=== PATIENT | female | born 1945 | race Caucasian/White ===

== ENCOUNTER → 2016-07-29 | Outpatient (CLI) | payer MEDICARE ==
[2016-07-29 12:29] LABS: Anion Gap 13 mmol/L; Blood Urea Nitrogen 16 mg/dL (7-17); Carbon Dioxide 16 mmol/L (22-30); Chloride 113 mmol/L (98-107); Non-African American GFR(MDRD) 52 (>60 ml/min/1.73 sqM); Potassium 3.8 mmol/L (3.5-5.1); Sodium 142 mmol/L (137-145)
--- NOTE | 2016-07-29 13:35 | CT ---
EXAMINATION TYPE: CT angio chest DATE OF EXAM: 07/29/2016 1:19 PM COMPARISON: NONE HISTORY: 71-year-old female SOB, pain TECHNIQUE: Contiguous axial scanning of the chest performed with IV Contrast, patient injected with 8 0 ml mL of Visipaque 320. Coronal/sagittal MIP reconstructions performed. CT DLP: 478.1 mGycm Automated exposure control for dose reduction was used. FINDINGS: Heart is normal size without pericardial effusion. Ascending aorta is mildly aneurysmal at 4.0 cm. There is conventional arch vessel branching anatomy w ith mild atherosclerotic arch calcifications. Satisfactory opacification of the pulmonary arterial system with slight respiratory motion. No eviden ce for pulmonary embolus. No thoracic lymphadenopathy seen. Evaluation of the lungs shows mild mid and lower lung bronchiectasis and some interstitial fibrosis i n the anterior left subpleural region. Surgical clips are noted at the left axilla as well. No consol idation or pleural effusion seen. There is a small hiatal hernia. Hypodense lesion left hepatic lobe measures 1.4 cm, too small for acc urate CT characterization, probable cyst. Moderate stool burden. Bones: Moderate degenerative disc disease and endplate spondylosis mid to lower thoracic spine. Degen erative changes at the right shoulder. No osseous destructive process. IMPRESSION: 1. NO EVIDENCE FOR PULMONARY EMBOLUS. 2. MILD ANEURYSM ASCENDING AORTA AT 4.0 CM. 3. MILD MID AND LOWER LUNG BRONCHIECTASIS WITHOUT ACUTE PULMONARY PROCESS. THERE APPEARS TO BE SOME S UBPLEURAL FIBROSIS ANTERIOR LEFT LUNG POSSIBLY DUE TO PREVIOUS RADIATION THERAPY. CLINICALLY CORRELAT E.
== END ==
LOC: RADCTMAIN 11:46
PROVIDERS: ATTEND Internal Medicine Cardiovascular Disease
DX: J47.9 Bronchiectasis, uncomplicated (principal); I71.2 Thoracic aortic aneurysm, without rupture
CPT/HCPCS: 80051; 82565; 84520; 71275; 36415; Q9967

== ENCOUNTER 2017-07-16 20:15 | Inpatient (IN) | payer MEDICARE ==
--- NOTE | 2017-07-16 20:50 | ED ---
General Adult HPI - General Chief complaint: Recheck/Abnormal Lab/Rx Stated complaint: foot infection Time Seen by Provider: 07/16/17 20:19 Source: patient, EMS, RN notes reviewed Mode of arrival: EMS Limitations: no limitations - History of Present Illness Initial comments: Shayla Mazariegos is a 72-year-old female with past medical history listed below who presents to the emergency department today from an outside hospital for admission for infection of her left second toe,bilateral lower extremity cellulitis and edema. patient presented to the outside hospital for evaluation of the edema of her bilateral lower extremities and ill appearance. Patient lives at home alone, she was one and half years ago after her suicide. she follows with the nurse practitioner at her primary care office, she states that she's been treated for her lower extremity edema with Lasix intermittently however the edema continues to recur. Patient is noted to recently swelling in her lower surety's is gotten worse and begin to limit her ability to walk. In addition she has noticed that she has a significant ulcer on the second toe of her left foot, this is been evaluated by wound care intermittently. Patient's neighbor reports that she was worried that the patient was getting sick and motivated her to come to the emergency department for evaluation. Outside hospital evaluation was concerning for sepsis secondary to infection and left lower extremity. Patient was given 40mg IV Lasix for her edema and Vancomycin for infection. - Related Data Home Medications Medication Instructions Recorded Confirmed Amitriptyline HCl [Elavil] 50 mg PO HS 07/16/17 07/16/17 Aspirin EC [Ecotrin] 325 mg PO DAILY 07/16/17 07/16/17 DULoxetine HCL [Cymbalta] 60 mg PO BID 07/16/17 07/16/17 Furosemide [Lasix] 40 mg PO DAILY 07/16/17 07/16/17 Gabapentin 800 mg PO QID 07/16/17 07/16/17 Levothyroxine Sodium [Synthroid] 200 mcg PO DAILY 07/16/17 07/16/17 Potassium Chloride [Klor-Con 20] 20 meq PO DAILY 07/16/17 07/16/17 Spironolactone [Aldactone] 50 mg PO BID 07/16/17 07/16/17 rOPINIRole HCL [Requip] 6 mg PO TID 07/16/17 07/16/17 Allergies Allergy/AdvReac Type Severity Reaction Status Date / Time Sulfa (Sulfonamide Allergy Unknown Verified 07/16/17 20:50 Antibiotics) Review of Systems ROS Statement: Those systems with pertinent positive or pertinent negative responses have been documented in the HPI. ROS Other: All systems not noted in ROS Statement are negative. Constitutional: Denies: fever, chills Eyes: Denies: vision change Respiratory: Reports: dyspnea. Denies: cough Cardiovascular: Reports: dyspnea on exertion, edema Endocrine: Reports: fatigue Gastrointestinal: Denies: abdominal pain, nausea, vomiting Genitourinary: Denies: urgency, dysuria Musculoskeletal: Denies: back pain Skin: Reports: lesions Neurological: Reports: weakness (generalized) Hematological/Lymphatic: Denies: easy bleeding, easy bruising Past Medical History Past Medical History: Heart Failure, Renal Disease, Thyroid Disorder Additional Past Medical History / Comment(s): chronic edema, chronic metabolic acidosis, neuropathy, insomnia, breast cancer History of Any Multi-Drug Resistant Organisms: None Reported Past Surgical History: Bariatric Surgery, Section, Cholecystectomy, Tonsillectomy Past Psychological History: Depression Smoking Status: Former smoker Past Alcohol Use History: None Reported Past Drug Use History: None Reported General Exam Limitations: no limitations General appearance: alert, in no apparent distress Head exam: Present: atraumatic, normocephalic Eye exam: Present: normal appearance, PERRL ENT exam: Present: other (mucous membranes are dry, there is an ulcer on the tip of the patient's tongue) Neck exam: Absent: lymphadenopathy Respiratory exam: Absent: respiratory distress Cardiovascular Exam: Present: regular rate, normal rhythm GI/Abdominal exam: Present: soft, other (obese). Absent: distended Rectal exam: Present: deferred Extremities exam: Present: pedal edema, other (skin changes on the bilateral lower extremities consistent with chronic venous stasis, erythema worse in the left concern for cellulitis) Left Foot/Toe exam: Present: swelling (edema foot and toes, erythematous cellulitic appearance. Second toe has a nonhealing ulcer that appears necrotic with surrounding skin breakdown and malodorous discharge.) Back exam: Present: normal inspection Neurological exam: Present: alert, oriented X3 Psychiatric exam: Present: depressed Skin exam: Present: other Course Vital Signs 07/16/17 07/16/17 07/16/17 20:18 21:21 21:29 Temperature 96.9 F L Pulse Rate 73 71 75 Pulse Rate [ [employer] ] Respiratory 16 18 20 Rate Blood Pressure 103/62 105/55 105/55 O2 Sat by Pulse 98 99 97 Oximetry 07/16/17 07/16/17 07/16/17 22:00 22:12 22:30 Temperature Pulse Rate 68 Pulse Rate [ 74 [employer] ] Respiratory 18 Rate Blood Pressure 96/57 102/59 O2 Sat by Pulse 98 Oximetry 07/16/17 23:16 Temperature 97.2 F L Pulse Rate 71 Pulse Rate [ [employer] ] Respiratory 22 Rate Blood Pressure 109/56 O2 Sat by Pulse 97 Oximetry Medical Decision Making - Medical Decision Making patient was seen and evaluated, history was obtained from the patient, her friend at bedside and review of medical record History, physical exam and workup an outside hospital are suggestive of cellulitis of the left lower extremity with a chronic wound, chronic edema, venous insufficiency, morbid obesity Patient is arty received IV vancomycin at outside facility as well as Lasix There are no venous Dopplers performed at outside facility, patient is not anticoagulated and does have bilateral lower extremity edema. I will order venous Dopplers to evaluate for DVT In addition the patient is complaining of leg spasms for which she takes Requip , Requip was ordered. Patient complaining that her back is sore from lying in the [facility], patient's blood pressure is somewhat low so IV fentanyl was ordered rather than morphine patient care was discussed with Dr. Perdomo who accepts the admission with a consult to Dr. Cox for wound management Admission orders placed Disposition Clinical Impression: Encounter for wound re-check, Venous stasis, Lower extremity edema, Ulcer of toe of left foot, Leukocytosis Disposition: ADMITTED IP TO THIS HOSP Condition: Good Referrals: Shira Tucker MD [Primary Care Provider] - 1-2 days Time of Disposition: 23:06
[2017-07-16] MEDS ORDERED: MORPHINE SULFATE 4 MG/ML SYRINGE IVP STA (21:19)
[2017-07-16] MEDS ORDERED: fentaNYL (PF) 50 MCG/ML 2 ML AMP IV STA (22:01)
[2017-07-16] MEDS ORDERED: MORPHINE SULFATE 4 MG/ML SYRINGE IV PRN (23:06)
[2017-07-16] MEDS ORDERED: NALOXONE 0.4 MG/ML 1 ML VIAL IV PRN (23:06)
--- NOTE | 2017-07-17 07:03 | US ---
EXAMINATION TYPE: US venous doppler duplex LE BI DATE OF EXAM: 07/16/2017 10:14 PM COMPARISON: NONE CLINICAL HISTORY: Pain. Edema SIDE PERFORMED: Bilateral TECHNIQUE: The lower extremity deep venous system is examined utilizing real time linear array sonog ashley with graded compression, doppler sonography and color-flow sonography. VESSELS IMAGED: External Iliac Vein (EIV) Common Femoral Vein Deep Femoral Vein Greater Saphenous Vein * Femoral Vein Popliteal Vein Small Saphenous Vein * Proximal Calf Veins (* superficial vessels) Right Leg: Negative for DVT Left Leg: Negative for DVT Grayscale, color doppler, spectral doppler imaging performed of the deep veins of the bilateral lower extremities. There is normal flow, compressibility, vascular waveforms. IMPRESSION: No ultrasound evidence for acute DVT in either lower extremity.
[2017-07-17 08:36] LABS: Basophils % (A) 0 %; Eosinophils # (A) 0.4 k/uL (0-0.7); Eosinophils % (A) 5 %; HCT 34.8 % (34.0-46.0); HGB 10.5 gm/dL (11.4-16.0); Hypochromasia Marked; Lymphocytes # (A) 1.2 k/uL (1.0-4.8); Lymphocytes % (A) 16 %; MCH 25.4 pg (25.0-35.0); MCHC 30.2 g/dL (31.0-37.0); Mean Platelet Volume 7.1; Monocytes # (A) 0.4 k/uL (0-1.0); Monocytes % (A) 5 %; Neutrophils # (A) 5.3 k/uL (1.3-7.7); Neutrophils % (A) 72 %; Platelet Count 422 k/uL (150-450); RBC 4.14 m/uL (3.80-5.40); RDW 15.8 % (11.5-15.5); WBC 7.4 k/uL (3.8-10.6)
[2017-07-17 08:57] LABS: Calcium 9.4 mg/dL (8.4-10.2)
[2017-07-17] MEDS: GABAPENTIN 400 MG CAP PO SCH ×4 (09:32→21:16)
[2017-07-17] MEDS: ASPIRIN 325 MG TAB PO SCH (09:32)
[2017-07-17] MEDS: POTASSIUM CHLORIDE ER 20 MEQ TAB.ER PO SCH (09:32)
[2017-07-17] MEDS: FUROSEMIDE 40 MG TAB PO SCH (09:32)
[2017-07-17] MEDS: LEVOTHYROXINE 100 MCG TAB PO SCH (09:32)
[2017-07-17] MEDS: SPIRONOLACTONE 25 MG TAB PO SCH ×2 (09:32→21:17)
[2017-07-17] MEDS: DULoxetine HCL 60 MG CAPSULE.DR PO SCH ×2 (09:33→21:16)
[2017-07-17] MEDS: rOPINIRole HCL 4 MG TABLET PO SCH ×3 (09:33→21:17)
--- NOTE | 2017-07-17 09:50 | P.CONS ---
History of Present Illness - Reason for Consult Consult date: 07/17/17 Foot wound infection - History of Present Illness This is a 72-year-old female that gives history that she follows with Eliecer Gomez NP, and has been treated for lower extremity edema for a long period of time. Her Lasix and Aldactone were increased to double and for about 1-2 weeks she did have some improvement but she couldn't stay on the higher dose for long and her edema returned. She also has a wound to the left second toe that has been there for greater than 1 year. She does not recall any injury or how it started. She does have significant neuropathy to the lower extremities of unknown etiology. She denies being on any recent antibiotics. Patient states she has been using Epson salt soaks and she was supposed to wrap her legs but it's been too hard. She states she cannot even apply socks. She has been encouraged to go to the hospital for the past 6-8 weeks the patient has been reluctant and finally went to [facility] yesterday. Her white count was 11.3, hemoglobin 9.7, platelet count 447. Sodium 135, potassium 4.2, chloride 107, CO2 14, BUN 39 and creatinine 1.7. Alkaline phosphatase 117. Chest x-ray was negative. X-ray of the left foot showed degenerative joint disease with skin lesion on the second toe. Patient was given ceftriaxone, vancomycin and morphine and then transferred to [facility] emergency center where she underwent an ultrasound duplex of the lower extremity is which was negative for DVT. Patient was then admitted to the [facility] floor. Patient does give history that in the 1970s after her gastric bypass she did have a problem with kidney failure but since that time has not had trouble with her kidneys. Patient also discussed that her 1-1/ 2 years ago and she has been very depressed. She has been on Cymbalta for many years was treated in the remote past by Dr. Raymundo. She is currently living alone and states that she sits for long periods of time without having any motivation to do anything. She does relate increased depression and is open to seeing a psychiatrist and possible follow-up in the outpatient setting. Patient has significant weakness and inability to move in bed as well as ambulate which she states is much worse over the past 3 days. Patient denies having any fever or chills. She denies any change in her appetite. She does complain of some shortness of breath and cough butsputum production. Patient is noted to be hoarse and she states this started since treated for lower extremity edema. Patient does not have family support but does have one good friend that has been good support for her. Review of Systems All systems: negative Constitutional: Reports fatigue, Reports weakness, Denies chills, Denies fever Eyes: denies blurred vision, denies pain Ears, nose, mouth and throat: Reports mouth pain, Denies dental pain, Denies headache, Denies sore throat, Denies vertigo Cardiovascular: Reports leg edema, Reports shortness of breath, Denies chest pain, Denies lightheadedness, Denies syncope Respiratory: Reports cough, Reports dyspnea, Reports wheezing, Denies cough with sputum, Denies excessive sputum, Denies hemoptysis, Denies home oxygen Gastrointestinal: Denies abdominal pain, Denies diarrhea, Denies nausea, Denies vomiting Genitourinary: Denies dysuria, Denies hematuria Musculoskeletal: Denies myalgias Integumentary: Reports wounds, Denies pruritus, Denies rash Neurological: Denies numbness, Denies weakness Psychiatric: Reports depression, Denies anxiety Endocrine: Denies fatigue, Denies weight change Past Medical History Past Medical History: Heart Failure, Renal Disease, Thyroid Disorder Additional Past Medical History / Comment(s): chronic edema, chronic metabolic acidosis, neuropathy, insomnia, breast cancer status post lumpectomy, chemo and radiation treatment in 2002, both of acute kidney failure in the 1970s after gastric bypass History of Any Multi-Drug Resistant Organisms: None Reported Past Surgical History: Bariatric Surgery, Section, Cholecystectomy, Tonsillectomy Additional Past Surgical History / Comment(s): Gastric bypass, left breast lumpectomy, breast biopsy Past Anesthesia/Blood Transfusion Reactions: No Reported Reaction Past Psychological History: Depression Smoking Status: Never smoker Past Alcohol Use History: None Reported Additional Past Alcohol Use History / Comment(s): Patient is a lifelong nonsmoker. She denies any medical marijuana, marijuana, street drug or alcohol use. 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 She currently lives at home and has 2 dogs in the house and one outdoor cat. She recently had to give away 30 L jaycee because she could not take care of them any longer. Her committed suicide 1-1/2 years ago. She does not have family support system. She does have one good friend that helps her. Past Drug Use History: None Reported - Past Family History Father History Unknown: Yes Family Medical History: Diabetes Mellitus Additional Family Medical History / Comment(s): unaware of entire history. Mother History Unknown: Yes Family Medical History: Chest Pain / Angina, Coronary Artery Disease (CAD), Diabetes Mellitus Medications and Allergies Home Medications Medication Instructions Recorded Confirmed Type Aspirin EC [Ecotrin] 325 mg PO DAILY 07/16/17 07/16/17 History DULoxetine HCL [Cymbalta] 60 mg PO BID 07/16/17 07/16/17 History Furosemide [Lasix] 40 mg PO DAILY 07/16/17 07/16/17 History Gabapentin 800 mg PO QID 07/16/17 07/16/17 History Levothyroxine Sodium [Synthroid] 200 mcg PO DAILY 07/16/17 07/16/17 History Potassium Chloride [Klor-Con 20] 20 meq PO DAILY 07/16/17 07/16/17 History rOPINIRole HCL [Requip] 6 mg PO TID 07/16/17 07/16/17 History cefTRIAXone [Rocephin] 2,000 mg IVPB Q24HR #42 vial 07/20/17 Rx ARIPiprazole [Abilify] 2 mg PO DAILY #30 tab 07/21/17 Rx Imipramine [Tofranil] 25 mg PO HS #30 tab 07/21/17 Rx Midodrine [ProAmatine] 5 mg PO AC-TID #90 tab 07/21/17 Rx Allergies Allergy/AdvReac Type Severity Reaction Status Date / Time Sulfa (Sulfonamide Allergy Unknown Verified 07/16/17 20:50 Antibiotics) Physical Exam Vitals: Vital Signs Temp Pulse Pulse Pulse Resp BP BP 07/17/17 08:50 103/64 07/17/17 07:00 96.7 F L 68 20 07/17/17 00:00 97.0 F L 68 16 111/82 07/16/17 23:16 97.2 F L 71 22 109/56 07/16/17 22:30 102/59 07/16/17 22:12 68 18 96/57 07/16/17 22:00 74 07/16/17 21:29 75 20 105/55 07/16/17 21:21 71 18 105/55 07/16/17 20:18 96.9 F L 73 16 103/62 Pulse Ox 07/17/17 08:50 07/17/17 07:00 96 07/17/17 00:00 98 07/16/17 23:16 97 07/16/17 22:30 07/16/17 22:12 98 07/16/17 22:00 07/16/17 21:29 97 07/16/17 21:21 99 07/16/17 20:18 98 Intake and Output 07/16/17 07/17/17 07/17/17 22:59 06:59 14:59 Other: Voiding Method Bedside Commode # Voids 1 Weight 117.48 kg 117 kg Gen: This is a morbidly obese 72-year-old female. She appears to be no acute respiratory distress at rest. HEENT: Head is atraumatic, normocephalic. Pupils equal, round. Sclerae is anicteric. Conjunctiva pink. Mucous members of the mouth are moist. Weight coating on part of her tongue noted. Dentition in poor order. NECK: Supple. No JVD. No lymphadenopathy. No thyromegaly. LUNGS: Clear to auscultation. No wheezes or rhonchi. No intercostal retractions. HEART: Regular rate and rhythm. Distant heart sounds. No murmur. ABDOMEN: Morbidly obese. Soft. Bowel sounds are present. No masses. No tenderness. EXTREMITIES: Firm edema to the lower extremities. Dorsalis pedis +1 bilaterally. Onychomycosis bilaterally. Patient has a small lesion to the distal second toe with no drainage. Toe is tender to touch. NEUROLOGICAL: Patient is awake, alert and oriented x3. Cranial nerves 2 through 12 are grossly intact. Results Results: Laboratory Results WBC 7.4 k/uL (3.8-10.6) 07/17/17 08:09 RBC 4.14 m/uL (3.80-5.40) 07/17/17 08:09 Hgb 10.5 gm/dL (11.4-16.0) L 07/17/17 08:09 Hct 34.8 % (34.0-46.0) 07/17/17 08:09 MCV 84.0 fL (80.0-100.0) 07/17/17 08:09 MCH 25.4 pg (25.0-35.0) 07/17/17 08:09 MCHC 30.2 g/dL (31.0-37.0) L 07/17/17 08:09 RDW 15.8 % (11.5-15.5) H 07/17/17 08:09 Plt Count 422 k/uL (150-450) 07/17/17 08:09 Neutrophils % 72 % 07/17/17 08:09 Lymphocytes % 16 % 07/17/17 08:09 Monocytes % 5 % 07/17/17 08:09 Eosinophils % 5 % 07/17/17 08:09 Basophils % 0 % 07/17/17 08:09 Neutrophils # 5.3 k/uL (1.3-7.7) 07/17/17 08:09 Lymphocytes # 1.2 k/uL (1.0-4.8) 07/17/17 08:09 Monocytes # 0.4 k/uL (0-1.0) 07/17/17 08:09 Eosinophils # 0.4 k/uL (0-0.7) 07/17/17 08:09 Basophils # 0.0 k/uL (0-0.2) 07/17/17 08:09 Hypochromasia Marked 07/17/17 08:09 Sodium 140 mmol/L (137-145) 07/17/17 08:09 Potassium 4.0 mmol/L (3.5-5.1) 07/17/17 08:09 Chloride 110 mmol/L (98-107) H 07/17/17 08:09 Carbon Dioxide 17 mmol/L (22-30) L 07/17/17 08:09 Anion Gap 13 mmol/L 07/17/17 08:09 BUN 37 mg/dL (7-17) H 07/17/17 08:09 Creatinine 1.77 mg/dL (0.52-1.04) H 07/17/17 08:09 Est GFR (MDRD) Af Amer 34 (>60 ml/min/1.73 sqM) 07/17/17 08:09 Est GFR (MDRD) Non-Af 28 (>60 ml/min/1.73 sqM) 07/17/17 08:09 Glucose 89 mg/dL (74-99) 07/17/17 08:09 Calcium 9.4 mg/dL (8.4-10.2) 07/17/17 08:09 CBC & Chem 7: 07/21/17 09:11 07/21/17 09:11 Labs: Abnormal Lab Results - Last 24 Hours (Table) 07/17/17 Range/Units 08:09 Hgb 10.5 L (11.4-16.0) gm/dL MCHC 30.2 L (31.0-37.0) g/dL RDW 15.8 H (11.5-15.5) % Assessment and Plan Plan: This is a 72-year-old female patient who presented to the hospital with lower extremity edema and wound to the left second toe failed outpatient treatment. Patient will be started on ceftriaxone and bone scan will be ordered. Nystatin added for thrush. Consult with Dr. Nur for acute kidney injury. Also added and consult with psychiatry for depression with an social work to provide counselors in her area as well as patient may require rehab. PT and OT have been ordered. Wound culture ordered. Wound care will be addressed. Continue supportive care. Further recommendations as patient presses. The above dictated assessment and findings were discussed with Dr. Cox. The impression and plan of care have been directed as dictated. Samanta Lin nurse practitioner acting as scribe for Dr. Cox.
[2017-07-17] MEDS: cefTRIAXone IN SWFI 2,000 MG/20 ML SYRINGE IVP SCH (10:54)
[2017-07-17] MEDS: NYSTATIN 100,000 UNIT/ML SUSP 500,000 UNIT/5 ML CUP PO SCH ×4 (10:54→21:16)
--- NOTE | 2017-07-17 12:49 | CONS ---
CONSULTATION DATE OF CONSULTATION: 07/17/2017 PURPOSE FOR CONSULTATION: Evaluate for depression. HISTORY OF PRESENTING ILLNESS: The patient is a 72-year-old female. The patient was admitted for chronic wound issues, exacerbation of chronic edema and venous insufficiency. From a psychiatric standpoint, the patient reports that she has had long-term problems with depression. She is on Cymbalta 60 mg twice a day. She says that she has been on Cymbalta for a considerable period time. She believes that Cymbalta had been helpful in the past for depression, though more recently she has had more problems with depression. She could not really provide the details regarding that. When we talked about alternative options for treatment, she did say that she thinks Cymbalta may help her with her peripheral neuropathy. She says that she had been started on Elavil. She currently is on 50 mg a day. Her understanding was that Elavil was started to help augment her antidepressant. She said she had contact with a psychiatrist who informed her that Elavil would not provide any benefits for her psychiatric issues. She notes that she has had sleep problems. She thought Elavil used to help her with sleep although does not seem to be helping now. She lost her , which significantly exacerbated depression. She says that overall she has had depression most all of her life. She tolerates her psychotropic medications well. She is on Synthroid for hypothyroidism. There are not recent thyroid studies in the record. Patient reports that since she has been in the hospital, she has not been sleeping too well. She continues with a moderate amount of anxiety and depression. MENTAL STATUS: Patient gave good eye contact. She spoke with a hoarse voice. She answered questions directly. Her thoughts were clear. She did not say a lot, though the information she provided was accurate and appropriate. Her affect was blunted. Her mood reserved. It was difficult to say how distressed she might be relating to her mood issues. ASSESSMENT: This 72-year-old female is diagnosed with major depression. She is on a maximum dose of Cymbalta. She says that Cymbalta had been helping, though seems to have lost benefits. Stress related to grief from the of her may be a significant factor. At this point, I will start the patient on Abilify 2 mg a day. The indication for Abilify is to augment her antidepressant. I would give her just 1 to 2 weeks on Abilify. If she does not show a good response to Abilify augmentation, I would look to switch to an alternative antidepressant. It would be reasonable to look at starting medicine such as Prozac, which she has not been on before; along with that a slow taper of Cymbalta. I discussed with the patient that any antidepressants may be beneficial in regards to her peripheral neuropathy, though also Cymbalta may help her peripheral neuropathy even at a lower doses than the current dose. I will check thyroid levels. If her TSH is elevated, there would be consideration for bumping up her replacement hormone, which also can augment her antidepressant. I will discontinue Elavil and start the patient on Tofranil 25 mg at bedtime. Tofranil may help with sleep. Elavil does have risk of a greater amount of anticholinergic effects compared to Tofranil which could complicate her treatment in other ways. MMODL / IJN: [id number] /
--- NOTE | 2017-07-17 12:58 | P.HPIM ---
History of Present Illness H&P Date: 07/17/17 Chief Complaint: Bilateral lower extremity edema and cellulitis This is a 72-year-old female, patient of Dr. Tucker. She has a known past medical history of chronic kidney disease, hypothyroidism, breast cancer status post chemo and radiation treatment, depression, lower extremity neuropathy possibly related to a B12 deficiency. Patient also has a history of gastric bypass surgery in 2002. Possible congestive heart failure history. Patient reports that over the last few months she has had increased swelling in her lower extremities. Her family doctor had double up on the patient's Lasix. Patient is not sure exactly what what the dose was. She also would had been taking Aldactone. She does admit to having some shortness of breath with activity. Patient does report about a 19 pound weight gain. She is developed redness in the tibia area on both legs. She has a also her on the left second toe. She's been admitted to the hospital for her left foot wound and lower extremity edema with cellulitis. Dopplers were negative for DVT. Infectious disease was consulted and they have added IV Rocephin. Case was discussed with ID nurse practitioner and appreciate her input. Nephrology has been consulted as well as psychiatry. Patient's over a year ago after committing suicide. Patient reports that she has been on her antidepressants for several years with no change. She does show signs of depression. With lack of motivation to take care of herself. However, she denies any suicidal or homicidal ideation. Patient denies any chest pain denies any fever or chills or sweats. Denies any bowel movement changes or urinary symptoms. Review of Systems Please refer to HPI otherwise unremarkable Past Medical History Past Medical History: Heart Failure, Renal Disease, Thyroid Disorder Additional Past Medical History / Comment(s): chronic edema, chronic metabolic acidosis, neuropathy, insomnia, breast cancer status post lumpectomy, chemo and radiation treatment in 2002, both of acute kidney failure in the 1970s after gastric bypass History of Any Multi-Drug Resistant Organisms: None Reported Past Surgical History: Bariatric Surgery, Section, Cholecystectomy, Tonsillectomy Additional Past Surgical History / Comment(s): Gastric bypass, left breast lumpectomy, breast biopsy Past Anesthesia/Blood Transfusion Reactions: No Reported Reaction Past Psychological History: Depression Smoking Status: Never smoker Past Alcohol Use History: None Reported Additional Past Alcohol Use History / Comment(s): Patient is a lifelong nonsmoker. She denies any medical marijuana, marijuana, street drug or alcohol use. 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 She currently lives at home and has 2 dogs in the house and one outdoor cat. She recently had to give away 30 L jaycee because she could not take care of them any longer. Her committed suicide 1-1/2 years ago. She does not have family support system. She does have one good friend that helps her. Past Drug Use History: None Reported - Past Family History Father History Unknown: Yes Family Medical History: Diabetes Mellitus Additional Family Medical History / Comment(s): unaware of entire history. Mother History Unknown: Yes Family Medical History: Chest Pain / Angina, Coronary Artery Disease (CAD), Diabetes Mellitus Medications and Allergies Home Medications Medication Instructions Recorded Confirmed Type Amitriptyline HCl [Elavil] 50 mg PO HS 07/16/17 07/16/17 History Aspirin EC [Ecotrin] 325 mg PO DAILY 07/16/17 07/16/17 History DULoxetine HCL [Cymbalta] 60 mg PO BID 07/16/17 07/16/17 History Furosemide [Lasix] 40 mg PO DAILY 07/16/17 07/16/17 History Gabapentin 800 mg PO QID 07/16/17 07/16/17 History Levothyroxine Sodium [Synthroid] 200 mcg PO DAILY 07/16/17 07/16/17 History Potassium Chloride [Klor-Con 20] 20 meq PO DAILY 07/16/17 07/16/17 History Spironolactone [Aldactone] 50 mg PO BID 07/16/17 07/16/17 History rOPINIRole HCL [Requip] 6 mg PO TID 07/16/17 07/16/17 History Allergies Allergy/AdvReac Type Severity Reaction Status Date / Time Sulfa (Sulfonamide Allergy Unknown Verified 07/16/17 20:50 Antibiotics) Physical Exam Vitals: Vital Signs Temp Pulse Pulse Pulse Resp BP BP 07/17/17 08:50 103/64 07/17/17 07:00 96.7 F L 68 20 07/17/17 00:00 97.0 F L 68 16 111/82 07/16/17 23:16 97.2 F L 71 22 109/56 07/16/17 22:30 102/59 07/16/17 22:12 68 18 96/57 07/16/17 22:00 74 07/16/17 21:29 75 20 105/55 07/16/17 21:21 71 18 105/55 07/16/17 20:18 96.9 F L 73 16 103/62 Pulse Ox 07/17/17 08:50 07/17/17 07:00 96 07/17/17 00:00 98 07/16/17 23:16 97 07/16/17 22:30 07/16/17 22:12 98 07/16/17 22:00 07/16/17 21:29 97 07/16/17 21:21 99 07/16/17 20:18 98 Intake and Output 07/16/17 07/17/17 07/17/17 22:59 06:59 14:59 Other: Voiding Method Bedside Commode # Voids 1 Weight 117.48 kg 117 kg Head normocephalic Neck supple Lungs clear to auscultation bilaterally no wheezing or crackles Heart regular rate and rhythm S1-S2, no rub or gallop Abdomen is soft nontender nondistended positive bowel sounds no hepatosplenomegaly Extremities edema bilateral lower extremities. Erythema noted in the tibias. Second toe of the left foot distal aspect with ulcer is about 5 mm in size. No drainage. Toe is tender with palpation. Neuro alert and orientated to 3 Results CBC & Chem 7: 07/17/17 08:09 07/17/17 08:09 Labs: Abnormal Lab Results - Last 24 Hours (Table) 07/17/17 07/17/17 Range/Units 08:09 08:09 Hgb 10.5 L (11.4-16.0) gm/dL MCHC 30.2 L (31.0-37.0) g/dL RDW 15.8 H (11.5-15.5) % Chloride 110 H (98-107) mmol/L Carbon Dioxide 17 L (22-30) mmol/L BUN 37 H (7-17) mg/dL Creatinine 1.77 H (0.52-1.04) mg/dL Thrombosis Risk Factor Assmnt - Choose All That Apply Any of the Below Risk Factors Present?: Yes Each Factor Represents 1 point: Heart failure (<1month), Obesity (BMI >25), Swollen legs (current), Varicose veins Each Risk Factor Represents 2 Points: Age 61-74 years Thrombosis Risk Factor Assessment Total Risk Factor Score: 6 Thrombosis Risk Factor Assessment Level: High Risk Assessment and Plan Assessment: 1. Bilateral lower extremity edema with cellulitis: Doppler was negative for DVT. Continue IV Rocephin. Continue Lasix and Aldactone 2. Shortness of breath with activity: Check chest x-ray and BNP 3. Acute on chronic kidney disease stage III: Nephrology has been consulted. Patient is on diuretics that had been increase in the outpatient setting. 4. Left second toe ulcer stage II or 3: Continue antibiotics. Infectious disease consulted they've ordered a bone scan 5. Depression: Psychiatry consulted. They've ordered thyroid studies. 6. History of breast cancer status post chemoradiation treatment 7. History of neuropathy from a possible B12 deficiency 8. Chronic metabolic acidosis: Patient will be evaluated by nephrology 9. Oral thrush and mouth ulcers. Nystatin swish and swallow ordered by ID 10. Hypothyroidism continue Synthroid GI prophylaxis Protonix and DVT prophylaxis heparin Time with Patient: Greater than 30 (Greater than 50% of the total time spent in counseling and coordination of care.I performed an examination of the patient and discussed their management with the physician Oyster Harvester. I have reviewed the Physician Oyster Harvester's notes and agree with the documented findings and plan of care)
--- NOTE | 2017-07-17 13:36 | XR ---
EXAMINATION TYPE: XR chest 2V DATE OF EXAM: 07/17/2017 COMPARISON: NONE INDICATION: Shortness of breath TECHNIQUE: Frontal and lateral views of the chest are obtained. FINDINGS: The heart size is normal. The pulmonary vasculature is normal. The lungs are clear. Surgical clips in left axillary region. IMPRESSION: 1. No acute pulmonary process.
[2017-07-17] MEDS: ARIPiprazole 2 MG TAB PO SCH (13:48)
[2017-07-17 13:52] LABS: T4, Free (Free Thyroxine) 1.08 ng/dL (0.78-2.19)
[2017-07-17] MEDS ORDERED: FUROSEMIDE 10 MG/ML 4 ML VIAL IV STA (14:10)
--- NOTE | 2017-07-17 15:13 | CONS ---
CONSULTATION DATE OF CONSULTATION: 07/17/2017. REASON FOR CONSULT: Renal failure. HISTORY OF PRESENT ILLNESS: Patient is a 72-year-old female who was admitted to the hospital with complaints of pain and swelling in her left 2nd toe. The patient also states she has an increased lower extremity edema. She denies any significant chest pains or shortness of breath. The patient did state that she has had weak kidney function on and off, but has not seen a elementary librarian previously. Serum creatinine was 1.7 mg/dL on admission today. Repeat of previous labs shows a serum creatinine of 1.2 and 1.1 mg/dL as of 07/02/2017 and 08/27/2016, respectively. The patient denies use of any nonsteroidal anti- inflammatory agents recently. Her blood pressure has been slightly on the lower side with systolic around 103 mmHg. The patient has not received any IV contrast. She is maintained on oral Lasix 40 mg p.o. PAST MEDICAL HISTORY: Hypertension, hypothyroidism, chronic lower extremity edema. History of breast cancer status post lumpectomy and chemo therapy and radiation therapy in 2002. Previous history of acute kidney injury. Obesity, status post gastric bypass. PAST SURGICAL HISTORY: Bariatric surgery, , cholecystectomy, tonsillectomy, left breast lumpectomy. SOCIAL HISTORY: Negative for smoking, drug abuse, or alcohol abuse. Patient does have a history of depression. MEDICATIONS: Medications at home prior to admission included Elavil, Ecotrin, Cymbalta, Lasix, gabapentin, Synthroid, potassium, Aldactone, Requip. ALLERGIES: Include SULFA. EXAMINATION: Patient is comfortable. She is not in any acute distress. However, she is uncomfortable with the edema. Blood pressure is 103/64, heart rate 68 per minute. She is afebrile. Examination of the heart: S1, S2. Examination lungs: Bilateral breath sounds are heard. Occasional wheezing is heard. Abdomen is soft morbidly obese. Examination of lower extremity shows chronic skin changes, edema 3+ bilaterally mainly chronic. Left foot is wrapped. 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 LABS SHOW: Sodium 140, potassium 4.0, chloride 110, CO2 of 17, serum creatinine 1.7, BUN 37, hemoglobin 10.5 g/dL. ASSESSMENT: 1. Acute kidney injury, possibly related to hypoperfusion. Blood pressure has been on the lower side. The patient is not on BRUNILDA inhibitors or NSAIDs at home. Her chest x-ray does not show any significant pulmonary vascular congestion. I will give her 1 dose of IV push Lasix and continue to maintain her on the oral Lasix for now. Her urinalysis will be ordered. The patient should also have an ultrasound of the kidneys. However, I am not sure about the quality of the study given her weight. 2. Metabolic acidosis, non gap secondary to renal failure. 3. Anemia, rule out iron deficiency. 4. Chronic lower extremity edema. I should check an echocardiogram for right-sided heart pressures. 5. Chronic kidney disease with previous creatinine about 1.2 mg/dL on 07/02/2017, most likely secondary to nephrosclerosis. Check urinalysis. NKF stage III. 6. Hypothyroidism, maintained on supplementation. PLAN: IV Lasix x1. Continue the oral dose of diuretics for now. Repeat labs in a.m. Check urinalysis and will continue to follow the patient with you during her hospitalization. Thank you for the consultation. MMODL / IJN: [id number] /
[2017-07-17 15:21] VITALS: BMI 41.6
[2017-07-17 16:40] LABS: Appearance,Urine Clear (Clear); Bilirubin,Urine Negative (Negative); Blood,Urine Negative (Negative); Color,Urine Light Yellow; Glucose,Urine (UA) Negative (Negative); Ketones,Urine Negative (Negative); Leukocyte Esterase,Urine Negative (Negative); Nitrite,Urine Negative (Negative); Protein,Urine Negative (Negative); Specific Gravity,Urine 1.006 (1.001-1.035); Urobilinogen,Urine <2.0 mg/dL (<2.0)
--- NOTE | 2017-07-17 17:36 | NM ---
EXAMINATION TYPE: NM bone 3 phase DATE OF EXAM: 07/17/2017 COMPARISON: NONE HISTORY: Triple phase bone scintigraphy was performed following the injection of23.8 mCi Tc 99m MDP. Immediat e images and 3 hours post injection images acquired. FINDINGS: Blood flow: There is increased radiotracer accumulation to the distal left foot compared to the right . Blood pool: There is increased radiotracer accumulation in the region of the second digit on the left foot and blood pool. Static images: There is a photopenic defect in the region of the second left digit. Increased radiotr acer accumulation is in the first metatarsophalangeal joint space of the bilateral feet left more so than right. Increased radiotracer is in the region of the proximal feet most likely degenerative in n ature. Typically acute osteomyelitis is hot on all 3 phases of bone scan. A very aggressive osteomyelitis po tentially could have a photopenic defect. Consider correlation with left foot x-ray. IMPRESSION: Radiotracer accumulation within the distal left foot second digit on blood flow and blood pool images with a photopenic defect in this region on static images. An aggressive osteomyelitis should be cons idered. Correlation with plain films recommended.
[2017-07-17] MEDS ORDERED: MORPHINE ORAL SOLN 10 MG/5 ML CUP PO PRN (19:15)
[2017-07-17 19:56] LABS: Iron Saturation 7.28 (12.00-45.00)
[2017-07-17] MEDS ORDERED: AMITRIPTYLINE HCL 50 MG TAB PO SCH (21:00)
[2017-07-17] MEDS: IMIPRAMINE 25 MG TAB PO SCH (21:16)
[2017-07-17] MEDS: HEPARIN SODIUM,PORCINE 5,000 UNIT/ML 1 ML VIAL SQ SCH (21:17)
--- NOTE | 2017-07-17 23:12 | P.CON ---
Consult Note - . Consult date: 07/17/17 Assessment/Plan:: This is a 72-year-old female that gives history that she follows with Eliecer Gomez NP, and has been treated for lower extremity edema for a long period of time. Her Lasix and Aldactone were increased to double and for about 1-2 weeks she did have some improvement but she couldn't stay on the higher dose for long and her edema returned. She also has a wound to the left second toe that has been there for greater than 1 year. She does not recall any injury or how it started. She does have significant neuropathy to the lower extremities of unknown etiology. She denies being on any recent antibiotics. Patient states she has been using Epson salt soaks and she was supposed to wrap her legs but it's been too hard. She states she cannot even apply socks. She has been encouraged to go to the hospital for the past 6-8 weeks the patient has been reluctant and finally went to [facility] yesterday. Her white count was 11.3, hemoglobin 9.7, platelet count 447. Sodium 135, potassium 4.2, chloride 107, CO2 14, BUN 39 and creatinine 1.7. Alkaline phosphatase 117. Chest x-ray was negative. X-ray of the left foot showed degenerative joint disease with skin lesion on the second toe. Patient was given ceftriaxone, vancomycin and morphine and then transferred to [facility] emergency center where she underwent an ultrasound duplex of the lower extremity is which was negative for DVT. Patient was then admitted to the [facility] floor. Patient does give history that in the 1970s after her gastric bypass she did have a problem with kidney failure but since that time has not had trouble with her kidneys. Patient also discussed that her 1-1/ 2 years ago and she has been very depressed. She has been on Cymbalta for many years was treated in the remote past by Dr. Raymundo. She is currently living alone and states that she sits for long periods of time without having any motivation to do anything. She does relate increased depression and is open to seeing a psychiatrist and possible follow-up in the outpatient setting. Patient has significant weakness and inability to move in bed as well as ambulate which she states is much worse over the past 3 days. Patient denies having any fever or chills. She denies any change in her appetite. She does complain of some shortness of breath and cough but no sputum production. Patient is noted to be hoarse and she states this started since treated for lower extremity edema. Patient does not have family support but does have one good friend that has been good support for her. Please see the consult note is dictated by nurse practitioner Mrs. Samanta Lni. The patient has been seen by psychiatry and is feeling considerably better since that evaluation. She has evidence of the significant ulceration to the left foot second toe that she has not had extensive amount of medical care for. Antibiotic therapy currently is with Rocephin which will be continued until there is further culture data. Bone scan is requested to evaluate for underlying osteomyelitis Local wound care will be with medical honey and a wrap to keep it in place. Baseline laboratories will be requested. Multivitamin with zinc is requested and her tetanus vaccine status is being evaluated. I agree with evaluation, assessment and plan is dictated by nurse practitioner Mrs. Samanta Lin.
[2017-07-18] MEDS: LEVOTHYROXINE 100 MCG TAB PO SCH (06:33)
[2017-07-18] MEDS: rOPINIRole HCL 4 MG TABLET PO SCH ×3 (08:17→20:53)
[2017-07-18] MEDS: GABAPENTIN 400 MG CAP PO SCH ×4 (08:18→20:53)
[2017-07-18] MEDS: HEPARIN SODIUM,PORCINE 5,000 UNIT/ML 1 ML VIAL SQ SCH ×2 (08:18→20:54)
[2017-07-18] MEDS: ASPIRIN 325 MG TAB PO SCH (08:18)
[2017-07-18] MEDS: DULoxetine HCL 60 MG CAPSULE.DR PO SCH ×2 (08:18→20:53)
[2017-07-18] MEDS: PANTOPRAZOLE 40 MG TABLET PO SCH (08:19)
[2017-07-18] MEDS: ARIPiprazole 2 MG TAB PO SCH (08:19)
[2017-07-18] MEDS: FUROSEMIDE 40 MG TAB PO SCH (08:19)
[2017-07-18] MEDS: NYSTATIN 100,000 UNIT/ML SUSP 500,000 UNIT/5 ML CUP PO SCH ×4 (08:20→20:54)
[2017-07-18] MEDS: POTASSIUM CHLORIDE ER 20 MEQ TAB.ER PO SCH (08:20)
[2017-07-18] MEDS: SPIRONOLACTONE 25 MG TAB PO SCH (08:21)
[2017-07-18] MEDS: cefTRIAXone IN SWFI 2,000 MG/20 ML SYRINGE IVP SCH (08:27)
--- NOTE | 2017-07-18 08:44 | ECHOF ---
Referral Reason:check EF MEASUREMENTS -------- HEIGHT: 167.6 cm WEIGHT: 116.6 kg BP: 103/64 RVIDd: 3.4 cm (< 3.3) IVSd: 1.1 cm (0.6 - 1.1) LVIDd: 5.0 cm (3.9 - 5.3) LVPWd: 1.2 cm (0.6 - 1.1) IVSs: 1.2 cm LVIDs: 3.4 cm LVPWs: 1.2 cm LAESV Index (A-L): 24.35 ml/m Ao Diam: 3.2 cm (2.0 - 3.7) AV Cusp: 1.9 cm (1.5 - 2.6) LA Diam: 3.5 cm (2.7 - 3.8) MV E Mino: 1.20 m/s MV DecT: 344 ms MV A Mino: 1.27 m/s MV E/A Ratio: 0.94 AR PHT: 436 ms RAP: 15.00 mmHg RVSP: 40.25 mmHg FINDINGS -------- Sinus rhythm. This was a technically adequate study. The left ventricular size is normal. There is mild concentric left ventricular hypertrophy. Overa ll left ventricular systolic function is normal with, an EF between 55 - 60 %. The right ventricle is mildly enlarged. Normal LA size by volume 22+/-6 ml/m2. The right atrium is normal in size. Aortic valve is trileaflet and is mildly thickened. There is mild aortic regurgitation. There is no evidence of aortic stenosis. The mitral valve leaflets are mildly thickened. There is trace to mild mitral regurgitation. Mild tricuspid regurgitation present. There is mild pulmonary hypertension. The right ventricular systolic pressure, as measured by Doppler, is 40.25mmHg. The pulmonic valve was not well visualized. The aortic root size is normal. The inferior vena cava is dilated with no significant inspiratory collapse which is consistent estima papi right atrial pressure of >20 mmHg. The pericardium is normal. There is no pericardial effusion. CONCLUSIONS -------- 1. Sinus rhythm. 2. This was a technically adequate study. 3. The left ventricular size is normal. 4. There is mild concentric left ventricular hypertrophy. 5. Overall left ventricular systolic function is normal with, an EF between 55 - 60 %. 6. The right ventricle is mildly enlarged. 7. Normal LA size by volume 22+/-6 ml/m2. 8. Aortic valve is trileaflet and is mildly thickened. 9. There is mild aortic regurgitation. 10. The mitral valve leaflets are mildly thickened. 11. There is trace to mild mitral regurgitation. 12. Mild tricuspid regurgitation present. 13. There is mild pulmonary hypertension. 14. The right ventricular systolic pressure, as measured by Doppler, is 40.25mmHg. 15. The pulmonic valve was not well visualized. 16. The aortic root size is normal. 17. The inferior vena cava is dilated with no significant inspiratory collapse which is consistent es timated right atrial pressure of >20 mmHg. 18. There is no pericardial effusion. LICENSED DIRECT ENTRY MIDWIFE: Robson Guardado RDCS
[2017-07-18 09:14] LABS: Albumin 3.2 g/dL (3.5-5.0); C Reactive Protein 22.5 mg/L (<10.0); Potassium 3.8 mmol/L (3.5-5.1); Total Bilirubin 0.1 mg/dL (0.2-1.3); Total Protein 6.7 g/dL (6.3-8.2)
[2017-07-18 09:25] LABS: Basophils # (A) 0.1 k/uL (0-0.2); Basophils % (A) 1 %; Eosinophils # (A) 0.2 k/uL (0-0.7); Eosinophils % (A) 4 %; HCT 35.2 % (34.0-46.0); HGB 11.2 gm/dL (11.4-16.0); Hypochromasia Slight; Lymphocytes # (A) 2.3 k/uL (1.0-4.8); Lymphocytes % (A) 33 %; MCH 27.4 pg (25.0-35.0); MCHC 31.9 g/dL (31.0-37.0); Mean Platelet Volume 6.8; Monocytes # (A) 0.4 k/uL (0-1.0); Monocytes % (A) 6 %; Neutrophils # (A) 3.7 k/uL (1.3-7.7); Neutrophils % (A) 54 %; Platelet Count 340 k/uL (150-450); RBC 4.09 m/uL (3.80-5.40); RDW 14.2 % (11.5-15.5); WBC 6.8 k/uL (3.8-10.6)
[2017-07-18 11:35] LABS: Erythrocyte Sedimentation Rate 104 mm/hr (0-20)
--- NOTE | 2017-07-18 11:51 | P.PN ---
Subjective Progress Note Date: 07/18/17 This is a 72-year-old female, patient of Dr. Tucker. She has a known past medical history of chronic kidney disease, hypothyroidism, breast cancer status post chemo and radiation treatment, depression, lower extremity neuropathy possibly related to a B12 deficiency. Patient also has a history of gastric bypass surgery in 2002. Possible congestive heart failure history. Patient reports that over the last few months she has had increased swelling in her lower extremities. Her family doctor had double up on the patient's Lasix. Patient is not sure exactly what what the dose was. She also would had been taking Aldactone. She does admit to having some shortness of breath with activity. Patient does report about a 19 pound weight gain. She is developed redness in the tibia area on both legs. She has a also her on the left second toe. She's been admitted to the hospital for her left foot wound and lower extremity edema with cellulitis. Dopplers were negative for DVT. Infectious disease was consulted and they have added IV Rocephin. Case was discussed with ID nurse practitioner and appreciate her input. Nephrology has been consulted as well as psychiatry. Patient's over a year ago after committing suicide. Patient reports that she has been on her antidepressants for several years with no change. She does show signs of depression. With lack of motivation to take care of herself. However, she denies any suicidal or homicidal ideation. Patient denies any chest pain denies any fever or chills or sweats. Denies any bowel movement changes or urinary symptoms. Objective - Vital Signs Vital signs: Vital Signs Temp 97.1 F L 07/18/17 07:00 Pulse 69 07/18/17 08:00 Resp 18 07/18/17 08:00 BP 91/40 07/18/17 07:00 Pulse Ox 100 07/18/17 07:00 Intake & Output 07/17/17 07/18/17 07/18/17 18:59 06:59 18:59 Intake Total 500 Output Total 700 Balance -700 500 Weight 117 kg 118.5 kg Intake: Oral 500 Output: Urine 700 Other: Voiding Method Bedside Commode Bedside Commode # Voids 1 1 - Exam Head normocephalic and atraumatic Neck supple, no JVD no goiter no adenopathy Lungs clear to auscultation bilaterally no wheezing or crackles Heart regular rate and rhythm S1-S2, no rub or gallop Abdomen is soft nontender nondistended positive bowel sounds no hepatosplenomegaly Extremities edema bilateral lower extremities. Erythema noted in the tibias. Second toe of the left foot distal aspect with ulcer is about 5 mm in size. No drainage. Toe is tender with palpation. Neuro alert and orientated to 3, no gross focal deficit - Labs CBC & Chem 7: 07/18/17 08:31 02 08:31 Labs: Abnormal Lab Results - Last 24 Hours (Table) 07/18/17 07/18/17 Range/Units 08:31 08:31 Hgb 11.2 L (11.4-16.0) gm/dL ESR 104 H (0-20) mm/hr Chloride 109 H (98-107) mmol/L Carbon Dioxide 19 L (22-30) mmol/L BUN 37 H (7-17) mg/dL Creatinine 1.90 H (0.52-1.04) mg/dL Glucose 135 H (74-99) mg/dL Total Bilirubin 0.1 L (0.2-1.3) mg/dL C-Reactive Protein 22.5 H (<10.0) mg/L Albumin 3.2 L (3.5-5.0) g/dL Microbiology - Last 24 Hours (Table) 07/17/17 16:30 Urine Culture - Preliminary Urine,Voided Assessment and Plan Plan: 1. Bilateral lower extremity edema with cellulitis: Doppler was negative for DVT. Continue IV Rocephin. Continue Lasix and Aldactone 2. Shortness of breath with activity: Check chest x-ray and BNP 3. Acute on chronic kidney disease stage III: Nephrology has been consulted. Patient is on diuretics that had been increase in the outpatient setting. 4. Left second toe ulcer stage II or 3: Continue antibiotics. Infectious disease consulted they've ordered a bone scan 5. Depression: Psychiatry consulted. They've ordered thyroid studies. 6. History of breast cancer status post chemoradiation treatment 7. History of neuropathy from a possible B12 deficiency 8. Chronic metabolic acidosis: Patient will be evaluated by nephrology 9. Oral thrush and mouth ulcers. Nystatin swish and swallow ordered by ID 10. Hypothyroidism continue Synthroid GI prophylaxis Protonix and DVT prophylaxis heparin
--- NOTE | 2017-07-18 14:56 | P.PN ---
Subjective Progress Note Date: 07/18/17 Principal diagnosis: This is a 72-year-old female seen in consultation because of worsening edema in both legs as well as an ulcer with possible osteomyelitis on the second toe of her left foot.. She was given Lasix. She is also on Aldactone. The cause of the edema is not clear DVT has been ruled out. Echocardiogram does not show any significant pulmonary hypertension. Urinalysis is negative for any proteinuria although a urine protein to creatinine ratio is not available yet. Her creatinine went up with diuretics and her pressure is somewhat low. 24- hour output has been 700 mL intake is 500 mL. Patient denies any dizziness. Her edema is better she says. No chest pain and shortness of breath nausea vomiting diarrhea abdominal pain no fever chills. Objective - Vital Signs Vital signs: Vital Signs Temp 97.1 F L 07/18/17 07:00 Pulse 69 07/18/17 08:00 Resp 18 07/18/17 08:00 BP 91/40 07/18/17 07:00 Pulse Ox 100 07/18/17 07:00 Intake & Output 07/17/17 07/18/17 07/18/17 18:59 06:59 18:59 Intake Total 500 Output Total 700 Balance -700 500 Weight 117 kg 118.5 kg Intake: Oral 500 Output: Urine 700 Other: Voiding Method Bedside Commode Bedside Commode # Voids 1 1 Examination she is awake alert oriented comfortable HEENT exam no JVP neck is supple no facial asymmetry Lungs are clear to auscultation with occasional end expiratory wheezing. No crackles were heard. No dullness to percussion. Heart sounds are unremarkable no murmur rub gallop Abdomen is soft nontender mildly protuberant Extremity exam was minimal to mild edema Neurologically awake alert oriented. - Labs CBC & Chem 7: 07/18/17 08:31 07/18/17 08:31 Labs: Abnormal Lab Results - Last 24 Hours (Table) 07/18/17 07/18/17 Range/Units 08:31 08:31 Hgb 11.2 L (11.4-16.0) gm/dL ESR 104 H (0-20) mm/hr Chloride 109 H (98-107) mmol/L Carbon Dioxide 19 L (22-30) mmol/L BUN 37 H (7-17) mg/dL Creatinine 1.90 H (0.52-1.04) mg/dL Glucose 135 H (74-99) mg/dL Total Bilirubin 0.1 L (0.2-1.3) mg/dL C-Reactive Protein 22.5 H (<10.0) mg/L Albumin 3.2 L (3.5-5.0) g/dL Microbiology - Last 24 Hours (Table) 07/17/17 16:30 Urine Culture - Preliminary Urine,Voided Assessment and Plan Assessment: Impression 1. Acute kidney injury secondary to likely intravascular volume depletion with diuretics. Creatinine went up from 1.2 on 07/02/2017 to 1.7 on admission yesterday and to 1.9 this morning. Albumin is slightly low at 3.2 2. Edema for 2 weeks cause not very clear Doppler of leg and her negative there is no suggestion of pulmonary hypertension on echocardiogram. TSH is normal at 4.45 3. Hypotension currently on medications including Lasix and Aldactone. 4. Mild degree of anabolic acidosis with bicarb 19 and anion and gap of 14. Acute kidney injury. Osteomyelitis by bone scan Recommendation. 1. Hold diuretics. Both Lasix and Aldactone. 2. Check urine protein to creatinine ratio to ensure there is no known albumin proteinuria. 3. Start sodium bicarb 650 twice a day 4. Start Midrin 5 mg 3 times a day. 5. monitor labs 6. Check bladder scan
--- NOTE | 2017-07-18 15:44 | P.CRDCN ---
History of Present Illness Consult date: 07/18/17 History of present illness: This is a 72-year-old female with history of chronic kidney disease, hypothyroidism and the breast CA, status post chemo and radiation treatment and also were explained the neuropathy. Apparently she also has a gastric bypass surgery in the past. There is history of previous congestive heart failure. She is admitted with the complaints of increasing swelling of both lower extremities. She also has and also on one of the legs for which she is being treated. The ulcer seemed to be on the left second toe. She is being treated with antibiotics. We're asked to see the patient for evaluation for possible CHF, because of leg edema. She doesn't seem to be having any symptoms of orthopnea or paroxysmal nocturnal dyspnea. Her chest x-ray did not reveal any findings of CHF. Her cardiac echo showed normal LV function. Her proBNP is within normal limits. Based on those findings, I don't think patient has any evidence of CHF. However, the etiology of her leg edema is not clear. It could be secondary to venous insufficiency and also, mild hypoalbuminemia. Patient has received some IV diuretics including Lasix and Aldactone. Her swelling has come down but her creatinine has gone up. She also became hypotensive. Knee-high stockings and leg elevation may help resolve some of the edema. Thank you again for letting us participate in the care of this patient Past Medical History Past Medical History: Heart Failure, Renal Disease, Thyroid Disorder Additional Past Medical History / Comment(s): chronic edema, chronic metabolic acidosis, neuropathy, insomnia, breast cancer status post lumpectomy, chemo and radiation treatment in 2002, both of acute kidney failure in the 1970s after gastric bypass History of Any Multi-Drug Resistant Organisms: None Reported Past Surgical History: Bariatric Surgery, Section, Cholecystectomy, Tonsillectomy Additional Past Surgical History / Comment(s): Gastric bypass, left breast lumpectomy, breast biopsy Past Anesthesia/Blood Transfusion Reactions: No Reported Reaction Past Psychological History: Depression Smoking Status: Never smoker Past Alcohol Use History: None Reported Additional Past Alcohol Use History / Comment(s): Patient is a lifelong nonsmoker. She denies any medical marijuana, marijuana, street drug or alcohol use. 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 She currently lives at home and has 2 dogs in the house and one outdoor cat. She recently had to give away 30 L jaycee because she could not take care of them any longer. Her committed suicide 1-1/2 years ago. She does not have family support system. She does have one good friend that helps her. Past Drug Use History: None Reported - Past Family History Father History Unknown: Yes Family Medical History: Diabetes Mellitus Additional Family Medical History / Comment(s): unaware of entire history. Mother History Unknown: Yes Family Medical History: Chest Pain / Angina, Coronary Artery Disease (CAD), Diabetes Mellitus Medications and Allergies Home Medications Medication Instructions Recorded Confirmed Type Amitriptyline HCl [Elavil] 50 mg PO HS 07/16/17 07/16/17 History Aspirin EC [Ecotrin] 325 mg PO DAILY 07/16/17 07/16/17 History DULoxetine HCL [Cymbalta] 60 mg PO BID 07/16/17 07/16/17 History Furosemide [Lasix] 40 mg PO DAILY 07/16/17 07/16/17 History Gabapentin 800 mg PO QID 07/16/17 07/16/17 History Levothyroxine Sodium [Synthroid] 200 mcg PO DAILY 07/16/17 07/16/17 History Potassium Chloride [Klor-Con 20] 20 meq PO DAILY 07/16/17 07/16/17 History Spironolactone [Aldactone] 50 mg PO BID 07/16/17 07/16/17 History rOPINIRole HCL [Requip] 6 mg PO TID 07/16/17 07/16/17 History Allergies Allergy/AdvReac Type Severity Reaction Status Date / Time Sulfa (Sulfonamide Allergy Unknown Verified 07/16/17 20:50 Antibiotics) Physical Exam Vitals: Vital Signs Temp Pulse Resp BP Pulse Ox 07/18/17 08:00 69 18 07/18/17 07:00 97.1 F L 69 18 91/40 100 07/17/17 23:00 97.2 F L 68 18 105/66 97 Intake and Output 07/18/17 07/18/17 07/18/17 06:59 14:59 22:59 Intake Total 200 Balance 200 Intake: Oral 200 Other: Voiding Method Bedside Commode # Voids 1 Weight 118.5 kg GENERAL EXAM: Patient is alert and oriented and doesn't appear to be in any acute distress HEENT: Normocephalic. Normal reaction of pupils, equal size, normal range of extraocular motion. No erythema or exudates in the throat. NECK: No masses, no nuchal rigidity. CHEST: No chest wall deformity. LUNGS: Equal air entry with no crackles or wheeze. HEART: S1 and S2 normal with no audible mumurs or gallops. Regular rhythm, femorals equal on both sides.. ABDOMEN: No hepatosplenomegaly, normal bowel sounds, no guarding or rigidity. SKIN: No rashes CENTRAL NERVOUS SYSTEM: No focal deficits. EXTREMITIES: 2+ edema Results 07/18/17 08:31 07/18/17 08:31 Cardiac Enzymes 07/18/17 Range/Units 08:31 AST 34 (14-36) U/L CBC 07/18/17 Range/Units 08:31 WBC 6.8 (3.8-10.6) k/uL RBC 4.09 (3.80-5.40) m/uL Hgb 11.2 L (11.4-16.0) gm/dL Hct 35.2 (34.0-46.0) % Plt Count 340 (150-450) k/uL Comprehensive Metabolic Panel 07/18/17 Range/Units 08:31 Sodium 142 (137-145) mmol/L Potassium 3.8 (3.5-5.1) mmol/L Chloride 109 H (98-107) mmol/L Carbon Dioxide 19 L (22-30) mmol/L BUN 37 H (7-17) mg/dL Creatinine 1.90 H (0.52-1.04) mg/dL Glucose 135 H (74-99) mg/dL Calcium 9.0 (8.4-10.2) mg/dL AST 34 (14-36) U/L ALT 41 (9-52) U/L Alkaline Phosphatase 123 (38-126) U/L Total Protein 6.7 (6.3-8.2) g/dL Albumin 3.2 L (3.5-5.0) g/dL Current Medications Generic Name Dose Route Start Last Admin Trade Name Freq PRN Reason Stop Dose Admin Aripiprazole 2 mg 07/17/17 12:15 07/18/17 08:19 Abilify PO 2 mg DAILY REILLY Administration Aspirin 325 mg 07/17/17 09:00 07/18/17 08:18 Aspirin PO 325 mg DAILY REILLY Administration Ceftriaxone Sodium 2,000 mg 07/17/17 10:00 07/18/17 08:27 Rocephin IVP 2,000 mg Q24HR REILLY Administration Duloxetine HCl 60 mg 07/17/17 09:00 07/18/17 08:18 Cymbalta PO 60 mg BID REILLY Administration Gabapentin 800 mg 07/17/17 09:00 07/18/17 14:22 Neurontin PO 800 mg QID REILLY Administration Heparin Sodium (Porcine) 5,000 unit 07/17/17 21:00 07/18/17 08:18 Heparin SQ 5,000 unit Q12HR REILLY Administration Imipramine HCl 25 mg 07/17/17 21:00 07/17/17 21:16 Tofranil PO 25 mg HS REILLY Administration Levothyroxine Sodium 200 mcg 07/17/17 09:00 07/18/17 06:33 Synthroid PO 200 mcg 0630 REILLY Administration Midodrine 5 mg 07/18/17 17:30 Proamatine PO AC-TID REILLY Morphine Sulfate 12 mg 07/17/17 19:15 Morphine Oral Stephanie 2mg/Ml PO Q4HR PRN Severe Pain Naloxone HCl 0.2 mg 07/16/17 23:06 Narcan IV Q2M PRN Opioid Reversal Nystatin 500,000 unit 07/17/17 09:45 07/18/17 14:22 Mycostatin Oral Susp PO 500,000 unit QID REILLY Administration Pantoprazole Sodium 40 mg 07/18/17 07:30 07/18/17 08:19 Protonix PO 40 mg AC-BRKFST REILLY Administration Potassium Chloride 20 meq 07/17/17 09:00 07/18/17 08:20 K-Dur 20 PO 20 meq DAILY REILLY Administration Ropinirole HCl 6 mg 07/17/17 09:00 07/18/17 08:17 Requip PO 6 mg TID [facility] Administration Sodium Bicarbonate 650 mg 07/18/17 18:00 Sodium Bicarbonate Tab PO QID REILLY Intake and Output 07/18/17 07/18/17 07/18/17 06:59 14:59 22:59 Intake Total 200 Balance 200 Intake: Oral 200 Other: Voiding Method Bedside Commode # Voids 1 Weight 118.5 kg 07/18/17 08:31 07/18/17 08:31 Assessment and Plan (1) Lower extremity edema Current Visit: Yes Status: Acute Code(s): R60.0 - LOCALIZED EDEMA SNOMED Code(s): 262595879 (2) Ulcer of toe of left foot Current Visit: Yes Status: Acute Code(s): L97.529 - NON-PRESSURE CHRONIC ULCER OTH PRT LEFT FOOT W UNSP SEVERITY SNOMED Code(s): 936547143 (3) Venous stasis Current Visit: Yes Status: Acute Code(s): I87.8 - OTHER SPECIFIED DISORDERS OF VEINS SNOMED Code(s): 60095565 Plan: Clinically patient doesn't have any evidence of CHF. Echo Cardigan showed normal LV function. ProBNP is normal. Most probably her edema is secondary to venous insufficiency. Leg elevation and he has stockings are recommended. Thank you
[2017-07-18] MEDS: MIDODRINE 5 MG TAB PO SCH (18:17)
[2017-07-18] MEDS: SODIUM BICARBONATE TAB 650 MG TAB PO SCH ×2 (18:17→20:53)
[2017-07-18] MEDS: IMIPRAMINE 25 MG TAB PO SCH (20:53)
--- NOTE | 2017-07-19 00:17 | P.PN ---
Subjective Progress Note Date: 07/18/17 Principal diagnosis: This is a 72-year-old female that gives history that she follows with Eliecer Gomez NP, and has been treated for lower extremity edema for a long period of time. Her Lasix and Aldactone were increased to double and for about 1-2 weeks she did have some improvement but she couldn't stay on the higher dose for long and her edema returned. She also has a wound to the left second toe that has been there for greater than 1 year. She does not recall any injury or how it started. She does have significant neuropathy to the lower extremities of unknown etiology. She denies being on any recent antibiotics. Patient states she has been using Epson salt soaks and she was supposed to wrap her legs but it's been too hard. She states she cannot even apply socks. She has been encouraged to go to the hospital for the past 6-8 weeks the patient has been reluctant and [facility]. Her white count was 11.3, hemoglobin 9.7, platelet count 447. Sodium 135, potassium 4.2, chloride 107, CO2 14, BUN 39 and creatinine 1.7. Alkaline phosphatase 117. Chest x-ray was negative. X-ray of the left foot showed degenerative joint disease with skin lesion on the second toe. Patient was given ceftriaxone, vancomycin and morphine and then transferred to [facility] emergency center where she underwent an ultrasound duplex of the lower extremity is which was negative for DVT. Patient was then admitted to the [facility] floor. Patient does give history that in the 1970s after her gastric bypass she did have a problem with kidney failure but since that time has not had trouble with her kidneys. Patient also discussed that her 1-1/ 2 years ago and she has been very depressed. She has been on Cymbalta for many years was treated in the remote past by Dr. Raymundo. She is currently living alone and states that she sits for long periods of time without having any motivation to do anything. She does relate increased depression and is open to seeing a psychiatrist and possible follow-up in the outpatient setting. Patient has significant weakness and inability to move in bed as well as ambulate which she states is much worse over the past 3 days. Patient denies having any fever or chills. She denies any change in her appetite. She does complain of some shortness of breath and cough but sputum production. Patient is noted to be hoarse and she states this started since treated for lower extremity edema. Patient does not have family support but does have one good friend that has been good support for her. 07/18/2017 the patient has had some minimal improvement. Pain and tenderness improved. Still has some lower extremity edema. Is being followed by nephrology. Objective - Vital Signs Vital signs: Vital Signs Temp 97.0 F L 07/18/17 23:00 Pulse 63 07/18/17 23:00 Resp 16 07/18/17 23:00 BP 101/64 07/18/17 23:00 Pulse Ox 99 07/18/17 23:00 Intake & Output 07/18/17 07/18/17 07/19/17 06:59 18:59 06:59 Intake Total 500 Output Total 1400 Balance 500 -1400 Weight 118.5 kg 118.5 kg Intake: Oral 500 Output: Urine 700 Post Void Residual 700 Other: Voiding Method Bedside Commode Bedside Commode Bedside Commode # Voids 1 2 - Exam Gen: This is a morbidly obese 72-year-old female. She appears to be no acute respiratory distress at rest. HEENT: Head is atraumatic, normocephalic. Pupils equal, round. Sclerae is anicteric. Conjunctiva pink. Mucous members of the mouth are moist. Weight coating on part of her tongue noted. Dentition in poor order. NECK: Supple. No JVD. No lymphadenopathy. No thyromegaly. LUNGS: Clear to auscultation. No wheezes or rhonchi. No intercostal retractions. HEART: Regular rate and rhythm. Distant heart sounds. No murmur. ABDOMEN: Morbidly obese. Soft. Bowel sounds are present. No masses. No tenderness. EXTREMITIES: Firm edema to the lower extremities. Dorsalis pedis +1 bilaterally. Onychomycosis bilaterally. Patient has a small lesion to the distal second toe with no drainage. Toe is tender to touch. In the marked edema is showing some slight improvement today and fortunately is less tender NEUROLOGICAL: Patient is awake, alert and oriented x3 - Labs CBC & Chem 7: 07/18/17 08:31 07/18/17 08:31 Labs: Abnormal Lab Results - Last 24 Hours (Table) 07/18/17 07/18/1707/18/18 Range/Units 08:31 08:31 15:20 Hgb 11.2 L (11.4-16.0) gm/dL ESR 104 H (0-20) mm/hr Chloride 109 H (98-107) mmol/L Carbon Dioxide 19 L (22-30) mmol/L BUN 37 H (7-17) mg/dL Creatinine 1.90 H (0.52-1.04) mg/dL Glucose 135 H (74-99) mg/dL Total Bilirubin 0.1 L (0.2-1.3) mg/dL C-Reactive Protein 22.5 H (<10.0) mg/L Albumin 3.2 L (3.5-5.0) g/dL U Random Total Protein 15 H (<12) mg/dL Microbiology - Last 24 Hours (Table) 07/17/17 16:30 Urine Culture - Preliminary Urine,Voided Laboratory Results WBC 6.8 k/uL (3.8-10.6) 07/18/17 08:31 RBC 4.09 m/uL (3.80-5.40) 07/18/17 08:31 Hgb 11.2 gm/dL (11.4-16.0) L 07/18/17 08:31 Hct 35.2 % (34.0-46.0) 07/18/17 08:31 MCV 86.0 fL (80.0-100.0) 07/18/17 08:31 MCH 27.4 pg (25.0-35.0) 07/18/17 08:31 MCHC 31.9 g/dL (31.0-37.0) 07/18/17 08:31 RDW 14.2 % (11.5-15.5) 07/18/17 08:31 Plt Count 340 k/uL (150-450) 07/18/17 08:31 Neutrophils % 54 % 07/18/17 08:31 Lymphocytes % 33 % 07/18/17 08:31 Monocytes % 6 % 07/18/17 08:31 Eosinophils % 4 % 07/18/17 08:31 Basophils % 1 % 07/18/17 08:31 Neutrophils # 3.7 k/uL (1.3-7.7) 07/18/17 08:31 Lymphocytes # 2.3 k/uL (1.0-4.8) 07/18/17 08:31 Monocytes # 0.4 k/uL (0-1.0) 07/18/17 08:31 Eosinophils # 0.2 k/uL (0-0.7) 07/18/17 08:31 Basophils # 0.1 k/uL (0-0.2) 07/18/17 08:31 Hypochromasia Slight 07/18/17 08:31 ESR 104 mm/hr (0-20) H 07/18/17 08:31 Sodium 142 mmol/L (137-145) 07/18/17 08:31 Potassium 3.8 mmol/L (3.5-5.1) 07/18/17 08:31 Chloride 109 mmol/L (98-107) H 07/18/17 08:31 Carbon Dioxide 19 mmol/L (22-30) L 07/18/17 08:31 Anion Gap 14 mmol/L 07/18/17 08:31 BUN 37 mg/dL (7-17) H 07/18/17 08:31 Creatinine 1.90 mg/dL (0.52-1.04) H 07/18/17 08:31 Est GFR (MDRD) Af Amer 32 (>60 ml/min/1.73 sqM) 07/18/17 08:31 Est GFR (MDRD) Non-Af 26 (>60 ml/min/1.73 sqM) 07/18/17 08:31 Glucose 135 mg/dL (74-99) H 07/18/17 08:31 Calcium 9.0 mg/dL (8.4-10.2) 07/18/17 08:31 Total Bilirubin 0.1 mg/dL (0.2-1.3) L 07/18/17 08:31 AST 34 U/L (14-36) 07/18/17 08:31 ALT 41 U/L (9-52) 07/18/17 08:31 Alkaline Phosphatase 123 U/L (38-126) 07/18/17 08:31 C-Reactive Protein 22.5 mg/L (<10.0) H 07/18/17 08:31 NT-Pro-B Natriuret Pep 406 pg/mL 07/17/17 08:09 Total Protein 6.7 g/dL (6.3-8.2) 07/18/17 08:31 Albumin 3.2 g/dL (3.5-5.0) L 07/18/17 08:31 TSH 4.450 mIU/L (0.465-4.680) 07/17/17 08:09 Free T4 1.08 ng/dL (0.78-2.19) 07/17/17 08:09 Free T3 pg/mL 2.9 pg/ml (2.8-5.3) 07/17/17 08:09 Urine Color Light Yellow 07/17/17 16:30 Urine Appearance Clear (Clear) 07/17/17 16:30 Urine pH 5.0 (5.0-8.0) 07/17/17 16:30 Ur Specific [place] 1.006 (1.001-1.035) 07/17/17 16:30 Urine Protein Negative (Negative) 07/17/17 16:30 Urine Glucose (UA) Negative (Negative) 07/17/17 16:30 Urine Ketones Negative (Negative) 07/17/17 16:30 Urine Blood Negative (Negative) 07/17/17 16:30 Urine Nitrite Negative (Negative) 07/17/17 16:30 Urine Bilirubin Negative (Negative) 07/17/17 16:30 Urine Urobilinogen <2.0 mg/dL (<2.0) 07/17/17 16:30 Ur Leukocyte Esterase Negative (Negative) 07/17/17 16:30 Ur Random Creatinine 38.4 mg/dL 07/18/17 15:20 U Random Total Protein 15 mg/dL (<12) H 07/18/17 15:20 Microbiology 07/17/17 16:30 Urine,Voided Urine Culture - Preliminary Assessment and Plan (1) Leukocytosis Current Visit: Yes Status: Acute Code(s): D72.829 - ELEVATED WHITE BLOOD CELL COUNT, UNSPECIFIED SNOMED Code(s): 455534782 (2) Ulcer of toe of left foot Current Visit: Yes Status: Acute Code(s): L97.529 - NON-PRESSURE CHRONIC ULCER OTH PRT LEFT FOOT W UNSP SEVERITY SNOMED Code(s): 221956294 (3) Acute osteomyelitis of toe of right foot Narrative/Plan: The patient has been seen by psychiatry and is feeling considerably better since that evaluation. She has evidence of the significant ulceration to the left foot second toe that she has not had extensive amount of medical care for. Antibiotic therapy currently is with Rocephin which will be continued until there is further culture data. Bone scan did reveal evidence of osteomyelitis. This is discussed with the patient. We'll need to work with discharge planners as far as the possibility of outpatient intravenous antibiotic therapy. She lives in [place] and will not be able to come to our community on a daily basis for infusion at the local [facility]. Wound culture pending to potentially further help direct the course of therapy. However she's having marked improvement at this time. Continue local wound care with the medical honey and elevation. She somewhat anxious to discharged home to care of her 2 dogs that she misses quite a bit. Continue with her multivitamin. Current Visit: Yes Status: Acute Code(s): M86.171 - OTHER ACUTE OSTEOMYELITIS, RIGHT ANKLE AND FOOT SNOMED Code(s): 415101020
[2017-07-19] MEDS: LEVOTHYROXINE 100 MCG TAB PO SCH (06:11)
[2017-07-19] MEDS: GABAPENTIN 400 MG CAP PO SCH ×4 (08:22→20:37)
[2017-07-19] MEDS: POTASSIUM CHLORIDE ER 20 MEQ TAB.ER PO SCH (08:22)
[2017-07-19] MEDS: NYSTATIN 100,000 UNIT/ML SUSP 500,000 UNIT/5 ML CUP PO SCH ×4 (08:22→20:37)
[2017-07-19] MEDS: rOPINIRole HCL 4 MG TABLET PO SCH ×3 (08:22→20:36)
[2017-07-19] MEDS: SODIUM BICARBONATE TAB 650 MG TAB PO SCH ×4 (08:22→20:37)
[2017-07-19] MEDS: HEPARIN SODIUM,PORCINE 5,000 UNIT/ML 1 ML VIAL SQ SCH ×2 (08:23→20:36)
[2017-07-19] MEDS: cefTRIAXone IN SWFI 2,000 MG/20 ML SYRINGE IVP SCH (08:23)
[2017-07-19] MEDS: PANTOPRAZOLE 40 MG TABLET PO SCH (08:23)
[2017-07-19] MEDS: MIDODRINE 5 MG TAB PO SCH ×3 (08:23→17:24)
[2017-07-19] MEDS: ARIPiprazole 2 MG TAB PO SCH (08:23)
[2017-07-19] MEDS: ASPIRIN 325 MG TAB PO SCH (08:23)
[2017-07-19] MEDS: DULoxetine HCL 60 MG CAPSULE.DR PO SCH ×2 (08:23→20:37)
[2017-07-19 09:59] LABS: Basophils % (A) 0 %; Eosinophils # (A) 0.4 k/uL (0-0.7); Eosinophils % (A) 5 %; HCT 30.4 % (34.0-46.0); Hypochromasia Moderate; Lymphocytes # (A) 1.4 k/uL (1.0-4.8); Lymphocytes % (A) 19 %; MCH 25.3 pg (25.0-35.0); MCHC 30.5 g/dL (31.0-37.0); MCV 82.9 fL (80.0-100.0); Mean Platelet Volume 7.1; Monocytes # (A) 0.3 k/uL (0-1.0); Monocytes % (A) 5 %; Neutrophils % (A) 70 %; Platelet Count 342 k/uL (150-450); RBC 3.66 m/uL (3.80-5.40); RDW 15.6 % (11.5-15.5); WBC 7.2 k/uL (3.8-10.6)
[2017-07-19 10:08] LABS: HGB 9.3 gm/dL (11.4-16.0)
[2017-07-19 10:12] LABS: Calcium 8.9 mg/dL (8.4-10.2); Total Bilirubin 0.1 mg/dL (0.2-1.3); Total Protein 6.6 g/dL (6.3-8.2)
--- NOTE | 2017-07-19 10:47 | P.PN ---
Subjective Progress Note Date: 07/19/17 This is a 72-year-old female, patient of Dr. Tucker. She has a known past medical history of chronic kidney disease, hypothyroidism, breast cancer status post chemo and radiation treatment, depression, lower extremity neuropathy possibly related to a B12 deficiency. Patient also has a history of gastric bypass surgery in 2002. Possible congestive heart failure history. Patient reports that over the last few months she has had increased swelling in her lower extremities. Her family doctor had double up on the patient's Lasix. Patient is not sure exactly what what the dose was. She also would had been taking Aldactone. She does admit to having some shortness of breath with activity. Patient does report about a 19 pound weight gain. She is developed redness in the tibia area on both legs. She has a also her on the left second toe. She's been admitted to the hospital for her left foot wound and lower extremity edema with cellulitis. Dopplers were negative for DVT. Infectious disease was consulted and they have added IV Rocephin. Case was discussed with ID nurse practitioner and appreciate her input. Nephrology has been consulted as well as psychiatry. Patient's over a year ago after committing suicide. Patient reports that she has been on her antidepressants for several years with no change. She does show signs of depression. With lack of motivation to take care of herself. However, she denies any suicidal or homicidal ideation. Patient denies any chest pain denies any fever or chills or sweats. Denies any bowel movement changes or urinary symptoms. Objective - Vital Signs Vital signs: Vital Signs Temp 97.0 F L 07/19/17 07:00 Pulse 61 07/19/17 08:00 Resp 18 07/19/17 08:00 BP 100/59 07/19/17 07:00 Pulse Ox 100 07/19/17 07:00 Intake & Output 07/18/17 07/19/17 07/19/17 18:59 06:59 18:59 Intake Total 240 Output Total 1400 Balance -1400 240 Weight 118.5 kg Intake: Oral 240 Output: Urine 700 Post Void Residual 700 Other: Voiding Method Bedside Commode Bedside Commode Toilet # Voids 2 - Exam Head normocephalic and atraumatic Neck supple, no JVD no goiter no adenopathy Lungs clear to auscultation bilaterally no wheezing or crackles Heart regular rate and rhythm S1-S2, no rub or gallop Abdomen is soft nontender nondistended positive bowel sounds no hepatosplenomegaly Extremities edema bilateral lower extremities. Erythema noted in the tibias. Second toe of the left foot distal aspect with ulcer is about 5 mm in size. No drainage. Toe is tender with palpation. Neuro alert and orientated to 3, no gross focal deficit - Labs CBC & Chem 7: 07/19/17 09:35 07/19/17 09:35 Labs: Abnormal Lab Results - Last 24 Hours (Table) 07/18/17 07/18/17 07/19/17 Range/Units 08:31 15:20 09:35 RBC 3.66 L (3.80-5.40) m/uL Hgb 9.3 L D (11.4-16.0) gm/dL Hct 30.4 L (34.0-46.0) % MCHC 30.5 L (31.0-37.0) g/dL RDW 15.6 H (11.5-15.5) % ESR 104 H (0-20) mm/hr Chloride (98-107) mmol/L Carbon Dioxide (22-30) mmol/L BUN (7-17) mg/dL Creatinine (0.52-1.04) mg/dL Glucose (74-99) mg/dL Total Bilirubin (0.2-1.3) mg/dL Albumin (3.5-5.0) g/dL U Random Total Protein 15 H (<12) mg/dL 07/19/17 Range/Units 09:35 RBC (3.80-5.40) m/uL Hgb (11.4-16.0) gm/dL Hct (34.0-46.0) % MCHC (31.0-37.0) g/dL RDW (11.5-15.5) % ESR (0-20) mm/hr Chloride 108 H (98-107) mmol/L Carbon Dioxide 20 L (22-30) mmol/L BUN 32 H (7-17) mg/dL Creatinine 1.78 H (0.52-1.04) mg/dL Glucose 106 H (74-99) mg/dL Total Bilirubin 0.1 L (0.2-1.3) mg/dL Albumin 3.0 L (3.5-5.0) g/dL U Random Total Protein (<12) mg/dL Microbiology - Last 24 Hours (Table) 07/17/17 16:30 Urine Culture - Final Urine,Voided Assessment and Plan Plan: 1. Bilateral lower extremity edema with cellulitis: Doppler was negative for DVT. Continue IV Rocephin. Continue Lasix and Aldactone. Bone scan did reveal evidence of osteomyelitis. 2. Shortness of breath with activity: Check chest x-ray and BNP 3. Acute on chronic kidney disease stage III: Nephrology has been consulted. Patient is on diuretics that had been increase in the outpatient setting. 4. Left second toe ulcer stage II or 3: Continue antibiotics. Infectious disease consulted they've ordered a bone scan 5. Depression: Psychiatry consulted. They've ordered thyroid studies. 6. History of breast cancer status post chemoradiation treatment 7. History of neuropathy from a possible B12 deficiency 8. Chronic metabolic acidosis: Patient will be evaluated by nephrology 9. Oral thrush and mouth ulcers. Nystatin swish and swallow ordered by ID 10. Hypothyroidism continue Synthroid GI prophylaxis Protonix and DVT prophylaxis heparin
--- NOTE | 2017-07-19 11:30 | P.PN ---
Subjective Principal diagnosis: This is a 72-year-old female seen in consultation because of worsening edema in both legs as well as an ulcer with possible osteomyelitis on the second toe of her left foot.. She was given Lasix. She is also on Aldactone. The cause of the edema is not clear DVT has been ruled out. Echocardiogram does not show any significant pulmonary hypertension. Urinalysis is negative for any proteinuria znd a urine protein to creatinine ratio is approximately 0.3 g/ Gram of creatinine . Her creatinine went up with diuretics and her pressure is somewhat low. Diuretics were discontinued yesterday to 2017. Creatinine improved today. Review of systems otherwise unremarkable this morning. Edema is mild Patient denies any dizziness. Her edema is better she says. No chest pain and shortness of breath nausea vomiting diarrhea abdominal pain no fever chills. Objective - Vital Signs Vital signs: Vital Signs Temp 97.0 F L 07/19/17 07:00 Pulse 61 07/19/17 08:00 Resp 18 07/19/17 08:00 BP 100/59 07/19/17 07:00 Pulse Ox 100 07/19/17 07:00 Intake & Output 07/18/17 07/19/17 07/19/17 18:59 06:59 18:59 Intake Total 240 Output Total 1400 Balance -1400 240 Weight 118.5 kg Intake: Oral 240 Output: Urine 700 Post Void Residual 700 Other: Voiding Method Bedside Commode Bedside Commode Toilet # Voids 2 On examination she is awake alert oriented comfortable HEENT exam no JVP neck is supple no facial asymmetry Lungs clear to auscultation percussion good air entry bilaterally Heart sounds are unremarkable for any murmur rub gallop Abdomen soft nontender obese protuberant Extremity exam was minimal edema Left toes are dressed up she has possible osteomyelitis. Neurologically awake alert oriented generalized 24-hour output was documented at 1400 mL this morning - Labs CBC & Chem 7: 07/19/17 09:35 07/19/17 09:35 Labs: Abnormal Lab Results - Last 24 Hours (Table) 07/18/17 07/18/17 07/19/17 Range/Units 08:31 15:20 09:35 RBC 3.66 L (3.80-5.40) m/uL Hgb 9.3 L D (11.4-16.0) gm/dL Hct 30.4 L (34.0-46.0) % MCHC 30.5 L (31.0-37.0) g/dL RDW 15.6 H (11.5-15.5) % ESR 104 H (0-20) mm/hr Chloride (98-107) mmol/L Carbon Dioxide (22-30) mmol/L BUN (7-17) mg/dL Creatinine (0.52-1.04) mg/dL Glucose (74-99) mg/dL Total Bilirubin (0.2-1.3) mg/dL Albumin (3.5-5.0) g/dL U Random Total Protein 15 H (<12) mg/dL 07/19/17 Range/Units 09:35 RBC (3.80-5.40) m/uL Hgb (11.4-16.0) gm/dL Hct (34.0-46.0) % MCHC (31.0-37.0) g/dL RDW (11.5-15.5) % ESR (0-20) mm/hr Chloride 108 H (98-107) mmol/L Carbon Dioxide 20 L (22-30) mmol/L BUN 32 H (7-17) mg/dL Creatinine 1.78 H (0.52-1.04) mg/dL Glucose 106 H (74-99) mg/dL Total Bilirubin 0.1 L (0.2-1.3) mg/dL Albumin 3.0 L (3.5-5.0) g/dL U Random Total Protein (<12) mg/dL Microbiology - Last 24 Hours (Table) 07/17/17 16:30 Urine Culture - Final Urine,Voided Assessment and Plan Assessment: Impression 1. Acute kidney injury secondary to likely intravascular volume depletion with diuretics. Creatinine went up from 1.2 on 07/02/2017 to 1.7 on admission yesterday and to 1.9. Her diuretics were discontinued on 07/18/2017 and creatinine improved to 1.78 this morning. Albumin is slightly low at 3.0 2. Edema likely secondary to combination of low blood pressure and acute kidney injury which is resolving. Workup has been negative for any obvious cause. This includes Doppler of leg and her negative there is no suggestion of pulmonary hypertension on echocardiogram. TSH is normal at 4.45 3. Hypotension currently off medications including Lasix and Aldactone, since 07/18/2017 4. Mild degree of metabolic acidosis with bicarb 20 with a gap of 13 secondary to Acute kidney injury. 5.Osteomyelitis by bone scan Recommendation. 1. Hold diuretics. Both Lasix and Aldactone. 2. continue sodium bicarb 650 twice a day 3. Continue idrin 5 mg 3 times a day. 4. monitor labs
[2017-07-19] MEDS: IMIPRAMINE 25 MG TAB PO SCH (20:36)
[2017-07-20] MEDS: LEVOTHYROXINE 100 MCG TAB PO SCH (06:24)
[2017-07-20] MEDS: GABAPENTIN 400 MG CAP PO SCH ×4 (08:21→20:31)
[2017-07-20] MEDS: PANTOPRAZOLE 40 MG TABLET PO SCH (08:21)
[2017-07-20] MEDS: DULoxetine HCL 60 MG CAPSULE.DR PO SCH ×2 (08:21→20:30)
[2017-07-20] MEDS: HEPARIN SODIUM,PORCINE 5,000 UNIT/ML 1 ML VIAL SQ SCH ×2 (08:21→20:31)
[2017-07-20] MEDS: SODIUM BICARBONATE TAB 650 MG TAB PO SCH ×4 (08:21→20:31)
[2017-07-20] MEDS: POTASSIUM CHLORIDE ER 20 MEQ TAB.ER PO SCH (08:21)
[2017-07-20] MEDS: ASPIRIN 325 MG TAB PO SCH (08:21)
[2017-07-20] MEDS: ARIPiprazole 2 MG TAB PO SCH (08:22)
[2017-07-20] MEDS: MIDODRINE 5 MG TAB PO SCH ×3 (08:22→17:19)
[2017-07-20] MEDS: cefTRIAXone IN SWFI 2,000 MG/20 ML SYRINGE IVP SCH (08:22)
[2017-07-20] MEDS: NYSTATIN 100,000 UNIT/ML SUSP 500,000 UNIT/5 ML CUP PO SCH ×4 (08:22→20:30)
[2017-07-20 08:24] LABS: Basophils % (A) 0 %; Eosinophils # (A) 0.5 k/uL (0-0.7); Eosinophils % (A) 7 %; HCT 34.4 % (34.0-46.0); HGB 10.3 gm/dL (11.4-16.0); Hypochromasia Marked; Lymphocytes # (A) 1.5 k/uL (1.0-4.8); Lymphocytes % (A) 22 %; MCH 25.1 pg (25.0-35.0); MCV 83.9 fL (80.0-100.0); Mean Platelet Volume 6.8; Monocytes # (A) 0.3 k/uL (0-1.0); Monocytes % (A) 5 %; Neutrophils # (A) 4.3 k/uL (1.3-7.7); Neutrophils % (A) 64 %; Platelet Count 415 k/uL (150-450); RDW 15.8 % (11.5-15.5); WBC 6.8 k/uL (3.8-10.6)
[2017-07-20 08:29] LABS: Albumin 3.4 g/dL (3.5-5.0); Calcium 9.3 mg/dL (8.4-10.2); Total Bilirubin 0.4 mg/dL (0.2-1.3); Total Protein 7.3 g/dL (6.3-8.2)
[2017-07-20 08:30] LABS: Potassium 4.7 mmol/L (3.5-5.1)
[2017-07-20] MEDS: rOPINIRole HCL 4 MG TABLET PO SCH ×3 (08:32→20:30)
--- NOTE | 2017-07-20 11:17 | P.PN ---
Subjective No events overnight Objective - Vital Signs Vital signs: Vital Signs Temp 97.5 F L 07/20/17 06:50 Pulse 68 07/20/17 08:00 Resp 18 07/20/17 11:01 BP 101/62 07/20/17 06:50 Pulse Ox 96 07/20/17 06:50 Intake & Output 07/19/17 07/20/17 07/20/17 18:59 06:59 18:59 Intake Total 480 Balance 480 Weight 118 kg Intake: Oral 480 Other: Voiding Method Toilet Toilet Toilet # Voids 2 1 # Bowel Movements 1 1 - Exam General: The patient is awake and alert, in no distress Eye: there is normal conjunctiva bilaterally. Neck: The neck is supple, there is no JVD. Cardiovascular: Normal S1-S2, no S3-S4, no murmurs. Respiratory: Lungs clear to auscultation bilaterally Gastrointestinal: Abdomen is soft, nontender Musculoskeletal: There is no pedal edema. Neurological:. Speech is normal. Skin: Skin is warm and dry - Labs CBC & Chem 7: 07/20/17 07:50 07/20/17 07:50 Labs: Abnormal Lab Results - Last 24 Hours (Table) 07/17/17 07/20/17 07/20/17 Range/Units 08:09 07:50 07:50 Hgb 10.3 L (11.4-16.0) gm/dL MCHC 30.0 L (31.0-37.0) g/dL RDW 15.8 H (11.5-15.5) % Chloride 108 H (98-107) mmol/L Carbon Dioxide 21 L (22-30) mmol/L BUN 28 H (7-17) mg/dL Creatinine 1.49 H (0.52-1.04) mg/dL Iron 27 L (50-170) ug/dL Iron Saturation 7.28 L (12.00-45.00) Albumin 3.4 L (3.5-5.0) g/dL Assessment and Plan Assessment: 1. Left foot second toe ulceration with cellulitis and underlying acute osteomyelitis 2. Osteomyelitis of the distal foot second digit 3. Acute on chronic kidney disease stage III: Nephrology has been consulted. 4. Hypothyroidism continue Synthroid 5. Depression: Psychiatry consulted. They've ordered thyroid studies. 6. History of breast cancer status post chemoradiation treatment 7. History of neuropathy from a possible B12 deficiency 8. Chronic metabolic acidosis: Patient will be evaluated by nephrology Awaiting insurance approval for home infusion before placing a PICC line Patient is refusing to go to a facility for IV antibiotic Awaiting recommendations from infectious disease
--- NOTE | 2017-07-20 12:31 | PN ---
PROGRESS NOTE Mrs. Mazariegos is a 72-year-old female who presented with progressive edema as well as a evidence of renal function abnormalities and ulceration on the second toe. She is feeling better today. Her peripheral edema is better. She denies any symptoms of chest pain. She denies any dizziness or palpitation. She has underwent a transthoracic echocardiogram revealed preserved left ventricular size and systolic function with mild dilatation of the inferior vena cava and mild pulmonary hypertension. Her NT proBNP on admission was normal. She continues to be at this time on aspirin, ceftriaxone, heparin, midodrine, Protonix, ropinirole, and sodium bicarb. PHYSICAL EXAMINATION: This is a 72-year-old female, alert, oriented, in no apparent distress. Blood pressure 101/60 with the heart rate in the 60s. LUNGS: Clear. HEART: Regular rate and rhythm. S1, S2. No S3. No rub. ABDOMEN: Soft, nontender. EXTREMITIES: With chronic stasis with 1+ edema. LAB DATA: Lab data revealed a BUN and creatinine 28 and 1.49, improved compared with yesterday. Her potassium 4.7. Hemoglobin 10.3. IMPRESSION: 1. Peripheral edema, improved with no evidence to suggest congestive heart failure. 2. Ulceration of the second toe. 3. Renal failure, improving. 4. History of depression. 5. History of breast cancer. RECOMMENDATION: From the cardiac standpoint, she is stable. I see no evidence of congestive heart failure at this time. We will continue present therapy. We will see on as needed basis. Please feel free to call us for any question. MMODL / IJN: [id number] /
[2017-07-20] MEDS: IMIPRAMINE 25 MG TAB PO SCH (20:31)
--- NOTE | 2017-07-20 22:33 | PN ---
PROGRESS NOTE Patient is seen for followup for acute kidney injury. The renal function is currently improving off of diuretics. Serum creatinine is down to 1.49, it had peaked at 1.9 mg/dL. EXAMINATION: Blood pressure is 113/70, heart rate 71 per minute. She is afebrile. Examination of the heart S1, S2. Examination lungs bilateral breath sounds are heard. Decreased breath sounds at bases. ABDOMEN: Soft morbidly obese. Examination of lower extremity shows edema 1+ bilaterally with chronic skin changes. LAB: Show sodium 141, potassium 4.7, chloride 108, BUN 28, serum creatinine 1.49, hemoglobin 10.3 g/dL. ASSESSMENT: 1. Acute kidney injury, appears to be prerenal associated with hypovolemia, currently improving. The patient is off of Lasix. She is not maintained on any IV fluids. 2. Metabolic acidosis, currently improved, maintained on oral sodium bicarb. 3. Lower extremity edema, possibly related to the acute kidney injury, currently no plans On diuresis. The patient is advised to watch her salt, monitor, avoid high salt diet as outpatient. 4. Osteomyelitis, of the left 2nd toe. Maintained on antibiotics. The patient is on Rocephin. 5. Hypotension, currently on midodrine. PLAN: 1. Continue off of diuretics. 2. Avoid hypotension. 3. Monitor labs as outpatient. 4. I will discontinue the potassium as her potassium is up to 4.7. MMODL / IJN: [id number] /
[2017-07-20 23:12] VITALS: RESP 18
--- NOTE | 2017-07-20 23:18 | P.PN ---
Subjective Progress Note Date: 07/20/17 Principal diagnosis: This is a 72-year-old female that gives history that she follows with Eliecer Gomez NP, and has been treated for lower extremity edema for a long period of time. Her Lasix and Aldactone were increased to double and for about 1-2 weeks she did have some improvement but she couldn't stay on the higher dose for long and her edema returned. She also has a wound to the left second toe that has been there for greater than 1 year. She does not recall any injury or how it started. She does have significant neuropathy to the lower extremities of unknown etiology. She denies being on any recent antibiotics. Patient states she has been using Epson salt soaks and she was supposed to wrap her legs but it's been too hard. She states she cannot even apply socks. She has been encouraged to go to the hospital for the past 6-8 weeks the patient has been reluctant and finally went to [facility] yesterday. Her white count was 11.3, hemoglobin 9.7, platelet count 447. Sodium 135, potassium 4.2, chloride 107, CO2 14, BUN 39 and creatinine 1.7. Alkaline phosphatase 117. Chest x-ray was negative. X-ray of the left foot showed degenerative joint disease with skin lesion on the second toe. Patient was given ceftriaxone, vancomycin and morphine and then transferred to [facility] emergency center where she underwent an ultrasound duplex of the lower extremity is which was negative for DVT. Patient was then admitted to the [facility] floor. Patient does give history that in the 1970s after her gastric bypass she did have a problem with kidney failure but since that time has not had trouble with her kidneys. Patient also discussed that her 1-1/ 2 years ago and she has been very depressed. She has been on Cymbalta for many years was treated in the remote past by Dr. Raymundo. She is currently living alone and states that she sits for long periods of time without having any motivation to do anything. She does relate increased depression and is open to seeing a psychiatrist and possible follow-up in the outpatient setting. Patient has significant weakness and inability to move in bed as well as ambulate which she states is much worse over the past 3 days. Patient denies having any fever or chills. She denies any change in her appetite. She does complain of some shortness of breath and cough but sputum production. Patient is noted to be hoarse and she states this started since treated for lower extremity edema. Patient does not have family support but does have one good friend that has been good support for her. 07/18/2017 the patient has had some minimal improvement. Pain and tenderness improved. Still has some lower extremity edema. Is being followed by nephrology. 07/20/2017 the patient has had some further improvement. Swelling and pain to the foot is improved as she is responding to antibiotic therapy. Objective - Vital Signs Vital signs: Vital Signs Temp 97.7 F 07/20/17 23:00 Pulse 68 07/20/17 23:00 Resp 18 07/20/17 23:00 BP 124/73 07/20/17 23:00 Pulse Ox 99 07/20/17 23:00 Intake & Output 07/20/17 07/20/17 07/21/17 06:59 18:59 06:59 Intake Total 340 Balance 340 Weight 118 kg Intake: Oral 340 Other: Voiding Method Toilet Toilet # Voids 1 3 # Bowel Movements 1 - Exam Gen: This is a morbidly obese 72-year-old female. She appears to be no acute respiratory distress at rest. HEENT: Head is atraumatic, normocephalic. Pupils equal, round. Sclerae is anicteric. Conjunctiva pink. Mucous members of the mouth are moist. Weight coating on part of her tongue noted. Dentition in poor order. NECK: Supple. No JVD. No lymphadenopathy. No thyromegaly. LUNGS: Clear to auscultation. No wheezes or rhonchi. No intercostal retractions. HEART: Regular rate and rhythm. Distant heart sounds. No murmur. ABDOMEN: Morbidly obese. Soft. Bowel sounds are present. No masses. No tenderness. EXTREMITIES: Firm edema to the lower extremities. Dorsalis pedis +1 bilaterally. Onychomycosis bilaterally. Patient has a small lesion to the distal second toe with no drainage. Toe is much less tender to touch. In the marked edema is showing some slight improvement today NEUROLOGICAL: Patient is awake, alert and oriented x3 - Labs CBC & Chem 7: 07/20/17 07:50 07/20/17 07:50 Labs: Abnormal Lab Results - Last 24 Hours (Table) 07/20/17 07/20/17 Range/Units 07:50 07:50 Hgb 10.3 L (11.4-16.0) gm/dL MCHC 30.0 L (31.0-37.0) g/dL RDW 15.8 H (11.5-15.5) % Chloride 108 H (98-107) mmol/L Carbon Dioxide 21 L (22-30) mmol/L BUN 28 H (7-17) mg/dL Creatinine 1.49 H (0.52-1.04) mg/dL Albumin 3.4 L (3.5-5.0) g/dL Laboratory Results WBC 6.8 k/uL (3.8-10.6) 07/20/17 07:50 RBC 4.10 m/uL (3.80-5.40) 07/20/17 07:50 Hgb 10.3 gm/dL (11.4-16.0) L 07/20/17 07:50 Hct 34.4 % (34.0-46.0) 07/20/17 07:50 MCV 83.9 fL (80.0-100.0) 07/20/17 07:50 MCH 25.1 pg (25.0-35.0) 07/20/17 07:50 MCHC 30.0 g/dL (31.0-37.0) L 07/20/17 07:50 RDW 15.8 % (11.5-15.5) H 07/20/17 07:50 Plt Count 415 k/uL (150-450) 07/20/17 07:50 Neutrophils % 64 % 07/20/17 07:50 Lymphocytes % 22 % 07/20/17 07:50 Monocytes % 5 % 07/20/17 07:50 Eosinophils % 7 % 07/20/17 07:50 Basophils % 0 % 07/20/17 07:50 Neutrophils # 4.3 k/uL (1.3-7.7) 07/20/17 07:50 Lymphocytes # 1.5 k/uL (1.0-4.8) 07/20/17 07:50 Monocytes # 0.3 k/uL (0-1.0) 07/20/17 07:50 Eosinophils # 0.5 k/uL (0-0.7) 07/20/17 07:50 Basophils # 0.0 k/uL (0-0.2) 07/20/17 07:50 Hypochromasia Marked 07/20/17 07:50 ESR 104 mm/hr (0-20) H 07/18/17 08:31 Sodium 141 mmol/L (137-145) 07/20/17 07:50 Potassium 4.7 mmol/L (3.5-5.1) 07/20/17 07:50 Chloride 108 mmol/L (98-107) H 07/20/17 07:50 Carbon Dioxide 21 mmol/L (22-30) L 07/20/17 07:50 Anion Gap 12 mmol/L 07/20/17 07:50 BUN 28 mg/dL (7-17) H 07/20/17 07:50 Creatinine 1.49 mg/dL (0.52-1.04) H 07/20/17 07:50 Est GFR (MDRD) Af Amer 42 (>60 ml/min/1.73 sqM) 07/20/17 07:50 Est GFR (MDRD) Non-Af 34 (>60 ml/min/1.73 sqM) 07/20/17 07:50 Glucose 86 mg/dL (74-99) 07/20/17 07:50 Calcium 9.3 mg/dL (8.4-10.2) 07/20/17 07:50 Iron 27 ug/dL (50-170) L 07/17/17 08:09 TIBC 371 ug/dL (228-460) 07/17/17 08:09 Iron Saturation 7.28 (12.00-45.00) L 07/17/17 08:09 Total Bilirubin 0.4 mg/dL (0.2-1.3) 07/20/17 07:50 AST 36 U/L (14-36) 07/20/17 07:50 ALT 37 U/L (9-52) 07/20/17 07:50 Alkaline Phosphatase 124 U/L (38-126) 07/20/17 07:50 C-Reactive Protein 22.5 mg/L (<10.0) H 07/18/17 08:31 NT-Pro-B Natriuret Pep 406 pg/mL 07/17/17 08:09 Total Protein 7.3 g/dL (6.3-8.2) 07/20/17 07:50 Albumin 3.4 g/dL (3.5-5.0) L 07/20/17 07:50 TSH 4.450 mIU/L (0.465-4.680) 07/17/17 08:09 Free T4 1.08 ng/dL (0.78-2.19) 07/17/17 08:09 Free T3 pg/mL 2.9 pg/ml (2.8-5.3) 07/17/17 08:09 Urine Color Light Yellow 07/17/17 16:30 Urine Appearance Clear (Clear) 07/17/17 16:30 Urine pH 5.0 (5.0-8.0) 07/17/17 16:30 Ur Specific [place] 1.006 (1.001-1.035) 07/17/17 16:30 Urine Protein Negative (Negative) 07/17/17 16:30 Urine Glucose (UA) Negative (Negative) 07/17/17 16:30 Urine Ketones Negative (Negative) 07/17/17 16:30 Urine Blood Negative (Negative) 07/17/17 16:30 Urine Nitrite Negative (Negative) 07/17/17 16:30 Urine Bilirubin Negative (Negative) 07/17/17 16:30 Urine Urobilinogen <2.0 mg/dL (<2.0) 07/17/17 16:30 Ur Leukocyte Esterase Negative (Negative) 07/17/17 16:30 Ur Random Creatinine 38.4 mg/dL 07/18/17 15:20 U Random Total Protein 15 mg/dL (<12) H 07/18/17 15:20 Microbiology 07/17/17 16:30 Urine,Voided Urine Culture - Final Assessment and Plan (1) Leukocytosis Current Visit: Yes Status: Acute Code(s): D72.829 - ELEVATED WHITE BLOOD CELL COUNT, UNSPECIFIED SNOMED Code(s): 040641136 (2) Ulcer of toe of left foot Current Visit: Yes Status: Acute Code(s): L97.529 - NON-PRESSURE CHRONIC ULCER OTH PRT LEFT FOOT W UNSP SEVERITY SNOMED Code(s): 943728496 (3) Acute osteomyelitis of toe of right foot Narrative/Plan: The patient has been seen by psychiatry and is feeling considerably better since that evaluation. She has evidence of the significant ulceration to the left foot second toe that she has not had extensive amount of medical care for. Antibiotic therapy currently is with Rocephin which will be continued until there is further culture data. Bone scan did reveal evidence of osteomyelitis. This is discussed with the patient. We'll need to work with discharge planners as far as the possibility of outpatient intravenous antibiotic therapy. She lives in [place] and will not be able to come to our community on a daily basis for infusion at the local [facility]. Wound culture pending to potentially further help direct the course of therapy. However she's having marked improvement at this time. Continue local wound care with the medical honey and elevation. She somewhat anxious to discharged home to care of her 2 dogs that she misses quite a bit. Continue with her multivitamin. It does appear that the patient will have outpatient intravenous antibiotic therapy at her home with Rocephin with follow-up in the office at 3 and 6 weeks with weekly blood work. Current Visit: Yes Status: Acute Code(s): M86.171 - OTHER ACUTE OSTEOMYELITIS, RIGHT ANKLE AND FOOT SNOMED Code(s): 923962790
[2017-07-21] MEDS: LEVOTHYROXINE 100 MCG TAB PO SCH (06:33)
[2017-07-21] MEDS ORDERED: PNEUMOCOCCAL VACC-PNEUMOVAX 23 25 MCG/0.5 ML VIAL IM ONE (08:00)
[2017-07-21] MEDS: HEPARIN SODIUM,PORCINE 5,000 UNIT/ML 1 ML VIAL SQ SCH (08:02)
[2017-07-21] MEDS: ASPIRIN 325 MG TAB PO SCH (08:02)
[2017-07-21] MEDS: MIDODRINE 5 MG TAB PO SCH ×2 (08:04→12:22)
[2017-07-21] MEDS: DULoxetine HCL 60 MG CAPSULE.DR PO SCH (08:04)
[2017-07-21] MEDS: cefTRIAXone IN SWFI 2,000 MG/20 ML SYRINGE IVP SCH (08:04)
[2017-07-21] MEDS: ARIPiprazole 2 MG TAB PO SCH (08:04)
[2017-07-21] MEDS: NYSTATIN 100,000 UNIT/ML SUSP 500,000 UNIT/5 ML CUP PO SCH ×2 (08:04→12:22)
[2017-07-21] MEDS: PANTOPRAZOLE 40 MG TABLET PO SCH (08:04)
[2017-07-21] MEDS: rOPINIRole HCL 4 MG TABLET PO SCH (08:04)
[2017-07-21] MEDS: GABAPENTIN 400 MG CAP PO SCH ×2 (08:04→12:22)
[2017-07-21] MEDS: SODIUM BICARBONATE TAB 650 MG TAB PO SCH (08:04)
[2017-07-21 08:10] VITALS: BP 104/62; PULSE 71; TEMP 97.9
[2017-07-21 09:34] LABS: Basophils % (A) 0 %; Eosinophils # (A) 0.6 k/uL (0-0.7); Eosinophils % (A) 8 %; HGB 9.8 gm/dL (11.4-16.0); Hypochromasia Marked; Lymphocytes # (A) 1.3 k/uL (1.0-4.8); Lymphocytes % (A) 18 %; MCH 25.1 pg (25.0-35.0); MCHC 29.7 g/dL (31.0-37.0); MCV 84.4 fL (80.0-100.0); Mean Platelet Volume 6.9; Monocytes # (A) 0.3 k/uL (0-1.0); Monocytes % (A) 5 %; Neutrophils # (A) 4.8 k/uL (1.3-7.7); Neutrophils % (A) 67 %; Platelet Count 376 k/uL (150-450); RBC 3.91 m/uL (3.80-5.40); RDW 15.9 % (11.5-15.5); WBC 7.2 k/uL (3.8-10.6)
[2017-07-21 09:50] LABS: Albumin 3.4 g/dL (3.5-5.0); Calcium 9.5 mg/dL (8.4-10.2); Potassium 3.9 mmol/L (3.5-5.1); Total Bilirubin 0.2 mg/dL (0.2-1.3)
[2017-07-21] MEDS ORDERED: LIDOCAINE 2% INJ 20 MG/ML SQ ONE (10:30)
--- NOTE | 2017-07-21 10:51 | CDI ---
Last Revision, May 2017 Documentation Clarification Form Date: 07/21/2017 10:19:00 AM From: Babita Shelton RN, CCDS Admit Date: 07/16/2017 11:07:00 PM Patient Name: Shayla Mazariegos Visit Number: [id number] Discharge Date: ATTENTION: The Clinical Documentation Specialists (CDI) and [facility] Coding Staff appreciate your assistance in clarifying documentation. Please respond to the clarification below the line at the bottom and electronically sign. The CDI & [facility] Coding staff will review the response and follow-up if needed. Please note: Queries are made part of the Legal Health Record. If you have any questions, please contact the author of this message via ITS. Dr. Gerald Cox Conflicting documentation has been found in the medical record. (2) Ulcer of toe of left foot (3) Acute osteomyelitis of toe of right foot 07/18/17 and ongoing documentation/assessment and plan has acute osteomyelitis of toe of right foot. History/Risk Factors: Renal disease Thyroid disorder, Clinical indicators: present with lower extremity edema with ongoing treatment. She has a wound to the left second toe that has been there for greater than 1 year. She does not recall any injury or how it started. prior treatment with antibiotics. Labs: WBC 11.3 Bone scan: Radiotracer accumulation within the distal left foot second digit on blood flow and blood pool images with a photopenic defect in this region on stasis images. An aggressive osteomyelitis should be considered. Treatment: Rocephin IV Dressing change (per orders) In your opinion what is the most clinically appropriate diagnosis for this patient? Ulcer of toe of left foot with acute osteomyelitis Ulcer of toe of right foot with acute osteomyelitis Other explanation of clinical findings Unable to determine (no explanation for clinical findings) lease continue to document in your progress notes and discharge summary in order to capture severity of illness and risk of mortality. Include clinical findings that support your diagnosis. MTDD
--- NOTE | 2017-07-21 11:31 | P.DS ---
Providers Date of admission: 07/16/17 23:07 Expected date of discharge: 07/21/17 Attending physician: Marcy Perdomo Consults: 07/16/17 23:08 Consult Physician Routine Consulting Provider: Gerald Cox Consult Reason/Comments: foot wound, infection Do you want consulting provider notified?: Yes, Notify in am 07/17/17 08:57 Consult Physician Routine Consulting Provider: Riccardo Orr Consult Reason/Comments: depression Do you want consulting provider notified?: Yes Consult Physician Routine Consulting Provider: Jaja Nur Consult Reason/Comments: kasia Do you want consulting provider notified?: Yes 07/18/17 11:48 Consult Physician Routine Consulting Provider: David Govea Consult Reason/Comments: lower ext edema Do you want consulting provider notified?: Yes 07/20/17 10:46 Consult Physician Routine Consulting Provider: Vane Phillips Consult Reason/Comments: chf, medications Do you want consulting provider notified?: Yes [facility] Course: 1. Left foot second toe ulceration with cellulitis and underlying acute osteomyelitis 2. Osteomyelitis of the distal foot second digit 3. Acute on chronic kidney disease stage III: Nephrology has been consulted. 4. Hypothyroidism continue Synthroid 5. Depression: Regimen was adjusted by psychiatry. She was evaluated during this admission. 6. History of breast cancer status post chemoradiation treatment 7. History of neuropathy from a possible B12 deficiency 8. Chronic metabolic acidosis: Patient will be evaluated by nephrology Patient was seen and evaluated by infectious disease. Plan to finish antibiotic with IV ceftriaxone at home through PICC line. Home infusion arranged by social insurance analyst. Follow-up with Dr. Cox in the office as directed. Patient Condition at Discharge: Fair Plan - Discharge Summary Discharge Rx Participant: No New Discharge Prescriptions: New cefTRIAXone [Rocephin] 2,000 mg IVPB Q24HR #42 vial ARIPiprazole [Abilify] 2 mg PO DAILY #30 tab Imipramine [Tofranil] 25 mg PO HS #30 tab Midodrine [ProAmatine] 5 mg PO AC-TID #90 tab Continue rOPINIRole HCL [Requip] 6 mg PO TID Potassium Chloride [Klor-Con 20] 20 meq PO DAILY Gabapentin 800 mg PO QID Furosemide [Lasix] 40 mg PO DAILY DULoxetine HCL [Cymbalta] 60 mg PO BID Aspirin EC [Ecotrin] 325 mg PO DAILY Levothyroxine Sodium [Synthroid] 200 mcg PO DAILY Discontinued Spironolactone [Aldactone] 50 mg PO BID Amitriptyline HCl [Elavil] 50 mg PO HS Discharge Medication List Aspirin EC [Ecotrin] 325 mg PO DAILY 07/16/17 [History] DULoxetine HCL [Cymbalta] 60 mg PO BID 07/16/17 [History] Furosemide [Lasix] 40 mg PO DAILY 07/16/17 [History] Gabapentin 800 mg PO QID 07/16/17 [History] Levothyroxine Sodium [Synthroid] 200 mcg PO DAILY 07/16/17 [History] Potassium Chloride [Klor-Con 20] 20 meq PO DAILY 07/16/17 [History] rOPINIRole HCL [Requip] 6 mg PO TID 07/16/17 [History] cefTRIAXone [Rocephin] 2,000 mg IVPB Q24HR #42 vial 07/20/17 [Rx] ARIPiprazole [Abilify] 2 mg PO DAILY #30 tab 07/21/17 [Rx] Imipramine [Tofranil] 25 mg PO HS #30 tab 07/21/17 [Rx] Midodrine [ProAmatine] 5 mg PO AC-TID #90 tab 07/21/17 [Rx] Follow up Appointment(s)/Referral(s): Shira Tucker MD [Primary Care Provider] - 1-2 days [facility], [REFERRING] - Ambulatory/Diagnostic Orders: Basic Metabolic Panel [LAB.AMB] Location: Determined By Patient C Reactive Protein [LAB.AMB] Location: Determined By Patient Complete Blood Count w/diff [LAB.AMB] Location: Determined By Patient Erythrocyte Sedimentation Rate [LAB.AMB] Location: Determined By Patient Patient Instructions/Handouts: Heart Failure (DC) Activity/Diet/Wound Care/Special Instructions: [facility] [phone] will see you on Thursday07/22/17 to assist with infusion. [facility] will supply IV antibiotics to start on Thursday07/22/17. PNA vaccine on discharge [facility] from [facility] [phone] Discharge Disposition: HOME WITH HOME HEALTH SERVICES
--- NOTE | 2017-07-21 18:58 | PN ---
PROGRESS NOTE The patient is seen for followup for acute kidney injury. Renal function has been improving. Patient's diuretics were held and her creatinine is now staying at about 1.4 mg/dL. She is currently going home. EXAMINATION: Blood pressure this morning was 104/62, heart rate 71 per minute. Patient is afebrile. HEART: S1, S2. LUNGS: Decreased breath sounds at the bases. Abdomen is soft, morbidly obese. Lower extremities show edema 1+ bilaterally. LABS: Sodium 141, potassium 3.9, chloride 108, BUN 20, serum creatinine 1.48. Hemoglobin 9.8 g/dL. ASSESSMENT: 1. Acute kidney injury, mainly prerenal, improved with discontinuation of diuretics. Patient did receive IV fluids for a short period of time. 2. Chronic kidney disease with a previous creatinine at 1.2 and 1.1 mg/dL in August of 2016. UA is quite benign. Etiology is likely nephrosclerosis. 3. Osteomyelitis of left 2nd toe, maintained on antibiotics. PLAN: Patient is stable for discharge. Monitor labs as outpatient. She should follow up in the office in about 2 weeks time for acute kidney injury and underlying CKD. MMODL / IJN: [id number] /
--- NOTE | 2017-07-27 15:43 | IR ---
EXAMINATION TYPE: IR cvc insert >=5 years DATE OF EXAM: 07/21/2017 COMPARISON: NONE CLINICAL HISTORY: Infection Needs long-term intravenous access for antibiotics. PROCEDURE: After informed consent, the skin overlying the upper extremity vein was localized with ultrasound and noted to be compressible and patent. An ultrasound image was obtained and submitted on the patient' s chart. The overlying skin was prepped and draped and Lidocaine was used for local anesthesia. A s kin wil was made with a scalpel. Access was gained to the vein under ultrasound guidance with a 21 gauge needle and a 0.018 inch wire was advanced. Access site was dilated with Peel-Away sheath and c atheter tailored to the appropriate length and advanced such that the distal tip is at the cavoatrial junction. Spot image was obtained verifying placement. Catheter was fixed to the skin with suture and a sterile dressing was placed following hemostasis. Catheter was aspirated and flushed with sali ne. Patient was discharged in stable condition without complication.Maximal barrier technique is uti lized. Ultrasound image is documented on the chart. Ultrasound used with sterile technique. Fluoro time and fluoroscopic images submitted to document procedure: 123 intraoperative images, 2.5 m inutes fluoroscopy time IMPRESSION: STATUS POST ULTRASOUND AND FLUOROSCOPIC GUIDED PICC LINE PLACEMENT, READY FOR USE. THIS PROCEDURE WAS PERFORMED BY THE UNDERSIGNED.
== END 2017-07-21 13:01 | disposition home health service (06) | DRG 540 ==
LOC: EC 20:15 → 4MS4W 23:07
PROVIDERS: ADMIT Internal Medicine; ATTEND Internal Medicine
PROC: 3E0234Z Introduction of Serum, Toxoid and Vaccine into Muscle, Percutaneous Approach (ICD-10-PCS; principal; 2017-07-21 09:45)
DX: M86.172 Other acute osteomyelitis, left ankle and foot (principal); L03.116 Cellulitis of left lower limb; N17.9 Acute kidney failure, unspecified; E87.2 Acidosis; B37.0 Candidal stomatitis; G62.9 Polyneuropathy, unspecified; I95.9 Hypotension, unspecified; L03.115 Cellulitis of right lower limb; E66.01 Morbid (severe) obesity due to excess calories; I27.20 Pulmonary hypertension, unspecified; Z68.41 Body mass index [BMI] 40.0-44.9, adult; L97.529 Non-pressure chronic ulcer of other part of left foot with unspecified severity; I87.2 Venous insufficiency (chronic) (peripheral); E03.9 Hypothyroidism, unspecified; E86.9 Volume depletion, unspecified; F32.9 Major depressive disorder, single episode, unspecified; F41.9 Anxiety disorder, unspecified; I12.9 Hypertensive chronic kidney disease with stage 1 through stage 4 chronic kidney disease, or unspecified chronic kidney disease; N18.3 Chronic kidney disease, stage 3 (moderate); G47.00 Insomnia, unspecified; B35.1 Tinea unguium; M19.072 Primary osteoarthritis, left ankle and foot; D50.9 Iron deficiency anemia, unspecified; R60.9 Edema, unspecified; E53.8 Deficiency of other specified B group vitamins; Z79.82 Long term (current) use of aspirin; Z79.899 Other long term (current) drug therapy; Z88.2 Allergy status to sulfonamides; Z98.84 Bariatric surgery status; Z87.891 Personal history of nicotine dependence; Z85.3 Personal history of malignant neoplasm of breast; Z90.49 Acquired absence of other specified parts of digestive tract; Z82.49 Family history of ischemic heart disease and other diseases of the circulatory system
CPT/HCPCS: 36569; 71046; 76937; 77001; 78315; 80048; 80053; 81003; 82570; 83540; 83550; 83880; 84156; 84439; 84443; 84481; 85025; 85652; 86140; 87086; 90732; 93306; 93970; 96374; 99285

== ENCOUNTER 2017-08-08 12:44 | Observation (INO) | payer MEDICARE ==
--- NOTE | 2017-08-08 13:05 | ED ---
General Adult HPI - General Chief complaint: Dizziness Stated complaint: Fall/Head Injury Time Seen by Provider: 08/08/17 12:55 Source: patient, RN notes reviewed Mode of arrival: wheelchair Limitations: no limitations - History of Present Illness Initial comments: Patient 72-year-old female who presents emergency room today with a chief complaint of a syncopal episode that 2 AM. She states that she has a wood burning stove that she was putting a piece of wood in. She states she does not remember being lightheaded or dizzy but she fell forward hitting her head. Also admits some pain to the right hip. States that she does have a mild headache 06/17. Patient mitts that she was recently discharged from the hospital for a infection of the left second toe. She states that she has osteomyelitis that she has a PICC line in place in is receiving antibiotic treatments for GERD she admits that she is also noticed increased leg swelling bilaterally over the last few days. She states that she has had a history of leg swelling and does take Lasix for it. Patient denies any other complaints. Patient denies any recent fever, chills, shortness of breath, chest pain, back pain, abdominal pain, nausea or vomiting, visual changes, or any other complaints. - Related Data Home Medications Medication Instructions Recorded Confirmed Aspirin EC [Ecotrin] 325 mg PO DAILY 07/16/17 08/08/17 DULoxetine HCL [Cymbalta] 60 mg PO BID 07/16/17 08/08/17 Furosemide [Lasix] 40 mg PO DAILY 07/16/17 08/08/17 Gabapentin 800 mg PO QID 07/16/17 08/08/17 Levothyroxine Sodium [Synthroid] 200 mcg PO DAILY 07/16/17 08/08/17 Potassium Chloride [Klor-Con 20] 20 meq PO DAILY 07/16/17 08/08/17 rOPINIRole HCL [Requip] 6 mg PO TID 07/16/17 08/08/17 Previous Rx's Medication Instructions Recorded cefTRIAXone [Rocephin] 2,000 mg IVPB Q24HR #42 vial 07/20/17 ARIPiprazole [Abilify] 2 mg PO DAILY #30 tab 07/21/17 Imipramine [Tofranil] 25 mg PO HS #30 tab 07/21/17 Midodrine [ProAmatine] 5 mg PO AC-TID #90 tab 07/21/17 Allergies Allergy/AdvReac Type Severity Reaction Status Date / Time Sulfa (Sulfonamide Allergy Unknown Verified 08/08/17 13:12 Antibiotics) Review of Systems ROS Statement: Those systems with pertinent positive or pertinent negative responses have been documented in the HPI. ROS Other: All systems not noted in ROS Statement are negative. Past Medical History Past Medical History: Heart Failure, Renal Disease, Thyroid Disorder Additional Past Medical History / Comment(s): chronic edema, chronic metabolic acidosis, neuropathy, insomnia, breast cancer status post lumpectomy, chemo and radiation treatment in 2002, both of acute kidney failure in the 1970s after gastric bypass History of Any Multi-Drug Resistant Organisms: None Reported Past Surgical History: Bariatric Surgery, Section, Cholecystectomy, Tonsillectomy Additional Past Surgical History / Comment(s): Gastric bypass, left breast lumpectomy, breast biopsy Past Anesthesia/Blood Transfusion Reactions: No Reported Reaction Past Psychological History: Depression Smoking Status: Never smoker Past Alcohol Use History: None Reported Past Drug Use History: None Reported - Past Family History Father History Unknown: Yes Family Medical History: Diabetes Mellitus Additional Family Medical History / Comment(s): unaware of entire history. Mother History Unknown: Yes Family Medical History: Chest Pain / Angina, Coronary Artery Disease (CAD), Diabetes Mellitus General Exam - General Exam Comments Initial Comments: General: The patient is awake and alert, in no distress, and does not appear acutely ill. Eye: Pupils are equal, round and reactive to light, extra-ocular movements are intact. No nystagmus. There is normal conjunctiva bilaterally. No signs of icterus. Ears, nose, mouth and throat: There are moist mucous membranes and no oral lesions. Neck: The neck is supple, there is no tenderness or JVD. Cardiovascular: There is a regular rate and rhythm. No murmur, rub or gallop is appreciated. Respiratory: Lungs are clear to auscultation, respirations are non-labored, breath sounds are equal. No wheezes, stridor, rales, or rhonchi. Musculoskeletal: Normal ROM, no tenderness. Strength 5/5. Sensation intact. Pulses equal bilaterally 2+. Neurological: A&O x 3. CN II-XII intact, There are no obvious motor or sensory deficits. Coordination appears grossly intact. Speech is normal. Skin: Skin is warm and dry and no rashes or lesions are noted. Psychiatric: Cooperative, appropriate mood & affect, normal judgment. Limitations: no limitations Course Vital Signs 08/08/17 08/08/17 12:46 14:16 Temperature 97.7 F Pulse Rate 72 73 Respiratory 20 18 Rate Blood Pressure 139/71 122/66 O2 Sat by Pulse 98 98 Oximetry EKG Findings - EKG Comments: EKG Findings:: EKG performed at 1307: Shows normal sinus rhythm at 68 bpm. IN interval 182. QRS 88. QT/QTc 458/487. No acute ST changes. Medical Decision Making - Medical Decision Making Patient reexamined at this time shows no signs of distress. She is resting comfortably. Patient did have syncopal episode last night. There is no dizziness or lightheadedness prior to event. Patient's labs been reviewed the elevated CK here in the emergency room. Patient does admit that she had a difficult time getting up off the ground and was down into the morning until she called a friend to help her. Patient will be admitted to the hospital have serial enzymes with cardiology consult. - Lab Data Result diagrams: 08/08/17 13:20 08/08/17 13:20 Lab Results 08/08/17 08/08/17 08/08/17 Range/Units 13:20 13:20 13:20 WBC 10.5 (3.8-10.6) k/uL RBC 4.37 (3.80-5.40) m/uL Hgb 11.0 L (11.4-16.0) gm/dL Hct 35.9 (34.0-46.0) % MCV 82.3 (80.0-100.0) fL MCH 25.2 (25.0-35.0) pg MCHC 30.6 L (31.0-37.0) g/dL RDW 17.5 H (11.5-15.5) % Plt Count 431 (150-450) k/uL Neutrophils % 74 % Lymphocytes % 14 % Monocytes % 4 % Eosinophils % 6 % Basophils % 1 % Neutrophils # 7.8 H (1.3-7.7) k/uL Lymphocytes # 1.4 (1.0-4.8) k/uL Monocytes # 0.4 (0-1.0) k/uL Eosinophils # 0.7 (0-0.7) k/uL Basophils # 0.1 (0-0.2) k/uL Hypochromasia Slight Poikilocytosis Slight Anisocytosis Slight PT (9.0-12.0) sec INR (<1.2) APTT (22.0-30.0) sec Sodium 144 (137-145) mmol/L Potassium 3.1 L (3.5-5.1) mmol/L Chloride 112 H (98-107) mmol/L Carbon Dioxide 17 L (22-30) mmol/L Anion Gap 15 mmol/L BUN 11 (7-17) mg/dL Creatinine 0.97 (0.52-1.04) mg/dL Est GFR (MDRD) Af Amer >60 (>60 ml/min/1.73 sqM) Est GFR (MDRD) Non-Af 57 (>60 ml/min/1.73 sqM) Glucose 96 (74-99) mg/dL Calcium 9.3 (8.4-10.2) mg/dL Total Bilirubin 0.3 (0.2-1.3) mg/dL AST 39 H (14-36) U/L ALT 41 (9-52) U/L Alkaline Phosphatase 155 H (38-126) U/L Total Creatine Kinase (30-135) U/L CK-MB (CK-2) (0.0-2.4) ng/mL CK-MB (CK-2) Rel Index Troponin I (0.000-0.034) ng/mL NT-Pro-B Natriuret Pep 211 pg/mL Total Protein 7.6 (6.3-8.2) g/dL Albumin 3.6 (3.5-5.0) g/dL 08/08/17 08/08/17 Range/Units 13:20 13:20 WBC (3.8-10.6) k/uL RBC (3.80-5.40) m/uL Hgb (11.4-16.0) gm/dL Hct (34.0-46.0) % MCV (80.0-100.0) fL MCH (25.0-35.0) pg MCHC (31.0-37.0) g/dL RDW (11.5-15.5) % Plt Count (150-450) k/uL Neutrophils % % Lymphocytes % % Monocytes % % Eosinophils % % Basophils % % Neutrophils # (1.3-7.7) k/uL Lymphocytes # (1.0-4.8) k/uL Monocytes # (0-1.0) k/uL Eosinophils # (0-0.7) k/uL Basophils # (0-0.2) k/uL Hypochromasia Poikilocytosis Anisocytosis PT 10.5 (9.0-12.0) sec INR 1.1 (<1.2) APTT 22.3 (22.0-30.0) sec Sodium (137-145) mmol/L Potassium (3.5-5.1) mmol/L Chloride (98-107) mmol/L Carbon Dioxide (22-30) mmol/L Anion Gap mmol/L BUN (7-17) mg/dL Creatinine (0.52-1.04) mg/dL Est GFR (MDRD) Af Amer (>60 ml/min/1.73 sqM) Est GFR (MDRD) Non-Af (>60 ml/min/1.73 sqM) Glucose (74-99) mg/dL Calcium (8.4-10.2) mg/dL Total Bilirubin (0.2-1.3) mg/dL AST (14-36) U/L ALT (9-52) U/L Alkaline Phosphatase (38-126) U/L Total Creatine Kinase 152 H (30-135) U/L CK-MB (CK-2) 6.4 H* (0.0-2.4) ng/mL CK-MB (CK-2) Rel Index 4.2 Troponin I <0.012 (0.000-0.034) ng/mL NT-Pro-B Natriuret Pep pg/mL Total Protein (6.3-8.2) g/dL Albumin (3.5-5.0) g/dL Disposition Clinical Impression: Syncope, Hypokalemia Disposition: ADMITTED IP TO THIS HOSP Condition: Stable Time of Disposition: 14:44
[2017-08-08 13:43] LABS: Anisocytosis Slight; Basophils # (A) 0.1 k/uL (0-0.2); Basophils % (A) 1 %; Eosinophils # (A) 0.7 k/uL (0-0.7); Eosinophils % (A) 6 %; HCT 35.9 % (34.0-46.0); Hypochromasia Slight; Lymphocytes # (A) 1.4 k/uL (1.0-4.8); Lymphocytes % (A) 14 %; MCH 25.2 pg (25.0-35.0); MCHC 30.6 g/dL (31.0-37.0); MCV 82.3 fL (80.0-100.0); Mean Platelet Volume 7.1; Monocytes # (A) 0.4 k/uL (0-1.0); Monocytes % (A) 4 %; Neutrophils # (A) 7.8 k/uL (1.3-7.7); Neutrophils % (A) 74 %; Platelet Count 431 k/uL (150-450); Poikilocytosis Slight; RBC 4.37 m/uL (3.80-5.40); RDW 17.5 % (11.5-15.5); WBC 10.5 k/uL (3.8-10.6)
[2017-08-08 13:53] LABS: INR 1.1 (<1.2); Partial Thromboplastin Time 22.3 sec (22.0-30.0); Prothrombin Time 10.5 sec (9.0-12.0)
[2017-08-08 13:58] LABS: ALT 41 U/L (9-52); AST 39 U/L (14-36); Albumin 3.6 g/dL (3.5-5.0); Alkaline Phosphatase 155 U/L (38-126); Anion Gap 15 mmol/L; Blood Urea Nitrogen 11 mg/dL (7-17); Calcium 9.3 mg/dL (8.4-10.2); Carbon Dioxide 17 mmol/L (22-30); Chloride 112 mmol/L (98-107); Glucose 96 mg/dL (74-99); Potassium 3.1 mmol/L (3.5-5.1); Sodium 144 mmol/L (137-145); Total Bilirubin 0.3 mg/dL (0.2-1.3); Total Protein 7.6 g/dL (6.3-8.2)
[2017-08-08 14:03] LABS: Creatine Kinase 152 U/L (30-135)
--- NOTE | 2017-08-08 14:11 | XR ---
EXAMINATION TYPE: XR chest 2V DATE OF EXAM: 08/08/2017 COMPARISON: 07/17/2017 INDICATION: Leg swelling TECHNIQUE: Frontal and lateral views of the chest are obtained. FINDINGS: The heart size is normal. The pulmonary vasculature is normal. The lungs are clear. IMPRESSION: 1. No acute pulmonary process.
--- NOTE | 2017-08-08 14:15 | CT ---
EXAMINATION TYPE: CT brain henry wo con DATE OF EXAM: 08/08/2017 COMPARISON: NONE HISTORY: Fall with possible Loss of consciousness. Memory loss CT DLP: 1972.1 mGycm, Automated exposure control for dose reduction was used. CONTRAST: Patient injected with 0 mL of Omnipaque 350. CT of the brain is performed utilizing 3 mm thick sections through the posterior fossa and 3 mm thick sections through the remaining calvarium. Study is performed within 24 hours of arrival to the hospital. No abnormal hyperdensity is present to suggest an acute intracranial hemorrhage. No mass lesion is evident. No acute infarcts are evident. Ventricles and sulci are appropriate for the patient age. Paranasal sinuses and mastoid air cells within the [id number] are clear. IMPRESSIONS: 1. Normal CT brain. CT cervical spine. COMPARISON: None CT of the cervical spine is performed in the axial plane at 2 mm thick sections. Reconstructed image s in the coronal, and sagittal plane are reviewed on the computer. No acute fractures are evident. Vertebral body alignment is straightened. C5-6 disc level is narrowed. Vertebral body heights are preserved. No spinal canal stenosis is evident. C5-6 foraminal narrowing is present due to uncovertebral joint hypertrophy at this level. IMPRESSIONS: 1. Degenerative disc change C5-6 with moderate bilateral foraminal narrowing. 2. No acute osseous abnormality.
[2017-08-08 14:16] LABS: Creatine Kinase MB 6.4 ng/mL (0.0-2.4); Troponin I <0.012 ng/mL (0.000-0.034)
[2017-08-08] MEDS ORDERED: POTASSIUM CHLORIDE ER 20 MEQ TAB.ER PO STA (14:30)
[2017-08-08] MEDS ORDERED: NALOXONE 0.4 MG/ML 1 ML VIAL IV PRN (14:46)
[2017-08-08] MEDS ORDERED: SODIUM CHLORIDE 0.9% 1,000 ML IV ONE (14:46)
--- NOTE | 2017-08-08 14:53 | XR ---
EXAMINATION TYPE: XR Hip RT and AP Pelvis DATE OF EXAM: 08/08/2017 COMPARISON: NONE HISTORY: Fall, pain right hip TECHNIQUE: Pelvis is examined in the frontal projection. Examined in 2 views. FINDINGS: Femoral heads articulate with the acetabulum. Symphysis pubis and sacroiliac joints appear normal. No acute fractures are evident. IMPRESSION: 1. No acute osseous abnormality right hip
[2017-08-08 16:52] VITALS: BMI 42.9
[2017-08-08] MEDS: SODIUM CHLORIDE 0.9% 1,000 ML IV SCH (18:12)
[2017-08-08] MEDS: MIDODRINE 5 MG TAB PO SCH (18:22)
[2017-08-08] MEDS: GABAPENTIN 400 MG CAP PO SCH ×2 (18:25→21:06)
[2017-08-08] MEDS: rOPINIRole HCL 4 MG TABLET PO SCH ×2 (18:26→21:07)
[2017-08-08] MEDS: DULoxetine HCL 60 MG CAPSULE.DR PO SCH (21:07)
[2017-08-08] MEDS: IMIPRAMINE 25 MG TAB PO SCH (21:07)
[2017-08-09 04:03] LABS: Anisocytosis Slight; Basophils % (A) 1 %; Eosinophils # (A) 0.7 k/uL (0-0.7); Eosinophils % (A) 10 %; HCT 33.3 % (34.0-46.0); HGB 9.9 gm/dL (11.4-16.0); Hypochromasia Marked; Lymphocytes # (A) 1.3 k/uL (1.0-4.8); Lymphocytes % (A) 18 %; MCHC 29.7 g/dL (31.0-37.0); MCV 84.2 fL (80.0-100.0); Mean Platelet Volume 6.5; Monocytes # (A) 0.3 k/uL (0-1.0); Monocytes % (A) 4 %; Neutrophils # (A) 4.7 k/uL (1.3-7.7); Neutrophils % (A) 65 %; Platelet Count 370 k/uL (150-450); RBC 3.95 m/uL (3.80-5.40); RDW 17.5 % (11.5-15.5); WBC 7.2 k/uL (3.8-10.6)
[2017-08-09 04:23] LABS: Creatine Kinase 91 U/L (30-135)
[2017-08-09 04:27] LABS: ALT 44 U/L (9-52); AST 28 U/L (14-36); Albumin 3.1 g/dL (3.5-5.0); Alkaline Phosphatase 136 U/L (38-126); Anion Gap 11 mmol/L; Blood Urea Nitrogen 14 mg/dL (7-17); Calcium 8.9 mg/dL (8.4-10.2); Carbon Dioxide 18 mmol/L (22-30); Chloride 115 mmol/L (98-107); Glucose 94 mg/dL (74-99); Sodium 144 mmol/L (137-145); Total Bilirubin 0.2 mg/dL (0.2-1.3); Total Protein 6.7 g/dL (6.3-8.2)
[2017-08-09 04:37] LABS: Troponin I <0.012 ng/mL (0.000-0.034)
[2017-08-09 04:54] LABS: Appearance,Urine Clear (Clear); Bilirubin,Urine Negative (Negative); Blood,Urine Negative (Negative); Color,Urine Yellow; Glucose,Urine (UA) Negative (Negative); Hyaline Casts,Urine 4 /lpf (0-2); Ketones,Urine Negative (Negative); Leukocyte Esterase,Urine Negative (Negative); Mucus,Urine Occasional /hpf; Nitrite,Urine Negative (Negative); Protein,Urine 1+ (Negative); RBC,Urine 1 /hpf (0-5); Specific Gravity,Urine 1.013 (1.001-1.035); Urobilinogen,Urine <2.0 mg/dL (<2.0); WBC,Urine 1 /hpf (0-5)
[2017-08-09 04:54] LABS: Creatine Kinase MB 3.8 ng/mL (0.0-2.4)
[2017-08-09] MEDS: SODIUM CHLORIDE 0.9% 1,000 ML IV SCH ×2 (07:05→20:33)
[2017-08-09] MEDS: LEVOTHYROXINE 100 MCG TAB PO SCH (07:05)
[2017-08-09] MEDS: MIDODRINE 5 MG TAB PO SCH ×3 (07:07→17:35)
[2017-08-09] MEDS: GABAPENTIN 400 MG CAP PO SCH ×4 (08:05→20:41)
[2017-08-09] MEDS: DULoxetine HCL 60 MG CAPSULE.DR PO SCH ×2 (08:05→20:41)
[2017-08-09] MEDS: ARIPiprazole 2 MG TAB PO SCH (08:06)
[2017-08-09] MEDS: ASPIRIN 325 MG TAB PO SCH (08:06)
[2017-08-09] MEDS: POTASSIUM CHLORIDE ER 20 MEQ TAB.ER PO SCH ×3 (08:06→15:06)
[2017-08-09] MEDS: rOPINIRole HCL 4 MG TABLET PO SCH ×3 (08:07→20:41)
[2017-08-09] MEDS: FUROSEMIDE 40 MG TAB PO SCH (08:07)
[2017-08-09] MEDS ORDERED: NON-FORMULARY DRUG (Ceftriaxone 2,000 MG) IVPB SCH (09:00)
[2017-08-09] MEDS: cefTRIAXone IN SWFI 2,000 MG/20 ML SYRINGE IVP SCH (10:24)
--- NOTE | 2017-08-09 11:47 | P.CRDCN ---
History of Present Illness Consult date: 08/09/17 Requesting physician: Marcy Perdomo Consult reason: sycope Chief complaint: Syncope History of present illness: This is a pleasant 72-year-old female with history of chronic kidney disease, hypothyroidism, breast cancer status post chemo and radiation, obesity with prior gastric bypass surgery, patient was recently in the hospital last month with osteomyelitis, she had a PICC line placed for which she is still receiving antibiotic therapy. An echocardiogram with Doppler study was performed last month which revealed an ejection fraction of 55-60%. Patient is hospital following a syncopal episode. According to patient she was bending down to throw wood into her wood stove, , she then fell down to the ground and passed out. She states that she can almost of feeling herself going down, she posterior self away from the stove so she would not fall onto the stove. She does not think she was out for long because she remembers calling her dogs. She was alert and oriented on wakening. She denies having any dizziness or lightheadedness, no chest discomfort. Patient does state that for the 2 nights prior to this episode she has not been sleeping at all. CAT scan of the brain was normal. Chest x-ray did not reveal any acute process. Hip and pelvic x- ray did not reveal any acute abnormality. EKG shows a normal sinus rhythm with no acute changes. Blood pressure on arrival here 138/70, heart rate in the 70s , 98% on room air. Blood pressure this morning 120/70 with a heart rate in the 70s. White blood cell count 7.2, hemoglobin on admission 11, 9.9 this morning. Platelet count 370. Sodium 140, potassium 3.0, BUN 14, creatinine 1.0. Troponins negative 2. At the time of my examination this morning, patient feels well, denies any dizziness or lightheadedness, she is quite eager to be discharged home. Past Medical History Past Medical History: Heart Failure, Renal Disease, Thyroid Disorder Additional Past Medical History / Comment(s): chronic edema, chronic metabolic acidosis, neuropathy, insomnia, breast cancer status post lumpectomy, chemo and radiation treatment in 2002, both of acute kidney failure [id number]. hypothyroid. RLS History of Any Multi-Drug Resistant Organisms: None Reported Past Surgical History: Bariatric Surgery, Section, Cholecystectomy, Tonsillectomy Additional Past Surgical History / Comment(s): Gastric bypass, left breast lumpectomy, breast biopsy Past Anesthesia/Blood Transfusion Reactions: No Reported Reaction Past Psychological History: Depression Smoking Status: Never smoker Past Alcohol Use History: None Reported Additional Past Alcohol Use History / Comment(s): Patient is a lifelong nonsmoker. She denies any medical marijuana, marijuana, street drug or alcohol use. 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 She currently lives at home and has 2 dogs in the house and one outdoor cat. She recently had to give away 30 L jaycee because she could not take care of them any longer. Her committed suicide 1-1/2 years ago. She does not have family support system. She does have one good friend that helps her. Past Drug Use History: None Reported - Past Family History Father History Unknown: Yes Family Medical History: Diabetes Mellitus Additional Family Medical History / Comment(s): unaware of entire history. Mother History Unknown: Yes Family Medical History: Chest Pain / Angina, Coronary Artery Disease (CAD), Diabetes Mellitus Medications and Allergies Home Medications Medication Instructions Recorded Confirmed Type Aspirin EC [Ecotrin] 325 mg PO DAILY 07/16/17 08/08/17 History DULoxetine HCL [Cymbalta] 60 mg PO BID 07/16/17 08/08/17 History Furosemide [Lasix] 40 mg PO DAILY 07/16/17 08/08/17 History Gabapentin 800 mg PO QID 07/16/17 08/08/17 History Levothyroxine Sodium [Synthroid] 200 mcg PO DAILY 07/16/17 08/08/17 History Potassium Chloride [Klor-Con 20] 20 meq PO DAILY 07/16/17 08/08/17 History rOPINIRole HCL [Requip] 6 mg PO TID 07/16/17 08/08/17 History cefTRIAXone [Rocephin] 2,000 mg IVPB Q24HR #42 vial 07/20/17 08/08/17 Rx ARIPiprazole [Abilify] 2 mg PO DAILY #30 tab 07/21/17 08/08/17 Rx Imipramine [Tofranil] 25 mg PO HS #30 tab 07/21/17 08/08/17 Rx Midodrine [ProAmatine] 5 mg PO AC-TID #90 tab 07/21/17 08/08/17 Rx Allergies Allergy/AdvReac Type Severity Reaction Status Date / Time Sulfa (Sulfonamide Allergy Unknown Verified 08/08/17 13:12 Antibiotics) Physical Exam Vitals: Vital Signs Temp Pulse Pulse Resp BP BP Pulse Ox 08/09/17 04:00 96.2 F L 74 18 123/70 99 08/09/17 00:00 97.7 F 77 17 110/57 99 08/08/17 20:00 97.5 F L 75 18 140/64 100 08/08/17 16:00 16 08/08/17 15:34 97.4 F L 72 18 131/60 99 08/08/17 15:28 97.7 F 67 16 127/58 97 08/08/17 15:07 67 16 127/58 97 08/08/17 14:16 73 18 122/66 98 08/08/17 12:46 97.7 F 72 20 139/71 98 Intake and Output 08/08/17 08/09/17 08/09/17 22:59 06:59 14:59 Intake Total 100 675 Output Total 400 Balance 100 275 Intake: Amount of Fluid Infused ( 100 ml) Intake, IV Titration 675 Amount Sodium Chloride 0.9% 1, 675 000 ml @ 75 mls/hr IV . [id number] [facility] Rx#:[id number] Output: Urine 400 Other: Voiding Method Toilet Toilet # Voids 1 Weight 120.7 kg 122.1 kg PHYSICAL EXAMINATION: HEENT: Head is atraumatic, normocephalic. Pupils equal, round. Neck is supple. There is no elevated jugular venous pressure. HEART EXAMINATION: Heart S1, S2 normal. No murmur or gallop heard. CHEST EXAMINATION: Lungs are clear to auscultation and precussion. No chest wall tenderness is noted on palpation or with deep breathing. ABDOMEN: Soft, nontender. Bowel sounds are heard. No organomegaly noted. EXTREMITIES:[ 1+ peripheral pulses with 1+ edema and chronic stasis. NEUROLOGIC patient is awake, alert and oriented -3. . Results 08/09/17 03:45 08/09/17 03:45 Cardiac Enzymes 08/08/17 08/08/17 08/09/17 Range/Units 13:20 13:20 03:45 AST 39 H 28 (14-36) U/L CK-MB (CK-2) 6.4 H* (0.0-2.4) ng/mL Troponin I <0.012 (0.000-0.034) ng/mL 08/09/17 Range/Units 03:45 AST (14-36) U/L CK-MB (CK-2) 3.8 H* (0.0-2.4) ng/mL Troponin I <0.012 (0.000-0.034) ng/mL Coagulation 08/08/17 Range/Units 13:20 PT 10.5 (9.0-12.0) sec APTT 22.3 (22.0-30.0) sec CBC 08/08/17 08/09/17 Range/Units 13:20 03:45 WBC 10.5 7.2 (3.8-10.6) k/uL RBC 4.37 3.95 (3.80-5.40) m/uL Hgb 11.0 L 9.9 L (11.4-16.0) gm/dL Hct 35.9 33.3 L (34.0-46.0) % Plt Count 431 370 (150-450) k/uL Comprehensive Metabolic Panel 08/08/17 08/09/17 Range/Units 13:20 03:45 Sodium 144 144 (137-145) mmol/L Potassium 3.1 L 3.0 L* (3.5-5.1) mmol/L Chloride 112 H 115 H (98-107) mmol/L Carbon Dioxide 17 L 18 L (22-30) mmol/L BUN 11 14 (7-17) mg/dL Creatinine 0.97 1.00 (0.52-1.04) mg/dL Glucose 96 94 (74-99) mg/dL Calcium 9.3 8.9 (8.4-10.2) mg/dL AST 39 H 28 (14-36) U/L ALT 41 44 (9-52) U/L Alkaline Phosphatase 155 H 136 H (38-126) U/L Total Protein 7.6 6.7 (6.3-8.2) g/dL Albumin 3.6 3.1 L (3.5-5.0) g/dL Current Medications Generic Name Dose Route Start Last Admin Trade Name Freq PRN Reason Stop Dose Admin Aripiprazole 2 mg 08/09/17 09:00 08/09/17 08:06 Abilify PO 2 mg DAILY REILLY Administration Aspirin 325 mg 08/09/17 09:00 08/09/17 08:06 Aspirin PO 325 mg DAILY REILLY Administration Ceftriaxone Sodium 2,000 mg 08/09/17 09:00 08/09/17 10:24 Rocephin IVP 2,000 mg DAILY REILLY Administration Duloxetine HCl 60 mg 08/08/17 21:00 08/09/17 08:05 Cymbalta PO 60 mg BID REILLY Administration Furosemide 40 mg 08/09/17 09:00 08/09/17 08:07 Lasix PO 40 mg DAILY REILLY Administration Gabapentin 800 mg 08/08/17 18:00 08/09/17 08:05 Neurontin PO 800 mg QID REILLY Administration Sodium Chloride 1,000 mls @ 20 mls/hr 08/08/17 14:46 08/08/17 18:10 Saline 0.9% IV 08/09/17 14:45 Not Given .Q24H ONE Sodium Chloride 1,000 mls @ 75 mls/hr 08/08/17 17:30 08/09/17 07:05 Saline 0.9% IV 75 mls/hr .[id number] REILLY Administration Imipramine HCl 25 mg 08/08/17 21:00 08/08/17 21:07 Tofranil PO 25 mg HS REILLY Administration Levothyroxine Sodium 200 mcg 08/09/17 06:30 08/09/17 07:05 Synthroid PO 200 mcg 0630 REILLY Administration Midodrine 5 mg 08/08/17 17:30 08/09/17 07:07 Proamatine PO 5 mg AC-TID REILLY Administration Naloxone HCl 0.2 mg 08/08/17 14:46 Narcan IV Q2M PRN Opioid Reversal Potassium Chloride 20 meq 08/09/17 09:00 08/09/17 08:06 K-Dur 20 PO 20 meq DAILY REILLY Administration Ropinirole HCl 6 mg 08/08/17 17:30 08/09/17 08:07 Requip PO 6 mg TID REILLY Administration Intake and Output 08/08/17 08/09/17 08/09/17 22:59 06:59 14:59 Intake Total 100 675 Output Total 400 Balance 100 275 Intake: Amount of Fluid Infused ( 100 ml) Intake, IV Titration 675 Amount Sodium Chloride 0.9% 1, 675 000 ml @ 75 mls/hr IV . [id number] [facility] Rx#:[id number] Output: Urine 400 Other: Voiding Method Toilet Toilet # Voids 1 Weight 120.7 kg 122.1 kg 08/09/17 03:45 08/09/17 03:45 EKG Interpretations (text) EKG shows normal sinus rhythm with no acute changes. Assessment and Plan Plan: Assessment and plan #1 syncope, likely related to low blood pressure. We will check orthostatic blood pressure and heart rate care. Patient was on midodrine at home. #2 osteomyelitis, receiving IV antibiotics at home. Recent hospitalization for this. #3 history of breast cancer #4 history of renal failure, stable at this time, creatinine 1.0. #Number 5 hypokalemia Plan We will check orthostatic blood pressure and heart rate every shift. Replace potassium. We do not need to repeat an echocardiogram with Doppler study as the patient recently had one last month, normal LV function. EKG shows normal sinus rhythm, no tachycardia or bradycardia arrhythmias noted on the monitor. DNP note has been reviewed, I agree with a documented findings and plan of care. Patient was seen and examined.
[2017-08-09] MEDS ORDERED: Potassium Replacement Protocol 1 EACH MISC MISCELLANE PRN (12:21)
--- NOTE | 2017-08-09 13:47 | P.HPIM ---
History of Present Illness H&P Date: 08/09/17 This is a 72-year-old female with very complex past medical history who presented to the hospital with presyncope. Patient was working in the kitchen and started feeling dizzy and fell down to the ground. She is not exactly sure if she passed out. She remembers feeling herself going down. She tried to avoid hitting the stove. She remembered calling her dogs and afterward: One of her friends who called EMS. Patient was evaluated in the emergency room and computed tomography scan of the brain was unremarkable. Her 12-lead EKG showed normal sinus rhythm. Patient herself denies any chest pain or shortness of breath. She said that she is very fatigued as she's did not get any good sleep over the past few nights. Review of Systems Review of system: 14 points review of systems were obtained and were negative except to what were mentioned in the HPI. Past Medical History Past Medical History: Heart Failure, Renal Disease, Thyroid Disorder Additional Past Medical History / Comment(s): chronic edema, chronic metabolic acidosis, neuropathy, insomnia, breast cancer status post lumpectomy, chemo and radiation treatment in 2002, both of acute kidney failure [id number]. hypothyroid. RLS History of Any Multi-Drug Resistant Organisms: None Reported Past Surgical History: Bariatric Surgery, Section, Cholecystectomy, Tonsillectomy Additional Past Surgical History / Comment(s): Gastric bypass, left breast lumpectomy, breast biopsy Past Anesthesia/Blood Transfusion Reactions: No Reported Reaction Past Psychological History: Depression Smoking Status: Never smoker Past Alcohol Use History: None Reported Additional Past Alcohol Use History / Comment(s): Patient is a lifelong nonsmoker. She denies any medical marijuana, marijuana, street drug or alcohol use. 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 She currently lives at home and has 2 dogs in the house and one outdoor cat. She recently had to give away 30 L jaycee because she could not take care of them any longer. Her committed suicide 1-1/2 years ago. She does not have family support system. She does have one good friend that helps her. Past Drug Use History: None Reported - Past Family History Father History Unknown: Yes Family Medical History: Diabetes Mellitus Additional Family Medical History / Comment(s): unaware of entire history. Mother History Unknown: Yes Family Medical History: Chest Pain / Angina, Coronary Artery Disease (CAD), Diabetes Mellitus Medications and Allergies Home Medications Medication Instructions Recorded Confirmed Type Aspirin EC [Ecotrin] 325 mg PO DAILY 07/16/17 08/08/17 History DULoxetine HCL [Cymbalta] 60 mg PO BID 07/16/17 08/08/17 History Furosemide [Lasix] 40 mg PO DAILY 07/16/17 08/08/17 History Gabapentin 800 mg PO QID 07/16/17 08/08/17 History Levothyroxine Sodium [Synthroid] 200 mcg PO DAILY 07/16/17 08/08/17 History Potassium Chloride [Klor-Con 20] 20 meq PO DAILY 07/16/17 08/08/17 History rOPINIRole HCL [Requip] 6 mg PO TID 07/16/17 08/08/17 History cefTRIAXone [Rocephin] 2,000 mg IVPB Q24HR #42 vial 07/20/17 08/08/17 Rx ARIPiprazole [Abilify] 2 mg PO DAILY #30 tab 07/21/17 08/08/17 Rx Imipramine [Tofranil] 25 mg PO HS #30 tab 07/21/17 08/08/17 Rx Midodrine [ProAmatine] 5 mg PO AC-TID #90 tab 07/21/17 08/08/17 Rx Allergies Allergy/AdvReac Type Severity Reaction Status Date / Time Sulfa (Sulfonamide Allergy Unknown Verified 08/08/17 13:12 Antibiotics) Physical Exam Vitals: Vital Signs Temp Pulse Pulse Resp BP BP Pulse Ox 08/09/17 12:00 97.1 F L 14 118/66 97 08/09/17 11:49 74 16 08/09/17 08:00 97.0 F L 72 12 124/66 97 08/09/17 04:00 96.2 F L 74 18 123/70 99 08/09/17 00:00 97.7 F 77 17 110/57 99 08/08/17 20:00 97.5 F L 75 18 140/64 100 08/08/17 16:00 16 08/08/17 15:34 97.4 F L 72 18 131/60 99 08/08/17 15:28 97.7 F 67 16 127/58 97 08/08/17 15:07 67 16 127/58 97 08/08/17 14:16 73 18 122/66 98 Intake and Output 08/08/17 08/09/17 08/09/17 22:59 06:59 14:59 Intake Total 100 675 Output Total 400 Balance 100 275 Intake: Amount of Fluid Infused ( 100 ml) Intake, IV Titration 675 Amount Sodium Chloride 0.9% 1, 675 000 ml @ 75 mls/hr IV . [id number] [facility] Rx#:[id number] Output: Urine 400 Other: Voiding Method Toilet Toilet Toilet # Voids 1 Weight 120.7 kg 122.1 kg General: The patient is awake and alert, in no distress Eye: there is normal conjunctiva bilaterally. Neck: The neck is supple, there is no JVD. Cardiovascular: Normal S1-S2, no S3-S4, no murmurs. Respiratory: Lungs clear to auscultation bilaterally Gastrointestinal: Abdomen is soft, nontender but slightly distended Musculoskeletal: There is +2 pedal edema. Neurological:. Speech is normal. Skin: Skin is warm and dry Results CBC & Chem 7: 08/09/17 03:45 08/09/17 03:45 Labs: Abnormal Lab Results - Last 24 Hours (Table) 08/08/17 08/08/17 08/08/17 Range/Units 13:20 13:20 13:20 Hgb 11.0 L (11.4-16.0) gm/dL Hct (34.0-46.0) % MCHC 30.6 L (31.0-37.0) g/dL RDW 17.5 H (11.5-15.5) % Neutrophils # 7.8 H (1.3-7.7) k/uL Potassium 3.1 L (3.5-5.1) mmol/L Chloride 112 H (98-107) mmol/L Carbon Dioxide 17 L (22-30) mmol/L AST 39 H (14-36) U/L Alkaline Phosphatase 155 H (38-126) U/L Total Creatine Kinase 152 H (30-135) U/L CK-MB (CK-2) 6.4 H* (0.0-2.4) ng/mL Albumin (3.5-5.0) g/dL Urine Protein (Negative) Hyaline Casts (0-2) /lpf Urine Mucus (None) /hpf 08/09/17 08/09/17 08/09/17 Range/Units 03:45 03:45 03:45 Hgb 9.9 L (11.4-16.0) gm/dL Hct 33.3 L (34.0-46.0) % MCHC 29.7 L (31.0-37.0) g/dL RDW 17.5 H (11.5-15.5) % Neutrophils # (1.3-7.7) k/uL Potassium 3.0 L* (3.5-5.1) mmol/L Chloride 115 H (98-107) mmol/L Carbon Dioxide 18 L (22-30) mmol/L AST (14-36) U/L Alkaline Phosphatase 136 H (38-126) U/L Total Creatine Kinase (30-135) U/L CK-MB (CK-2) 3.8 H* (0.0-2.4) ng/mL Albumin 3.1 L (3.5-5.0) g/dL Urine Protein (Negative) Hyaline Casts (0-2) /lpf Urine Mucus (None) /hpf 08/09/17 Range/Units 04:40 Hgb (11.4-16.0) gm/dL Hct (34.0-46.0) % MCHC (31.0-37.0) g/dL RDW (11.5-15.5) % Neutrophils # (1.3-7.7) k/uL Potassium (3.5-5.1) mmol/L Chloride (98-107) mmol/L Carbon Dioxide (22-30) mmol/L AST (14-36) U/L Alkaline Phosphatase (38-126) U/L Total Creatine Kinase (30-135) U/L CK-MB (CK-2) (0.0-2.4) ng/mL Albumin (3.5-5.0) g/dL Urine Protein 1+ H (Negative) Hyaline Casts 4 H (0-2) /lpf Urine Mucus Occasional H (None) /hpf Thrombosis Risk Factor Assmnt - Choose All That Apply Any of the Below Risk Factors Present?: Yes Each Factor Represents 1 point: Obesity (BMI >25) Other Risk Factors: Yes Each Risk Factor Represents 3 Points: Age 75 years or older Other congenital or acquired thrombophilia - If yes, enter type in comment: No Thrombosis Risk Factor Assessment Total Risk Factor Score: 4 Thrombosis Risk Factor Assessment Level: Moderate Risk Assessment and Plan Assessment: 1. Presyncope, most likely attributed to dehydration and orthostatic blood pressure. Patient is maintained on midodrine. We will repeat orthostatic vital signs. Echocardiogram done last month showed preserved ejection fraction with no significant valvular abnormalities. Patient was seen and evaluated by cardiology. 2. Stomatitis of the distal foot second digit, maintained on IV antibiotic. I will consult Dr. Cox for antibiotic duration 3. Stage IIIB chronic kidney disease 4. Hypothyroidism maintained on Synthroid 5. History of breast cancer status post chemoradiation treatment 6. Peripheral neuropathy
[2017-08-09] MEDS: IMIPRAMINE 25 MG TAB PO SCH (20:41)
[2017-08-09] MEDS: HEPARIN SODIUM,PORCINE 5,000 UNIT/ML 1 ML VIAL SQ SCH (20:42)
[2017-08-10] MEDS: LEVOTHYROXINE 100 MCG TAB PO SCH (06:25)
[2017-08-10] MEDS: MIDODRINE 5 MG TAB PO SCH ×2 (06:25→11:57)
[2017-08-10 07:00] LABS: ALT 41 U/L (9-52); AST 24 U/L (14-36); Albumin 2.8 g/dL (3.5-5.0); Alkaline Phosphatase 136 U/L (38-126); Anion Gap 11 mmol/L; Blood Urea Nitrogen 17 mg/dL (7-17); Calcium 8.4 mg/dL (8.4-10.2); Carbon Dioxide 19 mmol/L (22-30); Chloride 113 mmol/L (98-107); Glucose 84 mg/dL (74-99); Magnesium 1.3 mg/dL (1.6-2.3); Potassium 3.3 mmol/L (3.5-5.1); Sodium 143 mmol/L (137-145); Total Bilirubin 0.2 mg/dL (0.2-1.3); Total Protein 6.2 g/dL (6.3-8.2)
[2017-08-10 07:49] VITALS: PULSE 73
[2017-08-10] MEDS ORDERED: Magnesium Replacement Protocol 1 EACH MISC MISCELLANE PRN (07:58)
[2017-08-10] MEDS ORDERED: POTASSIUM CHLORIDE ER 20 MEQ TAB.ER PO STA (08:06)
[2017-08-10] MEDS: cefTRIAXone IN SWFI 2,000 MG/20 ML SYRINGE IVP SCH (08:22)
[2017-08-10] MEDS: ASPIRIN 325 MG TAB PO SCH (08:23)
[2017-08-10] MEDS: DULoxetine HCL 60 MG CAPSULE.DR PO SCH (08:23)
[2017-08-10] MEDS: ARIPiprazole 2 MG TAB PO SCH (08:23)
[2017-08-10] MEDS: FUROSEMIDE 40 MG TAB PO SCH (08:24)
[2017-08-10] MEDS: HEPARIN SODIUM,PORCINE 5,000 UNIT/ML 1 ML VIAL SQ SCH (08:24)
[2017-08-10] MEDS: GABAPENTIN 400 MG CAP PO SCH ×2 (08:24→11:57)
[2017-08-10] MEDS: rOPINIRole HCL 4 MG TABLET PO SCH (08:25)
[2017-08-10] MEDS: MAGNESIUM SULFATE-D5W PMX 1 GM in DEXTROSE/WATER 1 100ML.BAG IVPB SCH ×2 (08:28→10:46)
[2017-08-10] MEDS: POTASSIUM CHLORIDE ER 20 MEQ TAB.ER PO SCH (08:28)
[2017-08-10] MEDS: SODIUM CHLORIDE 0.9% 1,000 ML IV SCH (08:29)
--- NOTE | 2017-08-10 11:12 | P.CONS ---
History of Present Illness - Reason for Consult Consult date: 08/10/17 Antibiotic duration - History of Present Illness This is a 72-year-old female well known to ID service as she was seen on her visit July 16 through July 21 which time she was treated for osteomyelitis of the left second toe. Patient was discharged home on ceftriaxone 2 g every 24 hours and course will be completed on August 31. Patient does have an appointment on Thursday of this week for follow-up at Dr. Cox office. Patient had a syncopal episode at home. Patient states she hadn 't been sleeping for a couple of days and she was standing in front of the wood- burning stove and was placing a piece of wood inside and she felt she was going to fall down. She pushed herself away from the stove so she would not hit it and landed on top of her dogs. She states she laid on the floor for a while. She is not sure if she fully lost consciousness. She was complaining of increased leg edema for the last couple of days. She is on Lasix at home. She underwent a CAT scan of the brain that was normal and chest x-ray was negative. She has been afebrile and white count of 10.5. Potassium has been replaced. Creatinine 0.97. Alkaline phosphatase was 155 and AST 39 which are both improved. Her urinalysis was clear with nitrate and leukoesterase negative. Troponin negative on 2 draws. CK was 152. BNP 211. Albumin 2.8. Patient has been seen by cardiology with plan to check orthostatics. Patient is noted to be admitted during at home. Patient had echocardiogram on last visit. Patient states that she anticipates discharge home. Laboratory studies show a CRP of 22.5 and now at 6.3 and sed rate 104 and presently 83 on last draw. Patient states she continues to have significant pain and tenderness to the left second toe. Overall her lower extremity cellulitis and wound to the second toe are improved from last hospitalization. Review of Systems All systems: negative Constitutional: Reports fatigue, Denies anorexia, Denies chills, Denies fever, Denies lethargy, Denies malaise, Denies poor appetite, Denies sweats, Denies weakness, Denies weight loss Eyes: denies blurred vision, denies pain Ears, nose, mouth and throat: Denies dental pain, Denies headache, Denies mouth pain, Denies sore throat Cardiovascular: Reports leg edema, Reports lightheadedness, Reports syncope, Denies chest pain, Denies shortness of breath Respiratory: Denies cough Gastrointestinal: Denies abdominal pain, Denies diarrhea, Denies nausea, Denies vomiting Genitourinary: Denies dysuria, Denies hematuria Musculoskeletal: Denies myalgias Integumentary: Reports wounds, Denies pruritus, Denies rash Neurological: Denies numbness, Denies weakness Psychiatric: Denies anxiety, Denies depression Endocrine: Denies fatigue, Denies weight change Past Medical History Past Medical History: Heart Failure, Renal Disease, Thyroid Disorder Additional Past Medical History / Comment(s): chronic edema, chronic metabolic acidosis, neuropathy, insomnia, breast cancer status post lumpectomy, chemo and radiation treatment in 2002, both of acute kidney failure [id number]. hypothyroid. RLS History of Any Multi-Drug Resistant Organisms: None Reported Past Surgical History: Bariatric Surgery, Section, Cholecystectomy, Tonsillectomy Additional Past Surgical History / Comment(s): Gastric bypass, left breast lumpectomy, breast biopsy Past Anesthesia/Blood Transfusion Reactions: No Reported Reaction Past Psychological History: Depression Smoking Status: Never smoker Past Alcohol Use History: None Reported Additional Past Alcohol Use History / Comment(s): Patient is a lifelong nonsmoker. She denies any medical marijuana, marijuana, street drug or alcohol use. 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 She currently lives at home and has 2 dogs in the house and one outdoor cat. She recently had to give away 30 L jaycee because she could not take care of them any longer. Her committed suicide 1-1/2 years ago. She does not have family support system. She does have one good friend that helps her. Past Drug Use History: None Reported - Past Family History Father History Unknown: Yes Family Medical History: Diabetes Mellitus Additional Family Medical History / Comment(s): unaware of entire history. Mother History Unknown: Yes Family Medical History: Chest Pain / Angina, Coronary Artery Disease (CAD), Diabetes Mellitus Medications and Allergies Home Medications Medication Instructions Recorded Confirmed Type Aspirin EC [Ecotrin] 325 mg PO DAILY 07/16/17 08/08/17 History DULoxetine HCL [Cymbalta] 60 mg PO BID 07/16/17 08/08/17 History Furosemide [Lasix] 40 mg PO DAILY 07/16/17 08/08/17 History Gabapentin 800 mg PO QID 07/16/17 08/08/17 History Levothyroxine Sodium [Synthroid] 200 mcg PO DAILY 07/16/17 08/08/17 History Potassium Chloride [Klor-Con 20] 20 meq PO DAILY 07/16/17 08/08/17 History rOPINIRole HCL [Requip] 6 mg PO TID 07/16/17 08/08/17 History ARIPiprazole [Abilify] 2 mg PO DAILY #30 tab 07/21/17 08/08/17 Rx Imipramine [Tofranil] 25 mg PO HS #30 tab 07/21/17 08/08/17 Rx Midodrine [ProAmatine] 5 mg PO AC-TID #90 tab 07/21/17 08/08/17 Rx cefTRIAXone [Rocephin] 2,000 mg IVPB Q24HR #21 vial 08/10/17 Rx Allergies Allergy/AdvReac Type Severity Reaction Status Date / Time Sulfa (Sulfonamide Allergy Unknown Verified 08/08/17 13:12 Antibiotics) Physical Exam Vitals: Vital Signs Temp Pulse Resp BP Pulse Ox 08/10/17 07:45 97.4 F L 73 17 121/75 99 08/10/17 04:00 97.3 F L 75 17 112/65 98 08/10/17 00:00 98.0 F 77 18 110/65 97 08/09/17 20:00 98.2 F 77 17 132/69 97 08/09/17 16:00 97.7 F 78 16 116/72 96 08/09/17 12:00 97.1 F L 14 118/66 97 08/09/17 11:49 74 16 Intake and Output 08/09/17 08/10/17 08/10/17 22:59 06:59 14:59 Intake Total 230 750 360 Output Total 800 Balance -570 750 360 Intake: IV 750 Sodium Chloride 0.9% 1, 750 000 ml @ 75 mls/hr IV . [id number] [facility] Rx#:[id number] Oral 230 360 Output: Urine 800 Other: Voiding Method Toilet Toilet # Voids 1 1 # Bowel Movements 1 Weight 121.1 kg Gen: This is a morbidly obese 72-year-old female. She appears to be no acute respiratory distress at rest. HEENT: Head is atraumatic, normocephalic. Pupils equal, round. Sclerae is anicteric. Conjunctiva pink. Mucous members of the mouth are moist. Weight coating on part of her tongue noted. Dentition in poor order. NECK: Supple. No JVD. No lymphadenopathy. No thyromegaly. LUNGS: Clear to auscultation. No wheezes or rhonchi. No intercostal retractions. HEART: Regular rate and rhythm. Distant heart sounds. No murmur. ABDOMEN: Morbidly obese. Soft. Bowel sounds are present. No masses. No tenderness. EXTREMITIES: 1+ edema to the lower extremities. Dorsalis pedis +1 bilaterally. Onychomycosis bilaterally. Patient has a small lesion to the distal second toe with no drainage. Toe is tender to touch. NEUROLOGICAL: Patient is awake, alert and oriented x3. Cranial nerves 2 through 12 are grossly intact. Results Results: Laboratory Results WBC 7.2 k/uL (3.8-10.6) 08/09/17 03:45 RBC 3.95 m/uL (3.80-5.40) 08/09/17 03:45 Hgb 9.9 gm/dL (11.4-16.0) L 08/09/17 03:45 Hct 33.3 % (34.0-46.0) L 08/09/17 03:45 MCV 84.2 fL (80.0-100.0) 08/09/17 03:45 MCH 25.0 pg (25.0-35.0) 08/09/17 03:45 MCHC 29.7 g/dL (31.0-37.0) L 08/09/17 03:45 RDW 17.5 % (11.5-15.5) H 08/09/17 03:45 Plt Count 370 k/uL (150-450) 08/09/17 03:45 Neutrophils % 65 % 08/09/17 03:45 Lymphocytes % 18 % 08/09/17 03:45 Monocytes % 4 % 08/09/17 03:45 Eosinophils % 10 % 08/09/17 03:45 Basophils % 1 % 08/09/17 03:45 Neutrophils # 4.7 k/uL (1.3-7.7) 08/09/17 03:45 Lymphocytes # 1.3 k/uL (1.0-4.8) 08/09/17 03:45 Monocytes # 0.3 k/uL (0-1.0) 08/09/17 03:45 Eosinophils # 0.7 k/uL (0-0.7) 08/09/17 03:45 Basophils # 0.0 k/uL (0-0.2) 08/09/17 03:45 Hypochromasia Marked 08/09/17 03:45 Poikilocytosis Slight 08/08/17 13:20 Anisocytosis Slight 08/09/17 03:45 PT 10.5 sec (9.0-12.0) 08/08/17 13:20 INR 1.1 (<1.2) 08/08/17 13:20 APTT 22.3 sec (22.0-30.0) 08/08/17 13:20 Sodium 143 mmol/L (137-145) 08/10/17 05:41 Potassium 3.3 mmol/L (3.5-5.1) L 08/10/17 05:41 Chloride 113 mmol/L (98-107) H 08/10/17 05:41 Carbon Dioxide 19 mmol/L (22-30) L 08/10/17 05:41 Anion Gap 11 mmol/L 08/10/17 05:41 BUN 17 mg/dL (7-17) 08/10/17 05:41 Creatinine 1.04 mg/dL (0.52-1.04) 08/10/17 05:41 Est GFR (MDRD) Af Amer >60 (>60 ml/min/1.73 sqM) 08/10/17 05:41 Est GFR (MDRD) Non-Af 52 (>60 ml/min/1.73 sqM) 08/10/17 05:41 Glucose 84 mg/dL (74-99) 08/10/17 05:41 Calcium 8.4 mg/dL (8.4-10.2) 08/10/17 05:41 Magnesium 1.3 mg/dL (1.6-2.3) L 08/10/17 05:41 Total Bilirubin 0.2 mg/dL (0.2-1.3) 08/10/17 05:41 AST 24 U/L (14-36) 08/10/17 05:41 ALT 41 U/L (9-52) 08/10/17 05:41 Alkaline Phosphatase 136 U/L (38-126) H 08/10/17 05:41 Total Creatine Kinase 91 U/L (30-135) 08/09/17 03:45 CK-MB (CK-2) 3.8 ng/mL (0.0-2.4) H* 08/09/17 03:45 CK-MB (CK-2) Rel Index 4.2 08/09/17 03:45 Troponin I <0.012 ng/mL (0.000-0.034) 08/09/17 03:45 NT-Pro-B Natriuret Pep 211 pg/mL 08/08/17 13:20 Total Protein 6.2 g/dL (6.3-8.2) L 08/10/17 05:41 Albumin 2.8 g/dL (3.5-5.0) L 08/10/17 05:41 Urine Color Yellow 08/09/17 04:40 Urine Appearance Clear (Clear) 08/09/17 04:40 Urine pH 6.0 (5.0-8.0) 08/09/17 04:40 Ur Specific [place] 1.013 (1.001-1.035) 08/09/17 04:40 Urine Protein 1+ (Negative) H 08/09/17 04:40 Urine Glucose (UA) Negative (Negative) 08/09/17 04:40 Urine Ketones Negative (Negative) 08/09/17 04:40 Urine Blood Negative (Negative) 08/09/17 04:40 Urine Nitrite Negative (Negative) 08/09/17 04:40 Urine Bilirubin Negative (Negative) 08/09/17 04:40 Urine Urobilinogen <2.0 mg/dL (<2.0) 08/09/17 04:40 Ur Leukocyte Esterase Negative (Negative) 08/09/17 04:40 Urine RBC 1 /hpf (0-5) 08/09/17 04:40 Urine WBC 1 /hpf (0-5) 08/09/17 04:40 Hyaline Casts 4 /lpf (0-2) H 08/09/17 04:40 Urine Mucus Occasional /hpf (None) H 08/09/17 04:40 CBC & Chem 7: 03/04/18 03:45 08/10/17 05:41 Labs: Abnormal Lab Results - Last 24 Hours (Table) 08/10/17 Range/Units 05:41 Potassium 3.3 L (3.5-5.1) mmol/L Chloride 113 H (98-107) mmol/L Carbon Dioxide 19 L (22-30) mmol/L Magnesium 1.3 L (1.6-2.3) mg/dL Alkaline Phosphatase 136 H (38-126) U/L Total Protein 6.2 L (6.3-8.2) g/dL Albumin 2.8 L (3.5-5.0) g/dL Assessment and Plan Plan: This is a 72-year-old female patient who presented to the hospital with a syncopal or near syncopal episode at home possibly orthostatics with several days of insomnia contributing to her symptoms. Patient is under the care of ID for osteomyelitis of the left second toe and is on ceftriaxone 2 g every 24 hours at home. Patient's course of antibiotics will be completed on August 31. She has noted improvement as her CRP and sed rate are improving. Continue supportive care. Prescription for home antibiotics will be provided as well as lab work for outpatient. The above dictated assessment and findings were discussed with Dr. Cox. The impression and plan of care have been directed as dictated. Samanta Lin nurse practitioner acting as scribe for Dr. Cox.
[2017-08-10 11:18] VITALS: BP 108/63; RESP 18; TEMP 98.2
--- NOTE | 2017-08-10 11:45 | P.PN ---
Subjective Progress Note Date: 08/10/17 Principal diagnosis: Syncope This is a pleasant 72-year-old female with history of chronic kidney disease, hypothyroidism, breast cancer status post chemo and radiation, obesity with prior gastric bypass surgery, patient was recently in the hospital last month with osteomyelitis, she had a PICC line placed for which she is still receiving antibiotic therapy. An echocardiogram with Doppler study was performed last month which revealed an ejection fraction of 55-60%. Patient is hospital following a syncopal episode. According to patient she was bending down to throw wood into her wood stove, , she then fell down to the ground and passed out. She states that she can almost of feeling herself going down, she posterior self away from the stove so she would not fall onto the stove. She does not think she was out for long because she remembers calling her dogs. She was alert and oriented on wakening. She denies having any dizziness or lightheadedness, no chest discomfort. Patient does state that for the 2 nights prior to this episode she has not been sleeping at all. CAT scan of the brain was normal. Chest x-ray did not reveal any acute process. Hip and pelvic x- ray did not reveal any acute abnormality. EKG shows a normal sinus rhythm with no acute changes. Blood pressure on arrival here 138/70, heart rate in the 70s , 98% on room air. Blood pressure this morning 120/70 with a heart rate in the 70s. White blood cell count 7.2, hemoglobin on admission 11, 9.9 this morning. Platelet count 370. Sodium 140, potassium 3.0, BUN 14, creatinine 1.0. Troponins negative 2. At the time of my examination this morning, patient feels well, denies any dizziness or lightheadedness, she is quite eager to be discharged home. 08/10/2017 was seen and examined this morning, denies any dizziness, lightheadedness , no chest discomfort or palpitations, up without difficulty. No significant orthostasis documented. Blood pressure 112/60 with a heart rate in the 70s. Potassium 3.3 this morning, BUN 17, creatinine 1.0. Recent echocardiogram with Doppler study was performed which revealed a normal left ventricular systolic function. From cardiology's perspective, patient may be able to be discharged home once cleared by the primary. Objective - Vital Signs Vital signs: Vital Signs Temp 98.2 F 03/05/18 11:16 Pulse 73 08/10/17 11:16 Resp 18 08/10/17 11:18 BP 108/63 08/10/17 11:16 Pulse Ox 98 08/10/17 11:16 Intake & Output 08/09/17 08/10/17 08/10/17 18:59 06:59 18:59 Intake Total 230 750 360 Output Total 800 Balance -570 750 360 Weight 121.1 kg Intake: IV 750 Sodium Chloride 0.9% 1, 750 000 ml @ 75 mls/hr IV . [id number] [facility] Rx#:[id number] Oral 230 360 Output: Urine 800 Other: Voiding Method Toilet Toilet # Voids 1 # Bowel Movements 1 - Exam PHYSICAL EXAMINATION: HEENT: Head is atraumatic, normocephalic. Pupils equal, round. Neck is supple. There is no elevated jugular venous pressure. HEART EXAMINATION: Heart S1, S2 normal. No murmur or gallop heard. CHEST EXAMINATION: Lungs are clear to auscultation and precussion. No chest wall tenderness is noted on palpation or with deep breathing. ABDOMEN: Soft, nontender. Bowel sounds are heard. No organomegaly noted. EXTREMITIES:[ 1+ peripheral pulses with 1+ edema and chronic stasis. NEUROLOGIC patient is awake, alert and oriented -3. - Labs CBC & Chem 7: 08/09/17 03:45 08/10/17 05:41 Labs: Abnormal Lab Results - Last 24 Hours (Table) 08/10/17 Range/Units 05:41 Potassium 3.3 L (3.5-5.1) mmol/L Chloride 113 H (98-107) mmol/L Carbon Dioxide 19 L (22-30) mmol/L Magnesium 1.3 L (1.6-2.3) mg/dL Alkaline Phosphatase 136 H (38-126) U/L Total Protein 6.2 L (6.3-8.2) g/dL Albumin 2.8 L (3.5-5.0) g/dL Assessment and Plan Plan: Assessment and plan #1 syncope, likely related to low blood pressure. We will check orthostatic blood pressure and heart rate care. Patient was on midodrine at home. #2 osteomyelitis, receiving IV antibiotics at home. Recent hospitalization for this. #3 history of breast cancer #4 history of renal failure, stable at this time, creatinine 1.0. #Number 5 hypokalemia Plan There was no significant orthostasis noted. From cardiology's perspective she may be able to be discharged once cleared by the primary. We will make her a follow-up appointment post discharge. DNP note has been reviewed, I agree with a documented findings and plan of care. Patient was seen and examined.
--- NOTE | 2017-08-10 12:21 | P.DS ---
Providers Date of admission: 08/08/17 14:42 Expected date of discharge: 08/10/17 Attending physician: Marcy Perdomo Consults: 08/08/17 14:46 Consult Physician Stat Consulting Provider: [facility] Consult Reason/Comments: Syncope Do you want consulting provider notified?: Yes 08/09/17 12:51 Consult Physician Routine Consulting Provider: Gerald Cox Consult Reason/Comments: antibiotic duration Do you want consulting provider notified?: Yes Primary care physician: Shira Tucker [facility] Course: 1. Presyncope, most likely attributed to dehydration and orthostatic blood pressure. Patient is maintained on midodrine. Patient was hydrated overnight and repeat orthostatic was negative.. Echocardiogram done last month showed preserved ejection fraction with no significant valvular abnormalities. Patient was seen and evaluated by cardiology. 2. Osteomyelitis of the distal foot second digit, maintained on IV antibiotic. Seen and evaluated by infectious disease. Stop date August 31. 3. Stage IIIB chronic kidney disease 4. Hypothyroidism maintained on Synthroid 5. History of breast cancer status post chemoradiation treatment 6. Peripheral neuropathy 7. Hypomagnesemia, currently replaced Patient was cleared by cardiology for discharge. She is not interested in going to rehab. She will be discharged home in a stable condition. Patient Condition at Discharge: Stable Plan - Discharge Summary Discharge Rx Participant: No New Discharge Prescriptions: New Magnesium Oxide [Mag-Ox] 400 mg PO DAILY #30 tablet Continue rOPINIRole HCL [Requip] 6 mg PO TID Potassium Chloride [Klor-Con 20] 20 meq PO DAILY Gabapentin 800 mg PO QID Furosemide [Lasix] 40 mg PO DAILY DULoxetine HCL [Cymbalta] 60 mg PO BID Aspirin EC [Ecotrin] 325 mg PO DAILY Levothyroxine Sodium [Synthroid] 200 mcg PO DAILY ARIPiprazole [Abilify] 2 mg PO DAILY #30 tab Imipramine [Tofranil] 25 mg PO HS #30 tab Midodrine [ProAmatine] 5 mg PO AC-TID #90 tab cefTRIAXone [Rocephin] 2,000 mg IVPB Q24HR #21 vial Discharge Medication List Aspirin EC [Ecotrin] 325 mg PO DAILY 07/16/17 [History] DULoxetine HCL [Cymbalta] 60 mg PO BID 07/16/17 [History] Furosemide [Lasix] 40 mg PO DAILY 07/16/17 [History] Gabapentin 800 mg PO QID 07/16/17 [History] Levothyroxine Sodium [Synthroid] 200 mcg PO DAILY 07/16/17 [History] Potassium Chloride [Klor-Con 20] 20 meq PO DAILY 07/16/17 [History] rOPINIRole HCL [Requip] 6 mg PO TID 07/16/17 [History] ARIPiprazole [Abilify] 2 mg PO DAILY #30 tab 07/21/17 [Rx] Imipramine [Tofranil] 25 mg PO HS #30 tab 07/21/17 [Rx] Midodrine [ProAmatine] 5 mg PO AC-TID #90 tab 07/21/17 [Rx] Magnesium Oxide [Mag-Ox] 400 mg PO DAILY #30 tablet 08/10/17 [Rx] cefTRIAXone [Rocephin] 2,000 mg IVPB Q24HR #21 vial 08/10/17 [Rx] Follow up Appointment(s)/Referral(s): Shira Tucker MD [Primary Care Provider] - 08/12/17 10:30 am Gerald Cox MD [STAFF PHYSICIAN] - 08/12/17 (as scheduled) Ambulatory/Diagnostic Orders: Basic Metabolic Panel [LAB.AMB] Location: Determined By Patient C Reactive Protein [LAB.AMB] Location: Determined By Patient Complete Blood Count w/diff [LAB.AMB] Location: Determined By Patient Erythrocyte Sedimentation Rate [LAB.AMB] Location: Determined By Patient Patient Instructions/Handouts: Hypokalemia (DC), Syncope (DC) Discharge Disposition: HOME SELF-CARE
--- NOTE | 2017-08-10 19:46 | P.CON ---
Consult Note - . Consult date: 08/10/17 Assessment/Plan:: This is a 72-year-old female well known to ID service as she was seen on her visit July 16 through July 21 which time she was treated for osteomyelitis of the left second toe. Patient was discharged home on ceftriaxone 2 g every 24 hours and course will be completed on August 31. Patient does have an appointment on Thursday of this week for follow-up at Dr. Cox office. Patient had a syncopal episode at home. Patient states she hadn 't been sleeping for a couple of days and she was standing in front of the wood- burning stove and was placing a piece of wood inside and she felt she was going to fall down. She pushed herself away from the stove so she would not hit it and landed on top of her dogs. She states she laid on the floor for a while. She is not sure if she fully lost consciousness. She was complaining of increased leg edema for the last couple of days. She is on Lasix at home. She underwent a CAT scan of the brain that was normal and chest x-ray was negative. She has been afebrile and white count of 10.5. Potassium has been replaced. Creatinine 0.97. Alkaline phosphatase was 155 and AST 39 which are both improved. Her urinalysis was clear with nitrate and leukoesterase negative. Troponin negative on 2 draws. CK was 152. BNP 211. Albumin 2.8. Patient has been seen by cardiology with plan to check orthostatics. Patient is noted to be admitted during at home. Patient had echocardiogram on last visit. Patient states that she anticipates discharge home. Laboratory studies show a CRP of 22.5 and now at 6.3 and sed rate 104 and presently 83 on last draw. Patient states she continues to have significant pain and tenderness to the left second toe. Overall her lower extremity cellulitis and wound to the second toe are improved from last hospitalization. Please see consult note is dictated by nurse practitioner Mrs. Samanta Lin. The patient fortunately is improving. Will be going home today. We'll complete her course of intravenous antibiotic therapy with Rocephin as planned before. Osteomyelitis of her foot. She's been seen by cardiology and thought that she had an orthostatic event. She will follow-up with cardiology after discharge. She is to schedule follow-up in the office regarding her outpatient intravenous antibiotic therapy. That will continue. I agree with evaluation, assessment and plan testicular nurse practitioner Mrs. Samanta Lin.
== END 2017-08-10 14:25 | disposition home or self-care (01) ==
LOC: EC 12:44 → 3OBS 14:42 → 6SEL 19:31
PROVIDERS: ADMIT Internal Medicine; ATTEND Internal Medicine
DX: R55 Syncope and collapse (principal); M86.9 Osteomyelitis, unspecified; E87.6 Hypokalemia; E86.0 Dehydration; N18.3 Chronic kidney disease, stage 3 (moderate); E03.9 Hypothyroidism, unspecified; G62.9 Polyneuropathy, unspecified; E83.42 Hypomagnesemia; R60.0 Localized edema; M25.551 Pain in right hip; R51 Headache; I50.9 Heart failure, unspecified; F32.9 Major depressive disorder, single episode, unspecified; Z98.84 Bariatric surgery status; G47.00 Insomnia, unspecified; L03.032 Cellulitis of left toe; G25.81 Restless legs syndrome; Z79.2 Long term (current) use of antibiotics; E66.01 Morbid (severe) obesity due to excess calories; W19.XXXA Unspecified fall, initial encounter; Z95.828 Presence of other vascular implants and grafts; Z68.25 Body mass index [BMI] 25.0-25.9, adult; Z79.82 Long term (current) use of aspirin; Z79.899 Other long term (current) drug therapy; Z88.2 Allergy status to sulfonamides; Z85.3 Personal history of malignant neoplasm of breast; Z92.21 Personal history of antineoplastic chemotherapy; Z92.3 Personal history of irradiation; Z83.3 Family history of diabetes mellitus; Z82.49 Family history of ischemic heart disease and other diseases of the circulatory system
CPT/HCPCS: 99285 ×2; 96376; 96365; 96366; 96372 ×2; 96375; 36415; 93005; 83880; 80053 ×3; 82550 ×2; 82553 ×2; 83735; 84484 ×2; 85025 ×2; 85610; 85730; 81001; 73502; 71046; 72125; 70450; G0378 ×3; J1644 ×2; J0696 ×2; J3475

== ENCOUNTER 2018-06-30 20:03 | Inpatient (IN) | payer MEDICARE ==
--- NOTE | 2018-06-30 20:17 | ED ---
SOB HPI - General Chief Complaint: Shortness of Breath Stated Complaint: SOB Time Seen by Provider: 06/30/18 20:05 Source: patient, EMS Mode of arrival: EMS Limitations: no limitations - History of Present Illness Initial Comments: This is a 73-year-old female the ER for evaluation, she suffered an transfer for evaluation of multiple complaints, shortness of breath diagnosis CHF, dehydration diagnosis renal failure. Patient states she does not feel well she feels weak, tired. Patient denies any chest pain. Denies any abdominal pain. No recent change in medications, patient does not know of any significant recent hospitalizations. No fever MD Complaint: shortness of breath, cough -: unknown Radiation: other (No pain) Severity: mild Severity scale (1-10): 3 Quality: other (No pain) Consistency: constant Improves With: medication Worsens With: exertion, movement Known History Of: congestive heart failure, other (renal failure) Associated Symptoms: orthopnea, palpitations, nausea/vomiting Treatments Prior to Arrival: oxygen, bronchodilator - Related Data Home Medications Medication Instructions Recorded Confirmed DULoxetine HCL [Cymbalta] 60 mg PO DAILY 07/16/17 06/30/18 Furosemide [Lasix] 40 mg PO BID 07/16/17 06/30/18 rOPINIRole HCL [Requip] 6 mg PO TID 07/16/17 06/30/18 Acetaminophen Suppository [Tylenol 650 mg RECTAL Q4H PRN 06/30/18 06/30/18 Suppository] Albuterol Inhaler [Ventolin Hfa 1 - 2 puff INHALATION RT-Q6H PRN 06/30/18 Inhaler] Albuterol Nebulized [Ventolin 2.5 mg INHALATION RT-TID 06/30/18 06/30/18 Nebulized] Aspirin EC [Ecotrin Low Dose] 81 mg PO DAILY 06/30/18 06/30/18 Atropine Ophth Soln 1% 5Ml [Isopto 2 drop SUBLINGUAL Q4H PRN 06/30/18 06/30/18 Atropine 1% 5Ml] DULoxetine HCL [Cymbalta] 30 mg PO DAILY 06/30/18 06/30/18 Dilaudid Oral Susp 1mg/Ml 2 mg PO Q2H PRN 06/30/18 06/30/18 Ferrous Sulfate [Feosol] 325 mg PO DAILY 06/30/18 06/30/18 Gabapentin [Neurontin] 300 mg PO HS 06/30/18 06/30/18 Gabapentin [Neurontin] 400 mg PO BID 06/30/18 06/30/18 Haloperidol Oral Soln [Haldol Oral 1 mg PO Q6H PRN 06/30/18 06/30/18 Soln] LORazepam [Ativan] 1 mg PO Q4H PRN 06/30/18 06/30/18 Metolazone [Zaroxolyn] 2.5 mg PO DAILY 06/30/18 06/30/18 Potassium Bicarbonate/Cit AC 25 meq PO BID 06/30/18 06/30/18 [Klor-Con 25 (Effer. Tab)] Prochlorperazine [Compazine] 10 mg PO Q6H PRN 06/30/18 06/30/18 Spironolactone [Aldactone] 50 mg PO BID 06/30/18 06/30/18 guaiFENesin-DM 100-10MG/5ML 10 ml PO Q4H PRN 06/30/18 06/30/18 [Robitussin DM] Allergies Allergy/AdvReac Type Severity Reaction Status Date / Time Sulfa (Sulfonamide Allergy Anaphylaxis Verified 06/30/18 20:49 Antibiotics) vancomycin Allergy Rash/Hives Verified 06/30/18 20:49 Review of Systems ROS Statement: Those systems with pertinent positive or pertinent negative responses have been documented in the HPI. ROS Other: All systems not noted in ROS Statement are negative. Past Medical History Past Medical History: Heart Failure, Renal Disease, Thyroid Disorder Additional Past Medical History / Comment(s): chronic edema, chronic metabolic acidosis, neuropathy, insomnia,Hx breast cancer,/chemo and radiation tx in 2002 , kidney failure hypothyroid. RLS ; Cellulitis R leg History of Any Multi-Drug Resistant Organisms: None Reported Past Surgical History: Bariatric Surgery, Section, Cholecystectomy, Tonsillectomy Additional Past Surgical History / Comment(s): Gastric bypass, left breast biopsy & lumpectomy Past Anesthesia/Blood Transfusion Reactions: No Reported Reaction Past Psychological History: Depression Smoking Status: Never smoker Past Alcohol Use History: None Reported Past Drug Use History: None Reported - Past Family History Father History Unknown: Yes Family Medical History: Diabetes Mellitus Additional Family Medical History / Comment(s): unaware of entire history. Mother History Unknown: Yes Family Medical History: Chest Pain / Angina, Coronary Artery Disease (CAD), Diabetes Mellitus General Exam Limitations: no limitations General appearance: alert, in no apparent distress, obese Head exam: Present: atraumatic, normocephalic, normal inspection Eye exam: Present: normal appearance, PERRL, EOMI. Absent: scleral icterus, conjunctival injection, periorbital swelling ENT exam: Present: normal exam, mucous membranes moist Neck exam: Present: normal inspection. Absent: tenderness, meningismus, lymphadenopathy Respiratory exam: Present: normal lung sounds bilaterally, respiratory distress , accessory muscle use, decreased breath sounds, prolonged expiratory. Absent: wheezes, rales, rhonchi, stridor Cardiovascular Exam: Present: regular rate, normal rhythm, normal heart sounds. Absent: systolic murmur, diastolic murmur, rubs, gallop, clicks GI/Abdominal exam: Present: soft, normal bowel sounds. Absent: distended, tenderness, guarding, rebound, rigid Extremities exam: Present: normal inspection, full ROM, normal capillary refill. Absent: tenderness, pedal edema, joint swelling, calf tenderness Back exam: Present: normal inspection Neurological exam: Present: alert, oriented X3, CN II-XII intact Psychiatric exam: Present: normal affect, normal mood Skin exam: Present: warm, dry, intact, normal color. Absent: rash Course Vital Signs 06/30/18 06/30/18 20:09 21:00 Temperature 99.0 F Pulse Rate 87 107 H Respiratory 16 18 Rate Blood Pressure 86/68 99/59 O2 Sat by Pulse 100 97 Oximetry Medical Decision Making - Medical Decision Making 71 female the ER except in transfer for multiple medical issues including renal failure CHF, Dehydration and weakness. Patient will be admitted for evaluation by cardiology and nephrology - Lab Data Result diagrams: 06/30/18 20:32 06/30/18 20:32 Lab Results 06/30/18 06/30/18 06/30/18 Range/Units 20:32 20:32 20:32 WBC 11.5 H (3.8-10.6) k/uL RBC 3.78 L (3.80-5.40) m/uL Hgb 11.1 L (11.4-16.0) gm/dL Hct 32.7 L (34.0-46.0) % MCV 86.5 (80.0-100.0) fL MCH 29.4 (25.0-35.0) pg MCHC 34.0 (31.0-37.0) g/dL RDW 15.0 (11.5-15.5) % Plt Count 334 (150-450) k/uL Neutrophils % 78 % Lymphocytes % 15 % Monocytes % 4 % Eosinophils % 2 % Basophils % 0 % Neutrophils # 9.0 H (1.3-7.7) k/uL Lymphocytes # 1.7 (1.0-4.8) k/uL Monocytes # 0.4 (0-1.0) k/uL Eosinophils # 0.2 (0-0.7) k/uL Basophils # 0.0 (0-0.2) k/uL PT (9.0-12.0) sec INR (<1.2) APTT (22.0-30.0) sec Sodium 133 L (137-145) mmol/L Potassium 3.1 L (3.5-5.1) mmol/L Chloride 98 (98-107) mmol/L Carbon Dioxide 18 L (22-30) mmol/L Anion Gap 17 mmol/L BUN 58 H (7-17) mg/dL Creatinine 3.46 H (0.52-1.04) mg/dL Est GFR (CKD-EPI)AfAm 15 (>60 ml/min/1.73 sqM) Est GFR (CKD-EPI)NonAf 13 (>60 ml/min/1.73 sqM) Glucose 91 (74-99) mg/dL Calcium 5.9 L* (8.4-10.2) mg/dL Phosphorus 6.7 H (2.5-4.5) mg/dL Total Bilirubin 0.4 (0.2-1.3) mg/dL AST 31 (14-36) U/L ALT 34 (9-52) U/L Alkaline Phosphatase 141 H (38-126) U/L Total Creatine Kinase 372 H (30-135) U/L CK-MB (CK-2) 6.2 H (0.0-2.4) ng/mL CK-MB (CK-2) Rel Index 1.7 Troponin I 0.014 (0.000-0.034) ng/mL NT-Pro-B Natriuret Pep pg/mL Total Protein 6.7 (6.3-8.2) g/dL Albumin 3.0 L (3.5-5.0) g/dL 06/30/18 06/30/18 Range/Units 20:32 20:32 WBC (3.8-10.6) k/uL RBC (3.80-5.40) m/uL Hgb (11.4-16.0) gm/dL Hct (34.0-46.0) % MCV (80.0-100.0) fL MCH (25.0-35.0) pg MCHC (31.0-37.0) g/dL RDW (11.5-15.5) % Plt Count (150-450) k/uL Neutrophils % % Lymphocytes % % Monocytes % % Eosinophils % % Basophils % % Neutrophils # (1.3-7.7) k/uL Lymphocytes # (1.0-4.8) k/uL Monocytes # (0-1.0) k/uL Eosinophils # (0-0.7) k/uL Basophils # (0-0.2) k/uL PT 11.3 (9.0-12.0) sec INR 1.1 (<1.2) APTT 23.3 (22.0-30.0) sec Sodium (137-145) mmol/L Potassium (3.5-5.1) mmol/L Chloride (98-107) mmol/L Carbon Dioxide (22-30) mmol/L Anion Gap mmol/L BUN (7-17) mg/dL Creatinine (0.52-1.04) mg/dL Est GFR (CKD-EPI)AfAm (>60 ml/min/1.73 sqM) Est GFR (CKD-EPI)NonAf (>60 ml/min/1.73 sqM) Glucose (74-99) mg/dL Calcium (8.4-10.2) mg/dL Phosphorus (2.5-4.5) mg/dL Total Bilirubin (0.2-1.3) mg/dL AST (14-36) U/L ALT (9-52) U/L Alkaline Phosphatase (38-126) U/L Total Creatine Kinase (30-135) U/L CK-MB (CK-2) (0.0-2.4) ng/mL CK-MB (CK-2) Rel Index Troponin I (0.000-0.034) ng/mL NT-Pro-B Natriuret Pep 628 pg/mL Total Protein (6.3-8.2) g/dL Albumin (3.5-5.0) g/dL - EKG Data -: EKG Interpreted by Me (EKG shows sinus tachycardia rate of 107, MI 180, QRS 88, QTc 477) - Radiology Data Radiology results: report reviewed (Chest x-ray significant for CHF), image reviewed Disposition Clinical Impression: Venous stasis, Lower extremity edema, Congestive heart failure, ARF (acute renal failure) Disposition: ADMITTED IP TO THIS HOSP Condition: Fair Is patient prescribed a controlled substance at d/c from ED?: No Referrals: Shira Tucker MD [Primary Care Provider] - 1-2 days
[2018-06-30 20:52] LABS: Basophils % (A) 0 %; Eosinophils # (A) 0.2 k/uL (0-0.7); Eosinophils % (A) 2 %; HCT 32.7 % (34.0-46.0); HGB 11.1 gm/dL (11.4-16.0); Lymphocytes # (A) 1.7 k/uL (1.0-4.8); Lymphocytes % (A) 15 %; MCH 29.4 pg (25.0-35.0); MCV 86.5 fL (80.0-100.0); Mean Platelet Volume 7.3; Monocytes # (A) 0.4 k/uL (0-1.0); Monocytes % (A) 4 %; Neutrophils % (A) 78 %; Platelet Count 334 k/uL (150-450); RBC 3.78 m/uL (3.80-5.40); WBC 11.5 k/uL (3.8-10.6)
[2018-06-30 21:07] LABS: Phosphorus 6.7 mg/dL (2.5-4.5); Potassium 3.1 mmol/L (3.5-5.1); Total Bilirubin 0.4 mg/dL (0.2-1.3); Total Protein 6.7 g/dL (6.3-8.2)
[2018-06-30] MEDS: SODIUM CHLORIDE 0.9% 1,000 ML IV SCH (21:18)
[2018-06-30 21:19] LABS: Calcium 5.9 mg/dL (8.4-10.2); Creatine Kinase MB 6.2 ng/mL (0.0-2.4); INR 1.1 (<1.2); Partial Thromboplastin Time 23.3 sec (22.0-30.0); Prothrombin Time 11.3 sec (9.0-12.0); Troponin I 0.014 ng/mL (0.000-0.034)
[2018-06-30] MEDS ORDERED: cefTRIAXone 2,000 MG in SODIUM CHLORIDE 0.9% 100 ML IVPB ONE (23:00)
[2018-06-30 23:12] LABS: Appearance,Urine Turbid (Clear); Bacteria,Urine Many /hpf; Bilirubin,Urine Negative (Negative); Blood,Urine Large (Negative); Color,Urine Yellow; Glucose,Urine (UA) Negative (Negative); Ketones,Urine Negative (Negative); Leukocyte Esterase,Urine Large (Negative); Mucus,Urine Moderate /hpf; Nitrite,Urine Positive (Negative); PH, Urine 5.5 (5.0-8.0); Protein,Urine 1+ (Negative); RBC,Urine 28 /hpf (0-5); Specific Gravity,Urine 1.013 (1.001-1.035); Squamous Epithelial Cell,Urine 5 /hpf (0-4); Urobilinogen,Urine <2.0 mg/dL (<2.0); WBC,Urine >182 /hpf (0-5)
[2018-06-30] MEDS: ATORVASTATIN 80 MG TAB PO SCH (23:36)
[2018-07-01] MEDS ORDERED: rOPINIRole HCL 4 MG TABLET PO ONE (01:36)
[2018-07-01] MEDS ORDERED: HYDROmorphone 0.5 MG/0.5 ML SYRINGE IVP PRN (01:37)
[2018-07-01] MEDS: CALCIUM CARB-VIT D 500MG-200UN 1 EACH TAB PO SCH ×2 (08:09→18:10)
[2018-07-01] MEDS: SODIUM CHLORIDE 0.9% 1,000 ML IV SCH ×2 (08:14→18:09)
[2018-07-01] MEDS ORDERED: ENOXAPARIN 40 MG/0.4 ML SYRINGE SQ SCH (09:00)
[2018-07-01] MEDS ORDERED: ACETAMINOPHEN SUPPOSITORY 650 MG SUPP RECTAL PRN (09:02)
[2018-07-01] MEDS ORDERED: ATROPINE OPHTH SOLN 1% 5ML BTL SUBLINGUAL PRN (09:02)
[2018-07-01] MEDS ORDERED: HALOPERIDOL ORAL SOLN 10 MG/5 ML CUP PO PRN (09:02)
[2018-07-01] MEDS ORDERED: LORazepam 1 MG TAB PO PRN (09:02)
[2018-07-01] MEDS ORDERED: PROCHLORPERAZINE 10 MG TAB PO PRN (09:02)
[2018-07-01] MEDS ORDERED: DULoxetine HCL 30 MG CAPSULE.DR PO SCH (09:15)
[2018-07-01] MEDS ORDERED: DULoxetine HCL 60 MG CAPSULE.DR PO SCH (09:15)
[2018-07-01 09:24] LABS: Basophils # (A) 0.1 k/uL (0-0.2); Basophils % (A) 1 %; Eosinophils # (A) 0.5 k/uL (0-0.7); Eosinophils % (A) 5 %; HCT 32.6 % (34.0-46.0); HGB 10.7 gm/dL (11.4-16.0); Lymphocytes # (A) 1.6 k/uL (1.0-4.8); Lymphocytes % (A) 17 %; MCH 29.6 pg (25.0-35.0); MCHC 32.8 g/dL (31.0-37.0); MCV 90.2 fL (80.0-100.0); Mean Platelet Volume 7.2; Monocytes # (A) 0.3 k/uL (0-1.0); Monocytes % (A) 3 %; Neutrophils % (A) 73 %; Platelet Count 286 k/uL (150-450); RBC 3.61 m/uL (3.80-5.40); RDW 15.1 % (11.5-15.5); WBC 9.5 k/uL (3.8-10.6)
[2018-07-01 09:32] LABS: Total Bilirubin 0.7 mg/dL (0.2-1.3); Total Protein 6.7 g/dL (6.3-8.2)
[2018-07-01 09:40] LABS: Potassium 3.3 mmol/L (3.5-5.1)
[2018-07-01 09:42] LABS: Calcium 5.5 mg/dL (8.4-10.2)
[2018-07-01] MEDS: FERROUS SULFATE 325 MG TAB PO SCH (10:38)
[2018-07-01] MEDS: GABAPENTIN 400 MG CAP PO SCH ×2 (10:39→18:17)
--- NOTE | 2018-07-01 10:53 | P.NPCON ---
History of Present Illness - Reason for Consult acute renal failure - History of Present Illness Reason for consultation: Acute kidney injury History of present illness: Patient is a 73-year-old female seen in renal consultation for acute kidney injury. Creatinine in August 2017 was near 1. It was elevated at 3.46 on admission and is 3.06 today. Patient presented to the hospital with generalized weakness. Apparently the patient was hospice prior to this admission but the status was changed by her power of media developer once she was admitted. She is a chronic Balderas catheter in place. She is nonoliguric. Currently maintained on normal saline at 100 mL an hour. She was taking Lasix, metolazone as well as Aldactone at home which are currently held. Denies use of NSAIDs. Potassium was low which was replaced. Today her magnesium was 1.0. No vomiting or diarrhea. Hemodynamically stable. However it is noted that her blood pressure was low at 86/68 on admission. Patient has history of diastolic CHF. Vital signs are stable. General: The patient appeared well nourished and normally developed. HEENT: Head exam is unremarkable. Neck is without jugular venous distension. LUNGS: Lungs are clear to auscultation and percussion. Breath sounds decreased. HEART: Rate and Rhythm are regular. First and second heart sounds normal. No murmurs, rubs or gallops. ABDOMEN: Abdominal exam reveals normal bowel sounds. Non-tender and non- distended. No evidence of peritonitis. EXTREMITITES: No clubbing, cyanosis, or edema. Past Medical History Past Medical History: Heart Failure, Renal Disease, Thyroid Disorder Additional Past Medical History / Comment(s): chronic edema, chronic metabolic acidosis, neuropathy, insomnia, Hx breast cancer,/chemo and radiation tx in 2002 , kidney failure, hypothyroid, RLS,cellulitis R leg History of Any Multi-Drug Resistant Organisms: None Reported Past Surgical History: Bariatric Surgery, Section, Cholecystectomy, Tonsillectomy Additional Past Surgical History / Comment(s): Gastric bypass, left breast biopsy & lumpectomy Past Anesthesia/Blood Transfusion Reactions: No Reported Reaction Past Psychological History: Depression Smoking Status: Never smoker Past Alcohol Use History: None Reported Additional Past Alcohol Use History / Comment(s): Patient is a lifelong nonsmoker. She denies any medical marijuana, marijuana, street drug or alcohol use. 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 She currently lives at home and has 2 dogs in the house and one outdoor cat. She recently had to give away 30 alpacas because she could not take care of them any longer. Her committed suicide 1-1/2 years ago. She does not have family support system. She does have one good friend that helps her. Past Drug Use History: None Reported - Past Family History Father History Unknown: Yes Family Medical History: Diabetes Mellitus Additional Family Medical History / Comment(s): unaware of entire history. Mother History Unknown: Yes Family Medical History: Chest Pain / Angina, Coronary Artery Disease (CAD), Diabetes Mellitus Additional Family Medical History / Comment(s): Valves replaced in her heart per patient. Medications and Allergies Home Medications Medication Instructions Recorded Confirmed Type DULoxetine HCL [Cymbalta] 60 mg PO DAILY 07/16/17 06/30/18 History Furosemide [Lasix] 40 mg PO BID 07/16/17 06/30/18 History rOPINIRole HCL [Requip] 6 mg PO TID 07/16/17 06/30/18 History Acetaminophen Suppository [Tylenol 650 mg RECTAL Q4H PRN 06/30/18 06/30/18 History Suppository] Albuterol Inhaler [Ventolin Hfa 1 - 2 puff INHALATION RT-Q6H PRN 06/30/18 History Inhaler] Albuterol Nebulized [Ventolin 2.5 mg INHALATION RT-TID 06/30/18 06/30/18 History Nebulized] Aspirin EC [Ecotrin Low Dose] 81 mg PO DAILY 06/30/18 06/30/18 History Atropine Ophth Soln 1% 5Ml [Isopto 2 drop SUBLINGUAL Q4H PRN 06/30/18 06/30/18 History Atropine 1% 5Ml] DULoxetine HCL [Cymbalta] 30 mg PO DAILY 06/30/18 06/30/18 History Dilaudid Oral Susp 1mg/Ml 2 mg PO Q2H PRN 06/30/18 06/30/18 History Ferrous Sulfate [Feosol] 325 mg PO DAILY 06/30/18 06/30/18 History Gabapentin [Neurontin] 300 mg PO HS 06/30/18 06/30/18 History Gabapentin [Neurontin] 400 mg PO BID 06/30/18 06/30/18 History Haloperidol Oral Soln [Haldol Oral 1 mg PO Q6H PRN 06/30/18 06/30/18 History Soln] LORazepam [Ativan] 1 mg PO Q4H PRN 06/30/18 06/30/18 History Metolazone [Zaroxolyn] 2.5 mg PO DAILY 06/30/18 06/30/18 History Potassium Bicarbonate/Cit AC 25 meq PO BID 06/30/18 06/30/18 History [Klor-Con 25 (Effer. Tab)] Prochlorperazine [Compazine] 10 mg PO Q6H PRN 06/30/18 06/30/18 History Spironolactone [Aldactone] 50 mg PO BID 06/30/18 06/30/18 History guaiFENesin-DM 100-10MG/5ML 10 ml PO Q4H PRN 06/30/18 06/30/18 History [Robitussin DM] Allergies Allergy/AdvReac Type Severity Reaction Status Date / Time Sulfa (Sulfonamide Allergy Anaphylaxis Verified 06/30/18 20:49 Antibiotics) vancomycin Allergy Rash/Hives Verified 06/30/18 20:49 Physical Exam Vitals: Vital Signs Temp Pulse Pulse Pulse Resp BP BP 07/01/18 08:00 72 18 07/01/18 07:38 97.7 F 69 18 110/63 07/01/18 05:00 97.4 F L 89 16 105/55 06/30/18 23:15 97.7 F 98 18 104/65 06/30/18 23:00 100 20 108/72 06/30/18 21:00 107 H 18 99/59 06/30/18 20:09 99.0 F 87 16 86/68 Pulse Ox 07/01/18 08:00 07/01/18 07:38 98 07/01/18 05:00 98 06/30/18 23:15 100 06/30/18 23:00 96 06/30/18 21:00 97 06/30/18 20:09 100 Intake and Output 06/30/18 07/01/18 07/01/18 22:59 06:59 14:59 Intake Total 840 Output Total 1600 Balance -760 Intake: Intake, IV Titration 600 Amount Sodium Chloride 0.9% 1, 600 000 ml @ 100 mls/hr IV . Q10H [facility] Rx#:[id number] Oral 240 Output: Urine 1600 Other: Voiding Method Indwelling Catheter Indwelling Catheter # Bowel Movements 1 Weight 112.264 kg 107.5 kg Results - Lab Results Most recent lab results Calcium 5.5 mg/dL (8.4-10.2) L* 07/01/18 08:59 Phosphorus 6.7 mg/dL (2.5-4.5) H 06/30/18 20:32 Magnesium 1.0 mg/dL (1.6-2.3) L 07/01/18 08:59 07/01/18 09:07 07/01/18 08:59 Assessment and Plan Plan: Assessment: 1. Acute kidney injury mostly prerenal secondary to diuresis. Creatinine 3.46 on admission and is 3.06 today. Baseline creatinine near 1. 2. Hypokalemia secondary to diuresis and hypomagnesemia. Improved posterior placement. 3.3 today. 3. Hypomagnesemia secondary to diuresis. 4. Metabolic acidosis secondary to acute kidney injury. 5. Hypocalcemia secondary to acute kidney injury and hypomagnesemia which will suppress PTH. 6. Hypovolemic hyponatremia improving with IV hydration. Plan: Maintain normal saline at 100 mL an hour. Replace potassium. 40 mEq today. Replace magnesium. 4 g IV today. Add oral sodium bicarbonate. Avoid nephrotoxins. Continue to hold diuretics. Follow-up cultures. Recommend changing the Balderas catheter. Repeat electrolytes in the morning. 2 g IV calcium today. Thank you for the consultation. I will continue to follow the patient with you during her hospital stay.
[2018-07-01] MEDS ORDERED: POTASSIUM CHLORIDE ER 20 MEQ TAB.ER PO STA (10:55)
[2018-07-01] MEDS: ALBUTEROL NEBULIZED 2.5 MG/3 ML INHALATION SCH ×2 (11:38→19:20)
[2018-07-01] MEDS ORDERED: CALCIUM GLUCONATE 2,000 MG in SODIUM CHLORIDE 0.9% 100 ML IVPB ONE (12:00)
--- NOTE | 2018-07-01 12:35 | P.CRDCN ---
History of Present Illness Consult date: 07/01/18 Requesting physician: Rene Dyer Consult reason: congestive heart failure Chief complaint: Shortness of breath History of present illness: This is a 73-year-old female patient follows with Dr. Tucker on an outpatient basis. She has a previous medical history of diastolic heart failure, chronic kidney disease, hypothyroidism, breast cancer status post chemoradiation, obesity with prior gastric bypass surgery, and osteomyelitis. She presented to [facility] with multiple complaints including shortness of breath and pain and tingling in her arms. She was noted to be in acute on chronic kidney failure with creatinine greater than 3 on chronic diuretics for congestive heart failure. She was transferred to [facility] for evaluation and treatment. She denies chest pain, abdominal pain, syncope, fevers, chills, sick contacts. She does complain of constant lower extremity edema. Her last echocardiogram approximately 1 year ago demonstrated normal left ventricular function with EF 55-60%, mild aortic insufficiency, trace to mild mitral regurgitation, mild tricuspid regurgitation with mild pulmonary hypertension. Chest x-ray was completed at [facility], image is not available at this time, however radiologists read notes pulmonary vascular congestion. Cardiology was consulted for congestive heart failure management. Review of Systems Review of systems was completed and was negative except as noted in HPI. Past Medical History Past Medical History: Heart Failure, Renal Disease, Thyroid Disorder Additional Past Medical History / Comment(s): chronic edema, chronic metabolic acidosis, neuropathy, insomnia, Hx breast cancer,/chemo and radiation tx in 2002 , kidney failure, hypothyroid, RLS,cellulitis R leg History of Any Multi-Drug Resistant Organisms: None Reported Past Surgical History: Bariatric Surgery, Section, Cholecystectomy, Tonsillectomy Additional Past Surgical History / Comment(s): Gastric bypass, left breast biopsy & lumpectomy Past Anesthesia/Blood Transfusion Reactions: No Reported Reaction Past Psychological History: Depression Smoking Status: Never smoker Past Alcohol Use History: None Reported Additional Past Alcohol Use History / Comment(s): Patient is a lifelong nonsmoker. She denies any medical marijuana, marijuana, street drug or alcohol use. 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 She currently lives at home and has 2 dogs in the house and one outdoor cat. She recently had to give away 30 alpacas because she could not take care of them any longer. Her committed suicide 1-1/2 years ago. She does not have family support system. She does have one good friend that helps her. Past Drug Use History: None Reported - Past Family History Father History Unknown: Yes Family Medical History: Diabetes Mellitus Additional Family Medical History / Comment(s): unaware of entire history. Mother History Unknown: Yes Family Medical History: Chest Pain / Angina, Coronary Artery Disease (CAD), Diabetes Mellitus Additional Family Medical History / Comment(s): Valves replaced in her heart per patient. Medications and Allergies Home Medications Medication Instructions Recorded Confirmed Type DULoxetine HCL [Cymbalta] 60 mg PO DAILY 07/16/17 06/30/18 History Furosemide [Lasix] 40 mg PO BID 07/16/17 06/30/18 History rOPINIRole HCL [Requip] 6 mg PO TID 07/16/17 06/30/18 History Acetaminophen Suppository [Tylenol 650 mg RECTAL Q4H PRN 06/30/18 06/30/18 History Suppository] Albuterol Inhaler [Ventolin Hfa 1 - 2 puff INHALATION RT-Q6H PRN 06/30/18 History Inhaler] Albuterol Nebulized [Ventolin 2.5 mg INHALATION RT-TID 06/30/18 06/30/18 History Nebulized] Aspirin EC [Ecotrin Low Dose] 81 mg PO DAILY 06/30/18 06/30/18 History Atropine Ophth Soln 1% 5Ml [Isopto 2 drop SUBLINGUAL Q4H PRN 06/30/18 06/30/18 History Atropine 1% 5Ml] DULoxetine HCL [Cymbalta] 30 mg PO DAILY 06/30/18 06/30/18 History Dilaudid Oral Susp 1mg/Ml 2 mg PO Q2H PRN 06/30/18 06/30/18 History Ferrous Sulfate [Feosol] 325 mg PO DAILY 06/30/18 06/30/18 History Gabapentin [Neurontin] 300 mg PO HS 06/30/18 06/30/18 History Gabapentin [Neurontin] 400 mg PO BID 06/30/18 06/30/18 History Haloperidol Oral Soln [Haldol Oral 1 mg PO Q6H PRN 06/30/18 06/30/18 History Soln] LORazepam [Ativan] 1 mg PO Q4H PRN 06/30/18 06/30/18 History Metolazone [Zaroxolyn] 2.5 mg PO DAILY 06/30/18 06/30/18 History Potassium Bicarbonate/Cit AC 25 meq PO BID 06/30/18 06/30/18 History [Klor-Con 25 (Effer. Tab)] Prochlorperazine [Compazine] 10 mg PO Q6H PRN 06/30/18 06/30/18 History Spironolactone [Aldactone] 50 mg PO BID 06/30/18 06/30/18 History guaiFENesin-DM 100-10MG/5ML 10 ml PO Q4H PRN 06/30/18 06/30/18 History [Robitussin DM] Allergies Allergy/AdvReac Type Severity Reaction Status Date / Time Sulfa (Sulfonamide Allergy Anaphylaxis Verified 06/30/18 20:49 Antibiotics) vancomycin Allergy Rash/Hives Verified 06/30/18 20:49 Physical Exam Vitals: Vital Signs Temp Pulse Pulse Pulse Resp BP BP 07/01/18 11:47 74 07/01/18 11:39 78 07/01/18 08:00 72 18 07/01/18 07:38 97.7 F 69 18 110/63 07/01/18 05:00 97.4 F L 89 16 105/55 06/30/18 23:15 97.7 F 98 18 104/65 06/30/18 23:00 100 20 108/72 06/30/18 21:00 107 H 18 99/59 06/30/18 20:09 99.0 F 87 16 86/68 Pulse Ox 07/01/18 11:47 07/01/18 11:39 07/01/18 08:00 07/01/18 07:38 98 07/01/18 05:00 98 06/30/18 23:15 100 06/30/18 23:00 96 06/30/18 21:00 97 06/30/18 20:09 100 Intake and Output 06/30/18 07/01/18 07/01/18 22:59 06:59 14:59 Intake Total 840 Output Total 1600 Balance -760 Intake: Intake, IV Titration 600 Amount Sodium Chloride 0.9% 1, 600 000 ml @ 100 mls/hr IV . Q10H [facility] Rx#:[id number] Oral 240 Output: Urine 1600 Other: Voiding Method Indwelling Catheter Indwelling Catheter # Bowel Movements 1 Weight 112.264 kg 107.5 kg - Constitutional General appearance: cooperative, no acute distress, obese - Respiratory Lungs sounds diminished bilaterally. Respirations even, nonlabored. Currently on 2 L nasal cannula oxygen saturation 98%. - Cardiovascular S1, S2 present. No murmurs, gallops, or rubs. Regular rate and rhythm, sinus rhythm on EKG with no ischemic changes. Palpable peripheral pulses bilaterally. 2+ edema to bilateral lower extremities. - Gastrointestinal Abdomen soft, nontender, nondistended, obese. Active bowel sounds present 4 quadrants. Tolerating diet. - Genitourinary Balderas present draining cloudy yellow urine. - Integumentary Skin is warm and dry. No visible open areas. Bilateral lower extremities with evidence of venous insufficiency. - Neurologic Neurologic: CNII-XII intact - Musculoskeletal Musculoskeletal: strength equal bilaterally - Psychiatric Psychiatric: A&O x's 3, appropriate affect, intact judgment & insight Results 07/01/18 09:07 07/01/18 08:59 Cardiac Enzymes 06/30/18 06/30/18 07/01/18 Range/Units 20:32 20:32 02:56 AST 31 (14-36) U/L CK-MB (CK-2) 6.2 H (0.0-2.4) ng/mL Troponin I 0.014 0.020 (0.000-0.034) ng/mL 07/01/18 07/01/18 Range/Units 08:59 08:59 AST 48 H (14-36) U/L CK-MB (CK-2) (0.0-2.4) ng/mL Troponin I 0.022 (0.000-0.034) ng/mL Coagulation 06/30/18 Range/Units 20:32 PT 11.3 (9.0-12.0) sec APTT 23.3 (22.0-30.0) sec CBC 06/30/18 07/01/18 Range/Units 20:32 09:07 WBC 11.5 H 9.5 (3.8-10.6) k/uL RBC 3.78 L 3.61 L (3.80-5.40) m/uL Hgb 11.1 L 10.7 L (11.4-16.0) gm/dL Hct 32.7 L 32.6 L (34.0-46.0) % Plt Count 334 286 (150-450) k/uL Comprehensive Metabolic Panel 06/30/18 07/01/18 Range/Units 20:32 08:59 Sodium 133 L 134 L (137-145) mmol/L Potassium 3.1 L 3.3 L (3.5-5.1) mmol/L Chloride 98 101 (98-107) mmol/L Carbon Dioxide 18 L 19 L (22-30) mmol/L BUN 58 H 58 H (7-17) mg/dL Creatinine 3.46 H 3.06 H (0.52-1.04) mg/dL Glucose 91 96 (74-99) mg/dL Calcium 5.9 L* 5.5 L* (8.4-10.2) mg/dL AST 31 48 H (14-36) U/L ALT 34 35 (9-52) U/L Alkaline Phosphatase 141 H 111 (38-126) U/L Total Protein 6.7 6.7 (6.3-8.2) g/dL Albumin 3.0 L 3.0 L (3.5-5.0) g/dL Current Medications Generic Name Dose Route Start Last Admin Trade Name Freq PRN Reason Stop Dose Admin Acetaminophen 650 mg 07/01/18 09:02 Tylenol Suppository RECTAL Q4H PRN Fever and/ or Pain Albuterol Sulfate 2.5 mg 07/01/18 13:00 07/01/18 11:38 Ventolin Nebulized INHALATION 2.5 mg RT-TID [facility] Administration Aspirin 81 mg 07/02/18 09:00 Aspirin PO DAILY [facility] Atorvastatin Calcium 80 mg 06/30/18 21:00 06/30/18 23:36 Lipitor PO 80 mg HS [facility] Administration Atropine Sulfate 2 drops 07/01/18 09:02 Isopto Atropine 1% 5ml SUBLINGUAL Q4H PRN EXCESS SALIVA Calcium Carbonate 1 each 07/01/18 07:30 07/01/18 08:09 Oscal 500+D PO 1 each BID-W/MEALS RE[facility] Administration Duloxetine HCl 30 mg 07/01/18 18:00 Cymbalta PO 1800 [facility] Duloxetine HCl 60 mg 07/01/18 12:00 Cymbalta PO 1200 [facility] Enoxaparin Sodium 40 mg 07/01/18 09:00 07/01/18 08:08 Lovenox SQ 40 mg DAILY [facility] Administration Ferrous Sulfate 325 mg 07/01/18 09:15 07/01/18 10:38 Feosol PO 325 mg DAILY [facility] Administration Gabapentin 300 mg 07/01/18 21:00 Neurontin PO HS [facility] Gabapentin 400 mg 07/01/18 16:00 07/01/18 10:39 Neurontin PO 400 mg BID@0900,1600 [facility] Administration Haloperidol Lactate 1 mg 07/01/18 09:02 Haldol Oral Soln PO Q6H PRN Nausea And Vomiting/ANXIETY Hydromorphone HCl 4 mg 07/01/18 10:24 Dilaudid PO Q3HR PRN Pain Sodium Chloride 1,000 mls @ 100 mls/hr 06/30/18 20:45 07/01/18 08:14 Saline 0.9% IV Not Given .Q10H [facility] Ceftriaxone Sodium 1,000 mg/ 50 mls @ 100 mls/hr 07/01/18 23:00 Sodium Chloride IVPB Q24H [facility] Calcium Gluconate 2,000 mg/ 120 mls @ 100 mls/hr 07/01/18 12:00 Sodium Chloride IVPB 07/01/18 13:11 ONCE ONE Magnesium Sulfate/Dextrose 1 100 mls @ 100 mls/hr 07/01/18 12:00 gm/ IV Solution IVPB 07/01/18 15:59 Q1H [facility] Lorazepam 1 mg 07/01/18 09:02 Ativan PO Q4H PRN Anxiety Prochlorperazine Maleate 10 mg 07/01/18 09:02 Compazine PO Q6H PRN Nausea Ropinirole HCl 6 mg 07/01/18 16:00 07/01/18 10:39 Requip PO 6 mg TID RE[facility] Administration Sodium Bicarbonate 650 mg 07/01/18 11:00 Sodium Bicarbonate Tab PO BID [facility] Intake and Output 06/30/18 07/01/18 07/01/18 22:59 06:59 14:59 Intake Total 840 Output Total 1600 Balance -760 Intake: Intake, IV Titration 600 Amount Sodium Chloride 0.9% 1, 600 000 ml @ 100 mls/hr IV . Q10H [facility] Rx#:[id number] Oral 240 Output: Urine 1600 Other: Voiding Method Indwelling Catheter Indwelling Catheter # Bowel Movements 1 Weight 112.264 kg 107.5 kg 07/01/18 09:07 07/01/18 08:59 - EKG Interpretation EKG: sinus rhythm Assessment and Plan (1) ARF (acute renal failure) Current Visit: Yes Status: Acute Code(s): N17.9 - ACUTE KIDNEY FAILURE, UNSPECIFIED SNOMED Code(s): 76477191 (2) Congestive heart failure Current Visit: Yes Status: Chronic Code(s): I50.9 - HEART FAILURE, UNSPECIFIED SNOMED Code(s): 33892067 (3) Lower extremity edema Current Visit: Yes Status: Chronic Code(s): R60.0 - LOCALIZED EDEMA SNOMED Code(s): 251877105 Plan: 1. Continue aspirin, statin. 2. Hold hold diuretics at this time secondary to acute kidney injury per nephrology recommendations. Gentle hydration. 3. ProBNP normal, last echocardiogram showed normal LV function, cardiac enzymes negative 3. No need for echocardiogram. 4. Daily weights, cardiac diet, increase activity as tolerated. 5. Wean O2 as tolerated. 6. Will continue to monitor labs. Replace per nephrology. 7. Medical management of other comorbid conditions per primary care service. Thank you for this consult. Please call us with any further questions. Time with Patient: Greater than 30
[2018-07-01] MEDS: DULoxetine HCL 60 MG CAPSULE.DR PO SCH (12:39)
[2018-07-01] MEDS: SODIUM BICARBONATE TAB 650 MG TAB PO SCH ×2 (12:40→22:42)
[2018-07-01] MEDS: MAGNESIUM SULFATE-D5W PMX 1 GM in DEXTROSE/WATER 1 100ML.BAG IVPB SCH ×4 (13:03→16:08)
[2018-07-01 13:15] VITALS: BMI 38.2
[2018-07-01] MEDS ORDERED: HYDROcodone/APAP 5-325MG 1 EACH TAB PO PRN (13:26)
--- NOTE | 2018-07-01 14:13 | XR ---
EXAMINATION TYPE: XR knee complete RT DATE OF EXAM: 07/01/2018 COMPARISON: None HISTORY: Fall swelling pain TECHNIQUE: Three-view right knee FINDINGS: There is subluxation medially of the femur in relation to be a. There is loss of the joint space of the lateral compartment joint space. There is narrowing of the medial compartment joint spac e. An avulsion from the lateral femoral condyle is not excluded. This may be posterior on the lateral projection. No joint effusion is present. Large distal quadriceps tendon and patellar spurring is pr esent. There is loss of the patellofemoral joint space. No large joint effusion is evident. IMPRESSION: 1. Advanced degenerative changes through the right knee. 2. Subluxation of the knee joint space. 3. An avulsion from the lateral femoral condyle is not excluded. Correlate with location of the patie nt's pain. Consider CT knee for additional evaluation.
--- NOTE | 2018-07-01 14:14 | P.HPIM ---
History of Present Illness H&P Date: 07/01/18 Chief Complaint: Shortness of breath This is a 73-year-old female, patient of Dr. Tucker she has a known past medical history of congestive heart failure, breast cancer with chemo and radiation treatment in 2002, hypothyroidism, gastric bypass and previous osteomyelitis. Patient was a transfer from [facility]. Patient presented to [facility] with shortness of breath and tingling in bilateral upper extremities. Chest x-ray at [place] had shown pulmonary congestion. Patient was transferred from [facility] to [facility] due to her acute kidney injury cardiology and nephrology has been placed on consult. Her last echo about a year ago shows an EF of 55-60%, mild aortic insufficiency, trace to mild mitral regurgitation, mild tricuspid regurgitation with mild pulmonary hypertension. Patient is also complaining of right hip and knee pain. She said she had fallen about 3 weeks ago. She had been placed on hospice by her PCP about 2 months ago. Yesterday she claimed that she did not want be on hospice and wanted full treatment. Patient is currently a full code. Patient was on multiple diuretics at home which likely contributed to her acute kidney injury. Her Lasix Aldactone and Zaroxolyn are currently on hold. Patient denies any fever or chills or sweats. Denies any nausea or vomiting. Denies any cough. Denies any bowel movement changes. She has a chronic indwelling Balderas catheter she does have evidence of a UTI was started on Rocephin Balderas catheter has been exchanged. Review of Systems Please refer to HPI otherwise unremarkable Past Medical History Past Medical History: Heart Failure, Renal Disease, Thyroid Disorder Additional Past Medical History / Comment(s): chronic edema, chronic metabolic acidosis, neuropathy, insomnia, Hx breast cancer,/chemo and radiation tx in 2002 , kidney failure, hypothyroid, RLS,cellulitis R leg History of Any Multi-Drug Resistant Organisms: None Reported Past Surgical History: Bariatric Surgery, Section, Cholecystectomy, Tonsillectomy Additional Past Surgical History / Comment(s): Gastric bypass, left breast biopsy & lumpectomy Past Anesthesia/Blood Transfusion Reactions: No Reported Reaction Past Psychological History: Depression Smoking Status: Never smoker Past Alcohol Use History: None Reported Additional Past Alcohol Use History / Comment(s): Patient is a lifelong nonsmoker. She denies any medical marijuana, marijuana, street drug or alcohol use. 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 She currently lives at home and has 2 dogs in the house and one outdoor cat. She recently had to give away 30 alpacas because she could not take care of them any longer. Her committed suicide 1-1/2 years ago. She does not have family support system. She does have one good friend that helps her. Past Drug Use History: None Reported - Past Family History Father History Unknown: Yes Family Medical History: Diabetes Mellitus Additional Family Medical History / Comment(s): unaware of entire history. Mother History Unknown: Yes Family Medical History: Chest Pain / Angina, Coronary Artery Disease (CAD), Diabetes Mellitus Additional Family Medical History / Comment(s): Valves replaced in her heart per patient. Medications and Allergies Home Medications Medication Instructions Recorded Confirmed Type DULoxetine HCL [Cymbalta] 60 mg PO DAILY 07/16/17 06/30/18 History Furosemide [Lasix] 40 mg PO BID 07/16/17 06/30/18 History rOPINIRole HCL [Requip] 6 mg PO TID 07/16/17 06/30/18 History Acetaminophen Suppository [Tylenol 650 mg RECTAL Q4H PRN 06/30/18 06/30/18 History Suppository] Albuterol Inhaler [Ventolin Hfa 1 - 2 puff INHALATION RT-Q6H PRN 06/30/18 History Inhaler] Albuterol Nebulized [Ventolin 2.5 mg INHALATION RT-TID 06/30/18 06/30/18 History Nebulized] Aspirin EC [Ecotrin Low Dose] 81 mg PO DAILY 06/30/18 06/30/18 History Atropine Ophth Soln 1% 5Ml [Isopto 2 drop SUBLINGUAL Q4H PRN 06/30/18 06/30/18 History Atropine 1% 5Ml] DULoxetine HCL [Cymbalta] 30 mg PO DAILY 06/30/18 06/30/18 History Dilaudid Oral Susp 1mg/Ml 2 mg PO Q2H PRN 06/30/18 06/30/18 History Ferrous Sulfate [Feosol] 325 mg PO DAILY 06/30/18 06/30/18 History Gabapentin [Neurontin] 300 mg PO HS 06/30/18 06/30/18 History Gabapentin [Neurontin] 400 mg PO BID 06/30/18 06/30/18 History Haloperidol Oral Soln [Haldol Oral 1 mg PO Q6H PRN 06/30/18 06/30/18 History Soln] LORazepam [Ativan] 1 mg PO Q4H PRN 06/30/18 06/30/18 History Metolazone [Zaroxolyn] 2.5 mg PO DAILY 06/30/18 06/30/18 History Potassium Bicarbonate/Cit AC 25 meq PO BID 06/30/18 06/30/18 History [Klor-Con 25 (Effer. Tab)] Prochlorperazine [Compazine] 10 mg PO Q6H PRN 06/30/18 06/30/18 History Spironolactone [Aldactone] 50 mg PO BID 06/30/18 06/30/18 History guaiFENesin-DM 100-10MG/5ML 10 ml PO Q4H PRN 06/30/18 06/30/18 History [Robitussin DM] Allergies Allergy/AdvReac Type Severity Reaction Status Date / Time Sulfa (Sulfonamide Allergy Anaphylaxis Verified 06/30/18 20:49 Antibiotics) vancomycin Allergy Rash/Hives Verified 06/30/18 20:49 Physical Exam Vitals: Vital Signs Temp Pulse Pulse Pulse Resp BP BP 07/01/18 12:26 97.6 F 73 19 96/52 07/01/18 11:47 74 07/01/18 11:39 78 07/01/18 08:00 72 18 07/01/18 07:38 97.7 F 69 18 110/63 07/01/18 05:00 97.4 F L 89 16 105/55 06/30/18 23:15 97.7 F 98 18 104/65 06/30/18 23:00 100 20 108/72 06/30/18 21:00 107 H 18 99/59 06/30/18 20:09 99.0 F 87 16 86/68 Pulse Ox 07/01/18 12:26 98 07/01/18 11:47 07/01/18 11:39 07/01/18 08:00 07/01/18 07:38 98 07/01/18 05:00 98 06/30/18 23:15 100 06/30/18 23:00 96 06/30/18 21:00 97 06/30/18 20:09 100 Intake and Output 06/30/18 07/01/18 07/01/18 22:59 06:59 14:59 Intake Total 840 Output Total 1600 Balance -760 Intake: Intake, IV Titration 600 Amount Sodium Chloride 0.9% 1, 600 000 ml @ 100 mls/hr IV . Q10H [facility] Rx#:[id number] Oral 240 Output: Urine 1600 Other: Voiding Method Indwelling Catheter Indwelling Catheter # Bowel Movements 1 Weight 112.264 kg 107.5 kg 107.5 kg Head normocephalic Neck supple Lungs clear to auscultation bilaterally no wheezing or crackles Heart regular rate and rhythm S1-S2, no rub or gallop Abdomen is soft nontender nondistended positive bowel sounds no hepatosplenomegaly Extremities erythema noted in the tibia bilaterally Neuro alert and orientated to 3 Results CBC & Chem 7: 07/01/18 09:07 07/01/18 08:59 Labs: Abnormal Lab Results - Last 24 Hours (Table) 06/30/18 06/30/18 06/30/18 Range/Units 20:32 20:32 20:32 WBC 11.5 H (3.8-10.6) k/uL RBC 3.78 L (3.80-5.40) m/uL Hgb 11.1 L (11.4-16.0) gm/dL Hct 32.7 L (34.0-46.0) % Neutrophils # 9.0 H (1.3-7.7) k/uL Sodium 133 L (137-145) mmol/L Potassium 3.1 L (3.5-5.1) mmol/L Carbon Dioxide 18 L (22-30) mmol/L BUN 58 H (7-17) mg/dL Creatinine 3.46 H (0.52-1.04) mg/dL Calcium 5.9 L* (8.4-10.2) mg/dL Phosphorus 6.7 H (2.5-4.5) mg/dL Magnesium (1.6-2.3) mg/dL AST (14-36) U/L Alkaline Phosphatase 141 H (38-126) U/L Total Creatine Kinase 372 H (30-135) U/L CK-MB (CK-2) 6.2 H (0.0-2.4) ng/mL Albumin 3.0 L (3.5-5.0) g/dL Urine Appearance (Clear) Urine Protein (Negative) Urine Blood (Negative) Urine Nitrite (Negative) Ur Leukocyte Esterase (Negative) Urine RBC (0-5) /hpf Urine WBC (0-5) /hpf Urine WBC Clumps (None) /hpf Ur Squamous Epith Cells (0-4) /hpf Urine Bacteria (None) /hpf Urine Mucus (None) /hpf 06/30/18 07/01/18 07/01/18 Range/Units 22:38 08:59 09:07 WBC (3.8-10.6) k/uL RBC 3.61 L (3.80-5.40) m/uL Hgb 10.7 L (11.4-16.0) gm/dL Hct 32.6 L (34.0-46.0) % Neutrophils # (1.3-7.7) k/uL Sodium 134 L (137-145) mmol/L Potassium 3.3 L (3.5-5.1) mmol/L Carbon Dioxide 19 L (22-30) mmol/L BUN 58 H (7-17) mg/dL Creatinine 3.06 H (0.52-1.04) mg/dL Calcium 5.5 L* (8.4-10.2) mg/dL Phosphorus (2.5-4.5) mg/dL Magnesium 1.0 L (1.6-2.3) mg/dL AST 48 H (14-36) U/L Alkaline Phosphatase (38-126) U/L Total Creatine Kinase (30-135) U/L CK-MB (CK-2) (0.0-2.4) ng/mL Albumin 3.0 L (3.5-5.0) g/dL Urine Appearance Turbid H (Clear) Urine Protein 1+ H (Negative) Urine Blood Large H (Negative) Urine Nitrite Positive H (Negative) Ur Leukocyte Esterase Large H (Negative) Urine RBC 28 H (0-5) /hpf Urine WBC >182 H (0-5) /hpf Urine WBC Clumps Many H (None) /hpf Ur Squamous Epith Cells 5 H (0-4) /hpf Urine Bacteria Many H (None) /hpf Urine Mucus Moderate H (None) /hpf Microbiology - Last 24 Hours (Table) 01/23/19 22:38 Urine Culture - Preliminary Urine,Voided Thrombosis Risk Factor Assmnt - Choose All That Apply Each Factor Represents 1 point: Medical pt on bed rest, Obesity (BMI >25), Swollen legs (current) Each Risk Factor Represents 2 Points: Age 61-74 years Thrombosis Risk Factor Assessment Total Risk Factor Score: 5 Thrombosis Risk Factor Assessment Level: High Risk Assessment and Plan Assessment: 1. Acute kidney injury mostly prerenal secondary to her diuretics. Aldactone, Lasix and Zaroxolyn are on hold. Creatinine on admission 3.46. Nephrology has been placed on consult. They've ordered fluids normal saline at 100 mL an hour. Continue to monitor kidney function closely 2. Acute on chronic diastolic congestive heart failure with possible exacerbation prior to admission. Her [facility] radiology report chest x-ray had shown pulmonary congestion. BNP is not elevated. Cardiac enzymes are negative 3. Patient seen by cardiology. Echo from July 2017 shows an EF of 55-60% 3. Hypokalemia patient receiving potassium supplement 4. Hypomagnesemia patient receiving magnesium supplement repeat labs in a.m. 5. Hypocalcemia calcium level V.5. Patient given calcium gluconate 6. UTI : Patient given Rocephin 1 g daily. Check urine culture 7. Bilateral external cellulitis continue Rocephin 8. History of breast cancer is post-chemo and radiation treatment in 2002 9. History of iron deficiency anemia 10. Hypothyroidism: check TSH level 11. Right hip and knee pain. We'll x-ray both the hip and knee. Consult orthopedics 12. Pain management and [place] 5/325 one every 4 hours as needed for pain GI prophylaxis Pepcid and DVT prophylaxis Lovenox Time with Patient: Greater than 30 (Greater than 50% of the total time spent in counseling and coordination of care.I performed an examination of the patient and discussed their management with the physician Residential Program Director. I have reviewed the Physician Residential Program Director's notes and agree with the documented findings and plan of care)
--- NOTE | 2018-07-01 14:22 | XR ---
EXAMINATION TYPE: XR Hip Complete RT DATE OF EXAM: 07/01/2018 COMPARISON: None HISTORY: Pain, fall TECHNIQUE: 2 view right hip FINDINGS: Please also see right knee dictation same date. Femoral head articulates with the acetabulum. Joint space is preserved. No acute fractures within th e [id number] are evident. IMPRESSION: 1. Normal two-view right hip
[2018-07-01] MEDS: HYDROmorphone 4 MG TABLET PO PRN ×2 (14:59→22:49)
[2018-07-01] MEDS: DULoxetine HCL 30 MG CAPSULE.DR PO SCH (18:10)
--- NOTE | 2018-07-01 18:10 | P.CNOR ---
History of Present Illness - [facility] Consult date: 07/01/18 Consult reason: joint pain History of present illness: Patient is a 73-year-old female who is evaluated today at bedside. Patient was admitted to [facility] after being transferred from [facility] with likely congestive heart failure exacerbation. Upon arrival, she was determined to have multiple lab abnormalities. She was admitted to internal medicine with multiple consults place. She states that she fell about 3 weeks ago while at home. She has developed increasing right hip pain and right knee pain. Patient states that she ambulates with no assistive devices. She lives in a home in [facility]. She denies any previous orthopedic surgeon involving the right lower extremity Patient has multiple medical comorbidities. Patient admits to more posterior buttock pain involving the right lower extremity, she admits to generalized right knee pain. She denies any discomfort involving the ankle on the right side. She denies any acute pain of the left lower extremity, bilateral upper extremities, new onset severe thoracic or lumbar pain. Review of Systems Constitutional: Reports as per [facility] Past Medical History Past Medical History: Heart Failure, Renal Disease, Thyroid Disorder Additional Past Medical History / Comment(s): chronic edema, chronic metabolic acidosis, neuropathy, insomnia, Hx breast cancer,/chemo and radiation tx in 2002 , kidney failure, hypothyroid, RLS,cellulitis R leg History of Any Multi-Drug Resistant Organisms: None Reported Past Surgical History: Bariatric Surgery, Section, Cholecystectomy, Tonsillectomy Additional Past Surgical History / Comment(s): Gastric bypass, left breast biopsy & lumpectomy Past Anesthesia/Blood Transfusion Reactions: No Reported Reaction Past Psychological History: Depression Smoking Status: Never smoker Past Alcohol Use History: None Reported Additional Past Alcohol Use History / Comment(s): Patient is a lifelong nonsmoker. She denies any medical marijuana, marijuana, street drug or alcohol use. 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 She currently lives at home and has 2 dogs in the house and one outdoor cat. She recently had to give away 30 alpacas because she could not take care of them any longer. Her committed suicide 1-1/2 years ago. She does not have family support system. She does have one good friend that helps her. Past Drug Use History: None Reported - Past Family History Father History Unknown: Yes Family Medical History: Diabetes Mellitus Additional Family Medical History / Comment(s): unaware of entire history. Mother History Unknown: Yes Family Medical History: Chest Pain / Angina, Coronary Artery Disease (CAD), Diabetes Mellitus Additional Family Medical History / Comment(s): Valves replaced in her heart per patient. Medications and Allergies Home Medications Medication Instructions Recorded Confirmed Type DULoxetine HCL [Cymbalta] 60 mg PO DAILY 07/16/17 06/30/18 History Furosemide [Lasix] 40 mg PO BID 07/16/17 06/30/18 History rOPINIRole HCL [Requip] 6 mg PO TID 07/16/17 06/30/18 History Acetaminophen Suppository [Tylenol 650 mg RECTAL Q4H PRN 06/30/18 06/30/18 History Suppository] Albuterol Inhaler [Ventolin Hfa 1 - 2 puff INHALATION RT-Q6H PRN 06/30/18 History Inhaler] Albuterol Nebulized [Ventolin 2.5 mg INHALATION RT-TID 06/30/18 06/30/18 History Nebulized] Aspirin EC [Ecotrin Low Dose] 81 mg PO DAILY 06/30/18 06/30/18 History Atropine Ophth Soln 1% 5Ml [Isopto 2 drop SUBLINGUAL Q4H PRN 06/30/18 06/30/18 History Atropine 1% 5Ml] DULoxetine HCL [Cymbalta] 30 mg PO DAILY 06/30/18 06/30/18 History Dilaudid Oral Susp 1mg/Ml 2 mg PO Q2H PRN 06/30/18 06/30/18 History Ferrous Sulfate [Feosol] 325 mg PO DAILY 06/30/18 06/30/18 History Gabapentin [Neurontin] 300 mg PO HS 06/30/18 06/30/18 History Gabapentin [Neurontin] 400 mg PO BID 06/30/18 06/30/18 History Haloperidol Oral Soln [Haldol Oral 1 mg PO Q6H PRN 06/30/18 06/30/18 History Soln] LORazepam [Ativan] 1 mg PO Q4H PRN 06/30/18 06/30/18 History Metolazone [Zaroxolyn] 2.5 mg PO DAILY 06/30/18 06/30/18 History Potassium Bicarbonate/Cit AC 25 meq PO BID 06/30/18 06/30/18 History [Klor-Con 25 (Effer. Tab)] Prochlorperazine [Compazine] 10 mg PO Q6H PRN 06/30/18 06/30/18 History Spironolactone [Aldactone] 50 mg PO BID 06/30/18 06/30/18 History guaiFENesin-DM 100-10MG/5ML 10 ml PO Q4H PRN 06/30/18 06/30/18 History [Robitussin DM] Allergies Allergy/AdvReac Type Severity Reaction Status Date / Time Sulfa (Sulfonamide Allergy Anaphylaxis Verified 06/30/18 20:49 Antibiotics) vancomycin Allergy Rash/Hives Verified 06/30/18 20:49 Physical Examination Right lower extremity: No obvious open lesions or sores visualized of the extremity. Erythema noted in the right lower extremity and left lower extremity just below the knee all the way to the ankle Logroll maneuver the hip reproduces no pain. No significant tenderness with palpation of the greater trochanter. Slight tenderness with palpation more over the gluteus muscle. Obvious effusion present over the right knee. Significant valgus deformity noted of the knee, generalized tenderness throughout the extremity. Calf is soft, no tenderness with palpation. Plantar flexion, dorsiflexion, EHL , FHL are intact. Results - Labs Labs: Abnormal Lab Results - Last 24 Hours (Table) 06/30/18 06/30/18 06/30/18 Range/Units 20:32 20:32 20:32 WBC 11.5 H (3.8-10.6) k/uL RBC 3.78 L (3.80-5.40) m/uL Hgb 11.1 L (11.4-16.0) gm/dL Hct 32.7 L (34.0-46.0) % Neutrophils # 9.0 H (1.3-7.7) k/uL Sodium 133 L (137-145) mmol/L Potassium 3.1 L (3.5-5.1) mmol/L Carbon Dioxide 18 L (22-30) mmol/L BUN 58 H (7-17) mg/dL Creatinine 3.46 H (0.52-1.04) mg/dL Calcium 5.9 L* (8.4-10.2) mg/dL Phosphorus 6.7 H (2.5-4.5) mg/dL Magnesium (1.6-2.3) mg/dL AST (14-36) U/L Alkaline Phosphatase 141 H (38-126) U/L Total Creatine Kinase 372 H (30-135) U/L CK-MB (CK-2) 6.2 H (0.0-2.4) ng/mL Albumin 3.0 L (3.5-5.0) g/dL Urine Appearance (Clear) Urine Protein (Negative) Urine Blood (Negative) Urine Nitrite (Negative) Ur Leukocyte Esterase (Negative) Urine RBC (0-5) /hpf Urine WBC (0-5) /hpf Urine WBC Clumps (None) /hpf Ur Squamous Epith Cells (0-4) /hpf Urine Bacteria (None) /hpf Urine Mucus (None) /hpf 06/30/18 07/01/18 07/01/18 Range/Units 22:38 08:59 09:07 WBC (3.8-10.6) k/uL RBC 3.61 L (3.80-5.40) m/uL Hgb 10.7 L (11.4-16.0) gm/dL Hct 32.6 L (34.0-46.0) % Neutrophils # (1.3-7.7) k/uL Sodium 134 L (137-145) mmol/L Potassium 3.3 L (3.5-5.1) mmol/L Carbon Dioxide 19 L (22-30) mmol/L BUN 58 H (7-17) mg/dL Creatinine 3.06 H (0.52-1.04) mg/dL Calcium 5.5 L* (8.4-10.2) mg/dL Phosphorus (2.5-4.5) mg/dL Magnesium 1.0 L (1.6-2.3) mg/dL AST 48 H (14-36) U/L Alkaline Phosphatase (38-126) U/L Total Creatine Kinase (30-135) U/L CK-MB (CK-2) (0.0-2.4) ng/mL Albumin 3.0 L (3.5-5.0) g/dL Urine Appearance Turbid H (Clear) Urine Protein 1+ H (Negative) Urine Blood Large H (Negative) Urine Nitrite Positive H (Negative) Ur Leukocyte Esterase Large H (Negative) Urine RBC 28 H (0-5) /hpf Urine WBC >182 H (0-5) /hpf Urine WBC Clumps Many H (None) /hpf Ur Squamous Epith Cells 5 H (0-4) /hpf Urine Bacteria Many H (None) /hpf Urine Mucus Moderate H (None) /hpf Microbiology - Last 24 Hours (Table) 06/30/18 22:38 Urine Culture - Preliminary Urine,Voided H & H 06/30/18 07/01/18 Range/Units 20:32 09:07 Hgb 11.1 L 10.7 L (11.4-16.0) gm/dL Hct 32.7 L 32.6 L (34.0-46.0) % Coagulation 06/30/18 Range/Units 20:32 INR 1.1 (<1.2) Result Diagrams: 07/01/18 09:07 07/01/18 08:59 - Diagnostic results Hip x-ray: report reviewed, image reviewed Knee x-ray: report reviewed, image reviewed Assessment and Plan Plan: Imaging: Multiple views of the right hip and right knee were obtained. Reports were reviewed. Images demonstrated no acute fractures or dislocations. Minimal arthritic changes present throughout the right hip. Right knee x-rays demonstrate severe osteoarthritis with significant valgus deformity. Assessment: 1. Right knee pain and effusion 2. Right knee severe osteoarthritis 3. Right hip osteoarthritis 4. Right hip contusion 5. Recent fall from standing 6. Multiple medical comorbidities Plan: I was able to discuss the case, including with physical exam findings and imaging studies with my attending Dr. Everett. Conservative management for treatment at this time, weight-bear as tolerated with walker with physical therapy evaluation. Pain control with pain medication and anti-inflammatories as needed I did discuss with the patient possibility of an intra-articular steroid injection in the knee along with an aspiration. She would like to proceed with this, this will be done on 07/02/2018 Physical therapy evaluation Other medical care evaluation specialist recommendations Time with Patient: Less than 30
[2018-07-01] MEDS: ATORVASTATIN 80 MG TAB PO SCH (22:43)
[2018-07-01] MEDS: GABAPENTIN 300 MG CAP PO SCH (22:43)
[2018-07-02] MEDS: SODIUM CHLORIDE 0.9% 1,000 ML IV SCH ×2 (02:45→17:18)
[2018-07-02] MEDS ORDERED: methylPREDNISolone ACETATE 40 MG/ML 1 ML VIAL INTRAARTIC STA (08:10)
[2018-07-02 08:11] LABS: Basophils # (A) 0.1 k/uL (0-0.2); Basophils % (A) 1 %; Eosinophils # (A) 0.5 k/uL (0-0.7); Eosinophils % (A) 7 %; HCT 33.6 % (34.0-46.0); HGB 10.9 gm/dL (11.4-16.0); Lymphocytes # (A) 1.4 k/uL (1.0-4.8); Lymphocytes % (A) 19 %; MCH 29.6 pg (25.0-35.0); MCHC 32.6 g/dL (31.0-37.0); Mean Platelet Volume 7.3; Monocytes # (A) 0.3 k/uL (0-1.0); Monocytes % (A) 4 %; Neutrophils # (A) 5.1 k/uL (1.3-7.7); Neutrophils % (A) 69 %; Platelet Count 311 k/uL (150-450); RBC 3.69 m/uL (3.80-5.40); RDW 14.9 % (11.5-15.5); WBC 7.4 k/uL (3.8-10.6)
--- NOTE | 2018-07-02 08:23 | P.PN ---
Subjective Patient is seen in follow-up for acute kidney injury. Creatinine in August 2017 was near 1. It was elevated at 3.46 on admission and was down to 3.06 as of yesterday. Labs from today are pending at this time. Patient has chronic Balderas catheter which was changed this admission. She was hypotensive on admission which is now improved. Currently maintained on normal saline at 100 mL an hour. No active chest shortness of breath. Oral intake is fair. Vital signs are stable. General: The patient appeared well nourished and normally developed. HEENT: Head exam is unremarkable. Neck is without jugular venous distension. LUNGS: Lungs are clear to auscultation and percussion. Breath sounds decreased. HEART: Rate and Rhythm are regular. First and second heart sounds normal. No murmurs, rubs or gallops. ABDOMEN: Abdominal exam reveals normal bowel sounds. Non-tender and non- distended. No evidence of peritonitis. EXTREMITITES: No clubbing, cyanosis, or edema. Objective - Vital Signs Vital signs: Vital Signs Temp 97.1 F L 07/02/18 05:00 Pulse 68 07/02/18 05:00 Resp 16 07/02/18 05:00 BP 102/57 07/02/18 05:00 Pulse Ox 96 07/02/18 05:00 Intake & Output 07/01/18 07/02/18 07/02/18 18:59 06:59 18:59 Intake Total 1999 1290 Output Total 1725 2175 Balance 275 -885 Weight 107.5 kg 109 kg Intake: Intake, IV Titration 900 400 Amount Calcium Gluconate 2,000 100 mg In Sodium Chloride 0.9 % 100 ml @ 100 mls/hr IVPB ONCE ONE Rx#: [id number] Magnesium Sulfate-D5w Pmx 400 1 gm In Dextrose/Water 1 100ml.bag @ 100 mls/hr IVPB Q1H [facility] Rx#: [id number] Sodium Chloride 0.9% 1, 400 350 000 ml @ 100 mls/hr IV . Q10H [facility] Rx#:[id number] cefTRIAXone 1,000 mg In 50 Sodium Chloride 0.9% 50 ml @ 100 mls/hr IVPB Q24H [facility] Rx#:[id number] Oral 1100 890 Output: Urine 1725 1875 Uretheral (Balderas) 575 1300 Stool 300 Other: Voiding Method Indwelling Catheter Indwelling Catheter # Bowel Movements 2 - Labs CBC & Chem 7: 07/01/18 09:07 07/01/18 08:59 Labs: Abnormal Lab Results - Last 24 Hours (Table) 07/01/18 07/01/18 Range/Units 08:59 09:07 RBC 3.61 L (3.80-5.40) m/uL Hgb 10.7 L (11.4-16.0) gm/dL Hct 32.6 L (34.0-46.0) % Sodium 134 L (137-145) mmol/L Potassium 3.3 L (3.5-5.1) mmol/L Carbon Dioxide 19 L (22-30) mmol/L BUN 58 H (7-17) mg/dL Creatinine 3.06 H (0.52-1.04) mg/dL Calcium 5.5 L* (8.4-10.2) mg/dL Magnesium 1.0 L (1.6-2.3) mg/dL AST 48 H (14-36) U/L Albumin 3.0 L (3.5-5.0) g/dL Microbiology - Last 24 Hours (Table) 06/30/18 22:38 Urine Culture - Preliminary Urine,Voided Gram Neg Bacilli Assessment and Plan Plan: Assessment: 1. Acute kidney injury mostly prerenal secondary to diuresis. Creatinine 3.46 on admission and was down to 3.06 as of yesterday. Baseline creatinine near 1. 2. Hypokalemia secondary to diuresis and hypomagnesemia. Improved posterior placement. 3. Hypomagnesemia secondary to diuresis. Status post placement. 4. Metabolic acidosis secondary to acute kidney injury. Maintained on oral sodium bicarbonate. 5. Hypocalcemia secondary to acute kidney injury and hypomagnesemia which will suppress PTH. Status post IV calcium. 6. Hypovolemic hyponatremia improving with IV hydration. 7. UTI with urine culture positive for gram negatives bacilli. Maintained on IV Rocephin. Plan: Maintain normal saline at 100 mL an hour. Follow-up morning labs. Avoid nephrotoxins. Continue to hold diuretics.
[2018-07-02 08:24] LABS: Albumin 2.9 g/dL (3.5-5.0); Potassium 2.9 mmol/L (3.5-5.1); Total Bilirubin 0.5 mg/dL (0.2-1.3); Total Protein 6.4 g/dL (6.3-8.2)
[2018-07-02 08:34] LABS: Calcium 6.4 mg/dL (8.4-10.2)
[2018-07-02] MEDS: ALBUTEROL NEBULIZED 2.5 MG/3 ML INHALATION SCH ×3 (08:34→20:03)
[2018-07-02] MEDS: CALCIUM CARB-VIT D 500MG-200UN 1 EACH TAB PO SCH ×2 (08:59→17:19)
[2018-07-02] MEDS: ASPIRIN 81 MG PO SCH (09:00)
[2018-07-02] MEDS: FAMOTIDINE 20 MG TAB PO SCH (09:00)
[2018-07-02] MEDS ORDERED: CALCIUM GLUCONATE 1,000 MG in SODIUM CHLORIDE 0.9% 100 ML IVPB ONE (09:00)
[2018-07-02] MEDS: FERROUS SULFATE 325 MG TAB PO SCH (09:00)
[2018-07-02] MEDS: GABAPENTIN 400 MG CAP PO SCH ×2 (09:00→17:19)
[2018-07-02] MEDS: SODIUM BICARBONATE TAB 650 MG TAB PO SCH ×2 (09:01→21:14)
[2018-07-02] MEDS: ENOXAPARIN 30 MG/0.3 ML SYRINGE SQ SCH (09:07)
[2018-07-02] MEDS: POTASSIUM CHLORIDE ER 20 MEQ TAB.ER PO SCH ×2 (09:23→11:45)
[2018-07-02] MEDS ORDERED: LIDOCAINE 1% INJ 10MG/ML (20 ML MDV) SQ ONE (10:00)
[2018-07-02] MEDS: DULoxetine HCL 60 MG CAPSULE.DR PO SCH (11:45)
--- NOTE | 2018-07-02 12:14 | P.PN ---
Subjective Progress Note Date: 07/02/18 Principal diagnosis: Right hip contusion, right hip osteoarthritis, right knee effusion right knee osteoarthritis Patient is evaluated today at bedside, she is resting comfortably. She notes improvement in the pain involving her right hip. She notes more discomfort in the right knee today. We discussed a aspiration with cortisone injection yesterday, she was to like to proceed. Objective - Vital Signs Vital signs: Vital Signs Temp 98.7 F 07/02/18 11:58 Pulse 74 07/02/18 12:04 Resp 18 07/02/18 11:58 BP 123/56 07/02/18 11:58 Pulse Ox 99 07/02/18 11:58 Intake & Output 07/01/18 07/02/18 07/02/18 18:59 06:59 18:59 Intake Total 1999 1290 Output Total 1725 2175 Balance 275 -885 Weight 107.5 kg 109 kg Intake: Intake, IV Titration 900 400 Amount Calcium Gluconate 2,000 100 mg In Sodium Chloride 0.9 % 100 ml @ 100 mls/hr IVPB ONCE ONE Rx#: [id number] Magnesium Sulfate-D5w Pmx 400 1 gm In Dextrose/Water 1 100ml.bag @ 100 mls/hr IVPB Q1H [facility] Rx#: [id number] Sodium Chloride 0.9% 1, 400 350 000 ml @ 100 mls/hr IV . Q10H [facility] Rx#:[id number] cefTRIAXone 1,000 mg In 50 Sodium Chloride 0.9% 50 ml @ 100 mls/hr IVPB Q24H [facility] Rx#:[id number] Oral 1100 890 Output: Urine 1725 1875 Uretheral (Balderas) 575 1300 Stool 300 Other: Voiding Method Indwelling Catheter Indwelling Catheter Indwelling Catheter # Bowel Movements 2 - Exam Unchanged since initial consult - Labs CBC & Chem 7: 07/02/18 06:37 07/02/18 06:37 Labs: Abnormal Lab Results - Last 24 Hours (Table) 07/02/18 07/02/18 Range/Units 06:37 06:37 RBC 3.69 L (3.80-5.40) m/uL Hgb 10.9 L (11.4-16.0) gm/dL Hct 33.6 L (34.0-46.0) % Sodium 134 L (137-145) mmol/L Potassium 2.9 L (3.5-5.1) mmol/L Carbon Dioxide 20 L (22-30) mmol/L BUN 51 H (7-17) mg/dL Creatinine 2.82 H (0.52-1.04) mg/dL Calcium 6.4 L* (8.4-10.2) mg/dL AST 40 H (14-36) U/L Alkaline Phosphatase 130 H (38-126) U/L Albumin 2.9 L (3.5-5.0) g/dL Microbiology - Last 24 Hours (Table) 06/30/18 22:38 Urine Culture - Preliminary Urine,Voided Gram Neg Bacilli Assessment and Plan Plan: Assessment: 1. Right knee pain and effusion 2. Right knee severe osteoarthritis 3. Right hip osteoarthritis 4. Right hip contusion 5. Recent fall from standing 6. Multiple medical comorbidities Plan: Plan to proceed with bedside aspiration with intra-articular cortisone injection , see procedure note further detail Pain control with pain medication and anti-inflammatories as needed Physical therapy evaluation Other medical front desk specialist recommendations Discharge planning: Orthopedic standpoint, patient states discharge. Nursing mentioned patient will be discharged back on the hospice Time with Patient: Less than 30
--- NOTE | 2018-07-02 12:17 | P.PCN ---
Date of Procedure: 07/02/18 Preoperative Diagnosis: Right knee effusion, right knee arthritis Postoperative Diagnosis: Same Procedure(s) Performed: Right knee aspiration with intra-articular steroid injection Anesthesia: local Surgeon: Randall Broderick Estimated Blood Loss (ml): 2 Pathology: none sent Condition: stable Indications for Procedure: Right knee pain, right knee effusion, right knee osteoarthritis Description of Procedure: Patient was evaluated at bedside initially, history of significant right knee osteoarthritis with subacute fall. Notable effusion. Patient is a nonsurgical candidate at this time. Discussed possibility of an intra-articular steroid injection with aspiration percent medical relief. Risks and benefits of procedure discussed, she is in good understanding like to proceed. Patient was placed in the supine position, the knee was prepped with to iodine swabs and to overall swabs. I initially injected 3 mL of 1% plain lidocaine via the superior lateral approach. I then aspirated about 25 mL of blood- tinged serosanguineous fluid from the right knee. I then switched ranges and placed 40 mg of Depo-Medrol and 3 mL of 1% plain lidocaine intra-articular. Bandages in place. Patient tolerated the procedure well. Physical therapy evaluation with hopeful discharge home when stable
--- NOTE | 2018-07-02 12:52 | P.PN ---
Subjective Progress Note Date: 07/02/18 This is a 73-year-old female, patient of Dr. Tucker she has a known past medical history of congestive heart failure, breast cancer with chemo and radiation treatment in 2002, hypothyroidism, gastric bypass and previous osteomyelitis. Patient was a transfer from [facility]. Patient presented to [facility] with shortness of breath and tingling in bilateral upper extremities. Chest x-ray at [facility] had shown pulmonary congestion. Patient was transferred from [facility] to [facility] due to her acute kidney injury cardiology and nephrology has been placed on consult. Her last echo about a year ago shows an EF of 55-60%, mild aortic insufficiency, trace to mild mitral regurgitation, mild tricuspid regurgitation with mild pulmonary hypertension. Patient is also complaining of right hip and knee pain. She said she had fallen about 3 weeks ago. She had been placed on hospice by her PCP about 2 months ago. Yesterday she claimed that she did not want be on hospice and wanted full treatment. Patient is currently a full code. Patient was on multiple diuretics at home which likely contributed to her acute kidney injury. Her Lasix Aldactone and Zaroxolyn are currently on hold. Patient denies any fever or chills or sweats. Denies any nausea or vomiting. Denies any cough. Denies any bowel movement changes. She has a chronic indwelling Balderas catheter she does have evidence of a UTI was started on Rocephin Balderas catheter has been exchanged. 07/02/2018 patient reports that her breathing is doing better. X-ray of the knee and hip showed no fracture. She's been seen by orthopedics and had aspiration of the right knee effusion. Creatinine is decreased from 3.06-2.82. Electrolytes are being replaced. She denies any chest pain denies any nausea or vomiting reports having bowel movements. Denies any difficulty urinating Objective - Vital Signs Vital signs: Vital Signs Temp 98.7 F 07/02/18 11:58 Pulse 74 07/02/18 12:04 Resp 18 07/02/18 11:58 BP 123/56 07/02/18 11:58 Pulse Ox 99 07/02/18 11:58 Intake & Output 07/01/18 07/02/18 07/02/18 18:59 06:59 18:59 Intake Total 1999 1290 Output Total 1725 2175 Balance 275 -885 Weight 107.5 kg 109 kg Intake: Intake, IV Titration 900 400 Amount Calcium Gluconate 2,000 100 mg In Sodium Chloride 0.9 % 100 ml @ 100 mls/hr IVPB ONCE ONE Rx#: [id number] Magnesium Sulfate-D5w Pmx 400 1 gm In Dextrose/Water 1 100ml.bag @ 100 mls/hr IVPB Q1H [facility] Rx#: [id number] Sodium Chloride 0.9% 1, 400 350 000 ml @ 100 mls/hr IV . Q10H [facility] Rx#:[id number] cefTRIAXone 1,000 mg In 50 Sodium Chloride 0.9% 50 ml @ 100 mls/hr IVPB Q24H [facility] Rx#:[id number] Oral 1100 890 Output: Urine 1725 1875 Uretheral (Balderas) 575 1300 Stool 300 Other: Voiding Method Indwelling Catheter Indwelling Catheter Indwelling Catheter # Bowel Movements 2 - Exam Head normocephalic Neck supple Lungs clear to auscultation bilaterally no wheezing or crackles Heart regular rate and rhythm S1-S2, no rub or gallop Abdomen is soft nontender nondistended positive bowel sounds no hepatosplenomegaly Extremities erythema bilateral lower extremities Neuro alert and orientated to 3 - Labs CBC & Chem 7: 07/02/18 06:37 07/02/18 06:37 Labs: Abnormal Lab Results - Last 24 Hours (Table) 07/02/18 07/02/18 Range/Units 06:37 06:37 RBC 3.69 L (3.80-5.40) m/uL Hgb 10.9 L (11.4-16.0) gm/dL Hct 33.6 L (34.0-46.0) % Sodium 134 L (137-145) mmol/L Potassium 2.9 L (3.5-5.1) mmol/L Carbon Dioxide 20 L (22-30) mmol/L BUN 51 H (7-17) mg/dL Creatinine 2.82 H (0.52-1.04) mg/dL Calcium 6.4 L* (8.4-10.2) mg/dL AST 40 H (14-36) U/L Alkaline Phosphatase 130 H (38-126) U/L Albumin 2.9 L (3.5-5.0) g/dL Microbiology - Last 24 Hours (Table) 06/30/18 22:38 Urine Culture - Preliminary Urine,Voided Gram Neg Bacilli Assessment and Plan Assessment: 1. Acute kidney injury mostly prerenal secondary to her diuretics. Aldactone, Lasix and Zaroxolyn are on hold. Creatinine on admission 3.46. Nephrology has been placed on consult. They've ordered fluids normal saline at 100 mL an hour. Continue to monitor kidney function closely creatinine down to 2.86 2. Acute on chronic diastolic congestive heart failure with possible exacerbation prior to admission. Her [facility] radiology report chest x-ray had shown pulmonary congestion. BNP is not elevated. Cardiac enzymes are negative 3. Patient seen by cardiology. Echo from July 2017 shows an EF of 55-60% 3. Hypokalemia patient receiving potassium supplement 4. Hypomagnesemia patient receiving magnesium supplement repeat labs in a.m. 5. Hypocalcemia secondary to acute kidney injury and hypomagnesemia which will suppress the PTH per nephrology. They've given another dose of IV 6. UTI : Urine culture growing gram-negative bacilli Patient given Rocephin 1 g daily. 7. Bilateral external cellulitis continue Rocephin 8. History of breast cancer is post-chemo and radiation treatment in 2002 9. History of iron deficiency anemia 10. Right knee pain with Right knee effusion and osteoarthritis status post aspiration and steroid injection 11. Right hip and knee pain. X-rays negative for fractures. Seen by orthopedics. 12. Pain management and [place] 5/325 one every 4 hours as needed for pain GI prophylaxis Pepcid and DVT prophylaxis Lovenox I performed an examination of the patient and discussed their management with the physician Silver Designer. I have reviewed the Physician Silver Designer's notes and agree with the documented findings and plan of care
--- NOTE | 2018-07-02 15:22 | CDI ---
Documentation Clarification Form Date: 07/02/2018 3:10:00 PM From: Jayna MagallanesLouROHIT santiago, CCDS Admit Date: 06/30/2018 8:31:00 PM Patient Name: Shayla Mazariegos Visit Number: [id number] Discharge Date: ATTENTION: The Clinical Documentation Specialists (CDI) and [facility] Coding Staff appreciate your assistance in clarifying documentation. Please respond to the clarification below the line at the bottom and electronically sign. The CDI & [facility] Coding staff will review the response and follow-up if needed. Please note: Queries are made part of the Legal Health Record. If you have any questions, please contact the author of this message via ITS. Dr. Marcy Perdomo: Per the History & Physical: "Denies any bowel movement changes. She has a chronic indwelling Balderas catheter she does have evidence of a UTI was started on Rocephin Balderas catheter has been exchanged." History/Risk Factors: Chronic indwelling Balderas catheter, Diastolic CHF, Hypertension, CKD, in hospice, Clinical Indicators: Presented with SOB, diagnosed with acute on chronic diastolic CHF, acute renal failure and UTI. Urinalysis: Turbid, 1+ protein, Lg blood, Positive nitrite, large michele, RBC 28 , WBC >182. Urine Cx: Preliminary: Gram neg bacilli Treatment: IV Rocephin, IV fl rate 100, IV Dilaudid, IV Calcium Gluconate, IV MagSulf. In your professional opinion, can you please clarify the etiology of the UTI, if known? Balderas catheter UTI not related to catheter Other condition, please specify Unable to determine If an infective organism is present, please specify cause and effect relationship if applicable. (Last Revision: September 2017) Balderas catheter associated UTI MTDD
--- NOTE | 2018-07-02 15:37 | CDI ---
Documentation Clarification Form Date: 07/02/2018 3:23:31 PM From: Jayna Lou CCS, CCDS Admit Date: 06/30/2018 8:31:00 PM Patient Name: Shayla Mazariegos Visit Number: [id number] Discharge Date: ATTENTION: The Clinical Documentation Specialists (CDI) and [facility] Coding Staff appreciate your assistance in clarifying documentation. Please respond to the clarification below the line at the bottom and electronically sign. The CDI & [facility] Coding staff will review the response and follow-up if needed. Please note: Queries are made part of the Legal Health Record. If you have any questions, please contact the author of this message via ITS. Dr. Rod Nava: Per the nephrology consult: "Patient is a 73-year-old female seen in renal consultation for acute kidney injury. Creatinine in August 2017 was near 1. It was elevated at 3.46 on admission and is 3.06 today." History/Risk Factors: Diastolic CHF, Hypothyroidism, CKD nos, has chronic indwelling Balderas catheter. Clinical Indicators: Presented with sob, diagnosed with acute exac diastolic CHF & BRANNON with elevated Creatinine. LAB: BUN 58 - 58 - 51; Cr 3.46 - 3.06 - 2.82; GFR: 13 - 15 - 16 Patients Baseline Creatinine: documented as near 1 in August of 2017. Treatment: IV fluids, IV Rocephin, IV fluid rat 100 In order to capture the severity of condition, please clarify if the condition signifies: CKD Stage 1 (GFR > 90) CKD Stage 2 (GFR 60-89) CKD Stage 3 (GFR 30-59) CKD Stage 4 (GFR 15-29) CKD Stage 5 (GFR <15) ESRD Other, please specify Unable to determine (Last Revision: September 2017) AKI, possible CKD, unable to determine MTDD
[2018-07-02] MEDS: DULoxetine HCL 30 MG CAPSULE.DR PO SCH (17:19)
[2018-07-02] MEDS: HYDROmorphone 4 MG TABLET PO PRN (19:55)
[2018-07-02] MEDS: GABAPENTIN 300 MG CAP PO SCH (21:14)
[2018-07-02] MEDS: ATORVASTATIN 80 MG TAB PO SCH (21:14)
[2018-07-03] MEDS: LEVOFLOXACIN 500MG-D5W PMX 500 MG in DEXTROSE/WATER 1 100ML.BAG IVPB SCH (00:56)
[2018-07-03] MEDS: ALBUTEROL NEBULIZED 2.5 MG/3 ML INHALATION SCH ×3 (07:19→22:46)
[2018-07-03] MEDS: ASPIRIN 81 MG PO SCH (07:41)
[2018-07-03] MEDS: SODIUM BICARBONATE TAB 650 MG TAB PO SCH (07:41)
[2018-07-03] MEDS: GABAPENTIN 400 MG CAP PO SCH ×2 (07:41→23:58)
[2018-07-03] MEDS: ENOXAPARIN 30 MG/0.3 ML SYRINGE SQ SCH (07:41)
[2018-07-03] MEDS: FAMOTIDINE 20 MG TAB PO SCH (07:42)
[2018-07-03] MEDS: FERROUS SULFATE 325 MG TAB PO SCH (07:42)
[2018-07-03] MEDS: CALCIUM CARB-VIT D 500MG-200UN 1 EACH TAB PO SCH ×2 (07:42→23:58)
[2018-07-03] MEDS: SODIUM CHLORIDE 0.9% 1,000 ML IV SCH ×2 (09:14→09:33)
[2018-07-03] MEDS: DULoxetine HCL 30 MG CAPSULE.DR PO SCH (23:58)
[2018-07-03] MEDS: DULoxetine HCL 60 MG CAPSULE.DR PO SCH (23:58)
[2018-07-04] MEDS: GABAPENTIN 300 MG CAP PO SCH ×2 (00:34→20:36)
[2018-07-04] MEDS: ATORVASTATIN 80 MG TAB PO SCH ×2 (00:34→20:36)
[2018-07-04] MEDS: SODIUM BICARBONATE TAB 650 MG TAB PO SCH ×3 (00:44→20:36)
[2018-07-04] MEDS: LEVOFLOXACIN 500MG-D5W PMX 500 MG in DEXTROSE/WATER 1 100ML.BAG IVPB SCH (00:46)
[2018-07-04] MEDS: SODIUM CHLORIDE 0.9% 1,000 ML IV SCH ×4 (00:51→20:37)
[2018-07-04 05:47] LABS: Albumin 3.1 g/dL (3.5-5.0); Magnesium 1.7 mg/dL (1.6-2.3); Potassium 3.7 mmol/L (3.5-5.1); Total Bilirubin 0.4 mg/dL (0.2-1.3); Total Protein 6.7 g/dL (6.3-8.2)
[2018-07-04 05:55] LABS: Basophils % (A) 0 %; Eosinophils % (A) 0 %; HCT 33.1 % (34.0-46.0); HGB 10.6 gm/dL (11.4-16.0); Lymphocytes # (A) 0.7 k/uL (1.0-4.8); Lymphocytes % (A) 7 %; MCH 29.6 pg (25.0-35.0); MCV 92.5 fL (80.0-100.0); Mean Platelet Volume 8.3; Monocytes # (A) 0.3 k/uL (0-1.0); Monocytes % (A) 3 %; Neutrophils # (A) 8.9 k/uL (1.3-7.7); Neutrophils % (A) 89 %; Platelet Count 305 k/uL (150-450); RBC 3.58 m/uL (3.80-5.40); RDW 14.8 % (11.5-15.5)
[2018-07-04] MEDS: HYDROmorphone 4 MG TABLET PO PRN ×3 (06:22→22:22)
[2018-07-04] MEDS: ENOXAPARIN 30 MG/0.3 ML SYRINGE SQ SCH (07:38)
[2018-07-04] MEDS: FAMOTIDINE 20 MG TAB PO SCH (07:38)
[2018-07-04] MEDS: ASPIRIN 81 MG PO SCH (07:38)
[2018-07-04] MEDS: GABAPENTIN 400 MG CAP PO SCH ×2 (07:38→16:31)
[2018-07-04] MEDS: FERROUS SULFATE 325 MG TAB PO SCH (07:38)
[2018-07-04] MEDS: CALCIUM CARB-VIT D 500MG-200UN 1 EACH TAB PO SCH ×2 (07:38→17:33)
[2018-07-04] MEDS: ALBUTEROL NEBULIZED 2.5 MG/3 ML INHALATION SCH ×3 (08:47→19:40)
[2018-07-04 09:48] LABS: Basophils % (A) 1 %; Eosinophils # (A) 0.3 k/uL (0-0.7); Eosinophils % (A) 3 %; HGB 10.6 gm/dL (11.4-16.0); Lymphocytes # (A) 1.5 k/uL (1.0-4.8); Lymphocytes % (A) 18 %; MCHC 32.2 g/dL (31.0-37.0); MCV 93.1 fL (80.0-100.0); Mean Platelet Volume 7.2; Monocytes # (A) 0.2 k/uL (0-1.0); Monocytes % (A) 3 %; Neutrophils # (A) 5.9 k/uL (1.3-7.7); Neutrophils % (A) 74 %; Platelet Count 273 k/uL (150-450); RBC 3.54 m/uL (3.80-5.40); RDW 14.8 % (11.5-15.5)
[2018-07-04 10:04] LABS: Albumin 2.9 g/dL (3.5-5.0); Calcium 6.8 mg/dL (8.4-10.2); Potassium 3.7 mmol/L (3.5-5.1); Total Bilirubin 0.5 mg/dL (0.2-1.3); Total Protein 6.4 g/dL (6.3-8.2)
[2018-07-04] MEDS: DULoxetine HCL 60 MG CAPSULE.DR PO SCH (11:30)
--- NOTE | 2018-07-04 14:00 | P.PN ---
Subjective Progress Note Date: 07/04/18 Seen and examined for the follow-up of acute kidney injury. Making good amount of urine. No nausea vomiting or diarrhea. Currently on IV fluids. Renal function improving Objective - Vital Signs Vital signs: Vital Signs Temp 97.6 F 07/04/18 12:59 Pulse 72 07/04/18 12:59 Resp 15 07/04/18 12:59 BP 124/66 07/04/18 12:59 Pulse Ox 95 07/04/18 12:59 Intake & Output 07/03/18 07/04/18 07/04/18 18:59 06:59 18:59 Intake Total 300 Output Total 1000 800 650 Balance -1000 -500 -650 Weight 112.5 kg Intake: Intake, IV Titration 300 Amount Sodium Chloride 0.9% 1, 300 000 ml @ 100 mls/hr IV . Q10H [facility] Rx#:[id number] Output: Urine 1000 800 650 Uretheral (Balderas) 800 Other: Voiding Method Indwelling Catheter Indwelling Catheter Indwelling Catheter # Voids 3 - Exam No acute distress. S1-S2 heard Lungs clear Balderas catheter No edema - Labs CBC & Chem 7: 07/04/18 09:01 07/04/18 09:01 Labs: Abnormal Lab Results - Last 24 Hours (Table) 07/03/18 07/03/18 07/04/18 Range/Units 11:00 11:00 09:01 RBC 3.58 L 3.54 L (3.80-5.40) m/uL Hgb 10.6 L 10.6 L (11.4-16.0) gm/dL Hct 33.1 L 33.0 L (34.0-46.0) % Neutrophils # 8.9 H (1.3-7.7) k/uL Lymphocytes # 0.7 L (1.0-4.8) k/uL Carbon Dioxide 20 L (22-30) mmol/L BUN 43 H (7-17) mg/dL Creatinine 2.06 H (0.52-1.04) mg/dL Calcium 7.0 L (8.4-10.2) mg/dL Albumin 3.1 L (3.5-5.0) g/dL 07/04/18 Range/Units 09:01 RBC (3.80-5.40) m/uL Hgb (11.4-16.0) gm/dL Hct (34.0-46.0) % Neutrophils # (1.3-7.7) k/uL Lymphocytes # (1.0-4.8) k/uL Carbon Dioxide 21 L (22-30) mmol/L BUN 35 H (7-17) mg/dL Creatinine 1.80 H (0.52-1.04) mg/dL Calcium 6.8 L (8.4-10.2) mg/dL Albumin 2.9 L (3.5-5.0) g/dL Assessment and Plan Assessment: #1 nonoliguric acute kidney injury secondary to prerenal process from over diuresis. Creatinine improving. Baseline creatinine 1.0 MG per DL. #2 hypokalemia and hypomagnesemia secondary to diuresis. #3 hypertension #4 hypocalcemia secondary to acute kidney injury. #5 hypovolemic hyponatremia improved with hydration. Plan: #1 renal functions improving. Continue with IV fluids for now #2 check ionized calcium and intact PTH in the morning. #3 also check phosphorus. #4 avoid nephrotoxic agents and hypotensive episodes
--- NOTE | 2018-07-04 15:28 | P.PN ---
Subjective Progress Note Date: 07/03/18 Date of this progress note is 07/03/2018 This is a 73-year-old female, patient of Dr. Tucker she has a known past medical history of congestive heart failure, breast cancer with chemo and radiation treatment in 2002, hypothyroidism, gastric bypass and previous osteomyelitis. Patient was a transfer from [facility]. Patient presented to [facility] with shortness of breath and tingling in bilateral upper extremities. Chest x-ray at [place] had shown pulmonary congestion. Patient was transferred from [place] to [facility] due to her acute kidney injury cardiology and nephrology has been placed on consult. Her last echo about a year ago shows an EF of 55-60%, mild aortic insufficiency, trace to mild mitral regurgitation, mild tricuspid regurgitation with mild pulmonary hypertension. Patient is also complaining of right hip and knee pain. She said she had fallen about 3 weeks ago. She had been placed on hospice by her PCP about 2 months ago. Yesterday she claimed that she did not want be on hospice and wanted full treatment. Patient is currently a full code. Patient was on multiple diuretics at home which likely contributed to her acute kidney injury. Her Lasix Aldactone and Zaroxolyn are currently on hold. Patient denies any fever or chills or sweats. Denies any nausea or vomiting. Denies any cough. Denies any bowel movement changes. She has a chronic indwelling Balderas catheter she does have evidence of a UTI was started on Rocephin Balderas catheter has been exchanged. 07/02/2018 patient reports that her breathing is doing better. X-ray of the knee and hip showed no fracture. She's been seen by orthopedics and had aspiration of the right knee effusion. Creatinine is decreased from 3.06-2.82. Electrolytes are being replaced. She denies any chest pain denies any nausea or vomiting reports having bowel movements. Denies any difficulty urinating On 07/03/2018 patient was seen and examined on the medical floor she is alert and oriented 3 in no apparent distress there is no fever or chills no headache or dizziness no chest pain no shortness of breath no cough no nausea or vomiting no abdominal pain no diarrhea and no urinary symptoms Objective - Vital Signs Vital signs: Vital Signs Temp 97.6 F 07/04/18 12:59 Pulse 84 07/04/18 14:26 Resp 15 07/04/18 12:59 BP 124/66 07/04/18 12:59 Pulse Ox 95 07/04/18 12:59 Intake & Output 07/03/18 07/04/18 07/04/18 18:59 06:59 18:59 Intake Total 300 Output Total 1000 800 650 Balance -1000 -500 -650 Weight 112.5 kg Intake: Intake, IV Titration 300 Amount Sodium Chloride 0.9% 1, 300 000 ml @ 100 mls/hr IV . Q10H [facility] Rx#:[id number] Output: Urine 1000 800 650 Uretheral (Balderas) 800 Other: Voiding Method Indwelling Catheter Indwelling Catheter Indwelling Catheter # Voids 3 600 - Exam Head normocephalic and atraumatic Neck supple no JVD no goiter Lungs clear to auscultation bilaterally no wheezing or crackles Heart regular rate and rhythm S1-S2, no rub or gallop Abdomen is soft nontender nondistended positive bowel sounds no hepatosplenomegaly Extremities erythema bilateral lower extremities Neuro alert and orientated to 3 - Labs CBC & Chem 7: 07/04/18 09:01 07/04/18 09:01 Labs: Abnormal Lab Results - Last 24 Hours (Table) 07/03/18 07/03/18 07/04/18 Range/Units 11:00 11:00 09:01 RBC 3.58 L 3.54 L (3.80-5.40) m/uL Hgb 10.6 L 10.6 L (11.4-16.0) gm/dL Hct 33.1 L 33.0 L (34.0-46.0) % Neutrophils # 8.9 H (1.3-7.7) k/uL Lymphocytes # 0.7 L (1.0-4.8) k/uL Carbon Dioxide 20 L (22-30) mmol/L BUN 43 H (7-17) mg/dL Creatinine 2.06 H (0.52-1.04) mg/dL Calcium 7.0 L (8.4-10.2) mg/dL Albumin 3.1 L (3.5-5.0) g/dL 07/04/18 Range/Units 09:01 RBC (3.80-5.40) m/uL Hgb (11.4-16.0) gm/dL Hct (34.0-46.0) % Neutrophils # (1.3-7.7) k/uL Lymphocytes # (1.0-4.8) k/uL Carbon Dioxide 21 L (22-30) mmol/L BUN 35 H (7-17) mg/dL Creatinine 1.80 H (0.52-1.04) mg/dL Calcium 6.8 L (8.4-10.2) mg/dL Albumin 2.9 L (3.5-5.0) g/dL Assessment and Plan Plan: 1. Acute kidney injury mostly prerenal secondary to her diuretics. Aldactone, Lasix and Zaroxolyn are on hold. Creatinine on admission 3.46. Nephrology has been placed on consult. They've ordered fluids normal saline at 100 mL an hour. Continue to monitor kidney function closely creatinine down to 2.06 2. Acute on chronic diastolic congestive heart failure with possible exacerbation prior to admission. Her [facility] radiology report chest x-ray had shown pulmonary congestion. BNP is not elevated. Cardiac enzymes are negative 3. Patient seen by cardiology. Echo from July 2017 shows an EF of 55-60% 3. Hypokalemia patient receiving potassium supplement 4. Hypomagnesemia patient receiving magnesium supplement repeat labs in a.m. 5. Hypocalcemia secondary to acute kidney injury and hypomagnesemia which will suppress the PTH per nephrology. They've given another dose of IV 6. UTI : Urine culture growing gram-negative bacilli Patient given Rocephin 1 g daily. 7. Bilateral external cellulitis continue Rocephin 8. History of breast cancer is post-chemo and radiation treatment in 2002 9. History of iron deficiency anemia 10. Right knee pain with Right knee effusion and osteoarthritis status post aspiration and steroid injection 11. Right hip and knee pain. X-rays negative for fractures. Seen by orthopedics. 12. Pain management and [place] 5/325 one every 4 hours as needed for pain GI prophylaxis Pepcid and DVT prophylaxis Lovenox
--- NOTE | 2018-07-04 15:43 | P.PN ---
Subjective Progress Note Date: 07/04/18 This is a 73-year-old female, patient of Dr. Tucker she has a known past medical history of congestive heart failure, breast cancer with chemo and radiation treatment in 2002, hypothyroidism, gastric bypass and previous osteomyelitis. Patient was a transfer from [facility]. Patient presented to [facility] with shortness of breath and tingling in bilateral upper extremities. Chest x-ray at [place] had shown pulmonary congestion. Patient was transferred from [place] to [facility] due to her acute kidney injury cardiology and nephrology has been placed on consult. Her last echo about a year ago shows an EF of 55-60%, mild aortic insufficiency, trace to mild mitral regurgitation, mild tricuspid regurgitation with mild pulmonary hypertension. Patient is also complaining of right hip and knee pain. She said she had fallen about 3 weeks ago. She had been placed on hospice by her PCP about 2 months ago. Yesterday she claimed that she did not want be on hospice and wanted full treatment. Patient is currently a full code. Patient was on multiple diuretics at home which likely contributed to her acute kidney injury. Her Lasix Aldactone and Zaroxolyn are currently on hold. Patient denies any fever or chills or sweats. Denies any nausea or vomiting. Denies any cough. Denies any bowel movement changes. She has a chronic indwelling Balderas catheter she does have evidence of a UTI was started on Rocephin Balderas catheter has been exchanged. 07/02/2018 patient reports that her breathing is doing better. X-ray of the knee and hip showed no fracture. She's been seen by orthopedics and had aspiration of the right knee effusion. Creatinine is decreased from 3.06-2.82. Electrolytes are being replaced. She denies any chest pain denies any nausea or vomiting reports having bowel movements. Denies any difficulty urinating On 07/03/2018 patient was seen and examined on the medical floor she is alert and oriented 3 in no apparent distress there is no fever or chills no headache or dizziness no chest pain no shortness of breath no cough no nausea or vomiting no abdominal pain no diarrhea and no urinary symptoms. On 07/04/2018 patient was seen and examined on the medical floor she is alert and oriented 3 in no apparent distress, she is feeling better there is no fever or chills no headache or dizziness no chest pain no shortness of breath no cough no nausea or vomiting no abdominal pain no diarrhea and no urinary symptoms, still on IV fluid normal saline at 100 cc/hr Objective - Vital Signs Vital signs: Vital Signs Temp 97.6 F 07/04/18 12:59 Pulse 84 07/04/18 14:26 Resp 15 07/04/18 12:59 BP 124/66 07/04/18 12:59 Pulse Ox 95 07/04/18 12:59 Intake & Output 07/03/18 07/04/18 07/04/18 18:59 06:59 18:59 Intake Total 300 Output Total 1063 395 9057 Balance -1000 -500 -1300 Weight 112.5 kg Intake: Intake, IV Titration 300 Amount Sodium Chloride 0.9% 1, 300 000 ml @ 100 mls/hr IV . Q10H [facility] Rx#:[id number] Output: Urine 3333 453 7351 Uretheral (Balderas) 800 Other: Voiding Method Indwelling Catheter Indwelling Catheter Indwelling Catheter # Voids 3 1 - Labs CBC & Chem 7: 07/04/18 09:01 07/04/18 09:01 Labs: Abnormal Lab Results - Last 24 Hours (Table) 07/03/18 07/03/18 07/04/18 Range/Units 11:00 11:00 09:01 RBC 3.58 L 3.54 L (3.80-5.40) m/uL Hgb 10.6 L 10.6 L (11.4-16.0) gm/dL Hct 33.1 L 33.0 L (34.0-46.0) % Neutrophils # 8.9 H (1.3-7.7) k/uL Lymphocytes # 0.7 L (1.0-4.8) k/uL Carbon Dioxide 20 L (22-30) mmol/L BUN 43 H (7-17) mg/dL Creatinine 2.06 H (0.52-1.04) mg/dL Calcium 7.0 L (8.4-10.2) mg/dL Albumin 3.1 L (3.5-5.0) g/dL 07/04/18 Range/Units 09:01 RBC (3.80-5.40) m/uL Hgb (11.4-16.0) gm/dL Hct (34.0-46.0) % Neutrophils # (1.3-7.7) k/uL Lymphocytes # (1.0-4.8) k/uL Carbon Dioxide 21 L (22-30) mmol/L BUN 35 H (7-17) mg/dL Creatinine 1.80 H (0.52-1.04) mg/dL Calcium 6.8 L (8.4-10.2) mg/dL Albumin 2.9 L (3.5-5.0) g/dL Assessment and Plan Plan: 1. Acute kidney injury mostly prerenal secondary to her diuretics. Aldactone, Lasix and Zaroxolyn are on hold. Creatinine on admission 3.46. Nephrology has been placed on consult. They've ordered fluids normal saline at 100 mL an hour. Continue to monitor kidney function closely creatinine down to 1.8 2. Acute on chronic diastolic congestive heart failure with possible exacerbation prior to admission. Her [facility] radiology report chest x-ray had shown pulmonary congestion. BNP is not elevated. Cardiac enzymes are negative 3. Patient seen by cardiology. Echo from July 2017 shows an EF of 55-60% 3. Hypokalemia patient receiving potassium supplement 4. Hypomagnesemia patient receiving magnesium supplement repeat labs in a.m. 5. Hypocalcemia secondary to acute kidney injury and hypomagnesemia which will suppress the PTH per nephrology. They've given another dose of IV 6. UTI : Urine culture growing gram-negative bacilli Patient given Rocephin 1 g daily. 7. Bilateral external cellulitis continue Rocephin 8. History of breast cancer is post-chemo and radiation treatment in 2002 9. History of iron deficiency anemia 10. Right knee pain with Right knee effusion and osteoarthritis status post aspiration and steroid injection 11. Right hip and knee pain. X-rays negative for fractures. Seen by orthopedics. 12. Pain management and [place] 5/325 one every 4 hours as needed for pain GI prophylaxis Pepcid and DVT prophylaxis Lovenox
[2018-07-04] MEDS: DULoxetine HCL 30 MG CAPSULE.DR PO SCH (17:33)
[2018-07-04 21:02] VITALS: RESP 16
[2018-07-05] MEDS: ALBUTEROL NEBULIZED 2.5 MG/3 ML INHALATION SCH ×2 (07:16→11:10)
[2018-07-05 08:00] LABS: Basophils % (A) 0 %; Eosinophils # (A) 0.3 k/uL (0-0.7); Eosinophils % (A) 5 %; HCT 30.5 % (34.0-46.0); HGB 9.8 gm/dL (11.4-16.0); Lymphocytes # (A) 1.4 k/uL (1.0-4.8); Lymphocytes % (A) 21 %; MCH 29.4 pg (25.0-35.0); MCHC 32.2 g/dL (31.0-37.0); MCV 91.4 fL (80.0-100.0); Mean Platelet Volume 7.1; Monocytes # (A) 0.3 k/uL (0-1.0); Monocytes % (A) 4 %; Neutrophils # (A) 4.5 k/uL (1.3-7.7); Neutrophils % (A) 69 %; Platelet Count 278 k/uL (150-450); RBC 3.34 m/uL (3.80-5.40); RDW 14.8 % (11.5-15.5); WBC 6.6 k/uL (3.8-10.6)
[2018-07-05 08:12] LABS: Albumin 2.6 g/dL (3.5-5.0); Calcium 7.1 mg/dL (8.4-10.2); Magnesium 1.5 mg/dL (1.6-2.3); Phosphorus 3.6 mg/dL (2.5-4.5); Potassium 3.4 mmol/L (3.5-5.1); Total Bilirubin 0.5 mg/dL (0.2-1.3); Total Protein 5.8 g/dL (6.3-8.2)
[2018-07-05] MEDS ORDERED: POTASSIUM CHLORIDE ER 20 MEQ TAB.ER PO STA (08:49)
--- NOTE | 2018-07-05 08:50 | P.PN ---
Subjective Patient is seen in follow-up for acute kidney injury. Creatinine in August 2017 was near 1. It was elevated at 3.46 on admission and is down to 1.62 today. Patient has chronic Balderas catheter which was changed this admission. She was hypotensive on admission which is now improved. Currently maintained on normal saline at 100 mL an hour. No active chest shortness of breath. Oral intake is fair. Vital signs are stable. General: The patient appeared well nourished and normally developed. HEENT: Head exam is unremarkable. Neck is without jugular venous distension. LUNGS: Lungs are clear to auscultation and percussion. Breath sounds decreased. HEART: Rate and Rhythm are regular. First and second heart sounds normal. No murmurs, rubs or gallops. ABDOMEN: Abdominal exam reveals normal bowel sounds. Non-tender and non- distended. No evidence of peritonitis. EXTREMITITES: No clubbing, cyanosis, or edema. Objective - Vital Signs Vital signs: Vital Signs Temp 98.6 F 07/05/18 05:00 Pulse 72 07/05/18 07:25 Resp 16 07/05/18 05:00 BP 103/61 07/05/18 05:00 Pulse Ox 96 07/05/18 05:00 Intake & Output 07/04/18 07/05/18 07/05/18 18:59 06:59 18:59 Intake Total 2079 Output Total 1974 2299 650 Balance -1974 Weight 135 kg Intake: Intake, IV Titration 1600 Amount Sodium Chloride 0.9% 1, 1600 000 ml @ 100 mls/hr IV . Q10H [facility] Rx#:[id number] Oral 480 Output: Urine 1974 Other: Voiding Method Indwelling Catheter Indwelling Catheter # Voids 1 - Labs CBC & Chem 7: 07/05/18 07:24 07/05/18 07:24 Labs: Abnormal Lab Results - Last 24 Hours (Table) 07/04/18 07/04/18 07/05/18 Range/Units 09:01 09:01 07:24 RBC 3.54 L 3.34 L (3.80-5.40) m/uL Hgb 10.6 L 9.8 L (11.4-16.0) gm/dL Hct 33.0 L 30.5 L (34.0-46.0) % Potassium (3.5-5.1) mmol/L Chloride (98-107) mmol/L Carbon Dioxide 21 L (22-30) mmol/L BUN 35 H (7-17) mg/dL Creatinine 1.80 H (0.52-1.04) mg/dL Calcium 6.8 L (8.4-10.2) mg/dL Magnesium (1.6-2.3) mg/dL Total Protein (6.3-8.2) g/dL Albumin 2.9 L (3.5-5.0) g/dL 07/05/18 Range/Units 07:24 RBC (3.80-5.40) m/uL Hgb (11.4-16.0) gm/dL Hct (34.0-46.0) % Potassium 3.4 L (3.5-5.1) mmol/L Chloride 110 H (98-107) mmol/L Carbon Dioxide (22-30) mmol/L BUN 29 H (7-17) mg/dL Creatinine 1.62 H (0.52-1.04) mg/dL Calcium 7.1 L (8.4-10.2) mg/dL Magnesium 1.5 L (1.6-2.3) mg/dL Total Protein 5.8 L (6.3-8.2) g/dL Albumin 2.6 L (3.5-5.0) g/dL Assessment and Plan Plan: Assessment: 1. Acute kidney injury mostly prerenal secondary to diuresis. Creatinine 3.46 on admission and is down to 1.62 today. Baseline creatinine near 1. 2. Hypokalemia secondary to diuresis and hypomagnesemia. 3. Hypomagnesemia secondary to diuresis. Status post placement. 4. Metabolic acidosis secondary to acute kidney injury. Maintained on oral sodium bicarbonate. 5. Hypocalcemia secondary to acute kidney injury and hypomagnesemia which will suppress PTH. Status post IV calcium. Better. 6. Hypovolemic hyponatremia improved with IV hydration. 7. UTI with urine culture positive for Enterobacter species. Maintained on antibiotics. Plan: Maintain normal saline at 100 mL an hour. Avoid nephrotoxins. Continue to hold diuretics. Replace potassium. 40 mg once today. Replace magnesium. 2 g IV today.
[2018-07-05] MEDS: CALCIUM CARB-VIT D 500MG-200UN 1 EACH TAB PO SCH (10:49)
[2018-07-05] MEDS: FERROUS SULFATE 325 MG TAB PO SCH (10:49)
[2018-07-05] MEDS: FAMOTIDINE 20 MG TAB PO SCH (10:49)
[2018-07-05] MEDS: GABAPENTIN 400 MG CAP PO SCH (10:49)
[2018-07-05] MEDS: SODIUM BICARBONATE TAB 650 MG TAB PO SCH (10:49)
[2018-07-05] MEDS: ENOXAPARIN 30 MG/0.3 ML SYRINGE SQ SCH (10:50)
[2018-07-05] MEDS: MAGNESIUM SULFATE-D5W PMX 1 GM in DEXTROSE/WATER 1 100ML.BAG IVPB SCH (10:50)
[2018-07-05] MEDS: ASPIRIN 81 MG PO SCH (10:50)
[2018-07-05] MEDS ORDERED: MAGNESIUM OXIDE 400 MG TAB PO SCH (11:00)
[2018-07-05 11:42] VITALS: BP 112/58; PULSE 68; TEMP 98.2
[2018-07-05 12:39] LABS: Ionized Calcium 4.3 mg/dL (4.5-5.3)
[2018-07-05] MEDS: SODIUM CHLORIDE 0.9% 1,000 ML IV SCH (13:16)
[2018-07-05] MEDS: DULoxetine HCL 60 MG CAPSULE.DR PO SCH (13:21)
--- NOTE | 2018-07-05 13:27 | P.DS ---
Providers Date of admission: 06/30/18 20:31 Expected date of discharge: 07/05/18 Attending physician: Marcy Perdomo Consults: 06/30/18 20:31 Consult Physician Routine Consulting Provider: Shahid Guadarrama Consult Reason/Comments: chf Do you want consulting provider notified?: Yes Consult Physician Routine Consulting Provider: Jaja Nur Consult Reason/Comments: arf Do you want consulting provider notified?: Yes 07/01/18 13:56 Consult Physician Routine Consulting Provider: Kraig Everett Consult Reason/Comments: right hip and knee pain Do you want consulting provider notified?: Yes Primary care physician: Shira Tucker Hospital Course: Discharge diagnosis 1. Acute kidney injury mostly prerenal secondary to her diuretics. Aldactone, Lasix and Zaroxolyn are on hold. Creatinine on admission 3.46. Nephrology has been placed on consult. They've ordered fluids normal saline at 100 mL an hour. Continue to monitor kidney function closely creatinine down to 1.6 patient has been cleared for discharge from nephrology standpoint. Patient will be DC'd on sodium bicarb, Os-Jeffry and Mag-Ox. Patient Lasix, Aldactone and Zaroxolyn will be DC'd upon discharge from nephrology. Patient to follow-up with consulting providers in PCP. Repeat CMP and rheumatic ordered for 3 days 2. Acute on chronic diastolic congestive heart failure with possible exacerbation prior to admission. Her [facility] radiology report chest x-ray had shown pulmonary congestion. BNP is not elevated. Cardiac enzymes are negative 3. Patient seen by cardiology. Echo from July 2017 shows an EF of 55-60% 3. Hypokalemia patient receiving potassium supplement 4. Hypomagnesemia patient receiving magnesium supplement repeat labs in a.m. Mag-Ox ordered 100 twice a day 5. Hypocalcemia secondary to acute kidney injury and hypomagnesemia which will suppress the PTH per nephrology. Patient will be DC'd on Os-Jeffry. 6. UTI : Urine culture growing gram-negative bacilli Patient given Rocephin 1 g daily. Urine culture Enterobacter aerogenes. Patient had been switched to Levaquin. Patient will be DC'd on Levaquin 250 for 5 more days 7. Bilateral external cellulitis. She maintained on Levaquin 8. History of breast cancer is post-chemo and radiation treatment in 2002 9. History of iron deficiency anemia 10. Right knee pain with Right knee effusion and osteoarthritis status post aspiration and steroid injection. 11. Right hip and knee pain. X-rays negative for fractures. Seen by orthopedics. 12. Pain management and [place] 5/325 one every 4 hours as needed for pain Hospital Course This is a 73-year-old female, patient of Dr. Tucker she has a known past medical history of congestive heart failure, breast cancer with chemo and radiation treatment in 2002, hypothyroidism, gastric bypass and previous osteomyelitis. Patient was a transfer from [facility]. Patient presented to [facility] with shortness of breath and tingling in bilateral upper extremities. Chest x-ray at [place] had shown pulmonary congestion. Patient was transferred from [place] to [facility] due to her acute kidney injury cardiology and nephrology has been placed on consult. Her last echo about a year ago shows an EF of 55-60%, mild aortic insufficiency, trace to mild mitral regurgitation, mild tricuspid regurgitation with mild pulmonary hypertension. Patient is also complaining of right hip and knee pain. She said she had fallen about 3 weeks ago. She had been placed on hospice by her PCP about 2 months ago. Yesterday she claimed that she did not want be on hospice and wanted full treatment. Patient is currently a full code. Patient was on multiple diuretics at home which likely contributed to her acute kidney injury. Her Lasix Aldactone and Zaroxolyn are currently on hold. Patient denies any fever or chills or sweats. Denies any nausea or vomiting. Denies any cough. Denies any bowel movement changes. She has a chronic indwelling Balderas catheter she does have evidence of a UTI was started on Rocephin Balderas catheter has been exchanged. 07/02/2018 patient reports that her breathing is doing better. X-ray of the knee and hip showed no fracture. She's been seen by orthopedics and had aspiration of the right knee effusion. Creatinine is decreased from 3.06-2.82. Electrolytes are being replaced. She denies any chest pain denies any nausea or vomiting reports having bowel movements. Denies any difficulty urinating On 07/03/2018 patient was seen and examined on the medical floor she is alert and oriented 3 in no apparent distress there is no fever or chills no headache or dizziness no chest pain no shortness of breath no cough no nausea or vomiting no abdominal pain no diarrhea and no urinary symptoms. On 07/04/2018 patient was seen and examined on the medical floor she is alert and oriented 3 in no apparent distress, she is feeling better there is no fever or chills no headache or dizziness no chest pain no shortness of breath no cough no nausea or vomiting no abdominal pain no diarrhea and no urinary symptoms, still on IV fluid normal saline at 100 cc/hr On 07/05/2018 patient is alert and oriented 3. Patient states she feels much improved and ready to go home. Patient denies chest pain or shortness breath. Patient denies vomiting or diarrhea. Patient denies any urinary burning or frequency. Discussed case with nephrology services. Patient has been cleared for discharge. Patient will be continued on sodium bicarb, Os-Jeffry magnesium. Patient to hold diuretics at this time. Patient to follow-up with her PCP consulting providers. Patient would like to return to hospice care upon discharge. I performed an examination of the patient and discussed their management with the Nurse Practitioner. I have reviewed the Nurse Practitioner's notes and agree with the documented findings and plan of care Patient Condition at Discharge: Stable Plan - Discharge Summary Discharge Rx Participant: No New Discharge Prescriptions: New Sodium Bicarbonate Tab 650 mg PO BID #60 tab Levofloxacin [Levaquin] 250 mg PO DAILY #5 tab Calcium Carb-Vit D 500Mg-200Un [Oscal 500+D] 1 each PO DAILY #30 tablet Magnesium Oxide [Magox 400] 400 mg PO BID #60 tablet Continue rOPINIRole HCL [Requip] 6 mg PO TID DULoxetine HCL [Cymbalta] 60 mg PO DAILY Prochlorperazine [Compazine] 10 mg PO Q6H PRN PRN Reason: Nausea Potassium Bicarbonate/Cit AC [Klor-Con 25 (Effer. Tab)] 25 meq PO BID LORazepam [Ativan] 1 mg PO Q4H PRN PRN Reason: Anxiety Haloperidol Oral Soln [Haldol Oral Soln] 1 mg PO Q6H PRN PRN Reason: Nausea And Vomiting/ANXIETY Gabapentin [Neurontin] 300 mg PO HS Gabapentin [Neurontin] 400 mg PO BID Ferrous Sulfate [Iron (65 MG Elemental)] 325 mg PO DAILY Dilaudid Oral Susp 1mg/Ml 2 mg PO Q2H PRN PRN Reason: Pain Atropine Ophth Soln 1% 5Ml [Isopto Atropine 1% 5Ml] 2 drop SUBLINGUAL Q4H PRN PRN Reason: EXCESS SALIVA Aspirin EC [Ecotrin Low Dose] 81 mg PO DAILY Albuterol Nebulized [Ventolin Nebulized] 2.5 mg INHALATION RT-TID DULoxetine HCL [Cymbalta] 30 mg PO DAILY Acetaminophen Suppository [Tylenol Suppository] 650 mg RECTAL Q4H PRN PRN Reason: Fever And/ Or Pain Albuterol Inhaler [Ventolin Hfa Inhaler] 1 - 2 puff INHALATION RT-Q6H PRN PRN Reason: Shortness Of Breath guaiFENesin-DM 100-10MG/5ML [Robitussin DM] 10 ml PO Q4H PRN PRN Reason: Cough Discontinued Furosemide [Lasix] 40 mg PO BID Spironolactone [Aldactone] 50 mg PO BID Metolazone [Zaroxolyn] 2.5 mg PO DAILY Discharge Medication List DULoxetine HCL [Cymbalta] 60 mg PO DAILY 07/16/17 [History] rOPINIRole HCL [Requip] 6 mg PO TID 07/16/17 [History] Acetaminophen Suppository [Tylenol Suppository] 650 mg RECTAL Q4H PRN 06/30/18 [ History] Albuterol Inhaler [Ventolin Hfa Inhaler] 1 - 2 puff INHALATION RT-Q6H PRN [History] Albuterol Nebulized [Ventolin Nebulized] 2.5 mg INHALATION RT-TID 06/30/18 [ History] Aspirin EC [Ecotrin Low Dose] 81 mg PO DAILY 06/30/18 [History] Atropine Ophth Soln 1% 5Ml [Isopto Atropine 1% 5Ml] 2 drop SUBLINGUAL Q4H PRN [History] DULoxetine HCL [Cymbalta] 30 mg PO DAILY 06/30/18 [History] Dilaudid Oral Susp 1mg/Ml 2 mg PO Q2H PRN 06/30/18 [History] Ferrous Sulfate [Iron (65 MG Elemental)] 325 mg PO DAILY 06/30/18 [History] Gabapentin [Neurontin] 300 mg PO HS 06/30/18 [History] Gabapentin [Neurontin] 400 mg PO BID 06/30/18 [History] Haloperidol Oral Soln [Haldol Oral Soln] 1 mg PO Q6H PRN 06/30/18 [History] LORazepam [Ativan] 1 mg PO Q4H PRN 06/30/18 [History] Potassium Bicarbonate/Cit AC [Klor-Con 25 (Effer. Tab)] 25 meq PO BID 06/30/18 [ History] Prochlorperazine [Compazine] 10 mg PO Q6H PRN 06/30/18 [History] guaiFENesin-DM 100-10MG/5ML [Robitussin DM] 10 ml PO Q4H PRN 06/30/18 [History] Calcium Carb-Vit D 500Mg-200Un [Oscal 500+D] 1 each PO DAILY #30 tablet [Rx] Levofloxacin [Levaquin] 250 mg PO DAILY #5 tab 07/05/18 [Rx] Magnesium Oxide [Magox 400] 400 mg PO BID #60 tablet 07/05/18 [Rx] Sodium Bicarbonate Tab 650 mg PO BID #60 tab 07/05/18 [Rx] Follow up Appointment(s)/Referral(s): Shira Tucker MD [Primary Care Provider] - 1-2 days [facility] [NON-STAFF] - 1 Week Rod Nava DO [STAFF PHYSICIAN] - 1 Week Activity/Diet/Wound Care/Special Instructions: Orthopedic discharge instructions: 1. Weight-bear as tolerated 2. Utilize walker with ambulation 3. Ice and elevate often 4. Follow-up at [facility] as needed Discharge Disposition: HOME SELF-CARE
[2018-07-05] MEDS ORDERED: LEVOFLOXACIN 750 MG TAB PO SCH (21:00)
== END 2018-07-05 16:00 | disposition home or self-care (01) | DRG 682 ==
LOC: EC 20:03 → 3NMEDONC 20:31
PROVIDERS: ADMIT Internal Medicine; ATTEND Internal Medicine
PROC: 0S9C3ZZ Drainage of Right Knee Joint, Percutaneous Approach (ICD-10-PCS; principal; 2018-07-02)
PROC: 3E0U33Z Introduction of Anti-inflammatory into Joints, Percutaneous Approach (ICD-10-PCS; principal; 2018-07-02)
PROC: 3E0U3BZ Introduction of Anesthetic Agent into Joints, Percutaneous Approach (ICD-10-PCS; principal; 2018-07-02)
DX: N17.9 Acute kidney failure, unspecified (principal); I50.33 Acute on chronic diastolic (congestive) heart failure; N39.0 Urinary tract infection, site not specified; E87.1 Hypo-osmolality and hyponatremia; E87.2 Acidosis; I13.0 Hypertensive heart and chronic kidney disease with heart failure and stage 1 through stage 4 chronic kidney disease, or unspecified chronic kidney disease; L03.115 Cellulitis of right lower limb; T83.511A Infection and inflammatory reaction due to indwelling urethral catheter, initial encounter; Z68.42 Body mass index [BMI] 45.0-49.9, adult; E03.9 Hypothyroidism, unspecified; B96.89 Other specified bacterial agents as the cause of diseases classified elsewhere; E83.51 Hypocalcemia; E86.0 Dehydration; E87.6 Hypokalemia; F32.9 Major depressive disorder, single episode, unspecified; E83.42 Hypomagnesemia; T50.2X5A Adverse effect of carbonic-anhydrase inhibitors, benzothiadiazides and other diuretics, initial encounter; M16.11 Unilateral primary osteoarthritis, right hip; M17.11 Unilateral primary osteoarthritis, right knee; S70.01XA Contusion of right hip, initial encounter; G25.81 Restless legs syndrome; N18.9 Chronic kidney disease, unspecified; I87.8 Other specified disorders of veins; Y73.2 Prosthetic and other implants, materials and accessory gastroenterology and urology devices associated with adverse incidents; E66.9 Obesity, unspecified; D50.9 Iron deficiency anemia, unspecified; Z98.84 Bariatric surgery status; Z92.3 Personal history of irradiation; Z92.21 Personal history of antineoplastic chemotherapy; Z85.3 Personal history of malignant neoplasm of breast; Z83.3 Family history of diabetes mellitus; Z79.82 Long term (current) use of aspirin; Z79.899 Other long term (current) drug therapy; Z82.49 Family history of ischemic heart disease and other diseases of the circulatory system
CPT/HCPCS: 36415; 73502; 80053; 81001; 82330; 82550; 82553; 83735; 83880; 83970; 84100; 84443; 84484; 85025; 85610; 85730; 87077; 87086; 87186; 87324; 94640; 99285

== ENCOUNTER 2018-08-20 05:56 | Inpatient (IN) | payer MEDICARE, OTHER ==
[2018-08-20] MEDS ORDERED: FUROSEMIDE 10 MG/ML 4 ML VIAL IV SCH ×2 (06:15→18:00)
[2018-08-20 06:26] LABS: Basophils # (A) 0.1 k/uL (0-0.2); Basophils % (A) 1 %; Eosinophils # (A) 0.4 k/uL (0-0.7); Eosinophils % (A) 4 %; HCT 32.2 % (34.0-46.0); HGB 10.7 gm/dL (11.4-16.0); Lymphocytes # (A) 2.8 k/uL (1.0-4.8); Lymphocytes % (A) 27 %; MCH 29.4 pg (25.0-35.0); MCHC 33.2 g/dL (31.0-37.0); MCV 88.5 fL (80.0-100.0); Mean Platelet Volume 6.8; Monocytes # (A) 0.4 k/uL (0-1.0); Monocytes % (A) 4 %; Neutrophils # (A) 6.7 k/uL (1.3-7.7); Neutrophils % (A) 64 %; Platelet Count 296 k/uL (150-450); RBC 3.63 m/uL (3.80-5.40); RDW 14.6 % (11.5-15.5); WBC 10.5 k/uL (3.8-10.6)
--- NOTE | 2018-08-20 06:32 | ED ---
SOB HPI - General Chief Complaint: Shortness of Breath Stated Complaint: Transfer From [facility] Time Seen by Provider: 08/20/18 06:04 Source: patient, EMS Mode of arrival: EMS Limitations: no limitations - History of Present Illness Initial Comments: Shayla is a pleasant 73-year-old female with extensive psychiatric history as well as history of CHF, chronic kidney disease, recurrent electrolyte imbalance patient was recently admitted for CHF exacerbation and acute kidney injury. During the hospitalization decision was made to discontinue her Lasix due to kidney disease. Patient reports she's not had Lasix for approximately 3 weeks in her legs swelled up to what she describes as being treated for. She reports that her past 3 days she's had progressively worsening shortness of breath, nonproductive cough and feeling as though she can't catch her breath. She went outside emergency department where she had chest x-ray, EKG and labs all of [facility] were concerning for exacerbation of congestive heart failure, acute on chronic kidney injury, acute hypokalemia, hypomagnesemia. Her electrolytes were replaced decision was made to transfer the patient this facility for evaluation by cardiology. - Related Data Home Medications Medication Instructions Recorded Confirmed DULoxetine HCL [Cymbalta] 60 mg PO DAILY 07/16/17 06/30/18 rOPINIRole HCL [Requip] 6 mg PO TID 07/16/17 06/30/18 Acetaminophen Suppository [Tylenol 650 mg RECTAL Q4H PRN 06/30/18 06/30/18 Suppository] Albuterol Inhaler [Ventolin Hfa 1 - 2 puff INHALATION RT-Q6H PRN 06/30/18 06/30/18 Inhaler] Albuterol Nebulized [Ventolin 2.5 mg INHALATION RT-TID 06/30/18 06/30/18 Nebulized] Aspirin EC [Ecotrin Low Dose] 81 mg PO DAILY 06/30/18 06/30/18 Atropine Ophth Soln 1% 5Ml [Isopto 2 drop SUBLINGUAL Q4H PRN 06/30/18 06/30/18 Atropine 1% 5Ml] DULoxetine HCL [Cymbalta] 30 mg PO DAILY 06/30/18 06/30/18 Dilaudid Oral Susp 1mg/Ml 2 mg PO Q2H PRN 06/30/18 06/30/18 Ferrous Sulfate [Iron (65 MG 325 mg PO DAILY 06/30/18 06/30/18 Elemental)] Gabapentin [Neurontin] 300 mg PO HS 06/30/18 06/30/18 Gabapentin [Neurontin] 400 mg PO BID 06/30/18 06/30/18 Haloperidol Oral Soln [Haldol Oral 1 mg PO Q6H PRN 06/30/18 06/30/18 Soln] LORazepam [Ativan] 1 mg PO Q4H PRN 06/30/18 06/30/18 Potassium Bicarbonate/Cit AC 25 meq PO BID 06/30/18 06/30/18 [Klor-Con 25 (Effer. Tab)] Prochlorperazine [Compazine] 10 mg PO Q6H PRN 06/30/18 06/30/18 guaiFENesin-DM 100-10MG/5ML 10 ml PO Q4H PRN 06/30/18 06/30/18 [Robitussin DM] Previous Rx's Medication Instructions Recorded Calcium Carb-Vit D 500Mg-200Un 1 each PO DAILY #30 tablet 07/05/18 [Oscal 500+D] Levofloxacin [Levaquin] 250 mg PO DAILY #5 tab 07/05/18 Magnesium Oxide [Magox 400] 400 mg PO BID #60 tablet 07/05/18 Sodium Bicarbonate Tab 650 mg PO BID #60 tab 07/05/18 Allergies Allergy/AdvReac Type Severity Reaction Status Date / Time Sulfa (Sulfonamide Allergy Anaphylaxis Verified 08/20/18 06:02 Antibiotics) vancomycin Allergy Rash/Hives Verified 08/20/18 06:02 Review of Systems ROS Statement: Those systems with pertinent positive or pertinent negative responses have been documented in the HPI. ROS Other: All systems not noted in ROS Statement are negative. Past Medical History Past Medical History: Heart Failure, Renal Disease, Thyroid Disorder Additional Past Medical History / Comment(s): chronic edema, chronic metabolic acidosis, neuropathy, insomnia, Hx breast cancer,/chemo and radiation tx in 2002, kidney failure, hypothyroid, RLS,cellulitis R leg History of Any Multi-Drug Resistant Organisms: None Reported Past Surgical History: Bariatric Surgery, Section, Cholecystectomy, Tonsillectomy Additional Past Surgical History / Comment(s): Gastric bypass, left breast biopsy & lumpectomy Past Anesthesia/Blood Transfusion Reactions: No Reported Reaction Past Psychological History: Depression Smoking Status: Never smoker Past Alcohol Use History: None Reported Past Drug Use History: None Reported - Past Family History Father History Unknown: Yes Family Medical History: Diabetes Mellitus Additional Family Medical History / Comment(s): unaware of entire history. Mother History Unknown: Yes Family Medical History: Chest Pain / Angina, Coronary Artery Disease (CAD), Diabetes Mellitus Additional Family Medical History / Comment(s): Valves replaced in her heart per patient. General Exam - General Exam Comments Initial Comments: Physical Exam GENERAL: Chronically ill-appearing obese female HENT: Normocephalic, Atraumatic. Poor dentition EYES: PERRL, EOMI PULMONARY: Crackles at bases CARDIOVASCULAR: There is a regular rate and rhythm without any murmurs gallops or rubs. ABDOMEN: Obese SKIN: Chronic skin changes of bilateral lower extremities consistent with venous stasis : Deferred NEUROLOGIC: Patient is alert and oriented x3. Moving all extremities spontaneously MUSCULOSKELETAL: 2+ pitting edema bilateral lower extremities PSYCHIATRIC: Normal psychiatric evaluation. Limitations: no limitations Limitations: no limitations Course Vital Signs 08/20/18 05:59 Temperature 98.1 F Pulse Rate 63 Respiratory 20 Rate Blood Pressure 100/66 O2 Sat by Pulse 99 Oximetry Medical Decision Making - Medical Decision Making Patient care was discussed with the transferring physician prior to arrival. This is a chronically ill female with congestive heart failure chronic kidney disease who is being transferred here for evaluation by cardiology next line patient's hemodynamically stable she did not receive Lasix prior to transfer due to her worsening kidney function Upon arrival patient's hemodynamically stable with some supplemental oxygen physical exam is concerning for CHF exacerbation consistent with outpatient evaluation, repeat labs were ordered to evaluate for improvement in electrolyte disturbances Patient care was discussed with Dr. Perdomo who is very familiar with this patient and agrees with plan for admission for repeat labs, monitoring and treatment of congestive heart failure Admission orders were placed. - Lab Data Result diagrams: 08/20/18 06:10 Lab Results 08/20/18 Range/Units 06:10 WBC 10.5 (3.8-10.6) k/uL RBC 3.63 L (3.80-5.40) m/uL Hgb 10.7 L (11.4-16.0) gm/dL Hct 32.2 L (34.0-46.0) % MCV 88.5 (80.0-100.0) fL MCH 29.4 (25.0-35.0) pg MCHC 33.2 (31.0-37.0) g/dL RDW 14.6 (11.5-15.5) % Plt Count 296 (150-450) k/uL Neutrophils % 64 % Lymphocytes % 27 % Monocytes % 4 % Eosinophils % 4 % Basophils % 1 % Neutrophils # 6.7 (1.3-7.7) k/uL Lymphocytes # 2.8 (1.0-4.8) k/uL Monocytes # 0.4 (0-1.0) k/uL Eosinophils # 0.4 (0-0.7) k/uL Basophils # 0.1 (0-0.2) k/uL - EKG Data -: EKG Interpreted by Me EKG Comments: EKG obtained at 6:19 AM, rate is 84 rhythm is sinus with a leftward axis, there is normal intervals, MD 160, QRS 86, QTC is 503. No acute ST elevations or depressions no evidence of acute ischemia or infarction no significant change in morphology when compared to previous. Disposition Clinical Impression: Hypomagnesemia, Hypokalemia, CHF (congestive heart failure), BRANNON (acute kidney injury), Venous stasis, Lower extremity edema Disposition: ADMITTED IP TO THIS HOSP Condition: Stable Referrals: Shira Tucker MD [Primary Care Provider] - 1-2 days
[2018-08-20 06:35] LABS: INR 1.3 (<1.2); Partial Thromboplastin Time 24.2 sec (22.0-30.0); Prothrombin Time 13.1 sec (9.0-12.0)
[2018-08-20] MEDS ORDERED: Potassium Replacement Protocol 1 EACH MISC MISCELLANE PRN ×2 (06:36→16:06)
[2018-08-20 06:37] LABS: Albumin 2.7 g/dL (3.5-5.0); Calcium 7.6 mg/dL (8.4-10.2); Magnesium 1.7 mg/dL (1.6-2.3); Potassium 2.9 mmol/L (3.5-5.1); Total Bilirubin 0.6 mg/dL (0.2-1.3); Total Protein 6.2 g/dL (6.3-8.2)
[2018-08-20 07:20] VITALS: BMI 33.5
--- NOTE | 2018-08-20 08:33 | P.CRDCN ---
History of Present Illness Consult date: 08/20/18 Requesting physician: Marcy Perdomo Reason for Consult (text): CHF Chief complaint: lower extremity edema, cough History of present illness: This is a pleasant 73-year-old female patient who follows regularly with Dr. Tucker. She has a past medical history of chronic kidney disease, hypothyroid ism, breast cancer, status post chemoradiation, obesity with prior gastric bypass surgery, osteomyelitis, chronic lower extremity edema and lower extremity cellulitis, and chronic Balderas catheter. Most recently was admitted to the hospital in June due to acute on chronic kidney failure at which time her diuretics were decreased. She does have a documented history of diastolic heart failure however upon reviewing NT proBNP's since 2016 that are available to us they range from 112 to 628. This admission, she presented to [facility] for worsening lower extremity edema and complaints of a cough. She was subsequently transferred here for further evaluation by cardiology. She does fe el she may have been having some difficulty breathing. She does sleep and a lift chair but it is unclear as to whether or not she actually has complaints of orthopnea. Laboratory values upon transfer here show potassium of 2.9, up from 2.6, BUN of 22, creatinine 2.25 which was 2.1 and [facility]. NT proBNP currently 460. She has been initiated on Lasix 40 mg IV push every 8 hours. She has adequate urine output noted in her Balderas catheter bag. She continues to complain of some edema but does have chronic edema. She feels her cough has improved since being placed on oxygen. Past Medical History Past Medical History: Heart Failure, Osteoarthritis (OA), Pneumonia, Renal Disease, Thyroid Disorder Additional Past Medical History / Comment(s): chronic edema, chronic metabolic acidosis, neuropathy, insomnia, Hx breast cancer,/chemo and radiation tx in 2002, kidney failure, hypothyroid, RLS,cellulitis R leg History of Any Multi-Drug Resistant Organisms: None Reported Past Surgical History: Bariatric Surgery, Section, Cholecystectomy, Tonsillectomy Additional Past Surgical History / Comment(s): Gastric bypass, left breast biopsy & lumpectomy Past Anesthesia/Blood Transfusion Reactions: No Reported Reaction Past Psychological History: Depression Smoking Status: Never smoker Past Alcohol Use History: None Reported Additional Past Alcohol Use History / Comment(s): Patient is a lifelong nonsmoker. She denies any medical marijuana, marijuana, street drug or alcohol use. 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 She currently lives at home and has 2 dogs in the house and one outdoor cat. She recently had to give away 30 alpacas because she could not take care of them any longer. Her committed suicide 1-1/2 years ago. She does not have family support system. She does have a young man that lives with her and is her caregiver. Past Drug Use History: None Reported - Past Family History Father History Unknown: Yes Family Medical History: Diabetes Mellitus Additional Family Medical History / Comment(s): unaware of entire history. Mother History Unknown: Yes Family Medical History: Chest Pain / Angina, Coronary Artery Disease (CAD), Diabetes Mellitus Additional Family Medical History / Comment(s): Valves replaced in her heart per patient. Medications and Allergies Home Medications Medication Instructions Recorded Confirmed Type DULoxetine HCL [Cymbalta] 60 mg PO DAILY 07/16/17 06/30/18 History rOPINIRole HCL [Requip] 6 mg PO TID 07/16/17 06/30/18 History Acetaminophen Suppository [Tylenol 650 mg RECTAL Q4H PRN 06/30/18 06/30/18 History Suppository] Albuterol Inhaler [Ventolin Hfa 1 - 2 puff INHALATION RT-Q6H PRN 06/30/18 06/30/18 History Inhaler] Albuterol Nebulized [Ventolin 2.5 mg INHALATION RT-TID 06/30/18 06/30/18 History Nebulized] Aspirin EC [Ecotrin Low Dose] 81 mg PO DAILY 06/30/18 06/30/18 History Atropine Ophth Soln 1% 5Ml [Isopto 2 drop SUBLINGUAL Q4H PRN 06/30/18 06/30/18 History Atropine 1% 5Ml] DULoxetine HCL [Cymbalta] 30 mg PO DAILY 06/30/18 06/30/18 History Dilaudid Oral Susp 1mg/Ml 2 mg PO Q2H PRN 06/30/18 06/30/18 History Ferrous Sulfate [Iron (65 MG 325 mg PO DAILY 06/30/18 06/30/18 History Elemental)] Gabapentin [Neurontin] 300 mg PO HS 06/30/18 06/30/18 History Gabapentin [Neurontin] 400 mg PO BID 06/30/18 06/30/18 History Haloperidol Oral Soln [Haldol Oral 1 mg PO Q6H PRN 06/30/18 06/30/18 History Soln] LORazepam [Ativan] 1 mg PO Q4H PRN 06/30/18 06/30/18 History Potassium Bicarbonate/Cit AC 25 meq PO BID 06/30/18 06/30/18 History [Klor-Con 25 (Effer. Tab)] Prochlorperazine [Compazine] 10 mg PO Q6H PRN 06/30/18 06/30/18 History guaiFENesin-DM 100-10MG/5ML 10 ml PO Q4H PRN 06/30/18 06/30/18 History [Robitussin DM] Calcium Carb-Vit D 500Mg-200Un 1 each PO DAILY #30 tablet 07/05/18 Rx [Oscal 500+D] Levofloxacin [Levaquin] 250 mg PO DAILY #5 tab 07/05/18 Rx Magnesium Oxide [Magox 400] 400 mg PO BID #60 tablet 07/05/18 Rx Sodium Bicarbonate Tab 650 mg PO BID #60 tab 07/05/18 Rx Allergies Allergy/AdvReac Type Severity Reaction Status Date / Time Sulfa (Sulfonamide Allergy Anaphylaxis Verified 08/20/18 06:48 Antibiotics) vancomycin Allergy Rash/Hives Verified 08/20/18 06:48 Physical Exam Vitals: Vital Signs Temp Pulse Resp BP Pulse Ox 08/20/18 06:48 77 18 100/72 97 08/20/18 05:59 98.1 F 63 20 100/66 99 Intake and Output 08/19/18 08/20/18 08/20/18 22:59 06:59 14:59 Other: Weight 94.347 kg PHYSICAL EXAMINATION: HEENT: Head is atraumatic, normocephalic. Pupils equal, round. Neck is supple. There is no elevated jugular venous pressure. HEART EXAMINATION: Heart sounds regular, S1 and S2 normal. No murmur or gallop heard. CHEST EXAMINATION: Lungs reveal crackles to bilateral bases. No chest wall tenderness is noted on palpation or with deep breathing. ABDOMEN: Soft, obese, nontender. Bowel sounds are heard. No organomegaly noted. Balderas catheter in place. EXTREMITIES: 2+ peripheral pulses with evidence of +1 peripheral edema and chronic skin changes noted to bilateral lower legs. NEUROLOGIC patient is awake, alert and oriented x3. . Results 08/20/18 06:10 08/20/18 06:10 Cardiac Enzymes 08/20/18 08/20/18 Range/Units 06:10 06:10 AST 27 (14-36) U/L Troponin I <0.012 (0.000-0.034) ng/mL Coagulation 08/20/18 Range/Units 06:10 PT 13.1 H (9.0-12.0) sec APTT 24.2 (22.0-30.0) sec CBC 08/20/18 Range/Units 06:10 WBC 10.5 (3.8-10.6) k/uL RBC 3.63 L (3.80-5.40) m/uL Hgb 10.7 L (11.4-16.0) gm/dL Hct 32.2 L (34.0-46.0) % Plt Count 296 (150-450) k/uL Comprehensive Metabolic Panel 08/20/18 Range/Units 06:10 Sodium 138 (137-145) mmol/L Potassium 2.9 L (3.5-5.1) mmol/L Chloride 104 (98-107) mmol/L Carbon Dioxide 24 (22-30) mmol/L BUN 22 H (7-17) mg/dL Creatinine 2.25 H (0.52-1.04) mg/dL Glucose 97 (74-99) mg/dL Calcium 7.6 L (8.4-10.2) mg/dL AST 27 (14-36) U/L ALT 50 (9-52) U/L Alkaline Phosphatase 138 H (38-126) U/L Total Protein 6.2 L (6.3-8.2) g/dL Albumin 2.7 L (3.5-5.0) g/dL Current Medications Generic Name Dose Route Start Last Admin Trade Name Freq PRN Reason Stop Dose Admin Albuterol Sulfate 2.5 mg 08/20/18 08:00 Ventolin Nebulized INHALATION RT-TID REILLY Aspirin 81 mg 08/20/18 09:00 Aspirin PO DAILY REILLY Furosemide 40 mg 08/20/18 18:00 Lasix IV Q12H REILLY Gabapentin 400 mg 08/20/18 09:00 Neurontin PO BID REILLY Potassium Chloride 10 meq/ IV 100 mls @ 100 mls/hr 08/20/18 07:00 Solution IVPB 08/20/18 12:59 Q1HR REILLY Protocol Levofloxacin 250 mg 08/20/18 09:00 Levaquin PO DAILY REILLY Magnesium Oxide 400 mg 08/20/18 09:00 Mag-Ox PO BID [facility] Miscellaneous Information 1 each 08/20/18 06:36 Potassium Per Protocol MISCELLANE DAILY PRN Per Protocol Protocol Intake and Output 08/19/18 08/20/18 08/20/18 22:59 06:59 14:59 Other: Weight 94.347 kg 08/20/18 06:10 08/20/18 06:10 EKG Interpretations (text) Normal sinus rhythm with nonspecific ST-T wave abnormalities, no evidence of acute ischemia Assessment and Plan Assessment: #1 symptoms of worsening edema, cough and shortness of breath without significant elevation of NT proBNP, no chest x-ray available at this time #2 acute and chronic renal failure #3 hypokalemia #4 obesity Plan: From cardiology perspective, we'll obtain a chest x-ray and a 2-D echo with Doppler. We will consult nephrology. Decrease Lasix. Continue to monitor daily weights, intake and output, renal function and electrolytes. Further recommendations to follow. SYSTEM SUPPORT TECHNICIAN note has been reviewed, I agree with a documented findings and plan of care. Patient was seen and examined.
[2018-08-20] MEDS: ALBUTEROL NEBULIZED 2.5 MG/3 ML INHALATION SCH ×3 (08:39→19:46)
[2018-08-20] MEDS ORDERED: ALBUTEROL NEBULIZED 2.5 MG/3 ML INHALATION PRN (08:45)
[2018-08-20] MEDS ORDERED: LEVOFLOXACIN 250 MG TAB PO SCH (09:00)
[2018-08-20] MEDS ORDERED: GABAPENTIN 400 MG CAP PO SCH (09:00)
[2018-08-20] MEDS ORDERED: ASPIRIN 81 MG PO SCH (09:00)
[2018-08-20] MEDS: POTASSIUM CHLORIDE 10 MEQ in WATER FOR INJECTION 1 100ML.BAG IVPB SCH ×5 (10:24→14:42)
[2018-08-20] MEDS: rOPINIRole HCL 4 MG TABLET PO SCH ×3 (10:29→22:14)
[2018-08-20] MEDS: LEVOTHYROXINE 100 MCG TAB PO SCH (10:37)
[2018-08-20] MEDS: GABAPENTIN 300 MG CAP PO SCH ×3 (10:38→22:12)
[2018-08-20] MEDS: CALCIUM CARB-VIT D 500MG-200UN 1 EACH TAB PO SCH (10:38)
[2018-08-20] MEDS: FERROUS SULFATE 325 MG TAB PO SCH (10:38)
[2018-08-20] MEDS: MAGNESIUM OXIDE 400 MG TAB PO SCH ×2 (10:38→22:13)
[2018-08-20] MEDS: DULoxetine HCL 60 MG CAPSULE.DR PO SCH (10:38)
[2018-08-20] MEDS: ASPIRIN 325 MG TAB PO SCH (10:38)
--- NOTE | 2018-08-20 10:58 | ECHOF ---
Referral Reason:shortness of breath, edema MEASUREMENTS -------- HEIGHT: 167.6 cm WEIGHT: 94.3 kg BP: RVIDd: 2.3 cm (< 3.3) IVSd: 1.0 cm (0.6 - 1.1) LVIDd: 3.4 cm (3.9 - 5.3) LVPWd: 1.1 cm (0.6 - 1.1) IVSs: 1.7 cm LVIDs: 1.9 cm LVPWs: 1.9 cm LAESV Index (A-L): 22.73 ml/m Ao Diam: 3.7 cm (2.0 - 3.7) AV Cusp: 1.7 cm (1.5 - 2.6) LA Diam: 3.2 cm (2.7 - 3.8) MV EXCURSION: 16.312 mm (> 18.000) MV EF SLOPE: 56 mm/s (70 - 150) EPSS: 0.9 cm MV E Mino: 0.87 m/s MV DecT: 276 ms MV A Mino: 1.20 m/s MV E/A Ratio: 0.73 AR PHT: 1205 ms RAP: 5.00 mmHg RVSP: 19.39 mmHg FINDINGS -------- Sinus rhythm. This was a technically adequate study. The left ventricular size is normal. Left ventricular wall thickness is normal. Overall left vent ricular systolic function is normal with, an EF between 55 - 60 %. The right ventricle is normal in size. Normal LA size by volume 22+/-6 ml/m2. The right atrial size is normal. There is mild aortic valve sclerosis. There is mild aortic regurgitation. The mitral valve leaflets are mildly thickened. There is trace mitral regurgitation. Mild tricuspid regurgitation present. There is no evidence of pulmonary hypertension. The right v entricular systolic pressure, as measured by Doppler, is 19.39mmHg. There is no pulmonic regurgitation present. The aortic root size is normal. Normal inferior vena cava with normal inspiratory collapse consistent with estimated right atrial pre ssure of 5 mmHg. IVC Not well visulized. There is no pericardial effusion. CONCLUSIONS -------- 1. Sinus rhythm. 2. This was a technically adequate study. 3. The left ventricular size is normal. 4. Left ventricular wall thickness is normal. 5. Overall left ventricular systolic function is normal with, an EF between 55 - 60 %. 6. Normal LA size by volume 22+/-6 ml/m2. 7. There is mild aortic valve sclerosis. 8. There is mild aortic regurgitation. 9. The mitral valve leaflets are mildly thickened. 10. There is trace mitral regurgitation. 11. Mild tricuspid regurgitation present. 12. There is no evidence of pulmonary hypertension. 13. There is no pulmonic regurgitation present. 14. The aortic root size is normal. 15. Normal inferior vena cava with normal inspiratory collapse consistent with estimated right atrial pressure of 5 mmHg. 16. IVC Not well visulized. 17. There is no pericardial effusion. JIG BORE OPERATOR: Vicki Jordan RDCS
--- NOTE | 2018-08-20 11:16 | XR ---
EXAMINATION TYPE: XR chest 1V DATE OF EXAM: 08/20/2018 COMPARISON: Prior chest x-ray 08/08/2017, 08/20/2018 HISTORY: Shortness of breath TECHNIQUE: Single frontal view of the chest is obtained. FINDINGS: There is no focal air space opacity, pleural effusion, or pneumothorax seen. The cardiac silhouette size is within normal limits. The osseous structures are intact. IMPRESSION: No acute process.
--- NOTE | 2018-08-20 11:21 | US ---
EXAMINATION TYPE: US kidneys/renal and bladder DATE OF EXAM: 08/20/2018 COMPARISON: NONE CLINICAL HISTORY: BRANNON. EXAM MEASUREMENTS: Right Kidney: 12.5 x 5.7 x 5.7 cm Left Kidney: 11.9 x 5.5 x 5.1 cm Post Void Residual Volume: Not calculated. Patient has sparrow catheter. mL Right Kidney: No hydronephrosis or masses seen Partially obscured by bowel gas. sub optimal visualiza tion. Left Kidney: No hydronephrosis or masses seen Partially obscured by bowel gas. sub optimal visualizat ion. decreased corticomedullary differentiation. Bladder: unable to evaluate. Bladder was empty at time of exam due to having sparrow catheter in place. Impression: Exam somewhat limited. No evident hydronephrosis.
--- NOTE | 2018-08-20 11:58 | CONS ---
CONSULTATION REASON FOR CONSULT: Renal failure. HISTORY OF PRESENT ILLNESS: Patient is a 73-year-old female who was admitted to the hospital with complaints of shortness of breath, increased lower extremity edema and increased fatigue. She did have some cough. There was no fever or chills. Patient was noted to have a serum creatinine of 2.25 mg/dL. Previously it was 2.1 at the ER in [place]. Patient has a Balderas catheter and has had good urine output. She is currently maintained on Lasix 40 mg IV q.12 hours. Review of previous labs shows a serum creatinine of 1.8-1.6 in June of 2018, prior to that we have creatinine of 1.0 on 08/10/2017. PAST MEDICAL HISTORY: Significant for hypertension, osteoarthritis, hypothyroidism, history of breast cancer, history of acute kidney injury in June. PAST SURGICAL HISTORY: Gastric bypass surgery, left breast biopsy, lumpectomy, bariatric surgery, , cholecystectomy, tonsillectomy. SOCIAL HISTORY: Negative for smoking, drug abuse or alcohol abuse. REVIEW OF SYSTEMS: As per HPI. Other systems negative. MEDICATIONS: At home include Cymbalta, Requip, aspirin, iron, Neurontin, Haldol, Ativan, Compazine, calcium, Robitussin, Levaquin, Maalox, sodium bicarb. ALLERGIES: Include SULFA, VANCOMYCIN. PHYSICAL EXAMINATION: Patient is currently comfortable, awake, alert, oriented x3, not in any acute distress. Blood pressure is 119/58, heart rate 89 per minute. She is afebrile. Examination of the heart, S1, S2. Examination of the lungs, bilateral breath sounds are heard. Decreased breath sounds bases with basal crackles heard bilaterally. Abdomen is soft, obese. Examination of the lower extremities shows 2+ edema bilaterally with chronic skin changes noted. HYDRODYNAMICS PROFESSOR exam is grossly intact. LABS: Show sodium 138, potassium 2.9, chloride 104, BUN 22, serum creatinine 2.25, calcium 7.6, albumin 2.7, hemoglobin 10.7 g/dL. ASSESSMENT: 1. Acute kidney injury, appears to be mainly cardiorenal. Echocardiogram shows ejection fraction of 55%-60%. I will continue with current dose of Lasix. Patient is not hypotensive. She is not on any nephrotoxic medications at this time. We will check urinalysis and repeat labs in a.m. 2. Congestive heart failure, acute on top of chronic, mainly diastolic. 3. Hypokalemia secondary to diuresis, being replaced. 4. Chronic kidney disease, NKF stage III, with previous creatinine, lowest at 1.0 on 08/10/2017. However, in 2019 he had a creatinine of 1.6 on 07/05/2018. UA on last admission showed 1+ protein. Ultrasound of the kidneys has been ordered. PLAN: Continue with current dose of Lasix. Replace potassium. Check UA. Follow up on ultrasound of the kidneys. Thank you for this consultation. Will continue to follow the patient with you during her hospitalization. MMODL / IJN: [id number] /
[2018-08-20] MEDS ORDERED: ACETAMINOPHEN TAB 325 MG TAB PO PRN (14:32)
[2018-08-20] MEDS ORDERED: POTASSIUM CHLORIDE ER 20 MEQ TAB.ER PO STA (14:41)
--- NOTE | 2018-08-20 14:42 | P.HPIM ---
History of Present Illness H&P Date: 08/20/18 This is a 73-year-old female patient of Dr. Tucker. Patient presented to the ER with complaints of increased peripheral edema and exacerbation of CHF. Patient was recently admitted with acute on chronic kidney disease in which nephrology had discontinued patient's Lasix. Patient does have a known past medical history of CHF, chronic kidney disease, osteoarthritis, pneumonia, hypothyroidism, breast cancer and chronic Balderas catheter. Patient reports that she had Balderas catheter placed 3 months prior due to chronic incontinence. EKG completed in ER showing normal sinus rhythm, minimal voltage criteria for LVH, maybe normal variant. Chest x-ray completed showing no acute process. Patient started on IV Lasix 40 mg every 12 hours. Nephrology and cardiology services have been consulted. Balderas catheter to be changed. UA ordered. Potassium 2.9 replace per protocol will recheck today. Initial creatinine elevated 2.25 and bun 22. Nephrology services following. At this time patient denies chest pain or shortness of breath. Patient denies nausea vomiting or diarrhea. Patient denies any urinary burning or frequency. Review of Systems Please refer to HPI otherwise unremarkable Past Medical History Past Medical History: Heart Failure, Osteoarthritis (OA), Pneumonia, Renal Disease, Thyroid Disorder Additional Past Medical History / Comment(s): chronic edema, chronic metabolic acidosis, neuropathy, insomnia, Hx breast cancer,/chemo and radiation tx in 2002, kidney failure, hypothyroid, RLS,cellulitis R leg History of Any Multi-Drug Resistant Organisms: None Reported Past Surgical History: Bariatric Surgery, Section, Cholecystectomy, Tonsillectomy Additional Past Surgical History / Comment(s): Gastric bypass, left breast biopsy & lumpectomy Past Anesthesia/Blood Transfusion Reactions: No Reported Reaction Past Psychological History: Depression Smoking Status: Never smoker Past Alcohol Use History: None Reported Additional Past Alcohol Use History / Comment(s): Patient is a lifelong nonsmoker. She denies any medical marijuana, marijuana, street drug or alcohol use. 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 She currently lives at home and has 2 dogs in the house and one outdoor cat. She recently had to give away 30 alpacas because she could not take care of them any longer. Her committed suicide 1-1/2 years ago. She does not have family support system. She does have a young man that lives with her and is her caregiver. Past Drug Use History: None Reported - Past Family History Father History Unknown: Yes Family Medical History: Diabetes Mellitus Additional Family Medical History / Comment(s): unaware of entire history. Mother History Unknown: Yes Family Medical History: Chest Pain / Angina, Coronary Artery Disease (CAD), Diabetes Mellitus Additional Family Medical History / Comment(s): Valves replaced in her heart per patient. Medications and Allergies Home Medications Medication Instructions Recorded Confirmed Type rOPINIRole HCL [Requip] 6 mg PO TID 07/16/17 08/20/18 History Albuterol Inhaler [Ventolin Hfa 1 - 2 puff INHALATION RT-Q6H PRN 06/30/18 08/20/18 History Inhaler] Ferrous Sulfate [Iron (65 MG 325 mg PO DAILY 06/30/18 08/20/18 History Elemental)] Magnesium Oxide [Magox 400] 400 mg PO BID #60 tablet 07/05/18 08/20/18 Rx Aspirin 325 mg PO DAILY 08/20/18 08/20/18 History Calcium Carb-Vit D 500Mg-200Un 1 tab PO DAILY 08/20/18 08/20/18 History [Oscal 500+D] DULoxetine HCL [Cymbalta] 60 mg PO DAILY 08/20/18 08/20/18 History Gabapentin [Neurontin] 300 mg PO TID 08/20/18 08/20/18 History Levothyroxine Sodium [Synthroid] 200 mcg PO DAILY 08/20/18 08/20/18 History Potassium Bicarb-Citric Acid 25 meq PO BID 08/20/18 08/20/18 History [K-Lyte] Allergies Allergy/AdvReac Type Severity Reaction Status Date / Time Sulfa (Sulfonamide Allergy Anaphylaxis Verified 08/20/18 06:48 Antibiotics) vancomycin Allergy Rash/Hives Verified 08/20/18 06:48 Physical Exam Vitals: Vital Signs Temp Pulse Pulse Resp BP BP Pulse Ox 08/20/18 08:50 88 16 08/20/18 08:40 84 16 95 08/20/18 07:00 97.8 F 89 19 119/58 100 08/20/18 06:48 77 18 100/72 97 08/20/18 05:59 98.1 F 63 20 100/66 99 Intake and Output 08/19/18 08/20/18 08/20/18 22:59 06:59 14:59 Output Total 900 Balance -900 Output: Urine 900 Other: Voiding Method Indwelling Catheter Weight 94.347 kg 94.347 kg Head normocephalic Neck supple Lungs diminished bilaterally Heart regular rate and rhythm S1-S2, no rub or gallop Abdomen is soft nontender nondistended positive bowel sounds no hepatosplenomegaly Extremities +2 lower extremity edema with erythema Neuro alert and orientated to 3 Results CBC & Chem 7: 08/20/18 06:10 08/20/18 06:10 Labs: Abnormal Lab Results - Last 24 Hours (Table) 08/20/18 08/20/18 08/20/18 Range/Units 06:10 06:10 06:10 RBC 3.63 L (3.80-5.40) m/uL Hgb 10.7 L (11.4-16.0) gm/dL Hct 32.2 L (34.0-46.0) % PT 13.1 H (9.0-12.0) sec INR 1.3 H (<1.2) Potassium 2.9 L (3.5-5.1) mmol/L BUN 22 H (7-17) mg/dL Creatinine 2.25 H (0.52-1.04) mg/dL Calcium 7.6 L (8.4-10.2) mg/dL Alkaline Phosphatase 138 H (38-126) U/L Total Protein 6.2 L (6.3-8.2) g/dL Albumin 2.7 L (3.5-5.0) g/dL Thrombosis Risk Factor Assmnt - Choose All That Apply Any of the Below Risk Factors Present?: Yes Each Factor Represents 1 point: Obesity (BMI >25), Swollen legs (current) Other Risk Factors: Yes Each Risk Factor Represents 2 Points: Age 61-74 years Thrombosis Risk Factor Assessment Total Risk Factor Score: 4 Thrombosis Risk Factor Assessment Level: Moderate Risk Assessment and Plan Assessment: 1. Acute on chronic diastolic congestive heart failure. Patient started on IV Lasix. 2-D echo completed showing an EF of 55-60%. Cardiology service consulted 2. Acute on chronic kidney disease stage III. Creatinine currently 2.25 nephrology services are consulted. Ultrasound of kidney completed showing no evidence of hydronephrosis 3. Hypokalemia. Replace per protocol. We'll recheck today continue to monitor closely 4. Chronic Balderas catheter. Patient reports she's had chronic Balderas catheter for over a month. Patient reports she is requiring chronic Balderas due to incontinence. Orders to change Balderas catheter obtained urinary analysis. Also will consult urology services 5. Lower extremity cellulitis. DC Levaquin. Start patient on Rocephin. blood Culture ordered 6. Bilateral bacterial conjunctivitis. Patient started on Cipro eyedrops 7. Hypothyroidism 8. Osteoarthritis 9. Bilateral neuropathy 10. Depression DVT prophylaxis heparin. GI prophylaxis Protonix Nephrology, cardiology and neurology service consulted A.m. labs ordered PT OT consult Time with Patient: Greater than 30 (Greater than 60% of the total time spent in counseling and coordination of care. I performed an examination of the patient and discussed their management with the Nurse Practitioner. I have reviewed the Nurse Practitioner's notes and agree with the documented findings and plan of care)
[2018-08-20 16:05] LABS: Albumin 2.4 g/dL (3.5-5.0); Calcium 7.4 mg/dL (8.4-10.2); Magnesium 1.5 mg/dL (1.6-2.3); Potassium 3.2 mmol/L (3.5-5.1); Total Bilirubin 0.4 mg/dL (0.2-1.3); Total Protein 5.5 g/dL (6.3-8.2)
[2018-08-20] MEDS ORDERED: Magnesium Replacement Protocol 1 EACH MISC MISCELLANE PRN (16:06)
[2018-08-20 16:32] LABS: Appearance,Urine Cloudy (Clear); Bacteria,Urine Rare /hpf; Bilirubin,Urine Negative (Negative); Blood,Urine Small (Negative); Budding Yeast,Urine Occasional /hpf; Color,Urine Yellow; Glucose,Urine (UA) Negative (Negative); Hyaline Casts,Urine 17 /lpf (0-2); Ketones,Urine Negative (Negative); Leukocyte Esterase,Urine Large (Negative); Mucus,Urine Rare /hpf; Nitrite,Urine Negative (Negative); Protein,Urine Negative (Negative); RBC,Urine 3 /hpf (0-5); Specific Gravity,Urine 1.008 (1.001-1.035); Squamous Epithelial Cell,Urine 2 /hpf (0-4); Urobilinogen,Urine <2.0 mg/dL (<2.0); WBC,Urine 12 /hpf (0-5)
[2018-08-20] MEDS: MAGNESIUM SULFATE-D5W PMX 1 GM in DEXTROSE/WATER 1 100ML.BAG IVPB SCH ×2 (16:32→17:52)
[2018-08-20] MEDS: POTASSIUM CHLORIDE ER 20 MEQ TAB.ER PO SCH (16:32)
--- NOTE | 2018-08-20 17:15 | P.GSCN ---
History of Present Illness Consult date: 08/20/18 Reason for Consult: Urinary incontinence Requesting physician: Marcy Perdomo History of present illness: The patient is a 73-year-old white female admitted with exacerbation of CHF. She states that she had significant urinary incontinence, for which she has used a Balderas catheter for at least several months. She states that this has improved her quality of life significantly. She states that prior to catheter placement, her incontinence was untreated. She reports that she has difficulty ambulating, which exacerbates the incontinence. She has had no problems associated with the catheter. She is a vague historian. Review of Systems - Constitutional Denies chills, Denies fever - Cardiovascular Reports edema, Reports shortness of breath - Gastrointestinal Denies nausea, Denies vomiting - Genitourinary Genitourinary: Reports as per HPI Past Medical History Past Medical History: Heart Failure, Osteoarthritis (OA), Pneumonia, Renal Disease, Thyroid Disorder Additional Past Medical History / Comment(s): chronic edema, chronic metabolic acidosis, neuropathy, insomnia, Hx breast cancer,/chemo and radiation tx in 2002, kidney failure, hypothyroid, RLS,cellulitis R leg History of Any Multi-Drug Resistant Organisms: None Reported Past Surgical History: Bariatric Surgery, Section, Cholecystectomy, Tonsillectomy Additional Past Surgical History / Comment(s): Gastric bypass, left breast biopsy & lumpectomy Past Anesthesia/Blood Transfusion Reactions: No Reported Reaction Past Psychological History: Depression Smoking Status: Never smoker Past Alcohol Use History: None Reported Additional Past Alcohol Use History / Comment(s): Patient is a lifelong nonsmoker. She denies any medical marijuana, marijuana, street drug or alcohol use. 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 She currently lives at home and has 2 dogs in the house and one outdoor cat. She r ecently had to give away 30 alpacas because she could not take care of them any longer. Her committed suicide 1-1/2 years ago. She does not have family support system. She does have a young man that lives with her and is her caregiver. Past Drug Use History: None Reported - Past Family History Father History Unknown: Yes Family Medical History: Diabetes Mellitus Additional Family Medical History / Comment(s): unaware of entire history. Mother History Unknown: Yes Family Medical History: Chest Pain / Angina, Coronary Artery Disease (CAD), Diabetes Mellitus Additional Family Medical History / Comment(s): Valves replaced in her heart per patient. Medications and Allergies Home Medications Medication Instructions Recorded Confirmed Type rOPINIRole HCL [Requip] 6 mg PO TID 07/16/17 08/20/18 History Albuterol Inhaler [Ventolin Hfa 1 - 2 puff INHALATION RT-Q6H PRN 06/30/18 08/20/18 History Inhaler] Ferrous Sulfate [Iron (65 MG 325 mg PO DAILY 06/30/18 08/20/18 History Elemental)] Magnesium Oxide [Magox 400] 400 mg PO BID #60 tablet 07/05/18 08/20/18 Rx Aspirin 325 mg PO DAILY 08/20/18 08/20/18 History Calcium Carb-Vit D 500Mg-200Un 1 tab PO DAILY 08/20/18 08/20/18 History [Oscal 500+D] DULoxetine HCL [Cymbalta] 60 mg PO DAILY 08/20/18 08/20/18 History Gabapentin [Neurontin] 300 mg PO TID 08/20/18 08/20/18 History Levothyroxine Sodium [Synthroid] 200 mcg PO DAILY 08/20/18 08/20/18 History Potassium Bicarb-Citric Acid 25 meq PO BID 08/20/18 08/20/18 History [K-Lyte] Allergies Allergy/AdvReac Type Severity Reaction Status Date / Time Sulfa (Sulfonamide Allergy Anaphylaxis Verified 08/20/18 06:48 Antibiotics) vancomycin Allergy Rash/Hives Verified 08/20/18 06:48 Surgical - Exam Vital Signs Temp Pulse Resp BP Pulse Ox 98.1 F 63 20 100/66 99 08/20/18 05:59 08/20/18 05:59 08/20/18 05:59 08/20/18 05:59 08/20/18 05:59 - General well developed, well nourished, no distress - Respiratory normal respiratory effort - Abdomen Abdomen: soft, non tender, no guarding, no rigid, no rebound - Genitourinary normal external genitalia, perineal/vulvar lesions, other (No pelvic masses. No cystocele or rectocele.) - Psychiatric oriented to time, oriented to person, oriented to place, speech is normal, memory intact Results - Labs 08/20/18 06:10 08/20/18 15:29 Abnormal Lab Results - Last 24 Hours (Table) 08/20/18 08/20/18 08/20/18 Range/Units 06:10 06:10 06:10 RBC 3.63 L (3.80-5.40) m/uL Hgb 10.7 L (11.4-16.0) gm/dL Hct 32.2 L (34.0-46.0) % PT 13.1 H (9.0-12.0) sec INR 1.3 H (<1.2) Sodium (137-145) mmol/L Potassium 2.9 L (3.5-5.1) mmol/L BUN 22 H (7-17) mg/dL Creatinine 2.25 H (0.52-1.04) mg/dL Glucose (74-99) mg/dL Calcium 7.6 L (8.4-10.2) mg/dL Magnesium (1.6-2.3) mg/dL Alkaline Phosphatase 138 H (38-126) U/L Total Protein 6.2 L (6.3-8.2) g/dL Albumin 2.7 L (3.5-5.0) g/dL Urine Appearance (Clear) Urine Blood (Negative) Ur Leukocyte Esterase (Negative) Urine WBC (0-5) /hpf Urine Bacteria (None) /hpf Hyaline Casts (0-2) /lpf Urine Mucus (None) /hpf Urine Yeast (Budding) (None) /hpf 08/20/18 08/20/18 Range/Units 11:01 15:29 RBC (3.80-5.40) m/uL Hgb (11.4-16.0) gm/dL Hct (34.0-46.0) % PT (9.0-12.0) sec INR (<1.2) Sodium 135 L (137-145) mmol/L Potassium 3.2 L (3.5-5.1) mmol/L BUN 26 H (7-17) mg/dL Creatinine 2.32 H (0.52-1.04) mg/dL Glucose 117 H (74-99) mg/dL Calcium 7.4 L (8.4-10.2) mg/dL Magnesium 1.5 L (1.6-2.3) mg/dL Alkaline Phosphatase 127 H (38-126) U/L Total Protein 5.5 L (6.3-8.2) g/dL Albumin 2.4 L (3.5-5.0) g/dL Urine Appearance Cloudy H (Clear) Urine Blood Small H (Negative) Ur Leukocyte Esterase Large H (Negative) Urine WBC 12 H (0-5) /hpf Urine Bacteria Rare H (None) /hpf Hyaline Casts 17 H (0-2) /lpf Urine Mucus Rare H (None) /hpf Urine Yeast (Budding) Occasional H (None) /hpf Diabetes panel 08/20/18 08/20/18 Range/Units 06:10 15:29 Sodium 138 135 L (137-145) mmol/L Potassium 2.9 L 3.2 L (3.5-5.1) mmol/L Chloride 104 101 (98-107) mmol/L Carbon Dioxide 24 23 (22-30) mmol/L BUN 22 H 26 H (7-17) mg/dL Creatinine 2.25 H 2.32 H (0.52-1.04) mg/dL Glucose 97 117 H (74-99) mg/dL Calcium 7.6 L 7.4 L (8.4-10.2) mg/dL AST 27 24 (14-36) U/L ALT 50 44 (9-52) U/L Alkaline Phosphatase 138 H 127 H (38-126) U/L Total Protein 6.2 L 5.5 L (6.3-8.2) g/dL Albumin 2.7 L 2.4 L (3.5-5.0) g/dL Calcium panel 08/20/18 08/20/18 Range/Units 06:10 15:29 Calcium 7.6 L 7.4 L (8.4-10.2) mg/dL Albumin 2.7 L 2.4 L (3.5-5.0) g/dL Pituitary panel 08/20/18 08/20/18 Range/Units 06:10 15:29 Sodium 138 135 L (137-145) mmol/L Potassium 2.9 L 3.2 L (3.5-5.1) mmol/L Chloride 104 101 (98-107) mmol/L Carbon Dioxide 24 23 (22-30) mmol/L BUN 22 H 26 H (7-17) mg/dL Creatinine 2.25 H 2.32 H (0.52-1.04) mg/dL Glucose 97 117 H (74-99) mg/dL Calcium 7.6 L 7.4 L (8.4-10.2) mg/dL Adrenal panel 08/20/18 08/20/18 Range/Units 06:10 15:29 Sodium 138 135 L (137-145) mmol/L Potassium 2.9 L 3.2 L (3.5-5.1) mmol/L Chloride 104 101 (98-107) mmol/L Carbon Dioxide 24 23 (22-30) mmol/L BUN 22 H 26 H (7-17) mg/dL Creatinine 2.25 H 2.32 H (0.52-1.04) mg/dL Glucose 97 117 H (74-99) mg/dL Calcium 7.6 L 7.4 L (8.4-10.2) mg/dL Total Bilirubin 0.6 0.4 (0.2-1.3) mg/dL AST 27 24 (14-36) U/L ALT 50 44 (9-52) U/L Alkaline Phosphatase 138 H 127 H (38-126) U/L Total Protein 6.2 L 5.5 L (6.3-8.2) g/dL Albumin 2.7 L 2.4 L (3.5-5.0) g/dL Assessment and Plan (1) Unspecified urinary incontinence Current Visit: Yes Status: Acute Code(s): R32 - UNSPECIFIED URINARY INCONTINENCE SNOMED Code(s): 196047806 Plan: I had a lengthy discussion with Mrs. Mazariegos regarding the pros and cons of an indwelling Balderas catheter. Chronic indwelling catheters can increase the risk of bladder calculi and UTIs. Additionally, over time, the urethra may dilate which can exacerbate chronic urinary incontinence. I explained to her that there are multiple treatments for urinary incontinence. She had a thorough understanding of these issues, but has elected to continue using an indwelling Balderas catheter due to the fact that it has significantly improved her quality of life. I explained to her that the catheter should be changed on a monthly basis. Please notify me if I can be of any further assistance.
[2018-08-20] MEDS: SODIUM BICARBONATE TAB 650 MG TAB PO SCH ×2 (17:39→22:12)
[2018-08-20] MEDS ORDERED: POTASSIUM CHLORIDE ER 20 MEQ TAB.ER PO ONE (21:47)
[2018-08-20] MEDS: CIPROFLOXACIN 0.3% OPHTH OINT 3.5 GM TUBE BOTH EYES SCH (22:12)
[2018-08-20] MEDS: HEPARIN SODIUM,PORCINE 5,000 UNIT/ML 1 ML VIAL SQ SCH (22:12)
[2018-08-20] MEDS: ONDANSETRON 4 MG/2 ML VIAL IVP PRN (22:43)
[2018-08-21] MEDS: LEVOTHYROXINE 100 MCG TAB PO SCH (06:04)
[2018-08-21 08:08] LABS: Basophils % (A) 0 %; Eosinophils # (A) 0.4 k/uL (0-0.7); Eosinophils % (A) 4 %; HCT 28.8 % (34.0-46.0); HGB 9.4 gm/dL (11.4-16.0); Lymphocytes # (A) 1.8 k/uL (1.0-4.8); Lymphocytes % (A) 23 %; MCH 29.3 pg (25.0-35.0); MCHC 32.5 g/dL (31.0-37.0); Mean Platelet Volume 6.9; Monocytes # (A) 0.3 k/uL (0-1.0); Monocytes % (A) 3 %; Neutrophils # (A) 5.5 k/uL (1.3-7.7); Neutrophils % (A) 68 %; Platelet Count 252 k/uL (150-450); RDW 14.7 % (11.5-15.5); WBC 8.1 k/uL (3.8-10.6)
[2018-08-21 08:17] LABS: Calcium 7.6 mg/dL (8.4-10.2); Magnesium 1.9 mg/dL (1.6-2.3); Potassium 3.1 mmol/L (3.5-5.1)
[2018-08-21] MEDS ORDERED: ENOXAPARIN 40 MG/0.4 ML SYRINGE SQ SCH (09:00)
[2018-08-21] MEDS: PANTOPRAZOLE 40 MG TABLET PO SCH (09:27)
[2018-08-21] MEDS: DULoxetine HCL 60 MG CAPSULE.DR PO SCH (09:27)
[2018-08-21] MEDS: CALCIUM CARB-VIT D 500MG-200UN 1 EACH TAB PO SCH (09:27)
[2018-08-21] MEDS: rOPINIRole HCL 4 MG TABLET PO SCH ×3 (09:27→21:56)
[2018-08-21] MEDS: SODIUM BICARBONATE TAB 650 MG TAB PO SCH ×2 (09:27→16:22)
[2018-08-21] MEDS: FERROUS SULFATE 325 MG TAB PO SCH (09:27)
[2018-08-21] MEDS: GABAPENTIN 300 MG CAP PO SCH ×3 (09:27→21:56)
[2018-08-21] MEDS: POTASSIUM BICARBONATE/CIT AC 20 MEQ TABLET.EFF PO SCH ×2 (09:28→21:56)
[2018-08-21] MEDS: HEPARIN SODIUM,PORCINE 5,000 UNIT/ML 1 ML VIAL SQ SCH ×2 (09:28→21:56)
[2018-08-21] MEDS: MAGNESIUM OXIDE 400 MG TAB PO SCH ×2 (09:28→21:56)
[2018-08-21] MEDS: ASPIRIN 325 MG TAB PO SCH (09:28)
[2018-08-21] MEDS: CIPROFLOXACIN 0.3% OPHTH OINT 3.5 GM TUBE BOTH EYES SCH ×2 (09:28→22:23)
[2018-08-21] MEDS: ALBUTEROL NEBULIZED 2.5 MG/3 ML INHALATION SCH ×3 (10:30→19:59)
[2018-08-21] MEDS ORDERED: POTASSIUM CHLORIDE ER 20 MEQ TAB.ER PO STA (11:21)
[2018-08-21] MEDS ORDERED: MAGNESIUM SULFATE-D5W PMX 1 GM in DEXTROSE/WATER 1 100ML.BAG IVPB ONE (11:22)
--- NOTE | 2018-08-21 11:52 | P.PN ---
Subjective Progress Note Date: 08/21/18 Shayla Mazariegos is a 73-year-old female patient of Dr. Tucker. Patient presented to the ER with complaints of increased peripheral edema and exacerbation of CHF. Patient was recently admitted with acute on chronic kidney disease in which nephrology had discontinued patient's Lasix. Patient does have a known past medical history of CHF, chronic kidney disease, osteoarthritis, pneumonia, hypothyroidism, breast cancer and chronic Balderas catheter. Patient reports that she had Balderas catheter placed 3 months prior due to chronic incontinence. EKG completed in ER showing normal sinus rhythm, minimal voltage criteria for LVH, maybe normal variant. Chest x-ray completed showing no acute process. Patient started on IV Lasix 40 mg every 12 hours. Nephrology and cardiology services have been consulted. Balderas catheter to be changed. UA ordered. Potassium 2.9 replace per protocol will recheck today. Initial creatinine elevated 2.25 and bun 22. Nephrology services following. At this time patient denies chest pain or shortness of breath. Patient denies nausea vomiting or diarrhea. Patient d enies any urinary burning or frequency. On 08/21/2018 patient was seen and examined on the medical floor she is alert and oriented 3 in no apparent distress she states she is feeling weak otherwise she denies any complaints at this time her shortness of breath has improved there is no fever or chills no headache or dizziness no chest pain no cough no nausea or vomiting no abdominal pain no diarrhea and no urinary symptoms, labs are still abnormal with creatinine of 2.25 low potassium of 3.1 today there is evidence of anemia was hemoglobin down to 9.4 Objective - Vital Signs Vital signs: Vital Signs Temp 97.8 F 08/21/18 07:00 Pulse 90 08/21/18 07:00 Resp 18 08/21/18 07:00 BP 89/54 08/21/18 07:00 Pulse Ox 98 08/21/18 07:00 Intake & Output 08/20/18 08/21/18 08/21/18 18:59 06:59 18:59 Output Total 1700 3000 Balance -1700 -3000 Weight 94.347 kg 108.5 kg Output: Urine 1700 3000 Other: Voiding Method Indwelling Catheter Indwelling Catheter Indwelling Catheter # Bowel Movements 1 - Exam Head normocephalic and atraumatic Neck supple no JVD no goiter Lungs diminished bilaterally Heart regular rate and rhythm S1-S2, no rub or gallop Abdomen is soft nontender nondistended positive bowel sounds no hepatosplenomegaly Extremities +2 lower extremity edema with erythema Neuro alert and orientated to 3 there is generalized weakness without any focal deficit - Labs CBC & Chem 7: 08/21/18 07:32 08/21/18 07:32 Labs: Abnormal Lab Results - Last 24 Hours (Table) 08/20/18 08/20/18 08/20/18 Range/Units 11:01 15:29 20:47 RBC (3.80-5.40) m/uL Hgb (11.4-16.0) gm/dL Hct (34.0-46.0) % Sodium 135 L (137-145) mmol/L Potassium 3.2 L 3.2 L (3.5-5.1) mmol/L BUN 26 H (7-17) mg/dL Creatinine 2.32 H (0.52-1.04) mg/dL Glucose 117 H (74-99) mg/dL Calcium 7.4 L (8.4-10.2) mg/dL Magnesium 1.5 L (1.6-2.3) mg/dL Alkaline Phosphatase 127 H (38-126) U/L Total Protein 5.5 L (6.3-8.2) g/dL Albumin 2.4 L (3.5-5.0) g/dL Urine Appearance Cloudy H (Clear) Urine Blood Small H (Negative) Ur Leukocyte Esterase Large H (Negative) Urine WBC 12 H (0-5) /hpf Urine Bacteria Rare H (None) /hpf Hyaline Casts 17 H (0-2) /lpf Urine Mucus Rare H (None) /hpf Urine Yeast (Budding) Occasional H (None) /hpf 08/21/18 08/21/18 Range/Units 07:32 07:32 RBC 3.20 L (3.80-5.40) m/uL Hgb 9.4 L (11.4-16.0) gm/dL Hct 28.8 L (34.0-46.0) % Sodium 136 L (137-145) mmol/L Potassium 3.1 L (3.5-5.1) mmol/L BUN 30 H (7-17) mg/dL Creatinine 2.25 H (0.52-1.04) mg/dL Glucose (74-99) mg/dL Calcium 7.6 L (8.4-10.2) mg/dL Magnesium (1.6-2.3) mg/dL Alkaline Phosphatase (38-126) U/L Total Protein (6.3-8.2) g/dL Albumin (3.5-5.0) g/dL Urine Appearance (Clear) Urine Blood (Negative) Ur Leukocyte Esterase (Negative) Urine WBC (0-5) /hpf Urine Bacteria (None) /hpf Hyaline Casts (0-2) /lpf Urine Mucus (None) /hpf Urine Yeast (Budding) (None) /hpf Microbiology - Last 24 Hours (Table) 08/20/18 14:40 Urine Culture - Preliminary Urine,Catheterized Assessment and Plan Plan: 1. Acute on chronic diastolic congestive heart failure. Patient started on IV Lasix. 2-D echo completed showing an EF of 55-60%. Cardiology service cons ulted 2. Acute on chronic kidney disease stage III. Creatinine currently 2.25 nephrology services are consulted. Ultrasound of kidney completed showing no evidence of hydronephrosis 3. Hypokalemia. Replace per protocol. We'll recheck today continue to monitor closely 4. Chronic Balderas catheter. Patient reports she's had chronic Balderas catheter for over a month. Patient reports she is requiring chronic Balderas due to incontinence. Orders to change Balderas catheter obtained urinary analysis. Also will consult urology services 5. Lower extremity cellulitis. DC Levaquin. Start patient on Rocephin. blood Culture ordered 6. Bilateral bacterial conjunctivitis. Patient started on Cipro eyedrops 7. Hypothyroidism 8. Osteoarthritis 9. Bilateral neuropathy 10. Depression DVT prophylaxis heparin. GI prophylaxis Protonix Nephrology, cardiology and neurology service consulted A.m. labs ordered PT OT consult
[2018-08-21] MEDS: ONDANSETRON 4 MG/2 ML VIAL IVP PRN (12:58)
[2018-08-21] MEDS: SODIUM CHLORIDE 0.9% 1,000 ML IV SCH (12:59)
--- NOTE | 2018-08-21 15:35 | PN ---
PROGRESS NOTE Patient is seen for followup for chronic kidney disease and acute kidney injury. She was admitted to the hospital with shortness of breath and volume overload. Patient is currently being diuresed. She is maintained on Lasix at 40 mg q.12 hours. This morning patient states she is feeling very weak. She continues to complain of increased swelling. She denies any significant chest pain. Blood pressure is on the lower side with systolic in the 80s and 90s. Patient has an indwelling Balderas catheter with 24 hour urine output documented at 4.7 L. PHYSICAL EXAMINATION: On examination today, blood pressure was 89/54, heart rate 90 per minute, patient is afebrile. Examination of the heart, S1, S2. Examination of the lungs, decreased breath sounds at the bases. Abdomen is soft, nontender. Examination of the lower extremities shows edema 2+ bilaterally. MAKEUP INSTRUCTOR exam is grossly intact. LABS: Show sodium 136, potassium 3.1, BUN 30, serum creatinine 2.24, magnesium 1.9. ASSESSMENT: 1. Acute kidney injury, cardiorenal, currently with good urine output. Patient has an indwelling Balderas catheter. Her blood pressure remains low. Patient is not on any antihypertensive medications. Lasix has been changed to p.o. This is appropriate given her hypotension and increased complaints of weakness. 2. Hypokalemia secondary to diuretics. Will replace. 3. Pyuria with urine culture currently pending and no growth noted. Patient does have chronic indwelling Balderas catheter. 4. Chronic kidney disease stage III secondary to nephrosclerosis with previous creatinine of about 1.6 on 07/05/2018. 5. History of urinary incontinence, currently with chronic indwelling Balderas catheter. 6. Hypotension with no evidence of significant underlying infection. Patient has been started on IV fluids. I would be careful with the fluids given her hypervolemia. Check a random cortisol level if not done yet to rule out any underlying adrenal insufficiency. 7. CKD mineral bone disorder with significantly elevated PTH of 491 on 07/05/2018, and low calcium. Patient should be maintained on Rocaltrol. PLAN: Check random cortisol. Add Rocaltrol. We need to be cautious with the IV hydration given her hypervolemia. Replace potassium. I will decrease the sodium bicarb as well. MMODL / IJN: [id number] /
--- NOTE | 2018-08-21 18:35 | PN ---
PROGRESS NOTE This patient had an echocardiogram yesterday which revealed normal left ventricular size and systolic function. There is no significant pulmonary hypertension. She came into the hospital mainly with some increasing shortness of breath. She also has some chronic kidney disease by history. She is actually feeling well this morning. She is not very active physically. She received a breathing treatment and seems to be breathing much more easily. She has no chest pain or shortness of breath. This has improved. Clinically, patient is not in overt heart failure at this time. If any, she looks a little bit clinically dry, I am going to cautiously hydrate the patient, supplement potassium and seek further input from Nephrology for her chronic kidney disease. We will hydrate her at 50 mL/hour normal saline and give her some additional potassium supplements cautiously. She is feeling well. Her breathing is easier. Her systolic function is well preserved. Clinically, patient is not in any overt heart failure at this time. We will see her as needed from a cardiac standpoint. Thank you very much for the consult. MMODL / IJN: [id number] /
[2018-08-22] MEDS: LEVOTHYROXINE 100 MCG TAB PO SCH (05:31)
[2018-08-22] MEDS: HEPARIN SODIUM,PORCINE 5,000 UNIT/ML 1 ML VIAL SQ SCH ×2 (06:58→20:57)
[2018-08-22] MEDS: POTASSIUM BICARBONATE/CIT AC 20 MEQ TABLET.EFF PO SCH ×2 (06:59→20:57)
[2018-08-22] MEDS: DULoxetine HCL 60 MG CAPSULE.DR PO SCH (06:59)
[2018-08-22] MEDS: SODIUM BICARBONATE TAB 650 MG TAB PO SCH (06:59)
[2018-08-22] MEDS: FUROSEMIDE 20 MG TAB PO SCH (06:59)
[2018-08-22] MEDS: GABAPENTIN 300 MG CAP PO SCH ×3 (06:59→20:57)
[2018-08-22] MEDS: CALCIUM CARB-VIT D 500MG-200UN 1 EACH TAB PO SCH (06:59)
[2018-08-22] MEDS: rOPINIRole HCL 4 MG TABLET PO SCH ×3 (06:59→20:57)
[2018-08-22] MEDS: ASPIRIN 81 MG PO SCH (07:00)
[2018-08-22] MEDS: MAGNESIUM OXIDE 400 MG TAB PO SCH ×2 (07:00→20:57)
[2018-08-22] MEDS: PANTOPRAZOLE 40 MG TABLET PO SCH (07:00)
[2018-08-22] MEDS: CIPROFLOXACIN 0.3% OPHTH OINT 3.5 GM TUBE BOTH EYES SCH ×2 (07:00→20:57)
[2018-08-22] MEDS: FERROUS SULFATE 325 MG TAB PO SCH (07:00)
[2018-08-22] MEDS: SODIUM CHLORIDE 0.9% 1,000 ML IV SCH (07:01)
[2018-08-22] MEDS: ONDANSETRON 4 MG/2 ML VIAL IVP PRN (07:10)
[2018-08-22 07:37] LABS: Albumin 2.2 g/dL (3.5-5.0); Calcium 7.4 mg/dL (8.4-10.2); Magnesium 2.1 mg/dL (1.6-2.3); Potassium 3.2 mmol/L (3.5-5.1); Total Bilirubin 0.4 mg/dL (0.2-1.3); Total Protein 5.3 g/dL (6.3-8.2)
[2018-08-22] MEDS: ALBUTEROL NEBULIZED 2.5 MG/3 ML INHALATION SCH ×3 (07:54→19:52)
[2018-08-22 09:27] LABS: Basophils % (A) 1 %; Eosinophils # (A) 0.5 k/uL (0-0.7); Eosinophils % (A) 7 %; HCT 27.4 % (34.0-46.0); HGB 8.6 gm/dL (11.4-16.0); Lymphocytes # (A) 1.6 k/uL (1.0-4.8); Lymphocytes % (A) 24 %; MCH 28.3 pg (25.0-35.0); MCHC 31.4 g/dL (31.0-37.0); Mean Platelet Volume 8.4; Monocytes # (A) 0.3 k/uL (0-1.0); Monocytes % (A) 4 %; Neutrophils # (A) 4.2 k/uL (1.3-7.7); Neutrophils % (A) 63 %; Platelet Count 218 k/uL (150-450); RBC 3.04 m/uL (3.80-5.40); RDW 14.8 % (11.5-15.5); WBC 6.6 k/uL (3.8-10.6)
--- NOTE | 2018-08-22 09:53 | P.PN ---
Subjective Progress Note Date: 08/22/18 This is a 73-year-old female patient who follows regularly with Dr. Tucker. She has a past medical history of chronic kidney disease, hypothyroidism, breast cancer, status post chemoradiation, obesity with prior gastric bypass surgery, osteomyelitis, chronic lower extremity edema and lower extremity cellulitis, and chronic Balderas catheter. Most recently was admitted to the hospital in June due to acute on chronic kidney failure at which time her diuretics were decreased. She does have a documented history of diastolic heart failure however upon reviewing NT proBNP's since 2015 that are available to us they range from 112 to 628. This admission, she presented to [facility] for worsening lower extremity edema and complaints of a cough. She was subsequently transferred here for further evaluation by cardiology. She does feel she may have been having some difficulty breathing. She does sleep and a lift chair but it is unclear as to whether or not she actually has complaints of orthopnea. Laboratory values upon transfer here show potassium of 2.9, up from 2.6, BUN of 22, creatinine 2.25 which was 2.1 and [facility] ER. NT proBNP currently 460. She has been initiated on Lasix 40 mg IV push every 8 hours. She has adequate urine output noted in her Balderas catheter bag. She continues to complain of some edema but does have chronic edema. She feels her cough has improved since being placed on oxygen. 08/22: patient's IV Lasix was discontinued Thursday night due to hypotension. Patient was started on IV fluids 0.9 normal saline at 50 mL per hour and potassium was replaced. Patient has started on oral Lasix 20 mg orally this morning which will be continued. Her air sampling and monitoring has been in normal sinus rhythm without any issues during the night. Blood pressure is running 93/56 and patient is tolerating this without symptoms. Patient does complain of some nausea that she states has been chronic. Patient is eating and drinking. She has had good urine output. Weights do not appear to be accurate. Objective - Vital Signs Vital signs: Vital Signs Temp 97.7 F 08/22/18 06:43 Pulse 80 08/22/18 08:05 Resp 16 08/22/18 06:43 BP 93/56 08/22/18 06:43 Pulse Ox 99 08/22/18 06:43 Intake & Output 08/21/18 08/22/18 08/22/18 18:59 06:59 18:59 Intake Total 175 Output Total 800 450 Balance -800 -275 Weight 109 kg Intake: Intake, IV Titration 175 Amount Sodium Chloride 0.9% 1, 175 000 ml @ 50 mls/hr IV . Q20H [facility] Rx#:[id number] Output: Urine 800 450 Other: Voiding Method Indwelling Catheter Indwelling Catheter Indwelling Catheter # Bowel Movements 0 - Exam Gen: This is a 73-year-old female. Patient is resting in bed and appears to be comfortable and in no acute distress. HEENT: Head is atraumatic, normocephalic. Pupils equal, round. Sclerae is anicteric. NECK: Supple. No JVD. No lymphadenopathy. No thyromegaly. LUNGS: diminished in the bases. No intercostal retractions. HEART: Regular rate and rhythm. No murmur. ABDOMEN: Soft. Bowel sounds are present. No masses. No tenderness.Balderas catheter draining clear nuzhat urine EXTREMITIES: Trace bilateral pedal edema. No calf tenderness. Dorsalis pedis +2 bilaterally NEUROLOGICAL: Patient is awake, alert and oriented x3. Cranial nerves 2 through 12 are grossly intact. - Labs CBC & Chem 7: 08/22/18 06:27 08/22/18 06:27 Labs: Abnormal Lab Results - Last 24 Hours (Table) 08/22/18 Range/Units 06:27 Sodium 135 L (137-145) mmol/L Potassium 3.2 L (3.5-5.1) mmol/L BUN 29 H (7-17) mg/dL Creatinine 2.38 H (0.52-1.04) mg/dL Calcium 7.4 L (8.4-10.2) mg/dL Total Protein 5.3 L (6.3-8.2) g/dL Albumin 2.2 L (3.5-5.0) g/dL Microbiology - Last 24 Hours (Table) 08/20/18 14:40 Urine Culture - Final Urine,Catheterized 08/20/18 15:29 Blood Culture - Preliminary Blood No Growth after 24 hours Assessment and Plan Plan: Symptoms of worsening edema, cough and shortness of breath, no active heart failure Acute on chronic renal failure Hypokalemia, replaced Obesity Plan: Discontinue IV fluids Continue Lasix 20 mg orally daily Cardiology will follow on an as needed basis. Please recontact for any concerns. Nurse practitioner note has been reviewed, I agree with documented findings and plan of care. Patient was seen and examined.
[2018-08-22] MEDS ORDERED: DARBEPOETIN ALFA 40 MCG/0.4 ML SYRINGE SQ SCH (13:30)
[2018-08-22] MEDS ORDERED: POTASSIUM CHLORIDE ER 20 MEQ TAB.ER PO STA (13:54)
[2018-08-22] MEDS: CALCITRIOL 0.25 MCG CAP PO SCH (14:15)
--- NOTE | 2018-08-22 14:33 | PN ---
PROGRESS NOTE Patient is seen for follow up for chronic kidney disease and acute kidney injury. She was admitted with volume overload and was being diuresed. However, yesterday the patient complained of increased weakness. Her blood pressure was also low and therefore the diuretics were held. Serum creatinine has been staying about 2.2-2.3 mg/dL. Previous creatinine was 1.6 in June and about 1.8 in July of 2017. Ejection fraction is 55-60 percent. The patient has a chronic indwelling Balderas catheter. This morning she states she is feeling better. PHYSICAL EXAMINATION: Blood pressure was 93/56, heart rate 67 per minute, patient is afebrile. Examination of the heart S1, S2. Examination lungs bilateral breath sounds are heard. Abdomen is soft, nontender, obese. Examination lower extremity shows chronic skin changes. Edema 1+ bilaterally. TUBE TESTER exam is grossly intact. LAB: Show sodium 135, potassium 3.2, hemoglobin 8.6, BUN 29, serum creatinine 2.38, chloride 103. ASSESSMENT: 1. Chronic kidney disease, NKF stage IV secondary to nephrosclerosis. 2. Hypokalemia secondary to diuretics, status post replacement, magnesium level was 2.1. 3. Hypotension, rule out adrenal insufficiency. Serum cortisol has been ordered. Ejection fraction is fairly well preserved, 55-60 percent. No evidence of ongoing sepsis at this time. 4. Anemia with no active bleeding noted. The previous iron saturation in July of 2017 was 7.28%. I will repeat another iron profile. PLAN: Replace potassium. Continue with oral Lasix. Repeat iron profile. Add Aranesp and follow up on the results of the serum cortisol. MMODL / IJN: [id number] /
--- NOTE | 2018-08-22 15:19 | P.PN ---
Subjective Progress Note Date: 08/22/18 Shayla Mazariegos is a 73-year-old female patient of Dr. Tucker. Patient presented to the ER with complaints of increased peripheral edema and exacerbation of CHF. Patient was recently admitted with acute on chronic kidney disease in which nephrology had discontinued patient's Lasix. Patient does have a known past medical history of CHF, chronic kidney disease, osteoarthritis, pneumonia, hypothyroidism, breast cancer and chronic Balderas catheter. Patient reports that she had Balderas catheter placed 3 months prior due to chronic incontinence. EKG completed in ER showing normal sinus rhythm, minimal voltage criteria for LVH, maybe normal variant. Chest x-ray completed showing no acute process. Patient started on IV Lasix 40 mg every 12 hours. Nephrology and cardiology services have been consulted. Balderas catheter to be changed. UA ordered. Potassium 2.9 replace per protocol will recheck today. Initial creatinine elevated 2.25 and bun 22. Nephrology services following. At this time patient denies chest pain or shortness of breath. Patient denies nausea vomiting or diarrhea. Patient d enies any urinary burning or frequency. On 08/21/2018 patient was seen and examined on the medical floor she is alert and oriented 3 in no apparent distress she states she is feeling weak otherwise she denies any complaints at this time her shortness of breath has improved there is no fever or chills no headache or dizziness no chest pain no cough no nausea or vomiting no abdominal pain no diarrhea and no urinary symptoms, labs are still abnormal with creatinine of 2.25 low potassium of 3.1 today there is evidence of anemia was hemoglobin down to 9.4 On 08/22/2018 patient was seen and examined on the medical floor she is alert and oriented 3 she is complaining of generalized weakness otherwise no complaints there is no fever or chills no headache or dizziness no chest pain no shortness of breath no cough no nausea or vomiting no abdominal pain and no urinary symptoms patient has Balderas catheter in Objective - Vital Signs Vital signs: Vital Signs Temp 97.7 F 08/22/18 14:25 Pulse 73 08/22/18 14:25 Resp 16 08/22/18 14:25 BP 90/50 08/22/18 14:25 Pulse Ox 96 08/22/18 14:25 Intake & Output 08/21/18 08/22/18 08/22/18 18:59 06:59 18:59 Intake Total 175 900 Output Total 800 450 550 Balance -800 -275 350 Weight 109 kg Intake: Intake, IV Titration 175 Amount Sodium Chloride 0.9% 1, 175 000 ml @ 50 mls/hr IV . Q20H [facility] Rx#:[id number] Oral 900 Output: Urine 800 450 550 Other: Voiding Method Indwelling Catheter Indwelling Catheter Indwelling Catheter # Bowel Movements 0 - Exam Head normocephalic and atraumatic Neck supple no JVD no goiter Lungs diminished bilaterally Heart regular rate and rhythm S1-S2, no rub or gallop Abdomen is soft nontender nondistended positive bowel sounds no hepatosplenomegaly Extremities +2 lower extremity edema with erythema Neuro alert and orientated to 3 there is generalized weakness without any focal deficit - Labs CBC & Chem 7: 08/22/18 06:27 08/22/18 06:27 Labs: Abnormal Lab Results - Last 24 Hours (Table) 08/22/18 08/22/18 Range/Units 06:27 06:27 RBC 3.04 L (3.80-5.40) m/uL Hgb 8.6 L (11.4-16.0) gm/dL Hct 27.4 L (34.0-46.0) % Sodium 135 L (137-145) mmol/L Potassium 3.2 L (3.5-5.1) mmol/L BUN 29 H (7-17) mg/dL Creatinine 2.38 H (0.52-1.04) mg/dL Calcium 7.4 L (8.4-10.2) mg/dL Total Protein 5.3 L (6.3-8.2) g/dL Albumin 2.2 L (3.5-5.0) g/dL Microbiology - Last 24 Hours (Table) 08/20/18 14:40 Urine Culture - Final Urine,Catheterized 08/20/18 15:29 Blood Culture - Preliminary Blood No Growth after 24 hours Assessment and Plan Plan: 1. Acute on chronic diastolic congestive heart failure. Patient started on IV Lasix. 2-D echo completed showing an EF of 55-60%. Cardiology service consulted 2. Acute on chronic kidney disease stage III. Creatinine currently 2.25 nephrology services are consulted. Ultrasound of kidney completed showing no evidence of hydronephrosis 3. Hypokalemia. Replace per protocol. We'll recheck today continue to monitor closely 4. Chronic Balderas catheter. Patient reports she's had chronic Balderas catheter for over a month. Patient reports she is requiring chronic Balderas due to incontinence. Orders to change Balderas catheter obtained urinary analysis. Also will consult urology services 5. Lower extremity cellulitis. DC Levaquin. Start patient on Rocephin. blood Culture ordered 6. Bilateral bacterial conjunctivitis. Patient started on Cipro eyedrops 7. Hypothyroidism 8. Osteoarthritis 9. Bilateral neuropathy 10. Depression DVT prophylaxis heparin. GI prophylaxis Protonix Nephrology, cardiology and neurology service consulted A.m. labs ordered PT OT consult
[2018-08-23] MEDS: LEVOTHYROXINE 100 MCG TAB PO SCH (05:30)
[2018-08-23] MEDS: ALBUTEROL NEBULIZED 2.5 MG/3 ML INHALATION SCH ×3 (06:56→21:21)
[2018-08-23 08:07] LABS: Basophils % (A) 0 %; Eosinophils # (A) 0.4 k/uL (0-0.7); Eosinophils % (A) 6 %; HCT 27.4 % (34.0-46.0); HGB 8.7 gm/dL (11.4-16.0); Lymphocytes # (A) 1.6 k/uL (1.0-4.8); Lymphocytes % (A) 24 %; MCH 29.2 pg (25.0-35.0); MCHC 31.9 g/dL (31.0-37.0); MCV 91.4 fL (80.0-100.0); Mean Platelet Volume 7.2; Monocytes # (A) 0.3 k/uL (0-1.0); Monocytes % (A) 4 %; Neutrophils # (A) 4.2 k/uL (1.3-7.7); Neutrophils % (A) 64 %; Platelet Count 222 k/uL (150-450); RDW 14.7 % (11.5-15.5); WBC 6.6 k/uL (3.8-10.6)
[2018-08-23 08:37] LABS: Albumin 2.3 g/dL (3.5-5.0); Calcium 7.3 mg/dL (8.4-10.2); Potassium 3.7 mmol/L (3.5-5.1); Total Bilirubin 0.4 mg/dL (0.2-1.3); Total Protein 5.3 g/dL (6.3-8.2)
[2018-08-23] MEDS: HEPARIN SODIUM,PORCINE 5,000 UNIT/ML 1 ML VIAL SQ SCH ×2 (09:15→21:58)
[2018-08-23] MEDS: SODIUM BICARBONATE TAB 650 MG TAB PO SCH (09:15)
[2018-08-23] MEDS: POTASSIUM BICARBONATE/CIT AC 20 MEQ TABLET.EFF PO SCH ×2 (09:15→21:59)
[2018-08-23] MEDS: FUROSEMIDE 20 MG TAB PO SCH (09:15)
[2018-08-23] MEDS: ASPIRIN 81 MG PO SCH (09:16)
[2018-08-23] MEDS: PANTOPRAZOLE 40 MG TABLET PO SCH (09:16)
[2018-08-23] MEDS: FERROUS SULFATE 325 MG TAB PO SCH (09:16)
[2018-08-23] MEDS: CIPROFLOXACIN 0.3% OPHTH OINT 3.5 GM TUBE BOTH EYES SCH ×2 (09:16→21:58)
[2018-08-23] MEDS: MAGNESIUM OXIDE 400 MG TAB PO SCH ×2 (09:16→21:58)
[2018-08-23] MEDS: GABAPENTIN 300 MG CAP PO SCH ×3 (09:16→21:59)
[2018-08-23] MEDS: CALCIUM CARB-VIT D 500MG-200UN 1 EACH TAB PO SCH (09:16)
[2018-08-23] MEDS: DULoxetine HCL 60 MG CAPSULE.DR PO SCH (09:16)
[2018-08-23] MEDS: rOPINIRole HCL 4 MG TABLET PO SCH ×3 (09:17→21:59)
--- NOTE | 2018-08-23 09:53 | P.PN ---
Subjective Patient is seen in follow-up for acute kidney injury. Renal function is stable. No chest pain or shortness of breath. She is a chronic Balderas catheter in place. She is nonoliguric. Oral intake is fair. No vomiting or diarrhea. Vital signs are stable. General: The patient appeared well nourished and normally developed. HEENT: Head exam is unremarkable. Neck is without jugular venous distension. LUNGS: Breath sounds decreased. HEART: Rate and Rhythm are regular. First and second heart sounds normal. No murmurs, rubs or gallops. ABDOMEN: Abdominal exam reveals normal bowel sounds. Non-tender and non- distended. No evidence of peritonitis. EXTREMITITES: No clubbing, cyanosis, or edema. Objective - Vital Signs Vital signs: Vital Signs Temp 97.9 F 08/23/18 07:00 Pulse 76 08/23/18 07:05 Resp 16 08/23/18 07:00 BP 95/57 08/23/18 07:00 Pulse Ox 95 08/23/18 07:00 Intake & Output 08/22/18 08/23/18 08/23/18 18:59 06:59 18:59 Intake Total 900 200 Output Total 550 1100 Balance 350 -1100 200 Weight 112 kg Intake: Oral 900 200 Output: Urine 550 1100 Other: Voiding Method Indwelling Catheter Indwelling Catheter # Bowel Movements 1 - Labs CBC & Chem 7: 08/23/18 07:05 08/23/18 07:05 Labs: Abnormal Lab Results - Last 24 Hours (Table) 08/23/18 08/23/18 Range/Units 07:05 07:05 RBC 3.00 L (3.80-5.40) m/uL Hgb 8.7 L (11.4-16.0) gm/dL Hct 27.4 L (34.0-46.0) % Sodium 136 L (137-145) mmol/L BUN 29 H (7-17) mg/dL Creatinine 2.31 H (0.52-1.04) mg/dL Calcium 7.3 L (8.4-10.2) mg/dL Total Protein 5.3 L (6.3-8.2) g/dL Albumin 2.3 L (3.5-5.0) g/dL Microbiology - Last 24 Hours (Table) 08/20/18 15:29 Blood Culture - Preliminary Blood No Growth after 48 hours Assessment and Plan Plan: Assessment: 1. Chronic kidney disease stage IV secondary to nephrosclerosis. Renal function stable. 2. Diastolic CHF. 3. Hypokalemia secondary to diuresis status post placement. 4. Anemia of chronic kidney disease maintained on Aranesp. 5. Metabolic acidosis secondary to chronic kidney disease. Better. 6. Chronic kidney disease mineral bone disease maintained on calcitriol. Plan: Maintain Lasix 20 mg orally daily. Avoid nephrotoxins. Follow-up iron studies.
[2018-08-23 11:32] LABS: Iron Saturation 48.04 (12.00-45.00)
--- NOTE | 2018-08-23 14:15 | P.PN ---
Subjective Progress Note Date: 08/23/18 Shayla Mazariegos is a 73-year-old female patient of Dr. Tucker. Patient presented to the ER with complaints of increased peripheral edema and exacerbation of CHF. Patient was recently admitted with acute on chronic kidney disease in which nephrology had discontinued patient's Lasix. Patient does have a known past medical history of CHF, chronic kidney disease, osteoarthritis, pneumonia, hypothyroidism, breast cancer and chronic Balderas catheter. Patient reports that she had Balderas catheter placed 3 months prior due to chronic incontinence. EKG completed in ER showing normal sinus rhythm, minimal voltage criteria for LVH, maybe normal variant. Chest x-ray completed showing no acute process. Patient started on IV Lasix 40 mg every 12 hours. Nephrology and cardiology services have been consulted. Balderas catheter to be changed. UA ordered. Potassium 2.9 replace per protocol will recheck today. Initial creatinine elevated 2.25 and bun 22. Nephrology services following. At this time patient denies chest pain or shortness of breath. Patient denies nausea vomiting or diarrhea. Patient de nies any urinary burning or frequency. On 08/21/2018 patient was seen and examined on the medical floor she is alert and oriented 3 in no apparent distress she states she is feeling weak otherwise she denies any complaints at this time her shortness of breath has improved there is no fever or chills no headache or dizziness no chest pain no cough no nausea or vomiting no abdominal pain no diarrhea and no urinary symptoms, labs are still abnormal with creatinine of 2.25 low potassium of 3.1 today there is evidence of anemia was hemoglobin down to 9.4 On 08/22/2018 patient was seen and examined on the medical floor she is alert and oriented 3 she is complaining of generalized weakness otherwise no complaints there is no fever or chills no headache or dizziness no chest pain no shortness of breath no cough no nausea or vomiting no abdominal pain and no urinary symptoms patient has Balderas catheter in On 08/23/2018 patient's alert and oriented 3 resting comfortably in chair. At this time patient does express that she is concerned about a yeast infection. Diflucan will be added. Hemoglobin remains low at 8.7. Iron studies have been ordered. Arsenep ordered per nephrology. Discussed with nephrology services will increase Lasix to 40 daily. Patient will likely be discharged in the next 24-48 hours. At this time patient denies chest pain or shortness of breath. Patient denies nausea vomiting or diarrhea. Patient denies any urinary burning or frequency. Objective - Vital Signs Vital signs: Vital Signs Temp 97.9 F 08/23/18 07:00 Pulse 76 08/23/18 07:05 Resp 16 08/23/18 07:00 BP 95/57 08/23/18 07:00 Pulse Ox 95 08/23/18 07:00 Intake & Output 08/22/18 08/23/18 08/23/18 18:59 06:59 18:59 Intake Total 900 200 Output Total 550 1100 600 Balance 350 -1100 -400 Weight 112 kg Intake: Oral 900 200 Output: Urine 550 1100 600 Uretheral (Balderas) 600 Other: Voiding Method Indwelling Catheter Indwelling Catheter Indwelling Catheter # Bowel Movements 1 - Exam Head normocephalic and atraumatic Neck supple no JVD no goiter Lungs diminished bilaterally Heart regular rate and rhythm S1-S2, no rub or gallop Abdomen is soft nontender nondistended positive bowel sounds no hepatosplenomegaly Extremities +2 lower extremity edema with erythema Neuro alert and orientated to 3 there is generalized weakness without any focal deficit - Labs CBC & Chem 7: 08/23/18 07:05 08/23/18 07:05 Labs: Abnormal Lab Results - Last 24 Hours (Table) 08/22/18 08/23/18 08/23/18 Range/Units 06:27 07:05 07:05 RBC 3.00 L (3.80-5.40) m/uL Hgb 8.7 L (11.4-16.0) gm/dL Hct 27.4 L (34.0-46.0) % Sodium 136 L (137-145) mmol/L BUN 29 H (7-17) mg/dL Creatinine 2.31 H (0.52-1.04) mg/dL Calcium 7.3 L (8.4-10.2) mg/dL TIBC 179 L (228-460) ug/dL Iron Saturation 48.04 H (12.00-45.00) Total Protein 5.3 L (6.3-8.2) g/dL Albumin 2.3 L (3.5-5.0) g/dL Microbiology - Last 24 Hours (Table) 08/20/18 15:29 Blood Culture - Preliminary Blood No Growth after 48 hours Assessment and Plan Assessment: 1. Acute on chronic diastolic congestive heart failure. Patient started on IV Lasix. 2-D echo completed showing an EF of 55-60%. Patient was evaluated by cardiology services. Patient transitioned to oral Lasix. Discussed with Dr. Nava per nephrology okay to increase Lasix to 40 mg daily. 2. Acute on chronic kidney disease stage III. Creatinine currently 2.25 nephrology services are consulted. Ultrasound of kidney completed showing no evidence of hydronephrosis 3. Hypokalemia. Replace per protocol. We'll recheck today continue to monitor closely 4. Chronic Balderas catheter. Patient reports she's had chronic Balderas catheter for over a month. Patient reports she is requiring chronic Balderas due to incontinence. Orders to change Balderas catheter obtained urinary analysis. Patient was evaluated by urology services. Discussed with patient the risk of having chronic indwelling catheter for incontinence purposes. Per urology patient had a thorough understanding of these issues but elects to continue using an indwelling Balderas catheter due to the fact of improvement to her quality of life. 5. Lower extremity cellulitis. DC Levaquin. Start patient on Rocephin. Blood culture currently showing no growth 6. Bilateral bacterial conjunctivitis. Patient started on Cipro eyedrops 7. Hypothyroidism 8. Osteoarthritis 9. Bilateral neuropathy 10. Depression 11. Yeast infection. Patient started on Diflucan DVT prophylaxis heparin. GI prophylaxis Protonix I performed an examination of the patient and discussed their management with the Nurse Practitioner. I have reviewed the Nurse Practitioner's notes and agree with the documented findings and plan of care
[2018-08-23 22:05] VITALS: RESP 18
[2018-08-24] MEDS: LEVOTHYROXINE 100 MCG TAB PO SCH (05:26)
[2018-08-24 07:41] VITALS: TEMP 97.9
[2018-08-24 07:45] VITALS: BP 94/60; PULSE 71
[2018-08-24 07:54] LABS: Basophils % (A) 0 %; Eosinophils # (A) 0.4 k/uL (0-0.7); Eosinophils % (A) 6 %; HCT 27.9 % (34.0-46.0); HGB 8.7 gm/dL (11.4-16.0); Lymphocytes # (A) 1.6 k/uL (1.0-4.8); Lymphocytes % (A) 26 %; MCH 28.1 pg (25.0-35.0); MCHC 31.3 g/dL (31.0-37.0); MCV 89.9 fL (80.0-100.0); Mean Platelet Volume 7.4; Monocytes # (A) 0.3 k/uL (0-1.0); Monocytes % (A) 4 %; Neutrophils % (A) 62 %; Platelet Count 215 k/uL (150-450); RBC 3.11 m/uL (3.80-5.40); WBC 6.4 k/uL (3.8-10.6)
[2018-08-24 08:16] LABS: Albumin 2.3 g/dL (3.5-5.0); Calcium 7.4 mg/dL (8.4-10.2); Potassium 3.6 mmol/L (3.5-5.1); Total Bilirubin 0.3 mg/dL (0.2-1.3); Total Protein 5.4 g/dL (6.3-8.2)
[2018-08-24] MEDS ORDERED: FLUCONAZOLE 150 MG TAB PO SCH (09:00)
[2018-08-24] MEDS ORDERED: FUROSEMIDE 40 MG TAB PO SCH (09:00)
[2018-08-24] MEDS: SODIUM BICARBONATE TAB 650 MG TAB PO SCH (09:14)
[2018-08-24] MEDS: FERROUS SULFATE 325 MG TAB PO SCH (09:14)
[2018-08-24] MEDS: CALCIUM CARB-VIT D 500MG-200UN 1 EACH TAB PO SCH (09:14)
[2018-08-24] MEDS: CALCITRIOL 0.25 MCG CAP PO SCH (09:14)
[2018-08-24] MEDS: rOPINIRole HCL 4 MG TABLET PO SCH (09:14)
[2018-08-24] MEDS: ASPIRIN 81 MG PO SCH (09:15)
[2018-08-24] MEDS: MAGNESIUM OXIDE 400 MG TAB PO SCH (09:15)
[2018-08-24] MEDS: POTASSIUM BICARBONATE/CIT AC 20 MEQ TABLET.EFF PO SCH (09:15)
[2018-08-24] MEDS: DULoxetine HCL 60 MG CAPSULE.DR PO SCH (09:16)
[2018-08-24] MEDS: PANTOPRAZOLE 40 MG TABLET PO SCH (09:16)
[2018-08-24] MEDS: CIPROFLOXACIN 0.3% OPHTH OINT 3.5 GM TUBE BOTH EYES SCH (09:16)
[2018-08-24] MEDS: GABAPENTIN 300 MG CAP PO SCH (09:16)
[2018-08-24] MEDS: HEPARIN SODIUM,PORCINE 5,000 UNIT/ML 1 ML VIAL SQ SCH (09:16)
[2018-08-24] MEDS: ALBUTEROL NEBULIZED 2.5 MG/3 ML INHALATION SCH (10:01)
--- NOTE | 2018-08-24 11:27 | P.PN ---
Subjective Patient is seen in follow-up for acute kidney injury. Renal function is improved. No chest pain or shortness of breath. She has a chronic Balderas c atheter in place. She is nonoliguric. Oral intake is fair. No vomiting or diarrhea. Vital signs are stable. General: The patient appeared well nourished and normally developed. HEENT: Head exam is unremarkable. Neck is without jugular venous distension. LUNGS: Breath sounds decreased. HEART: Rate and Rhythm are regular. First and second heart sounds normal. No murmurs, rubs or gallops. ABDOMEN: Abdominal exam reveals normal bowel sounds. Non-tender and non- distended. No evidence of peritonitis. EXTREMITITES: No clubbing, cyanosis, or edema. Objective - Vital Signs Vital signs: Vital Signs Temp 97.9 F 08/24/18 07:41 Pulse 71 08/24/18 07:41 Resp 18 08/24/18 07:41 BP 94/60 08/24/18 07:41 Pulse Ox 92 L 08/24/18 07:41 Intake & Output 08/23/18 08/24/18 08/24/18 18:59 06:59 18:59 Intake Total 200 Output Total 1200 1350 Balance -1000 -1350 Weight 109.5 kg Intake: Oral 200 Output: Urine 1200 1350 Uretheral (Balderas) 1200 Other: Voiding Method Indwelling Catheter Indwelling Catheter Indwelling Catheter # Bowel Movements 1 - Labs CBC & Chem 7: 08/24/18 06:44 08/24/18 06:44 Labs: Abnormal Lab Results - Last 24 Hours (Table) 08/22/18 08/24/18 08/24/18 Range/Units 06:27 06:44 06:44 RBC 3.11 L (3.80-5.40) m/uL Hgb 8.7 L (11.4-16.0) gm/dL Hct 27.9 L (34.0-46.0) % Sodium 136 L (137-145) mmol/L BUN 32 H (7-17) mg/dL Creatinine 2.05 H (0.52-1.04) mg/dL Calcium 7.4 L (8.4-10.2) mg/dL TIBC 179 L (228-460) ug/dL Iron Saturation 48.04 H (12.00-45.00) Total Protein 5.4 L (6.3-8.2) g/dL Albumin 2.3 L (3.5-5.0) g/dL Microbiology - Last 24 Hours (Table) 08/20/18 15:29 Blood Culture - Preliminary Blood No Growth after 72 hours Assessment and Plan Plan: Assessment: 1. Chronic kidney disease stage IV secondary to nephrosclerosis. Renal function improved. Creatinine 2.05 today. 2. Diastolic CHF. 3. Hypokalemia secondary to diuresis status post placement. 4. Anemia of chronic kidney disease maintained on Aranesp. Iron replete. 5. Metabolic acidosis secondary to chronic kidney disease. Better. 6. Chronic kidney disease mineral bone disease maintained on calcitriol. Plan: Maintain Lasix 40 mg orally daily. Avoid nephrotoxins. Maintain potassium supplementation. Stable to be discharged home from nephrology standpoint. Follow up outpatient in the next 1-2 weeks.
--- NOTE | 2018-08-24 13:06 | P.DS ---
Providers Date of admission: 08/21/18 16:16 Expected date of discharge: 08/24/18 Attending physician: Marcy Perdomo Consults: 08/20/18 06:13 Consult Physician Routine Consulting Provider: [facility] Consult Reason/Comments: CHF Do you want consulting provider notified?: Yes, Notify in am 08/20/18 08:15 Consult Physician Routine Consulting Provider: Jaja Nur Consult Reason/Comments: acute on chronic RF Do you want consulting provider notified?: Yes 08/20/18 14:31 Consult Physician Routine Consulting Provider: Lino Wild Consult Reason/Comments: Chronic Balderas catheter Do you want consulting provider notified?: Yes Primary care physician: [facility] Course: Discharge diagnosis 1. Acute on chronic diastolic congestive heart failure. Patient started on IV Lasix. 2-D echo completed showing an EF of 55-60%. Patient was evaluated by cardiology services. Patient transitioned to oral Lasix. Discussed with Dr. Nava per nephrology okay to increase Lasix to 40 mg daily. Patient has been cleared for discharge from nephrology standpoint. Patient will be DC'd on Lasix daily 40 mg. Patient to follow-up outpatient with nephrology services 2. Acute on chronic kidney disease stage III. Creatinine currently 2.25 nephrology services are consulted. Ultrasound of kidney completed showing no evidence of hydronephrosis. Patient to follow-up outpatient with nephrology services 3. Hypokalemia. Replace per protocol. We'll recheck today continue to monitor closely 4. Chronic Balderas catheter. Patient reports she's had chronic Balderas catheter for over a month. Patient reports she is requiring chronic Balderas due to incontinence. Orders to change Balderas catheter obtained urinary analysis. Patient was evaluated by urology services. Discussed with patient the risk of having chronic indwelling catheter for incontinence purposes. Per urology patient had a thorough understanding of these issues but elects to continue using an indwelling Balderas catheter due to the fact of improvement to her quality of life. 5. Lower extremity cellulitis. DC Levaquin. Start patient on Rocephin. Blood culture currently showing no growth . Patient will be DC'd on Keflex 500 3 times a day for 10 more days 6. Bilateral bacterial conjunctivitis. Patient started on Cipro eyedrops . Symptoms resolved completed treatment 7. Hypothyroidism 8. Osteoarthritis 9. Bilateral neuropathy 10. Depression 11. Yeast infection. Patient started on Diflucan Hospital course Shayla Mazariegos is a 73-year-old female patient of Dr. Tucker. Patient presented to the ER with complaints of increased peripheral edema and exacerbation of CHF. Patient was recently admitted with acute on chronic kidney disease in which nephrology had discontinued patient's Lasix. Patient does have a known past medical history of CHF, chronic kidney disease, osteoarthritis, pneumonia, hypothyroidism, breast cancer and chronic Balderas catheter. Patient reports that she had Balderas catheter placed 3 months prior due to chronic incontinence. EKG completed in ER showing normal sinus rhythm, minimal voltage criteria for LVH, maybe normal variant. Chest x-ray completed showing no acute process. Patient started on IV Lasix 40 mg every 12 hours. Nephrology and cardiology services have been consulted. Balderas catheter to be changed. UA ordered. Potassium 2.9 replace per protocol will recheck today. Initial creatinine elevated 2.25 and bun 22. Nephrology services following. At this time patient denies chest pain or shortness of breath. Patient denies nausea vomiting or diarrhea. Patient denies any urinary burning or frequency. On 08/21/2018 patient was seen and examined on the medical floor she is alert and oriented 3 in no apparent distress she states she is feeling weak otherwise she denies any complaints at this time her shortness of breath has improved there is no fever or chills no headache or dizziness no chest pain no cough no nausea or vomiting no abdominal pain no diarrhea and no urinary symptoms, labs are still abnormal with creatinine of 2.25 low potassium of 3.1 today there is evidence of anemia was hemoglobin down to 9.4 On 08/22/2018 patient was seen and examined on the medical floor she is alert and oriented 3 she is complaining of generalized weakness otherwise no complain ts there is no fever or chills no headache or dizziness no chest pain no shortness of breath no cough no nausea or vomiting no abdominal pain and no urinary symptoms patient has Balderas catheter in On 08/23/2018 patient's alert and oriented 3 resting comfortably in chair. At this time patient does express that she is concerned about a yeast infection. Diflucan will be added. Hemoglobin remains low at 8.7. Iron studies have been ordered. Arsenep ordered per nephrology. Discussed with nephrology services will increase Lasix to 40 daily. Patient will likely be discharged in the next 24-48 hours. At this time patient denies chest pain or shortness of breath. Patient denies nausea vomiting or diarrhea. Patient denies any urinary burning or frequency. On 08/24/2018 patient's alert and oriented 3 sitting up in chair. Patient expresses she feels ready to be DC'd home. 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 Creatinine continued to trend down. Patient has been cleared for discharge from nephrology standpoint. Patient will be discharged on Lasix 40 daily. Patient will follow-up in one week with nephrology services. Patient also advised followed closely with PCP. At this time patient denies chest pain or shortness breath. Patient denies nausea vomiting or diarrhea. Patient denies any urinary burning or frequency. Patient will also be DC'd home on Keflex for bilateral lower extremity cellulitis. Repeat CMP and CBC ordered for 2 days I performed an examination of the patient and discussed their management with the Nurse Practitioner. I have reviewed the Nurse Practitioner's notes and agree with the documented findings and plan of care Patient Condition at Discharge: Stable Plan - Discharge Summary Discharge Rx Participant: No New Discharge Prescriptions: New Aspirin 81 mg PO DAILY 30 Days #30 chew Fluconazole [Diflucan] 100 mg PO DAILY 10 Days #10 tablet Cephalexin [Keflex] 500 mg PO Q8HR 10 Days #30 cap Furosemide [Lasix] 40 mg PO DAILY 30 Days #30 tab Calcitriol [Rocaltrol] 0.25 mcg PO Q48H 15 Days #15 cap Continue rOPINIRole HCL [Requip] 6 mg PO TID Ferrous Sulfate [Iron (65 MG Elemental)] 325 mg PO DAILY Albuterol Inhaler [Ventolin Hfa Inhaler] 1 - 2 puff INHALATION RT-Q6H PRN PRN Reason: Shortness Of Breath Magnesium Oxide [Magox 400] 400 mg PO BID #60 tablet Levothyroxine Sodium [Synthroid] 200 mcg PO DAILY Potassium Bicarb-Citric Acid [K-Lyte] 25 meq PO BID Gabapentin [Neurontin] 300 mg PO TID DULoxetine HCL [Cymbalta] 60 mg PO DAILY Calcium Carb-Vit D 500Mg-200Un [Oscal 500+D] 1 tab PO DAILY Sodium Bicarbonate Tab 650 mg PO BID Discontinued Aspirin 325 mg PO DAILY Discharge Medication List rOPINIRole HCL [Requip] 6 mg PO TID 07/16/17 [History] Albuterol Inhaler [Ventolin Hfa Inhaler] 1 - 2 puff INHALATION RT-Q6H PRN 06/30/18 [History] Ferrous Sulfate [Iron (65 MG Elemental)] 325 mg PO DAILY 06/30/18 [History] Magnesium Oxide [Magox 400] 400 mg PO BID #60 tablet 07/05/18 [Rx] Calcium Carb-Vit D 500Mg-200Un [Oscal 500+D] 1 tab PO DAILY 08/20/18 [History] DULoxetine HCL [Cymbalta] 60 mg PO DAILY 08/20/18 [History] Gabapentin [Neurontin] 300 mg PO TID 08/20/18 [History] Levothyroxine Sodium [Synthroid] 200 mcg PO DAILY 08/20/18 [History] Potassium Bicarb-Citric Acid [K-Lyte] 25 meq PO BID 08/20/18 [History] Sodium Bicarbonate Tab 650 mg PO BID 08/20/18 [History] Aspirin 81 mg PO DAILY 30 Days #30 chew 08/24/18 [Rx] Calcitriol [Rocaltrol] 0.25 mcg PO Q48H 15 Days #15 cap 08/24/18 [Rx] Cephalexin [Keflex] 500 mg PO Q8HR 10 Days #30 cap 08/24/18 [Rx] Fluconazole [Diflucan] 100 mg PO DAILY 10 Days #10 tablet 08/24/18 [Rx] Furosemide [Lasix] 40 mg PO DAILY 30 Days #30 tab 08/24/18 [Rx] Follow up Appointment(s)/Referral(s): Shira Tucker MD [Primary Care Provider] - 1-2 days [facility], [NON-STAFF] - Rod Nava DO [STAFF PHYSICIAN] - 1 Week Ambulatory/Diagnostic Orders: Complete Blood Count w/diff [LAB.AMB] Time Frame: 2 Days, Location: None Selected Comprehensive Metabolic Panel [LAB.AMB] Time Frame: 2 Days, Location: None Selected Activity/Diet/Wound Care/Special Instructions: Activity as tolerated Diet heart healthy CBC and CMP ordered for 2 days. Discharge Disposition: HOME WITH HOME HEALTH SERVICES
== END 2018-08-24 14:53 | disposition home health service (06) | DRG 291 ==
LOC: EC 05:56 → 4SSUR 06:13 → OBSVTOIN 08-21 16:16
PROVIDERS: ADMIT Internal Medicine; ATTEND Internal Medicine
DX: I13.0 Hypertensive heart and chronic kidney disease with heart failure and stage 1 through stage 4 chronic kidney disease, or unspecified chronic kidney disease (principal); I50.33 Acute on chronic diastolic (congestive) heart failure; N17.9 Acute kidney failure, unspecified; E87.2 Acidosis; L03.115 Cellulitis of right lower limb; L03.116 Cellulitis of left lower limb; I95.9 Hypotension, unspecified; G62.9 Polyneuropathy, unspecified; E83.42 Hypomagnesemia; E83.9 Disorder of mineral metabolism, unspecified; D63.1 Anemia in chronic kidney disease; N18.3 Chronic kidney disease, stage 3 (moderate); B37.9 Candidiasis, unspecified; T50.2X5A Adverse effect of carbonic-anhydrase inhibitors, benzothiadiazides and other diuretics, initial encounter; R26.2 Difficulty in walking, not elsewhere classified; H10.89 Other conjunctivitis; F32.9 Major depressive disorder, single episode, unspecified; M19.90 Unspecified osteoarthritis, unspecified site; E87.6 Hypokalemia; E03.9 Hypothyroidism, unspecified; G25.81 Restless legs syndrome; I87.8 Other specified disorders of veins; R32 Unspecified urinary incontinence; G47.00 Insomnia, unspecified; E66.9 Obesity, unspecified; Z68.39 Body mass index [BMI] 39.0-39.9, adult; Z79.82 Long term (current) use of aspirin; Z79.890 Hormone replacement therapy; Z79.899 Other long term (current) drug therapy; Z90.49 Acquired absence of other specified parts of digestive tract; Z98.84 Bariatric surgery status; Z85.3 Personal history of malignant neoplasm of breast; Z92.21 Personal history of antineoplastic chemotherapy; Z92.3 Personal history of irradiation; Z87.01 Personal history of pneumonia (recurrent); Z88.1 Allergy status to other antibiotic agents; Z88.2 Allergy status to sulfonamides; Z83.3 Family history of diabetes mellitus; Z82.49 Family history of ischemic heart disease and other diseases of the circulatory system
CPT/HCPCS: 36415; 71045; 76770; 80048; 80053; 81001; 82533; 82728; 83540; 83550; 83735; 83880; 84132; 84484; 85025; 85610; 85730; 87040; 87086; 93005; 93306; 94640; 94760; 96374; 99285

== ENCOUNTER 2018-10-15 11:34 | Inpatient (IN) | payer MEDICARE, OTHER ==
[2018-10-15] MEDS ORDERED: IPRATROPIUM-ALBUTEROL 3 ML NEB INHALATION STA ×2 (12:14→17:28)
[2018-10-15] MEDS ORDERED: FUROSEMIDE 10 MG/ML 4 ML VIAL IV STA (12:14)
--- NOTE | 2018-10-15 12:17 | ED ---
SOB HPI - General Chief Complaint: Shortness of Breath Stated Complaint: CHF Time Seen by Provider: 10/15/18 11:34 Source: patient, EMS, RN notes reviewed, old records reviewed Mode of arrival: EMS Limitations: no limitations - History of Present Illness Initial Comments: Is a 73-year-old female who was brought in by EMS for complaints of shortness of breath when after past 3 days she's had a nonproductive cough with this he also has peripheral edema. She states she has a history kidney failure. He denies any overt fevers chills or sweats she is nonambulatory normally. No abdominal pain no other symptoms reported at this time he does state she uses an inhaler at home which has not helped. MD Complaint: shortness of breath, cough - Related Data Home Medications Medication Instructions Recorded Confirmed rOPINIRole HCL [Requip] 6 mg PO TID 07/16/17 10/15/18 Albuterol Inhaler [Ventolin Hfa 1 - 2 puff INHALATION RT-Q6H PRN 06/30/18 10/15/18 Inhaler] Ferrous Sulfate [Iron (65 MG 325 mg PO DAILY 06/30/18 10/15/18 Elemental)] Calcium Carb-Vit D 500Mg-200Un 1 tab PO DAILY 08/20/18 10/15/18 [Oscal 500+D] DULoxetine HCL [Cymbalta] 60 mg PO DAILY 08/20/18 10/15/18 Gabapentin [Neurontin] 300 mg PO TID 08/20/18 10/15/18 Levothyroxine Sodium [Synthroid] 200 mcg PO DAILY 08/20/18 10/15/18 Potassium Bicarb-Citric Acid 25 meq PO DAILY 08/20/18 10/15/18 [K-Lyte] Spironolactone 50 mg PO DAILY 10/15/18 10/15/18 Previous Rx's Medication Instructions Recorded Magnesium Oxide [Magox 400] 400 mg PO BID #60 tablet 07/05/18 Aspirin 81 mg PO DAILY 30 Days #30 chew 08/24/18 Calcitriol [Rocaltrol] 0.25 mcg PO Q48H 15 Days #15 cap 08/24/18 Allergies Allergy/AdvReac Type Severity Reaction Status Date / Time Sulfa (Sulfonamide Allergy Anaphylaxis Verified 10/15/18 14:15 Antibiotics) vancomycin Allergy Rash/Hives Verified 10/15/18 14:15 Review of Systems ROS Statement: Those systems with pertinent positive or pertinent negative responses have been documented in the HPI. ROS Other: All systems not noted in ROS Statement are negative. Past Medical History Past Medical History: Heart Failure, Osteoarthritis (OA), Pneumonia, Renal Disease, Thyroid Disorder Additional Past Medical History / Comment(s): chronic edema, chronic metabolic acidosis, neuropathy, insomnia, Hx breast cancer,/chemo and radiation tx in 2002, kidney failure, hypothyroid, RLS,cellulitis R leg History of Any Multi-Drug Resistant Organisms: None Reported Past Surgical History: Bariatric Surgery, Section, Cholecystectomy, Tonsillectomy Additional Past Surgical History / Comment(s): Gastric bypass, left breast biopsy & lumpectomy Past Anesthesia/Blood Transfusion Reactions: No Reported Reaction Past Psychological History: Depression Smoking Status: Never smoker Past Alcohol Use History: None Reported Past Drug Use History: None Reported - Past Family History Father History Unknown: Yes Family Medical History: Diabetes Mellitus Additional Family Medical History / Comment(s): unaware of entire history. Mother History Unknown: Yes Family Medical History: Chest Pain / Angina, Coronary Artery Disease (CAD), Diabetes Mellitus Additional Family Medical History / Comment(s): Valves replaced in her heart per patient. General Exam - General Exam Comments Initial Comments: This is a well-developed well-nourished awake alert oriented 3 female Limitations: no limitations, physical limitation General appearance: alert, anxious Head exam: Present: atraumatic, normocephalic, normal inspection Eye exam: Present: normal appearance, PERRL, EOMI. Absent: scleral icterus, conjunctival injection, periorbital swelling ENT exam: Present: normal exam, mucous membranes moist Neck exam: Present: normal inspection. Absent: tenderness, meningismus, lymp hadenopathy Respiratory exam: Present: wheezes, decreased breath sounds. Absent: respiratory distress, rales, rhonchi, stridor Cardiovascular Exam: Present: regular rate, normal rhythm, normal heart sounds. Absent: systolic murmur, diastolic murmur, rubs, gallop, clicks GI/Abdominal exam: Present: soft, normal bowel sounds. Absent: distended, tenderness, guarding, rebound, rigid Extremities exam: Present: full ROM, normal capillary refill, pedal edema. Absent: tenderness, joint swelling, calf tenderness Back exam: Present: normal inspection Neurological exam: Present: alert, oriented X3, CN II-XII intact Psychiatric exam: Present: normal affect, normal mood Skin exam: Present: warm, dry, intact, normal color. Absent: rash Course Vital Signs 10/15/18 10/15/18 10/15/18 11:42 12:37 12:45 Temperature 98.7 F Pulse Rate 77 75 77 Respiratory 20 18 Rate Blood Pressure 109/71 117/75 O2 Sat by Pulse 98 98 Oximetry 10/15/18 10/15/18 10/15/18 12:49 13:00 13:30 Temperature Pulse Rate 76 84 89 Respiratory 19 Rate Blood Pressure 117/75 115/62 O2 Sat by Pulse 99 92 L Oximetry 10/15/18 10/15/18 10/15/18 14:00 14:30 15:00 Temperature Pulse Rate 84 86 82 Respiratory 18 Rate Blood Pressure 113/84 99/75 116/81 O2 Sat by Pulse 100 100 Oximetry 10/15/18 15:30 Temperature Pulse Rate 81 Respiratory 18 Rate Blood Pressure 107/77 O2 Sat by Pulse 100 Oximetry - Reevaluation(s) Reevaluation #1: 10/15/18 17:15 PG is some relief after the initial treatment. Medical Decision Making - Medical Decision Making The patient is still dyspneic she does have evidence of peripheral edema however she does have renal insufficiency with elevated d-dimer. Patient will be admitted I did discuss case with Dr. Perez. The patient will be admitted VQ scan will be ordered. Patient's also has hypomagnesemia magnesium was replaced - Lab Data Result diagrams: 10/15/18 11:51 10/15/18 11:51 Lab Results 10/15/18 10/15/18 10/15/18 Range/Units 11:51 11:51 11:51 WBC 11.6 H (3.8-10.6) k/uL RBC 3.46 L (3.80-5.40) m/uL Hgb 10.2 L (11.4-16.0) gm/dL Hct 31.2 L (34.0-46.0) % MCV 90.0 (80.0-100.0) fL MCH 29.6 (25.0-35.0) pg MCHC 32.9 (31.0-37.0) g/dL RDW 16.7 H (11.5-15.5) % Plt Count 275 (150-450) k/uL Neutrophils % 65 % Lymphocytes % 25 % Monocytes % 4 % Eosinophils % 3 % Basophils % 1 % Neutrophils # 7.5 (1.3-7.7) k/uL Lymphocytes # 2.9 (1.0-4.8) k/uL Monocytes # 0.5 (0-1.0) k/uL Eosinophils # 0.4 (0-0.7) k/uL Basophils # 0.1 (0-0.2) k/uL Poikilocytosis Slight Anisocytosis Slight PT 13.0 H (9.0-12.0) sec INR 1.3 H (<1.2) APTT 24.9 (22.0-30.0) sec D-Dimer 3.23 H (<0.60) mg/L FEU Sodium 134 L (137-145) mmol/L Potassium 4.4 (3.5-5.1) mmol/L Chloride 111 H (98-107) mmol/L Carbon Dioxide 16 L (22-30) mmol/L Anion Gap 7 mmol/L BUN 18 H (7-17) mg/dL Creatinine 2.05 H (0.52-1.04) mg/dL Est GFR (CKD-EPI)AfAm 27 (>60 ml/min/1.73 sqM) Est GFR (CKD-EPI)NonAf 24 (>60 ml/min/1.73 sqM) Glucose 71 L (74-99) mg/dL Calcium 7.8 L (8.4-10.2) mg/dL Magnesium 1.4 L (1.6-2.3) mg/dL Total Bilirubin 1.1 (0.2-1.3) mg/dL AST 41 H (14-36) U/L ALT 42 (9-52) U/L Alkaline Phosphatase 101 (38-126) U/L Creatine Kinase 46 (30-135) U/L Troponin I (0.000-0.034) ng/mL NT-Pro-B Natriuret Pep pg/mL Total Protein 6.3 (6.3-8.2) g/dL Albumin 2.6 L (3.5-5.0) g/dL 10/15/18 10/15/18 Range/Units 11:51 11:51 WBC (3.8-10.6) k/uL RBC (3.80-5.40) m/uL Hgb (11.4-16.0) gm/dL Hct (34.0-46.0) % MCV (80.0-100.0) fL MCH (25.0-35.0) pg MCHC (31.0-37.0) g/dL RDW (11.5-15.5) % Plt Count (150-450) k/uL Neutrophils % % Lymphocytes % % Monocytes % % Eosinophils % % Basophils % % Neutrophils # (1.3-7.7) k/uL Lymphocytes # (1.0-4.8) k/uL Monocytes # (0-1.0) k/uL Eosinophils # (0-0.7) k/uL Basophils # (0-0.2) k/uL Poikilocytosis Anisocytosis PT (9.0-12.0) sec INR (<1.2) APTT (22.0-30.0) sec D-Dimer (<0.60) mg/L FEU Sodium (137-145) mmol/L Potassium (3.5-5.1) mmol/L Chloride (98-107) mmol/L Carbon Dioxide (22-30) mmol/L Anion Gap mmol/L BUN (7-17) mg/dL Creatinine (0.52-1.04) mg/dL Est GFR (CKD-EPI)AfAm (>60 ml/min/1.73 sqM) Est GFR (CKD-EPI)NonAf (>60 ml/min/1.73 sqM) Glucose (74-99) mg/dL Calcium (8.4-10.2) mg/dL Magnesium (1.6-2.3) mg/dL Total Bilirubin (0.2-1.3) mg/dL AST (14-36) U/L ALT (9-52) U/L Alkaline Phosphatase (38-126) U/L Creatine Kinase (30-135) U/L Troponin I <0.012 (0.000-0.034) ng/mL NT-Pro-B Natriuret Pep 466 pg/mL Total Protein (6.3-8.2) g/dL Albumin (3.5-5.0) g/dL - EKG Data -: EKG Interpreted by Me (Sinus rhythm rate 84. Interval 156 QRS duration 80 QT since QTC 424/501 ) EKG Comments: (The rate 84 GA interval 156 QRS 80 QT since QTC 424/501 prolonged QT PVC is noted - Radiology Data Radiology results: report reviewed (I did review the imaging and report no acute findings.), image reviewed Disposition Clinical Impression: Acute bronchospasm, Hypomagnesemia syndrome, Renal insufficiency syndrome, Elevated d-dimer Disposition: ADMITTED IP TO THIS HOSP Condition: Fair Referrals: Shira Tucker MD [Primary Care Provider] - 1-2 days
[2018-10-15 12:41] LABS: Albumin 2.6 g/dL (3.5-5.0); Calcium 7.8 mg/dL (8.4-10.2); Magnesium 1.4 mg/dL (1.6-2.3); Total Bilirubin 1.1 mg/dL (0.2-1.3); Total Protein 6.3 g/dL (6.3-8.2)
[2018-10-15 12:42] LABS: INR 1.3 (<1.2); Partial Thromboplastin Time 24.9 sec (22.0-30.0)
[2018-10-15 12:49] LABS: D-Dimer 3.23 mg/L FEU (<0.60)
[2018-10-15 12:53] LABS: Potassium 4.4 mmol/L (3.5-5.1)
[2018-10-15 13:10] LABS: Anisocytosis Slight; Basophils # (A) 0.1 k/uL (0-0.2); Basophils % (A) 1 %; Eosinophils # (A) 0.4 k/uL (0-0.7); Eosinophils % (A) 3 %; HCT 31.2 % (34.0-46.0); HGB 10.2 gm/dL (11.4-16.0); Lymphocytes # (A) 2.9 k/uL (1.0-4.8); Lymphocytes % (A) 25 %; MCH 29.6 pg (25.0-35.0); MCHC 32.9 g/dL (31.0-37.0); Monocytes # (A) 0.5 k/uL (0-1.0); Monocytes % (A) 4 %; Neutrophils # (A) 7.5 k/uL (1.3-7.7); Neutrophils % (A) 65 %; Platelet Count 275 k/uL (150-450); Poikilocytosis Slight; RBC 3.46 m/uL (3.80-5.40); RDW 16.7 % (11.5-15.5); WBC 11.6 k/uL (3.8-10.6)
--- NOTE | 2018-10-15 13:14 | XR ---
EXAMINATION TYPE: XR chest 2V DATE OF EXAM: 10/15/2018 COMPARISON: 08/20/2018 HISTORY: Shortness of breath TECHNIQUE: Frontal and lateral views of the chest are obtained. FINDINGS: Scattered senescent parenchymal changes noted. No evidence for infiltrate. No evidence for atelectasis. Heart size is stable. Mediastinal structures are stable and grossly unremarkable. No evidence for hilar prominence. Degenerative changes dorsal spine. IMPRESSION: 1. No evidence for acute pulmonary disease.
[2018-10-15] MEDS ORDERED: MAGNESIUM SULFATE-D5W PMX 1 GM in DEXTROSE/WATER 1 100ML.BAG IVPB ONE (13:35)
[2018-10-15] MEDS ORDERED: NALOXONE 0.4 MG/ML 1 ML VIAL IV PRN (17:24)
[2018-10-15] MEDS ORDERED: ONDANSETRON 4 MG/2 ML VIAL IVP PRN (17:24)
[2018-10-15] MEDS ORDERED: HEPARIN SODIUM,PORCINE 10,000 UNIT/ML 1 ML VIAL IV ONE (17:29)
[2018-10-15] MEDS ORDERED: HEPARIN SODIUM,PORCINE 5,000 UNIT/ML 1 ML VIAL IV PRN (17:29)
[2018-10-15] MEDS ORDERED: HEPARIN SOD,PORK IN 0.45% NACL 25,000 UNIT in 0.45% NACL 1 250ML.BAG IV SCH (17:30)
[2018-10-15] MEDS: SODIUM CHLORIDE 0.9% 1,000 ML IV SCH (18:28)
[2018-10-15] MEDS ORDERED: IPRATROPIUM-ALBUTEROL 3 ML NEB INHALATION SCH (20:00)
--- NOTE | 2018-10-15 20:16 | NM ---
EXAMINATION TYPE: NM pul vent and perfuse DATE OF EXAM: 10/15/2018 COMPARISON: NONE HISTORY: Short of breath elevated d-dimer TECHNIQUE: Utilizing inhalation of 66.4 mCi Tc 99m DTPA aerosol and intravenous injection of 5.2 mCi of Tc 99m MAA, ventilation and perfusion images are acquired post injection in multiple projections. FINDINGS: There is fairly uniform perfusion of both lungs. There are small subsegmental ventilation defects in both lungs. There is no ventilation/perfusion mismatch. The chest x-ray today shows no pulmonary cons olidation. IMPRESSION: The exam shows evidence of bilateral mild airway disease. There is a low probability of pulmonary emb olism.
[2018-10-15] MEDS ORDERED: IPRATROPIUM-ALBUTEROL 3 ML NEB INHALATION PRN (21:02)
[2018-10-15] MEDS: MAGNESIUM OXIDE 400 MG TAB PO SCH (21:04)
[2018-10-15] MEDS: GABAPENTIN 300 MG CAP PO SCH (21:04)
[2018-10-15] MEDS: rOPINIRole HCL 4 MG TABLET PO SCH (21:04)
[2018-10-16 04:33] LABS: Amorphous Sediment,Urine Rare /hpf; Appearance,Urine Cloudy (Clear); Bacteria,Urine Moderate /hpf; Bilirubin,Urine Negative (Negative); Blood,Urine Moderate (Negative); Color,Urine Light Yellow; Glucose,Urine (UA) Negative (Negative); Ketones,Urine Negative (Negative); Leukocyte Esterase,Urine Large (Negative); Mucus,Urine Rare /hpf; Nitrite,Urine Negative (Negative); Protein,Urine Negative (Negative); RBC,Urine 3 /hpf (0-5); Specific Gravity,Urine 1.009 (1.001-1.035); Squamous Epithelial Cell,Urine 4 /hpf (0-4); Urobilinogen,Urine <2.0 mg/dL (<2.0); WBC,Urine 41 /hpf (0-5)
[2018-10-16] MEDS: LEVOTHYROXINE 100 MCG TAB PO SCH (06:05)
[2018-10-16 06:48] LABS: Anisocytosis Slight; Basophils % (A) 0 %; Eosinophils # (A) 0.4 k/uL (0-0.7); Eosinophils % (A) 4 %; HCT 27.9 % (34.0-46.0); Lymphocytes # (A) 2.9 k/uL (1.0-4.8); Lymphocytes % (A) 30 %; MCH 29.1 pg (25.0-35.0); MCHC 32.1 g/dL (31.0-37.0); MCV 90.4 fL (80.0-100.0); Monocytes # (A) 0.3 k/uL (0-1.0); Monocytes % (A) 3 %; Neutrophils # (A) 5.8 k/uL (1.3-7.7); Neutrophils % (A) 61 %; Platelet Count 236 k/uL (150-450); Poikilocytosis Slight; RBC 3.09 m/uL (3.80-5.40); RDW 16.6 % (11.5-15.5); WBC 9.6 k/uL (3.8-10.6)
[2018-10-16] MEDS: IPRATROPIUM-ALBUTEROL 3 ML NEB INHALATION SCH ×4 (08:07→21:31)
[2018-10-16] MEDS: rOPINIRole HCL 4 MG TABLET PO SCH ×3 (08:19→20:44)
[2018-10-16] MEDS: ASPIRIN 81 MG PO SCH (08:19)
[2018-10-16] MEDS: MAGNESIUM OXIDE 400 MG TAB PO SCH ×2 (08:19→20:44)
[2018-10-16] MEDS: POTASSIUM BICARBONATE/CIT AC 20 MEQ TABLET.EFF PO SCH (08:19)
[2018-10-16] MEDS: SPIRONOLACTONE 25 MG TAB PO SCH (08:19)
[2018-10-16] MEDS: DULoxetine HCL 60 MG CAPSULE.DR PO SCH (08:19)
[2018-10-16] MEDS: CALCIUM CARB-VIT D 500MG-200UN 1 EACH TAB PO SCH (08:19)
[2018-10-16] MEDS: GABAPENTIN 300 MG CAP PO SCH ×3 (08:19→20:44)
[2018-10-16] MEDS: FERROUS SULFATE 325 MG TAB PO SCH (08:19)
[2018-10-16] MEDS: SODIUM CHLORIDE 0.9% 1,000 ML IV SCH (12:44)
--- NOTE | 2018-10-16 13:59 | P.HPIM ---
History of Present Illness H&P Date: 10/16/18 Chief Complaint: Worsening shortness of breath Shayla Mazariegos is a 73 year old female patient of Dr Tucker who prsented to [facility] ER with a chief complaint of worsening shortness of breath for the last 3 days. Patient was admitted to [facility] in August of this see at that time she had evidence of diastolic congestive heart failure, chronic renal failure, chronic indwelling Balderas catheter and electrolyte imbalance she was discharged home on August 24 2018, she returned yesterday with worsening shortness of breath and bilateral lower extremity edema, d-dimer was significantly elevated, she was started on IV heparin and VQ scan was ordered and revealed low probability of pulmonary embolism, IV heparin was discontinued and patient was admitted to telemetry floor. Patient was seen and examined on the telemetry floor on 10/16/2018 she is alert and oriented 3, she states that her shortness of breath is improving, her pulse ox is 90% on 3 L nasal cannula, she denies any chest pain there is no fever or chills no headache or dizziness, no nausea or vomiting no abdominal pain no diarrhea, she has a Balderas catheter which was changed in the emergency room, she has evidence of urinary tract infection, urine culture was ordered and patient was started on IV Rocephin. Chest x-ray done in the emergency room did not reveal any evidence of acute abnormality. Past Medical History Past Medical History: Cancer, Heart Failure, CVA/TIA, Osteoarthritis (OA), Pneumonia, Renal Disease, Thyroid Disorder Additional Past Medical History / Comment(s): chronic edema, chronic metabolic acidosis, neuropathy, insomnia, Hx breast cancer, chemo and radiation tx in 2002, kidney failure, hypothyroid, RLS, cellulitis R leg, hypotension History of Any Multi-Drug Resistant Organisms: None Reported Past Surgical History: Bariatric Surgery, Section, Cholecystectomy, Tonsillectomy Additional Past Surgical History / Comment(s): Gastric bypass, left breast biopsy & lumpectomy Past Anesthesia/Blood Transfusion Reactions: No Reported Reaction Past Psychological History: Depression Smoking Status: Never smoker Past Alcohol Use History: None Reported Additional Past Alcohol Use History / Comment(s): Patient is a lifelong nonsmoker. She denies any medical marijuana, marijuana, street drug or alcohol use. 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 She currently lives at home and has 2 dogs in the house and one outdoor cat. She recently had to give away 30 alpacas because she could not take care of them any longer. Her committed suicide 1-1/2 years ago. She does not have family support system. She does have a young man that lives with her and is her caregiver. Past Drug Use History: None Reported - Past Family History Father History Unknown: Yes Family Medical History: Diabetes Mellitus Additional Family Medical History / Comment(s): unaware of entire history. Mother History Unknown: Yes Family Medical History: Chest Pain / Angina, Coronary Artery Disease (CAD), Diabetes Mellitus Additional Family Medical History / Comment(s): Valves replaced in her heart per patient. Medications and Allergies Home Medications Medication Instructions Recorded Confirmed Type rOPINIRole HCL [Requip] 6 mg PO TID 07/16/17 10/15/18 History Albuterol Inhaler [Ventolin Hfa 1 - 2 puff INHALATION RT-Q6H PRN 06/30/18 10/15/18 History Inhaler] Ferrous Sulfate [Iron (65 MG 325 mg PO DAILY 06/30/18 10/15/18 History Elemental)] Magnesium Oxide [Magox 400] 400 mg PO BID #60 tablet 07/05/18 10/15/18 Rx Calcium Carb-Vit D 500Mg-200Un 1 tab PO DAILY 08/20/18 10/15/18 History [Oscal 500+D] DULoxetine HCL [Cymbalta] 60 mg PO DAILY 08/20/18 10/15/18 History Gabapentin [Neurontin] 300 mg PO TID 08/20/18 10/15/18 History Levothyroxine Sodium [Synthroid] 200 mcg PO DAILY 08/20/18 10/15/18 History Potassium Bicarb-Citric Acid 25 meq PO DAILY 08/20/18 10/15/18 History [K-Lyte] Aspirin 81 mg PO DAILY 30 Days #30 chew 08/24/18 10/15/18 Rx Calcitriol [Rocaltrol] 0.25 mcg PO Q48H 15 Days #15 cap 08/24/18 10/15/18 Rx Spironolactone 50 mg PO DAILY 10/15/18 10/15/18 History Allergies Allergy/AdvReac Type Severity Reaction Status Date / Time Sulfa (Sulfonamide Allergy Anaphylaxis Verified 10/15/18 14:15 Antibiotics) vancomycin Allergy Rash/Hives Verified 10/15/18 14:15 Physical Exam Vitals: Vital Signs Temp Pulse Pulse Resp BP BP BP 10/16/18 12:40 80 16 10/16/18 12:31 82 16 10/16/18 11:29 99 20 104/46 10/16/18 08:22 84 10/16/18 08:19 98.1 F 69 20 128/66 10/16/18 08:10 80 10/16/18 04:00 98 F 80 20 98/56 102/65 10/15/18 23:56 97 20 10/15/18 23:54 97 20 102/56 76/52 10/15/18 20:00 97 18 10/15/18 18:33 85 10/15/18 18:30 84 15 120/71 10/15/18 18:19 82 10/15/18 18:08 98.2 F 97 18 102/59 10/15/18 18:00 78 20 109/78 10/15/18 17:00 98 18 98/74 10/15/18 16:00 103 H 104/74 10/15/18 15:30 81 18 107/77 10/15/18 15:00 82 18 116/81 10/15/18 14:30 86 99/75 10/15/18 14:00 84 113/84 Pulse Ox 10/16/18 12:40 10/16/18 12:31 10/16/18 11:29 99 10/16/18 08:22 10/16/18 08:19 100 10/16/18 08:10 98 10/16/18 04:00 98 10/15/18 23:56 10/15/18 23:54 96 10/15/18 20:00 10/15/18 18:33 10/15/18 18:30 98 10/15/18 18:19 10/15/18 18:08 100 10/15/18 18:00 98 10/15/18 17:00 98 10/15/18 16:00 10/15/18 15:30 100 10/15/18 15:00 100 10/15/18 14:30 100 10/15/18 14:00 Intake and Output 10/15/18 10/16/18 10/16/18 22:59 06:59 14:59 Intake Total 80 Output Total 1400 750 Balance -1400 670 Intake: Oral 80 Output: Urine 1400 750 Uretheral (Balderas) 375 Other: Voiding Method Indwelling Catheter Indwelling Catheter Indwelling Catheter Weight 110 kg In general patient is alert and oriented 3 in no apparent distress HEENT head normocephalic and atraumatic Neck is supple no JVD no goiter no lymphadenopathy Chest exam reveals a few scattered rhonchi bilaterally no wheezing Cardiac exam reveals regular heart sounds S1 and S2 no gallops no murmurs Abdomen is soft nontender no organomegaly with normal bowel sounds Extremity exam reveals 2+ edema bilaterally there is some erythema and warmth in the right pretibial area Neurological examination reveals no gross focal deficit Results CBC & Chem 7: 10/16/18 06:19 10/15/18 11:51 Labs: Abnormal Lab Results - Last 24 Hours (Table) 10/16/18 10/16/18 10/16/18 Range/Units 04:07 06:19 06:19 RBC 3.09 L (3.80-5.40) m/uL Hgb 9.0 L (11.4-16.0) gm/dL Hct 27.9 L (34.0-46.0) % RDW 16.6 H (11.5-15.5) % Magnesium 1.5 L (1.6-2.3) mg/dL Urine Appearance Cloudy H (Clear) Urine Blood Moderate H (Negative) Ur Leukocyte Esterase Large H (Negative) Urine WBC 41 H (0-5) /hpf Urine WBC Clumps Many H (None) /hpf Amorphous Sediment Rare H (None) /hpf Urine Bacteria Moderate H (None) /hpf Urine Mucus Rare H (None) /hpf Thrombosis Risk Factor Assmnt - Choose All That Apply Any of the Below Risk Factors Present?: Yes Each Factor Represents 1 point: Medical pt on bed rest, Obesity (BMI >25), Swollen legs (current) Other Risk Factors: Yes Each Risk Factor Represents 2 Points: Age 61-74 years, Patient confined to bed Other congenital or acquired thrombophilia - If yes, enter type in comment: No Thrombosis Risk Factor Assessment Total Risk Factor Score: 7 Thrombosis Risk Factor Assessment Level: High Risk Assessment and Plan Plan: #1 shortness of breath, multifactorial, likely related to acute on chronic diastolic congestive heart failure exacerbation. Pulmonary embolism less likely with low probability VQ scan, patient denies ever being diagnosed with COPD she denies ever smoking in the past #2 urinary tract infection urine culture was ordered, patient will be started on Rocephin 1 g IV every 24 hours #3 chronic indwelling Balderas catheter, this was changed in the emergency room, will discuss was patient again indication for chronic Balderas catheter use #4 bilateral lower extremity edema, bilateral lower extremity Doppler was ordered to rule out DVT in view of significantly elevated d-dimer, at this time patient will be started on Lovenox 40 mg subcu once daily after discontinuation of IV heparin earlier today, if lower extremity Doppler is positive will resume IV heparin and start patient on oral anticoagulation. #5 chronic kidney disease stage III #6 electrolyte imbalance correcting #7 underlying history of hypothyroidism #8 underlying history of osteoarthritis #9 underlying history of depression At this time medication and labs and x-ray results were reviewed Patient will be started on subcu Lovenox and on IV Rocephin Pulmonary and cardiology consultation requested Check bilateral lower extremity Doppler Recheck labs and follow-up in a.m.
[2018-10-16] MEDS: ENOXAPARIN 30 MG/0.3 ML SYRINGE SQ SCH (15:10)
--- NOTE | 2018-10-16 20:04 | US ---
EXAMINATION TYPE: US venous doppler duplex LE BI DATE OF EXAM: 10/16/2018 4:00 PM COMPARISON: 07/16/2017 CLINICAL HISTORY: 73-year-old female swelling. CHF, renal failure per patient SIDE PERFORMED: Bilateral TECHNIQUE: The lower extremity deep venous system is examined utilizing real time linear array sonog ashley with graded compression, doppler sonography and color-flow sonography. FINDINGS: VESSELS IMAGED: Common Femoral Vein Deep Femoral Vein Greater Saphenous Vein * Femoral Vein Popliteal Vein Small Saphenous Vein * Proximal Calf Veins (* superficial vessels) Right Leg: Negative for DVT Left Leg: Negative for DVT IMPRESSION: No evidence for DVT within the bilateral lower extremities imaged from the groin to the upper calves.
[2018-10-17] MEDS: LEVOTHYROXINE 100 MCG TAB PO SCH (06:45)
[2018-10-17 06:56] LABS: Anisocytosis Slight; Basophils % (A) 1 %; Eosinophils # (A) 0.4 k/uL (0-0.7); Eosinophils % (A) 5 %; HCT 27.5 % (34.0-46.0); HGB 9.1 gm/dL (11.4-16.0); Lymphocytes # (A) 2.5 k/uL (1.0-4.8); Lymphocytes % (A) 29 %; MCHC 33.1 g/dL (31.0-37.0); MCV 90.7 fL (80.0-100.0); Mean Platelet Volume 7.9; Monocytes # (A) 0.3 k/uL (0-1.0); Monocytes % (A) 4 %; Neutrophils # (A) 5.1 k/uL (1.3-7.7); Neutrophils % (A) 60 %; Platelet Count 227 k/uL (150-450); Poikilocytosis Slight; RBC 3.04 m/uL (3.80-5.40); RDW 16.3 % (11.5-15.5); WBC 8.6 k/uL (3.8-10.6)
[2018-10-17 07:09] LABS: Albumin 2.2 g/dL (3.5-5.0); Calcium 7.3 mg/dL (8.4-10.2); Magnesium 1.6 mg/dL (1.6-2.3); Potassium 3.7 mmol/L (3.5-5.1); Total Bilirubin 0.5 mg/dL (0.2-1.3); Total Protein 5.4 g/dL (6.3-8.2)
[2018-10-17] MEDS: IPRATROPIUM-ALBUTEROL 3 ML NEB INHALATION SCH ×4 (07:33→19:22)
[2018-10-17] MEDS: rOPINIRole HCL 4 MG TABLET PO SCH ×3 (08:15→21:39)
[2018-10-17] MEDS: GABAPENTIN 300 MG CAP PO SCH ×3 (08:15→21:39)
[2018-10-17] MEDS: CALCITRIOL 0.25 MCG CAP PO SCH (08:15)
[2018-10-17] MEDS: FERROUS SULFATE 325 MG TAB PO SCH (08:15)
[2018-10-17] MEDS: SPIRONOLACTONE 25 MG TAB PO SCH (08:16)
[2018-10-17] MEDS: CALCIUM CARB-VIT D 500MG-200UN 1 EACH TAB PO SCH (08:16)
[2018-10-17] MEDS: DULoxetine HCL 60 MG CAPSULE.DR PO SCH (08:16)
[2018-10-17] MEDS: ASPIRIN 81 MG PO SCH (08:16)
[2018-10-17] MEDS: MAGNESIUM OXIDE 400 MG TAB PO SCH ×2 (08:16→21:39)
[2018-10-17] MEDS: ENOXAPARIN 30 MG/0.3 ML SYRINGE SQ SCH (08:17)
[2018-10-17] MEDS: POTASSIUM BICARBONATE/CIT AC 20 MEQ TABLET.EFF PO SCH (08:17)
--- NOTE | 2018-10-17 08:47 | P.CRDCN ---
History of Present Illness Consult date: 10/17/18 Requesting physician: Marcy Perdomo Consult reason: shortness of breath Chief complaint: Shortness of breath and bilateral leg swelling History of present illness: This is a pleasant 73-year-old female who has past medical history significant for chronic kidney disease, hypothyroidism, breast cancer status post chemoradiation, obesity with prior gastric bypass surgery, osteomyelitis, c hronic lower extremity edema and lower extremity cellulitis and chronic Balderas catheter. Patient's most recent admission to the hospital was in August of this year prior to that, the patient was here in June due to acute on chronic kidney failure. Patient has a history of diastolic congestive heart failure. Upon reviewing her prior BNP is, they range from 112-628. On this occasion, patient presented to the hospital with symptoms of progressively worsening shortness of breath as well as worsening in her bilateral peripheral edema. Chest x-ray on presentation here did not show any evidence for acute pulmonary disease. EKG showed a normal sinus rhythm with occasional PVCs, no acute chester es were noted. VQ scan was performed which revealed bilateral mild airway disease with low probability for pulmonary embolism. Bilateral venous duplex study negative for DVT. I pressure 118/70 with a heart rate in the 90s, 99% on room air. White blood cell count 11.6 on admission, 8.6 this morning. Hemoglobin 9.1, platelet count 227. D-dimer 3.2. Sodium 134, potassium 3.7, BUN 23 and creatinine 2.2. NEC and level on admission, 1.4, 1.6 this morning. Troponin 0.012 and BNP level 466. Positive UTI. At the time of my examination this morning, patient states that she has a persistent cough, nonproductive. Denies any fever or chills at home, breathing is overall stable. She does state that since her admission here her edema in her lower extremities has improved. Past Medical History Past Medical History: Cancer, Heart Failure, CVA/TIA, Osteoarthritis (OA), Pneumonia, Renal Disease, Thyroid Disorder Additional Past Medical History / Comment(s): chronic edema, chronic metabolic acidosis, neuropathy, insomnia, Hx breast cancer, chemo and radiation tx in 2002, kidney failure, hypothyroid, RLS, cellulitis R leg, hypotension History of Any Multi-Drug Resistant Organisms: None Reported Past Surgical History: Bariatric Surgery, Section, Cholecystectomy, T onsillectomy Additional Past Surgical History / Comment(s): Gastric bypass, left breast biopsy & lumpectomy Past Anesthesia/Blood Transfusion Reactions: No Reported Reaction Past Psychological History: Depression Smoking Status: Never smoker Past Alcohol Use History: None Reported Additional Past Alcohol Use History / Comment(s): Patient is a lifelong nonsmoker. She denies any medical marijuana, marijuana, street drug or alcohol use. 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 She currently lives at home and has 2 dogs in the house and one outdoor cat. She recently had to give away 30 alpacas because she could not take care of them any longer. Her committed suicide 1-1/2 years ago. She does not have [employer] support system. She does have a young man that lives with her and is her caregiver. Past Drug Use History: None Reported - Past Family History Father History Unknown: Yes Family Medical History: Diabetes Mellitus Additional Family Medical History / Comment(s): unaware of entire history. Mother History Unknown: Yes Family Medical History: Chest Pain / Angina, Coronary Artery Disease (CAD), Diabetes Mellitus Additional Family Medical History / Comment(s): Valves replaced in her heart per patient. Medications and Allergies Home Medications Medication Instructions Recorded Confirmed Type rOPINIRole HCL [Requip] 6 mg PO TID 07/16/17 10/15/18 History Albuterol Inhaler [Ventolin Hfa 1 - 2 puff INHALATION RT-Q6H PRN 06/30/1810/06 History Inhaler] Ferrous Sulfate [Iron (65 MG 325 mg PO DAILY 06/30/18 10/15/18 History Elemental)] Magnesium Oxide [Magox 400] 400 mg PO BID #60 tablet 07/05/18 10/15/18 Rx Calcium Carb-Vit D 500Mg-200Un 1 tab PO DAILY 08/20/18 10/15/18 History [Oscal 500+D] DULoxetine HCL [Cymbalta] 60 mg PO DAILY 08/20/18 10/15/18 History Gabapentin [Neurontin] 300 mg PO TID 08/20/18 10/15/18 History Levothyroxine Sodium [Synthroid] 200 mcg PO DAILY 08/20/18 10/15/18 History Potassium Bicarb-Citric Acid 25 meq PO DAILY 08/20/18 10/15/18 History [K-Lyte] Aspirin 81 mg PO DAILY 30 Days #30 chew 08/24/18 10/15/18 Rx Calcitriol [Rocaltrol] 0.25 mcg PO Q48H 15 Days #15 cap 08/24/18 10/15/18 Rx Spironolactone 50 mg PO DAILY 10/15/18 10/15/18 History Allergies Allergy/AdvReac Type Severity Reaction Status Date / Time Sulfa (Sulfonamide Allergy Anaphylaxis Verified 10/15/18 14:15 Antibiotics) vancomycin Allergy Rash/Hives Verified 10/15/18 14:15 Physical Exam Vitals: Vital Signs Temp Pulse Pulse Resp BP BP Pulse Ox 10/17/18 07:46 88 10/17/18 07:33 80 10/17/18 04:00 97 18 118/72 99 10/16/18 23:27 104 H 18 91/63 98 10/16/18 21:45 81 10/16/18 21:31 78 10/16/18 20:00 100 18 82/56 90/55 95 10/16/18 16:25 80 10/16/18 16:12 76 10/16/18 15:10 97.6 F 75 18 104/59 91 L 10/16/18 12:40 80 16 10/16/18 12:31 82 16 10/16/18 11:29 99 20 104/46 99 Intake and Output 10/16/18 10/17/18 10/17/18 22:59 06:59 14:59 Intake Total 390 Output Total 1000 Balance 390 -1000 Intake: Oral 390 Output: Urine 1000 Other: Voiding Method Indwelling Catheter Indwelling Catheter # Voids 3 Weight 114.5 kg PHYSICAL EXAMINATION: GENERAL: 73-year-old female in no acute distress at the time of my examination HEENT: Head is atraumatic, normocephalic. Pupils equal, round. Sclera anicteric. Conjunctiva are clear. Mucous membranes of the mouth are moist. Neck is supple. There is no elevated jugular venous pressure. No carotid bruit is heard. HEART EXAMINATION: Heart S1, S2 normal. No murmur or gallop heard. CHEST EXAMINATION: Lungs reveal crackles to bilateral bases. ABDOMEN: Soft, nontender. Bowel sounds are heard. No organomegaly noted. EXTREMITIES: 2+ peripheral pulses with evidence of 1+ bilateral peripheral edema and chronic skin changes noted to her bilateral lower extremities.. NEUROLOGIC patient is awake, alert and oriented 3 . . Results 10/17/18 06:05 10/17/18 06:05 Cardiac Enzymes 10/17/18 Range/Units 06:05 AST 21 (14-36) U/L CBC 10/17/18 Range/Units 06:05 WBC 8.6 (3.8-10.6) k/uL RBC 3.04 L (3.80-5.40) m/uL Hgb 9.1 L (11.4-16.0) gm/dL Hct 27.5 L (34.0-46.0) % Plt Count 227 (150-450) k/uL Comprehensive Metabolic Panel 10/17/18 Range/Units 06:05 Sodium 134 L (137-145) mmol/L Potassium 3.7 (3.5-5.1) mmol/L Chloride 106 (98-107) mmol/L Carbon Dioxide 20 L (22-30) mmol/L BUN 23 H (7-17) mg/dL Creatinine 2.20 H (0.52-1.04) mg/dL Glucose 71 L (74-99) mg/dL Calcium 7.3 L (8.4-10.2) mg/dL AST 21 (14-36) U/L ALT 34 (9-52) U/L Alkaline Phosphatase 105 (38-126) U/L Total Protein 5.4 L (6.3-8.2) g/dL Albumin 2.2 L (3.5-5.0) g/dL Current Medications Generic Name Dose Route Start Last Admin Trade Name Freq PRN Reason Stop Dose Admin Albuterol/Ipratropium 3 ml 10/16/18 08:00 10/17/18 07:33 Duoneb 0.5 Mg-3 Mg/3 Ml Soln INHALATION 3 ml RT-QID REILLY Administration Albuterol/Ipratropium 3 ml 10/15/18 21:02 Duoneb 0.5 Mg-3 Mg/3 Ml Soln INHALATION RT-Q2H PRN Shortness Of Breath Or Wheezing Aspirin 81 mg 10/16/18 09:00 10/17/18 08:16 Aspirin PO 81 mg DAILY REILLY Administration Calcitriol 0.25 mcg 10/17/18 09:00 10/17/18 08:15 Rocaltrol PO 0.25 mcg Q48H REILLY Administration Calcium Carbonate 1 each 10/16/18 09:00 10/17/18 08:16 Oscal 500+D PO 1 each DAILY REILLY Administration Duloxetine HCl 60 mg 10/16/18 09:00 10/17/18 08:16 Cymbalta PO 60 mg DAILY REILLY Administration Enoxaparin Sodium 30 mg 10/16/18 13:45 10/17/18 08:17 Lovenox SQ 30 mg DAILY REILLY Administration Ferrous Sulfate 325 mg 10/16/18 09:00 10/17/18 08:15 Feosol PO 325 mg DAILY REILLY Administration Gabapentin 300 mg 10/15/18 22:00 10/17/18 08:15 Neurontin PO 300 mg TID REILLY Administration Sodium Chloride 1,000 mls @ 20 mls/hr 10/15/18 17:30 10/16/18 12:44 Saline 0.9% IV Not Given .Q24H REILLY Ceftriaxone Sodium 1 gm/ 50 mls @ 100 mls/hr 10/16/18 13:30 10/17/18 08:18 Sodium Chloride IVPB 100 mls/hr Q24HR REILLY Administration Levothyroxine Sodium 200 mcg 10/16/18 06:30 10/17/18 06:45 Synthroid PO 200 mcg 0630 REILLY Administration Magnesium Oxide 400 mg 10/15/18 21:00 10/17/18 08:16 Mag-Ox PO 400 mg BID REILLY Administration Naloxone HCl 0.2 mg 10/15/18 17:24 Narcan IV Q2M PRN Opioid Reversal Ondansetron HCl 4 mg 10/15/18 17:24 Zofran IVP Q8HR PRN Nausea And Vomiting Potassium Bicarbonate 20 meq 10/16/18 09:00 10/17/18 08:17 K-Lyte PO 20 meq DAILY REILLY Administration Ropinirole HCl 6 mg 10/15/18 22:00 10/17/18 08:15 Requip PO 6 mg TID REILLY Administration Spironolactone 50 mg 10/16/18 09:00 10/17/18 08:16 Aldactone PO 50 mg DAILY REILLY Administration Intake and Output 10/16/18 10/17/18 10/17/18 22:59 06:59 14:59 Intake Total 390 Output Total 1000 Balance 390 -1000 Intake: Oral 390 Output: Urine 1000 Other: Voiding Method Indwelling Catheter Indwelling Catheter # Voids 3 Weight 114.5 kg 10/17/18 06:05 10/17/18 06:05 EKG Interpretations (text) EKG shows normal sinus rhythm with an occasional PVC, no acute changes noted. Assessment and Plan Plan: Assessment and plan #1 symptoms of progressively worsening shortness of breath with associated nonproductive cough and bilateral lower extremity edema worsening. No significant elevation in proBNP noted. Chest x-ray does not reveal evidence for acute pulmonary disease. #2 acute on chronic renal failure #3 hypomagnesemia #4 obesity, prior gastric bypass surgery #5 hypothyroidism #6 history of breast cancer status post chemo radiation #7 chronic lower extremity edema Plan Patient had an echocardiogram with Doppler study performed in August of this year which revealed a normal left ventricular systolic function, we will not repeat an echo on this admission. We would recommend consultation with nephrology. Further recommendations to follow. DNP note has been reviewed, I agree with a documented findings and plan of care. Patient was seen and examined.
--- NOTE | 2018-10-17 10:39 | P.CNPUL ---
History of Present Illness Consult date: 10/17/18 Requesting physician: Marcy Perdomo Reason for consult: dyspnea Chief complaint: Dyspnea History of present illness: This is 74-year-old white female patient of Dr. Tucker, with past medical history of congestive heart failure, osteoarthritis, previous episodes of pneumonia, chronic kidney disease, hypothyroidism, depression, gait dysfunction, and patient is nonambulatory, pretty much confined to her recliner at home, urinary incontinence with chronic indwelling catheter. No history of chronic lung disease, no asthma, no COPD, patient is a lifetime nonsmoker. On 10/15/2018 patient presented to the hospital per EMS complaints of shortness of breath, cough, and increasing peripheral edema. She denied any fever or chills, denied any sweats, did have some urinary complaints with burning and pressure. She states that an indwelling catheter was put in a year ago, for the reason of urinary incontinence, and patient had not seen a urologist for this problem. Denies presence of any wounds. Other medical history includes left breast cancer status post biopsy and lumpectomy chemotherapy and radiation in 2002, morbid obesity status post gastric bypass surgery. Chest x-ray showed no e vidence of acute pulmonary disease. Admission blood work showed a white blood cell count of 11.6, hemoglobin of 10.2, d-dimer was elevated at 3.23, and VQ scan was obtained showing low probability of pulmonary embolism, lower extremity Dopplers were negative for DVT. Serum sodium was 134, potassium is 4.4, chloride was 111, CO2 is 16, BUN was 18, creatinine is 2.05, troponin was negative 1, proBNP was within normal limits at 466, urinalysis was infected, and urine cultures currently pending. Patient is on antibiotic coverage in the form of Rocephin. On today's exam patient states that she has less short of breath, no cough or congestion, lung sounds are positive for diffuse scattered crackles. She is on 2 L of oxygen with a pulse ox of 100%, respirations are even and nonlabored. Afebrile. Review of Systems All systems: negative Constitutional: Denies chills, Denies fever Eyes: denies blurred vision, denies pain Ears, nose, mouth and throat: Denies headache, Denies sore throat Cardiovascular: Denies chest pain, Denies shortness of breath Respiratory: Reports congestion, Reports dyspnea, Reports respiratory infe ctions, Denies cough Gastrointestinal: Denies abdominal pain, Denies diarrhea, Denies nausea, Denies vomiting Genitourinary: Reports dysuria, Reports urge incontinence, Reports urinary frequency, Denies hematuria Musculoskeletal: Denies myalgias Integumentary: Denies pruritus, Denies rash Neurological: Denies numbness, Denies weakness Psychiatric: Denies anxiety, Denies depression Endocrine: Denies fatigue, Denies weight change Past Medical History Past Medical History: Cancer, Heart Failure, CVA/TIA, Osteoarthritis (OA), Pneumonia, Renal Disease, Thyroid Disorder Additional Past Medical History / Comment(s): chronic edema, chronic metabolic acidosis, neuropathy, insomnia, Hx breast cancer, chemo and radiation tx in 2002, kidney failure, hypothyroid, RLS, cellulitis R leg, hypotension History of Any Multi-Drug Resistant Organisms: None Reported Past Surgical History: Bariatric Surgery, Section, Cholecystectomy, Tonsillectomy Additional Past Surgical History / Comment(s): Gastric bypass, left breast biopsy & lumpectomy Past Anesthesia/Blood Transfusion Reactions: No Reported Reaction Past Psychological History: Depression Smoking Status: Never smoker Past Alcohol Use History: None Reported Additional Past Alcohol Use History / Comment(s): Patient is a lifelong nonsmoker. She denies any medical marijuana, marijuana, street drug or alcohol use. 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 She currently lives at home and has 2 dogs in the house and one outdoor cat. She recently had to give away 30 alpacas because she could not take care of them any longer. Her committed suicide 1-1/2 years ago. She does not have family support system. She does have a young man that lives with her and is her caregiver. Past Drug Use History: None Reported - Past Family History Father History Unknown: Yes Family Medical History: Diabetes Mellitus Additional Family Medical History / Comment(s): unaware of entire history. Mother History Unknown: Yes Family Medical History: Chest Pain / Angina, Coronary Artery Disease (CAD), Diabetes Mellitus Additional Family Medical History / Comment(s): Valves replaced in her heart per patient. Medications and Allergies Home Medications Medication Instructions Recorded Confirmed Type rOPINIRole HCL [Requip] 6 mg PO TID 07/16/17 10/15/18 History Albuterol Inhaler [Ventolin Hfa 1 - 2 puff INHALATION RT-Q6H PRN 06/30/18 10/15/18 History Inhaler] Ferrous Sulfate [Iron (65 MG 325 mg PO DAILY 06/30/18 10/15/18 History Elemental)] Magnesium Oxide [Magox 400] 400 mg PO BID #60 tablet 07/05/18 10/15/18 Rx Calcium Carb-Vit D 500Mg-200Un 1 tab PO DAILY 08/20/18 10/15/18 History [Oscal 500+D] DULoxetine HCL [Cymbalta] 60 mg PO DAILY 08/20/18 10/15/18 History Gabapentin [Neurontin] 300 mg PO TID 08/20/18 10/15/18 History Levothyroxine Sodium [Synthroid] 200 mcg PO DAILY 08/20/18 10/15/18 History Potassium Bicarb-Citric Acid 25 meq PO DAILY 08/20/18 10/15/18 History [K-Lyte] Aspirin 81 mg PO DAILY 30 Days #30 chew 08/24/18 10/15/18 Rx Calcitriol [Rocaltrol] 0.25 mcg PO Q48H 15 Days #15 cap 08/24/18 10/15/18 Rx Spironolactone 50 mg PO DAILY 10/15/18 10/15/18 History Allergies Allergy/AdvReac Type Severity Reaction Status Date / Time Sulfa (Sulfonamide Allergy Anaphylaxis Verified 10/15/18 14:15 Antibiotics) vancomycin Allergy Rash/Hives Verified 10/15/18 14:15 Physical Exam Vitals: Vital Signs Temp Pulse Pulse Resp BP BP Pulse Ox 10/17/18 08:15 98.1 F 98 18 115/73 100 10/17/18 07:46 88 10/17/18 07:33 80 10/17/18 04:00 97 18 118/72 99 10/16/18 23:27 104 H 18 91/63 98 10/16/18 21:45 81 10/16/18 21:31 78 10/16/18 20:00 100 18 82/56 90/55 95 10/16/18 16:25 80 10/16/18 16:12 76 10/16/18 15:10 97.6 F 75 18 104/59 91 L 10/16/18 12:40 80 16 10/16/18 12:31 82 16 10/16/18 11:29 99 20 104/46 99 Intake and Output 10/16/18 10/17/18 10/17/18 22:59 06:59 14:59 Intake Total 390 460 Output Total 1000 275 Balance 390 -1000 185 Intake: Oral 390 460 Output: Urine 1000 275 Uretheral (Balderas) 275 Other: Voiding Method Indwelling Catheter Indwelling Catheter Indwelling Catheter # Voids 3 Weight 114.5 kg GENERAL EXAM: Alert, pleasant, 73-year-old obese white female, on 2 L of oxygen and the pulse ox of 100%, resting in bed comfortable in no apparent distress. HEAD: Normocephalic/atraumatic. EYES: Normal reaction of pupils, equal size. Conjunctiva pink, sclera white. NOSE: Clear with pink turbinates. THROAT: No erythema or exudates. NECK: No masses, no JVD, no thyroid enlargement, no adenopathy. CHEST: No chest wall deformity. Symmetrical expansion. LUNGS: Equal air entry with diffuse scattered crackles, in the upper and lower lobes, no wheeze, rhonchi or dullness. CVS: Regular rate and rhythm, normal S1 and S2, no gallops, no murmurs, no rubs ABDOMEN: Soft, nontender. No hepatosplenomegaly, normal bowel sounds, no gua rding or rigidity. EXTREMITIES: No clubbing, non-pitting lower extremity edema, no cyanosis, 2+ pulses and upper and lower extremities. MUSCULOSKELETAL: Muscle strength and tone normal. SPINE: No scoliosis or deformity SKIN: No rashes CENTRAL NERVOUS SYSTEM: Alert and oriented -3. No focal deficits, tone is normal in all 4 extremities. PSYCHIATRIC: Alert and oriented -3. Appropriate affect. Intact judgment and insight. Results - Laboratory Findings CBC and BMP: 10/17/18 06:05 10/17/18 06:05 PT/INR, D-dimer PT 13.0 sec (9.0-12.0) H 10/15/18 11:51 INR 1.3 (<1.2) H 10/15/18 11:51 D-Dimer 3.23 mg/L FEU (<0.60) H 10/15/18 11:51 Abnormal lab findings: Abnormal Labs 10/15/18 10/15/18 10/15/18 11:51 11:51 11:51 WBC 11.6 H RBC 3.46 L Hgb 10.2 L Hct 31.2 L RDW 16.7 H PT 13.0 H INR 1.3 H D-Dimer 3.23 H Sodium 134 L Chloride 111 H Carbon Dioxide 16 L BUN 18 H Creatinine 2.05 H Glucose 71 L Calcium 7.8 L Magnesium 1.4 L AST 41 H Total Protein Albumin 2.6 L Urine Appearance Urine Blood Ur Leukocyte Esterase Urine WBC Urine WBC Clumps Amorphous Sediment Urine Bacteria Urine Mucus 10/16/18 10/16/18 10/16/18 04:07 06:19 06:19 WBC RBC 3.09 L Hgb 9.0 L Hct 27.9 L RDW 16.6 H PT INR D-Dimer Sodium Chloride Carbon Dioxide BUN Creatinine Glucose Calcium Magnesium 1.5 L AST Total Protein Albumin Urine Appearance Cloudy H Urine Blood Moderate H Ur Leukocyte Esterase Large H Urine WBC 41 H Urine WBC Clumps Many H Amorphous Sediment Rare H Urine Bacteria Moderate H Urine Mucus Rare H 10/17/18 10/17/18 06:05 06:05 WBC RBC 3.04 L Hgb 9.1 L Hct 27.5 L RDW 16.3 H PT INR D-Dimer Sodium 134 L Chloride Carbon Dioxide 20 L BUN 23 H Creatinine 2.20 H Glucose 71 L Calcium 7.3 L Magnesium AST Total Protein 5.4 L Albumin 2.2 L Urine Appearance Urine Blood Ur Leukocyte Esterase Urine WBC Urine WBC Clumps Amorphous Sediment Urine Bacteria Urine Mucus - Diagnostic Findings Chest x-ray: report reviewed, image reviewed Additional studies: EKG reviewed, VQ scan reviewed, venous Doppler lower extremities reviewed Assessment and Plan Plan: Assessment #1. Dyspnea, cough, could possibly be related to mild tracheobronchitis, chest x-ray did not show any acute pulmonary process #2. Acute urinary tract infection #3. Chronic indwelling catheter for urinary incontinence, untreated. #4. Gait dysfunction, patient is nonambulatory #5. Recent hospitalization for exacerbation of chronic diastolic congestive heart failure #6. Acute kidney injury with non-anion gap metabolic acidosis #7. Related d-dimer, VQ scan showed low probability of pulmonary embolism, and lower extremity Dopplers were negative for DVT #8. Hypomagnesemia #9. Chronic kidney disease stage III due to hypertensive nephrosclerosis #10. Osteoarthritis #11. Morbid obesity #12. Previous episodes of pneumonia, bronchitis #13. Depression #14. Never smoker #15. Hypothyroidism Plan: X-ray has been reviewed with Dr. Feliciano, showed no acute pulmonary process, no evidence of pulmonary embolism or DVTs on the VQ scan and lower extremity Do pplers, patient is maintaining good oxygenation, maintain aspiration precautions, encouraged to deep breathe and cough, she is afebrile, will continue with nebulized bronchodilators, Rocephin, and provide incentive spirometer. Obtain follow-up chest x-ray tomorrow morning. Continue to follow and make further recommendations I performed a history & physical examination of the patient and discussed their management with my nurse practitioner, Geraldine London. I reviewed the nurse practitioner's note and agree with the documented findings and plan of care. Lung sounds are positive for diffuse crackles . The findings and the impression was discussed with the patient. I attest to the documentation by the nurse practitioner. Time with Patient: Greater than 30
[2018-10-17] MEDS ORDERED: FLUCONAZOLE 150 MG TAB PO STA (12:14)
[2018-10-17] MEDS: SODIUM CHLORIDE 0.9% 1,000 ML IV SCH (12:45)
--- NOTE | 2018-10-17 19:56 | P.PN ---
Subjective Progress Note Date: 10/17/18 (Delayed charting patient seen at 1115) Principal diagnosis: Shortness of breath Patient is a 73-year-old female with a past medical history of arthritis, pneumonia, chronic kidney disease, and EHF who presented to the ER with complaints of shortness of breath. In the ER she underwent an extensive evaluation. On arrival her vital signs within normal limits. Initial laboratory analysis showed an elevated white blood cell count of 11.6, anemia with a hemoglobin of 10.2, elevated d-dimer at 3.23, non-anion gap hyperchloremic metabolic acidosis, and elevated creatinine. She was also found to have low magnesium. There was concern for possible pulmonary embolism and she was started on IV heparin and a VQ scan was ordered. Urinalysis showed probable urinary tract infection and chronic Sparrow catheter was changed out in the ER. She was started on bronchodilators and Rocephin. VQ scan was negative and heparin was discontinued. She was maintained on IV Lasix. Patient seen and examined at bedside. She reports that she is still feeling weak but slightly better than yesterday. She still having some edema. She complains about pain in her right knee which is chronic in nature and unchanged. She has no other complaints currently. Objective - Vital Signs Vital signs: Vital Signs Temp 98.0 F 10/17/18 16:00 Pulse 80 10/17/18 19:22 Resp 16 10/17/18 16:00 BP 92/51 10/17/18 16:00 Pulse Ox 96 10/17/18 16:00 Intake & Output 10/17/18 10/17/18 10/18/18 06:59 18:59 06:59 Intake Total 360 640 Output Total 1000 500 Balance -640 140 Weight 114.5 kg Intake: IV 10 Invasive Line 2 10 Intake, IV Titration 50 Amount cefTRIAXone 1 gm In 50 Sodium Chloride 0.9% 50 ml @ 100 mls/hr IVPB Q24HR [facility] Rx#:[id number] Oral 360 580 Output: Urine 1000 500 Uretheral (Sparrow) 500 Other: Voiding Method Indwelling Catheter Indwelling Catheter # Voids 3 - Exam General: non toxic, no distress, appears at stated age, obese Derm: warm, dry Head: atraumatic, normocephalic, symmetric Eyes: EOMI, no lid lag, anicteric sclera Mouth: no lip lesion, mucus membranes moist Cardiovascular: S1S2 reg, no murmur, positive posterior tibial pulse bilateral, Lungs: Decreased breath sounds bilateral, no rhonchi, no rales , no accessory muscle use Abdominal: soft, nontender to palpation, no guarding, no appreciable organomegaly Ext: no gross muscle atrophy, 2+ edema, no contractures Neuro: CN II-XI grossly intact, no focal neuro deficits Psych: Alert, oriented, appropriate affect - Labs CBC & Chem 7: 10/17/18 06:05 10/17/18 06:05 Labs: Abnormal Lab Results - Last 24 Hours (Table) 10/17/18 10/17/18 Range/Units 06:05 06:05 RBC 3.04 L (3.80-5.40) m/uL Hgb 9.1 L (11.4-16.0) gm/dL Hct 27.5 L (34.0-46.0) % RDW 16.3 H (11.5-15.5) % Sodium 134 L (137-145) mmol/L Carbon Dioxide 20 L (22-30) mmol/L BUN 23 H (7-17) mg/dL Creatinine 2.20 H (0.52-1.04) mg/dL Glucose 71 L (74-99) mg/dL Calcium 7.3 L (8.4-10.2) mg/dL Total Protein 5.4 L (6.3-8.2) g/dL Albumin 2.2 L (3.5-5.0) g/dL Microbiology - Last 24 Hours (Table) 10/16/18 04:07 Urine Culture - Preliminary Urine,Catheterized Gram Neg Bacilli Assessment and Plan Assessment: Dyspnea -Possibly related to tracheobronchitis. Pulmonary recommendations appreciated. Continue with Rocephin and bronchodilators. -Doubt related to CHF with negative BNP and chest x-ray without any signs of fluid -Cardiology recommendations appreciated Complicaed UTI related to chronic indwelling sparrow - Sparrow changed in ED - on Rocephin - culture results pending BRANNON on CKD III Baseline creatinine approximately 1.8-2.00 -Hold spironolactone today -Repeat basic metabolic profile in a.m. -Avoid additional nephrotoxic agents -Strict I's and O's Morbid obsity with BMI 40.7 -Outpatient structured weight loss hypothyroidism -Continue Synthroid Chronic LE edema -Recommend outpatient evaluation for possible venous insufficiency -Compression stockings, patient does not want to wear -Hold diuretics at this time secondary to increasing creatinine Elevated d-dimer - VQ negative - LE venous doppler negative Functional debility -PT/OT -Fall precautions Chronic: arthritis depression DVT prophylaxis: Lovenox Discussed with: Patient, nursing Anticipated discharge: 24-[address]: home with home health A total of 35 minutes was spent on the care of this complex patient more than 50% of the time was spent in counseling and care coordination.
[2018-10-18] MEDS: ACETAMINOPHEN TAB 325 MG TAB PO PRN ×2 (03:55→21:14)
[2018-10-18] MEDS: LEVOTHYROXINE 100 MCG TAB PO SCH (05:40)
[2018-10-18 06:43] LABS: Anisocytosis Slight; Basophils % (A) 0 %; Eosinophils # (A) 0.4 k/uL (0-0.7); Eosinophils % (A) 5 %; HCT 26.3 % (34.0-46.0); Lymphocytes # (A) 1.7 k/uL (1.0-4.8); Lymphocytes % (A) 23 %; MCH 30.9 pg (25.0-35.0); MCHC 34.3 g/dL (31.0-37.0); MCV 90.1 fL (80.0-100.0); Mean Platelet Volume 8.1; Monocytes # (A) 0.3 k/uL (0-1.0); Monocytes % (A) 4 %; Neutrophils % (A) 67 %; Platelet Count 231 k/uL (150-450); RBC 2.91 m/uL (3.80-5.40); RDW 16.3 % (11.5-15.5); WBC 7.5 k/uL (3.8-10.6)
[2018-10-18 06:56] LABS: Calcium 7.6 mg/dL (8.4-10.2); Potassium 3.9 mmol/L (3.5-5.1)
--- NOTE | 2018-10-18 07:30 | XR ---
EXAMINATION TYPE: XR chest 1V portable DATE OF EXAM: 10/18/2018 Comparison: 10/15/2018 Clinical History: 73-year-old female shortness of breath Findings: Heart upper limits of normal in size. Mild streaky perihilar densities. Some patchy density along the left heart margin. No pleural effusion. Advanced degenerative changes right shoulder. Impression: Correlate to exclude mild pulmonary vascular congestion. There is some additional patchy atelectasis or early infiltrate along the left heart margin.
[2018-10-18] MEDS: IPRATROPIUM-ALBUTEROL 3 ML NEB INHALATION SCH ×4 (09:04→20:09)
[2018-10-18] MEDS: POTASSIUM BICARBONATE/CIT AC 20 MEQ TABLET.EFF PO SCH (09:54)
[2018-10-18] MEDS: MAGNESIUM OXIDE 400 MG TAB PO SCH ×2 (09:54→21:06)
[2018-10-18] MEDS: ASPIRIN 81 MG PO SCH (09:54)
[2018-10-18] MEDS: CALCIUM CARB-VIT D 500MG-200UN 1 EACH TAB PO SCH (09:54)
[2018-10-18] MEDS: rOPINIRole HCL 4 MG TABLET PO SCH ×3 (09:54→21:06)
[2018-10-18] MEDS: ENOXAPARIN 30 MG/0.3 ML SYRINGE SQ SCH (09:54)
[2018-10-18] MEDS: GABAPENTIN 300 MG CAP PO SCH ×3 (09:54→21:06)
[2018-10-18] MEDS: DULoxetine HCL 60 MG CAPSULE.DR PO SCH (09:54)
[2018-10-18] MEDS: FERROUS SULFATE 325 MG TAB PO SCH (09:54)
[2018-10-18] MEDS ORDERED: FUROSEMIDE 10 MG/ML 4 ML VIAL IV STA (10:20)
--- NOTE | 2018-10-18 10:58 | P.PN ---
Subjective Progress Note Date: 10/18/18 This is a pleasant 73-year-old female who has past medical history significant for chronic kidney disease, hypothyroidism, breast cancer status post chemoradiation, obesity with prior gastric bypass surgery, osteomyelitis, chronic lower extremity edema and lower extremity cellulitis and chronic Balderas catheter. Patient's most recent admission to the hospital was in August of this year prior to that, the patient was here in June due to acute on chronic kidney failure. Patient has a history of diastolic congestive heart failure. Upon reviewing her prior BNP is, they range from 112-628. On this occasion, patient presented to the hospital with symptoms of progressively worsening shortness of breath as well as worsening in her bilateral peripheral edema. Chest x-ray on presentation here did not show any evidence for acute pulmonary disease. EKG showed a normal sinus rhythm with occasional PVCs, no acute changes were noted. VQ scan was performed which revealed bilateral mild airway disease with low probability for pulmonary embolism. Bilateral venous duplex study negative for DVT. Blood pressure 118/70 with a heart rate in the 90s, 99% on room air. White blood cell count 11.6 on admission, 8.6 this morning. Hemoglobin 9.1, platelet count 227. D-dimer 3.2. Sodium 134, potassium 3.7, BUN 23 and creatinine 2.2. NEC and level on admission, 1.4, 1.6 this morning. Troponin 0.012 and BNP level 466. Positive UTI. At the time of my examination this morning, patient states that she has a persistent cough, nonproductive. Denies any fever or chills at home, breathing is overall stable. She does state that since her admission here her edema in her lower extremities has improved. 10/18/2018 Patient seen and examined this morning, feeling better overall. Continues to have cough, continues to have peripheral edema however much improved from her usual.blood pressure 112/60 with a heart rate in the 70s, 96% on 2 L of oxygen.White blood cell count 7.5, hemoglobin 9, platelet count 231. Sodium 132, potassium 3.9, BUN 26 and creatinine 2.1. Objective - Vital Signs Vital signs: Vital Signs Temp 98.1 F 10/18/18 08:00 Pulse 78 10/18/18 09:16 Resp 18 10/18/18 08:00 BP 113/65 10/18/18 08:00 Pulse Ox 97 10/18/18 09:04 Intake & Output 10/17/18 10/18/18 10/18/18 18:59 06:59 18:59 Intake Total 640 480 Output Total 500 1050 Balance 140 -1050 480 Weight 113 kg Intake: IV 10 Invasive Line 2 10 Intake, IV Titration 50 Amount cefTRIAXone 1 gm In 50 Sodium Chloride 0.9% 50 ml @ 100 mls/hr IVPB Q24HR COUNTS INCLUDE 234 BEDS AT THE [facility] Rx#:[id number] Oral 580 480 Output: Urine 500 1050 Uretheral (Balderas) 500 350 Other: Voiding Method Indwelling Catheter Indwelling Catheter Indwelling Catheter - Exam PHYSICAL EXAMINATION: GENERAL: 73-year-old female in no acute distress at the time of my examination HEENT: Head is atraumatic, normocephalic. Pupils equal, round. Sclera anicteric. Conjunctiva are clear. Mucous membranes of the mouth are moist. Neck is supple. There is no elevated jugular venous pressure. No carotid bruit is heard. HEART EXAMINATION: Heart S1, S2 normal. No murmur or gallop heard. CHEST EXAMINATION: Lungs reveal crackles to bilateral bases. ABDOMEN: Soft, nontender. Bowel sounds are heard. No organomegaly noted. EXTREMITIES: 2+ peripheral pulses with evidence of 1+ bilateral peripheral edema and chronic skin changes noted to her bilateral lower extremities.. NEUROLOGIC patient is awake, alert and oriented 3 . - Labs CBC & Chem 7: 10/18/18 05:52 10/18/18 05:52 Labs: Abnormal Lab Results - Last 24 Hours (Table) 10/18/18 10/18/18 Range/Units 05:52 05:52 RBC 2.91 L (3.80-5.40) m/uL Hgb 9.0 L (11.4-16.0) gm/dL Hct 26.3 L (34.0-46.0) % RDW 16.3 H (11.5-15.5) % Sodium 132 L (137-145) mmol/L Carbon Dioxide 18 L (22-30) mmol/L BUN 26 H (7-17) mg/dL Creatinine 2.19 H (0.52-1.04) mg/dL Calcium 7.6 L (8.4-10.2) mg/dL Microbiology - Last 24 Hours (Table) 10/16/18 04:07 Urine Culture - Preliminary Urine,Catheterized Gram Neg Bacilli Assessment and Plan Plan: Assessment and plan #1 symptoms of progressively worsening shortness of breath with associated nonproductive cough and bilateral lower extremity edema worsening. No significant elevation in proBNP noted. Chest x-ray does not reveal evidence for acute pulmonary disease. #2 acute on chronic renal failure #3 hypomagnesemia #4 obesity, prior gastric bypass surgery #5 hypothyroidism #6 history of breast cancer status post chemo radiation #7 chronic lower extremity edema Plan From Cardiology's perspective, patient may be able to be discharged home once cleared by primary. We will make her a follow-up appointment in the office post discharge. DNP note has been reviewed, I agree with a documented findings and plan of care. Patient was seen and examined.
--- NOTE | 2018-10-18 11:31 | CONS ---
CONSULTATION REASON FOR CONSULT: Renal failure. HISTORY OF PRESENT ILLNESS: The patient is a 73-year-old female who was admitted to the hospital with complaints of shortness of breath. The patient has had cough prior to admission. She denied any fevers or chills. The chest x-ray showed no active disease. A V/Q scan was done at the time of admission showed low probability for PE. The patient does have chronic diastolic CHF. Initially, she did receive Lasix, however, that was not continued. Currently patient is not on any IV fluids. She states she is feeling better, although is mildly short of breath today. Serum creatinine was 2.05 mg/dL on admission. It is at 2.1 now. Review of previous lab shows creatinine about 2.2 and 2.0, most of August of 2018. Currently patient has an indwelling Badleras catheter. A 24-hour urine output was about 1.5 L. The patient denies use of any nonsteroidal anti-inflammatory agents prior to admission. She was seen by us during an admission in August of 2018 as well when she was admitted for fluid overload and CHF exacerbation. PAST MEDICAL HISTORY: CVA, heart failure, TIA, pneumonia, mainly diastolic heart failure, CKD stage 3, chronic metabolic acidosis, history of breast cancer, status post chemo and radiation therapy, history of lower extremity cellulitis. PAST SURGICAL HISTORY: Bariatric surgery, , cholecystectomy, tonsillectomy, left breast biopsy, lumpectomy. SOCIAL HISTORY: Social history is negative for smoking. Patient denies any history of alcohol abuse or drug abuse. MEDICATIONS: Medications prior to admission include Requip, Ventolin inhaler, magnesium, calcium, Cymbalta, Neurontin, Synthroid, K-Lyte, aspirin, Rocaltrol, spironolactone. ALLERGIES: Allergies include SULFA, which causes anaphylaxis and VANCOMYCIN causes rash. PHYSICAL EXAMINATION: On examination, patient is comfortable, awake, alert, oriented x3, not in any acute distress. She is mildly short of breath. Blood pressure is 113/65, heart rate 78 per minute. She is afebrile. EXAMINATION OF THE HEART: S1, S2. EXAMINATION OF THE LUNGS: Bilateral breath sounds are heard. Abdomen is soft, nontender, obese. Examination of the lower extremities shows chronic skin changes. Edema 1+ bilaterally. [employer] exam is grossly intact. LABS: Labs show sodium 132, potassium 3.9, BUN 26, serum creatinine 2.19, calcium 7.6. UA shows moderate blood, large leukocyte esterase, WBC of 41 and many WBC clumps were noted. Hemoglobin was 9.0 g/dL. ASSESSMENT: 1. Chronic kidney disease NKF stage 3B to 4, secondary to nephrosclerosis. Baseline creatinine about 1.6 to 2 mg/dL as of August of 2018. Currently, patient has an indwelling Balderas catheter with good urine output. She appears mildly volume overloaded. Agree with Lasix. Repeat chest x-ray from this morning does show evidence of pulmonary vascular congestion. There are no nephrotoxic medications on board at this time. Continue off of IV fluids. 2. Acute kidney injury, cardiorenal, renal function although not far from baseline. 3. Anemia of chronic disease. Iron saturation was checked in August and there was no evidence of iron deficiency. I will start the patient on Aranesp. 4. Pyuria, rule out underlying urinary tract infection. Check urine cultures. 5. Chronic kidney disease mineral bone disorder. Continue with Rocaltrol. PLAN: Start Aranesp. Check urine culture. The patient will need gentle diuresis. Repeat labs in a.m. Start oral diuretics after the IV push dose today. Thank you for this consultation. We will continue to follow the patient with you during her hospitalization. MMODL / IJN: [id number] /
--- NOTE | 2018-10-18 11:58 | CDI ---
Documentation Clarification Form Date: 10/18/2018 11:23:51 AM From: Babita Shelton RN, CCDS Admit Date: 10/15/2018 5:24:00 PM Patient Name: Shayla Mazariegos Visit Number: [id number] Discharge Date: ATTENTION: The Clinical Documentation Specialists (CDI) and [facility] Coding Staff appreciate your assistance in clarifying documentation. Please respond to the clarification below the line at the bottom and electronically sign. The CDI & [facility] Coding staff will review the response and follow-up if needed. Please note: Queries are made part of the Legal Health Record. If you have any questions, please contact the author of this message via ITS. Dr. Marcy Perdomo The patient presented with dyspnea and cough History/Risk Factors: Diastolic Congestive Heart failure, CKD stage 3 Clinical Indicators: 74-year-old female with no history of chronic lung disease, no asthma, [employer], patient is a lifetime nonsmoker. On patient presented to the hospital per EMS with complaints of shortness of breath, cough and increasing peripheral edema. Lungs sounds are positive for diffuse scattered crackles, respirations are even and nonlabored. Lab findings: BNP 466, magnesium 1.4, 1.5; BUN 18, CR 2.05 CXR: no evidence of acute pulmonary disease. VQ scan: low probability of pulmonary embolism. Doppler: neg for DVT, Vital Signs: 109/71 77 20 98.7 98 % 2/L NC Treatment: Nebulized bronchodilators Incentive spirometer, Rocephin IV Follow up chest x-ray Consults: In your professional opinion, can you please clarify the acuity of tracheobronchitis: Acute Acute on chronic with or with bronchospasms Other (please specify) Clinically unable to determine (Last Revision: September 2017) acute tracheobronchitis, without bronchospasms MTDD
[2018-10-18] MEDS ORDERED: DARBEPOETIN ALFA 40 MCG/0.4 ML SYRINGE SQ SCH (12:00)
--- NOTE | 2018-10-18 13:48 | P.PN ---
Subjective Progress Note Date: 10/18/18 Shayla Mazariegos is a 73 year old female patient of Dr Tucker who prsented to [facility] ER with a chief complaint of worsening shortness of breath for the last 3 days. Patient was admitted to [facility] in August of this see at that time she had evidence of diastolic congestive heart failure, chronic renal failure, chronic indwelling Balderas catheter and electrolyte imbalance she was discharged home on August 24 2018, she returned yesterday with worsening shortness of breath and bilateral lower extremity edema, d-dimer was significantly elevated, she was started on IV heparin and VQ scan was ordered and revealed low probability of pulmonary embolism, IV heparin was discontinued and patient was admitted to telemetry floor. Patient was seen and examined on the telemetry floor on 10/16/2018 she is alert and oriented 3, she states that her shortness of breath is improving, her pulse ox is 90% on 3 L nasal cannula, she denies any chest pain there is no fever or chills no headache or dizziness, no nausea or vomiting no abdominal pain no diarrhea, she has a Balderas catheter which was changed in the emergency room, she has evidence of urinary tract infection, urine culture was ordered and patient was started on IV Rocephin. Chest x-ray done in the emergency room did not reveal any evidence of acute abnormality. 10/18/2018 patient was seen by , who is covering for Dr. Perdomo yesterday. Patient sitting up in bed comfortably. Denies any shortness of b reath. She is asking when she can home. At this time she was seen by nephrology they have added Aranesp for her anemia. Cardiology has cleared her from their standpoint for discharge and she is also being followed by pulmonary service. Chest x-ray shows took correlate to exclude pulmonary vascular congestion. She is receiving 1 more dose of IV Lasix today and the meaning switched over to oral Lasix. She is being treated for UTI and on Rocephin. She has a chronic indwelling Balderas catheter. Patient denies any chest pain or shortness of breath. Denies any nausea or vomiting bowel movement changes. Objective - Vital Signs Vital signs: Vital Signs Temp 98.1 F 10/18/18 08:00 Pulse 86 10/18/18 12:22 Resp 18 10/18/18 08:00 BP 113/65 05/13/19 08:00 Pulse Ox 97 10/18/18 09:04 Intake & Output 10/17/18 10/18/18 10/18/18 18:59 06:59 18:59 Intake Total 640 480 Output Total 500 1050 Balance 140 -1050 480 Weight 113 kg Intake: IV 10 Invasive Line 2 10 Intake, IV Titration 50 Amount cefTRIAXone 1 gm In 50 Sodium Chloride 0.9% 50 ml @ 100 mls/hr IVPB Q24HR [facility] Rx#:[id number] Oral 580 480 Output: Urine 500 1050 Uretheral (Balderas) 500 350 Other: Voiding Method Indwelling Catheter Indwelling Catheter Indwelling Catheter - Exam Head normocephalic Neck supple Lungs a few expiratory wheezes noted on the left Heart regular rate and rhythm S1-S2, no rub or gallop Abdomen is soft nontender nondistended positive bowel sounds no hepatosple nomegaly Extremities no edema Neuro alert and orientated to 3 - Labs CBC & Chem 7: 10/18/18 05:52 10/18/18 05:52 Labs: Abnormal Lab Results - Last 24 Hours (Table) 10/18/18 10/18/18 Range/Units 05:52 05:52 RBC 2.91 L (3.80-5.40) m/uL Hgb 9.0 L (11.4-16.0) gm/dL Hct 26.3 L (34.0-46.0) % RDW 16.3 H (11.5-15.5) % Sodium 132 L (137-145) mmol/L Carbon Dioxide 18 L (22-30) mmol/L BUN 26 H (7-17) mg/dL Creatinine 2.19 H (0.52-1.04) mg/dL Calcium 7.6 L (8.4-10.2) mg/dL Microbiology - Last 24 Hours (Table) 10/16/18 04:07 Urine Culture - Preliminary Urine,Catheterized Gram Neg Bacilli Assessment and Plan Assessment: 1. Dyspnea likely secondary to acute tracheobronchitis and mild fluid overload. Initial chest x-ray negative for acute pulmonary process. Continue Rocephin and bronchodilators. Followed by pulmonary service. 2. Complicated UTI related to chronic indwelling Balderas catheter. Continue Rocephin. Urine culture growing gram-negative bacilli. Balderas catheter changed in the ED 3. Acute kidney injury: Likely cardiorenal. Seen by nephrology service. 4. Chronic kidney disease secondary to nephrosclerosis. Baseline creatinine 1.6-2. IV fluids are hep-locked. 5. Anemia of chronic kidney disease. Iron studies were checked in August and there is no evidence of iron deficiency. Nephrology has added Aranesp. Hemoglobin 9. No active signs of bleeding 6. Elevated d-dimer: Venous Dopplers are negative for DVT and VQ scan shows low probability of PE 7. Chronic lower extremity edema: Showing improvement. Patient may benefit from workup outpatient for possible venous insufficiency 8. Acute on chronic diastolic CHF with mild exacerbation. Mild fluid overload noted on today's chest x-ray. Patient was given 1 dose of IV Lasix and then st arted on oral Lasix. Aldactone was held on admission due to increased renal function. Echo from 08/20/2018 shows an EF of 50-55%. Cardiology has cleared patient for discharge from their standpoint. 9. Medical debility: PT OT is recommending ECF. 10. Hypomagnesemia resolved Okay to transfer to regular medical floor GI prophylaxis Pepcid and DVT prophylaxis Lovenox I performed an examination of the patient and discussed their management with the physician Fine Unhairer. I have reviewed the Physician Fine Unhairer's notes and agree with the documented findings and plan of care
--- NOTE | 2018-10-18 14:41 | P.PN ---
Subjective Progress Note Date: 10/18/18 Principal diagnosis: Dyspnea, cough, possibly related to mild tracheobronchitis, acute urinary tract infection This is 74-year-old white female patient of Dr. Tucker, with past medical history of congestive heart failure, osteoarthritis, previous episodes of pneumonia, chronic kidney disease, hypothyroidism, depression, gait dysfunction, and patient is nonambulatory, pretty much confined to her recliner at home, urinary incontinence with chronic indwelling catheter. No history of chronic lung disease, no asthma, no COPD, patient is a lifetime nonsmoker. On 10/15/2018 patient presented to the hospital per EMS complaints of shortness of breath, cough, and increasing peripheral edema. She denied any fever or chills, denied any sweats, did have some urinary complaints with burning and pressure. She states that an indwelling catheter was put in a year ago, for the reason of urinary incontinence, and patient had not seen a urologist for this problem. Denies presence of any wounds. Other medical history includes left breast cancer status post biopsy and lumpectomy chemotherapy and radiation in 2002, morbid obesity status post gastric bypass surgery. Chest x-ray showed no evidence of acute pulmonary disease. Admission blood work showed a white blood cell count of 11.6, hemoglobin of 10.2, d-dimer was elevated at 3.23, and VQ scan was obtained showing low probability of pulmonary embolism, lower extremity Dopplers were negative for DVT. Serum sodium was 134, potassium is 4.4, chloride was 111, CO2 is 16, BUN was 18, creatinine is 2.05, troponin was negat darius 1, proBNP was within normal limits at 466, urinalysis was infected, and urine cultures currently pending. Patient is on antibiotic coverage in the form of Rocephin. On today's exam patient states that she has less short of breath, no cough or congestion, lung sounds are positive for diffuse scattered crackles. She is on 2 L of oxygen with a pulse ox of 100%, respirations are even and nonlabored. Afebrile. On 10/18/2018 patient seen in follow-up on the selective care unit, she is awake and alert, in no acute distress, she states her breathing is much improved, lung sounds reveal some coarse scattered crackles, but no wheezing, no coughing, no chest congestion, patient remains on 2 L of oxygen with a pulse ox of 97%, afebrile, urine culture is positive for gram-negative bacilli, for which the patient remains on IV Rocephin. Today's lab 7 reviewed, with blood cell count is 7.5, hemoglobin is 9.0, serum sodium is 132, potassium is 3.9, chloride is 105, CO2 is 18, B1 is 26 creatinine is 2.19. No altered mentation, hemodynamic was stable, no specific pulmonary complaints, no complaints of chest pain. Objective - Vital Signs Vital signs: Vital Signs Temp 98.1 F 10/18/18 08:00 Pulse 86 10/18/18 12:22 Resp 18 10/18/18 12:00 BP 113/65 10/18/18 08:00 Pulse Ox 97 10/18/18 09:04 Intake & Output 10/17/18 10/18/18 10/18/18 18:59 06:59 18:59 Intake Total 640 720 Output Total 500 1050 Balance 140 -1050 720 Weight 113 kg Intake: IV 10 Invasive Line 2 10 Intake, IV Titration 50 Amount cefTRIAXone 1 gm In 50 Sodium Chloride 0.9% 50 ml @ 100 mls/hr IVPB Q24HR [facility] Rx#:[id number] Oral 580 720 Output: Urine 500 1050 Uretheral (Balderas) 500 350 Other: Voiding Method Indwelling Catheter Indwelling Catheter Indwelling Catheter - Exam GENERAL EXAM: Alert, pleasant, 73-year-old obese white female, on 2 L of oxygen and the pulse ox of 100%, resting in bed comfortable in no apparent distress. HEAD: Normocephalic/atraumatic. EYES: Normal reaction of pupils, equal size. Conjunctiva pink, sclera white. NOSE: Clear with pink turbinates. THROAT: No erythema or exudates. NECK: No masses, no JVD, no thyroid enlargement, no adenopathy. CHEST: No chest wall deformity. Symmetrical expansion. LUNGS: Equal air entry with diffuse scattered crackles, in the upper and lower lobes, no wheeze, rhonchi or dullness. CVS: Regular rate and rhythm, normal S1 and S2, no gallops, no murmurs, no rubs ABDOMEN: Soft, nontender. No hepatosplenomegaly, normal bowel sounds, no guarding or rigidity. EXTREMITIES: No clubbing, non-pitting lower extremity edema, no cyanosis, 2+ pulses and upper and lower extremities. MUSCULOSKELETAL: Muscle strength and tone normal. SPINE: No scoliosis or deformity SKIN: No rashes CENTRAL NERVOUS SYSTEM: Alert and oriented -3. No focal deficits, tone is normal in all 4 extremities. PSYCHIATRIC: Alert and oriented -3. Appropriate affect. Intact judgment and insight. - Labs CBC & Chem 7: 10/18/18 05:52 10/18/18 05:52 Labs: Abnormal Lab Results - Last 24 Hours (Table) 10/18/18 10/18/18 Range/Units 05:52 05:52 RBC 2.91 L (3.80-5.40) m/uL Hgb 9.0 L (11.4-16.0) gm/dL Hct 26.3 L (34.0-46.0) % RDW 16.3 H (11.5-15.5) % Sodium 132 L (137-145) mmol/L Carbon Dioxide 18 L (22-30) mmol/L BUN 26 H (7-17) mg/dL Creatinine 2.19 H (0.52-1.04) mg/dL Calcium 7.6 L (8.4-10.2) mg/dL Microbiology - Last 24 Hours (Table) 10/16/18 04:07 Urine Culture - Preliminary Urine,Catheterized Gram Neg Bacilli Assessment and Plan Plan: Assessment #1. Dyspnea, cough, could possibly be related to mild tracheobronchitis, chest x-ray did not show any acute pulmonary process #2. Acute urinary tract infection, urine culture positive for gram-negative bacilli, final culture is pending #3. Chronic indwelling catheter for urinary incontinence, untreated. #4. Gait dysfunction, patient is nonambulatory #5. Recent hospitalization for exacerbation of chronic diastolic congestive heart failure #6. Acute kidney injury with non-anion gap metabolic acidosis #7. Related d-dimer, VQ scan showed low probability of pulmonary embolism, and lower extremity Dopplers were negative for DVT #8. Hypomagnesemia #9. Chronic kidney disease stage III due to hypertensive nephrosclerosis #10. Osteoarthritis #11. Morbid obesity #12. Previous episodes of pneumonia, bronchitis #13. Depression #14. Never smoker #15. Hypothyroidism Plan: Patient is doing well from pulmonary perspective, no complaints of shortness of breath today, no cough or congestion, she is afebrile, today's follow-up chest x-ray has been reviewed and showed mild pulmonary vascular congestion, and patchy atelectasis along the left heart margin. We will continue with current antibiotics, final urine culture is pending. From pulmonary perspective patient is stable, can be considered for discharge once cleared by nephrology and cardiology I performed a history & physical examination of the patient and discussed their management with my nurse practitioner, Geraldine London. I reviewed the nurse practitioner's note and agree with the documented findings and plan of care. Lung sounds are positive for diffuse crackles . The findings and the impression was discussed with the patient. I attest to the documentation by the nurse practitioner. Time with Patient: Less than 30
[2018-10-18] MEDS: FUROSEMIDE 40 MG TAB PO SCH (16:43)
[2018-10-18] MEDS: SODIUM CHLORIDE 0.9% 1,000 ML IV SCH (22:50)
[2018-10-19] MEDS: SODIUM CHLORIDE 0.9% 1,000 ML IV SCH ×2 (01:25→17:39)
[2018-10-19 06:39] LABS: Anisocytosis Slight; Basophils % (A) 0 %; Eosinophils # (A) 0.4 k/uL (0-0.7); Eosinophils % (A) 6 %; HCT 24.9 % (34.0-46.0); HGB 8.3 gm/dL (11.4-16.0); Lymphocytes # (A) 1.5 k/uL (1.0-4.8); Lymphocytes % (A) 22 %; MCH 30.1 pg (25.0-35.0); MCHC 33.4 g/dL (31.0-37.0); MCV 90.1 fL (80.0-100.0); Mean Platelet Volume 8.2; Monocytes # (A) 0.3 k/uL (0-1.0); Monocytes % (A) 4 %; Neutrophils # (A) 4.3 k/uL (1.3-7.7); Neutrophils % (A) 65 %; Platelet Count 214 k/uL (150-450); RBC 2.76 m/uL (3.80-5.40); RDW 16.1 % (11.5-15.5); WBC 6.7 k/uL (3.8-10.6)
[2018-10-19] MEDS: LEVOTHYROXINE 100 MCG TAB PO SCH (06:56)
[2018-10-19 07:00] LABS: Albumin 2.1 g/dL (3.5-5.0); Calcium 7.4 mg/dL (8.4-10.2); Potassium 3.4 mmol/L (3.5-5.1); Total Bilirubin 0.3 mg/dL (0.2-1.3); Total Protein 5.2 g/dL (6.3-8.2)
[2018-10-19] MEDS: IPRATROPIUM-ALBUTEROL 3 ML NEB INHALATION SCH ×4 (08:04→19:06)
[2018-10-19] MEDS: CALCITRIOL 0.25 MCG CAP PO SCH (09:16)
[2018-10-19] MEDS: GABAPENTIN 300 MG CAP PO SCH ×3 (09:16→21:08)
[2018-10-19] MEDS: DULoxetine HCL 60 MG CAPSULE.DR PO SCH (09:16)
[2018-10-19] MEDS: CALCIUM CARB-VIT D 500MG-200UN 1 EACH TAB PO SCH (09:16)
[2018-10-19] MEDS: FAMOTIDINE 20 MG TAB PO SCH (09:16)
[2018-10-19] MEDS: rOPINIRole HCL 4 MG TABLET PO SCH ×3 (09:17→21:08)
[2018-10-19] MEDS: MAGNESIUM OXIDE 400 MG TAB PO SCH ×2 (09:17→20:15)
[2018-10-19] MEDS: FERROUS SULFATE 325 MG TAB PO SCH (09:17)
[2018-10-19] MEDS: ASPIRIN 81 MG PO SCH (09:17)
[2018-10-19] MEDS: FUROSEMIDE 40 MG TAB PO SCH ×2 (09:17→16:57)
[2018-10-19] MEDS: POTASSIUM BICARBONATE/CIT AC 20 MEQ TABLET.EFF PO SCH (09:17)
[2018-10-19] MEDS: ENOXAPARIN 30 MG/0.3 ML SYRINGE SQ SCH (09:17)
--- NOTE | 2018-10-19 14:44 | P.PN ---
Subjective Progress Note Date: 10/19/18 Shayla Mazariegos is a 73 year old female patient of Dr Tucker who prsented to [facility] ER with a chief complaint of worsening shortness of breath for the last 3 days. Patient was admitted to [facility] in August of this see at that time she had evidence of diastolic congestive heart failure, chronic renal failure, chronic indwelling Balderas catheter and electrolyte imbalance she was discharged home on August 24 2018, she returned yesterday with worsening shortness of breath and bilateral lower extremity edema, d-dimer was significantly elevated, she was started on IV heparin and VQ scan was ordered and revealed low probability of pulmonary embolism, IV heparin was discontinued and patient was admitted to telemetry floor. Patient was seen and examined on the telemetry floor on 10/16/2018 she is alert and oriented 3, she states that her shortness of breath is improving, her pulse ox is 90% on 3 L nasal cannula, she denies any chest pain there is no fever or chills no headache or dizziness, no nausea or vomiting no abdominal pain no diarrhea, she has a Balderas catheter which was changed in the emergency room, she has evidence of urinary tract infection, urine culture was ordered and patient was started on IV Rocephin. Chest x-ray done in the emergency room did not reveal any evidence of acute abnormality. 10/18/2018 patient was seen by , who is covering for Dr. Perdomo yesterday. Patient sitting up in bed comfortably. Denies any shortness of b reath. She is asking when she can home. At this time she was seen by nephrology they have added Aranesp for her anemia. Cardiology has cleared her from their standpoint for discharge and she is also being followed by pulmonary service. Chest x-ray shows took correlate to exclude pulmonary vascular congestion. She is receiving 1 more dose of IV Lasix today and the meaning switched over to oral Lasix. She is being treated for UTI and on Rocephin. She has a chronic indwelling Balderas catheter. Patient denies any chest pain or shortness of breath. Denies any nausea or vomiting bowel movement changes. 10/19/2018 patient is alert and oriented 3. Patient's creatinine increasing today to 2.24. Patient also had episodes of hypotension throughout the night with blood pressure in the 70s. Patient currently maintained on normal saline at 75. Patient does express that she is eager to go home recommended the patient stay additional 24 hours for further monitoring of kidney and blood pr essure. patient denied nausea and vomitting. patient denies chest pain and shortness of breath. Objective - Vital Signs Vital signs: Vital Signs Temp 97.6 F 10/19/18 07:00 Pulse 86 10/19/18 11:19 Resp 18 10/19/18 07:00 BP 109/56 10/19/18 07:00 Pulse Ox 97 10/19/18 08:04 Intake & Output 10/18/18 10/19/18 10/19/18 18:59 06:59 18:59 Intake Total 720 600 Output Total 800 2800 1400 Balance -80 -2800 -800 Weight 113.5 kg Intake: Oral 720 600 Output: Urine 800 2800 1400 Other: Voiding Method Indwelling Catheter Indwelling Catheter Indwelling Catheter - Exam Head normocephalic Neck supple Lungs a few expiratory wheezes noted on the left Heart regular rate and rhythm S1-S2, no rub or gallop Abdomen is soft nontender nondistended positive bowel sounds no hepatosplenomegaly Extremities no edema Neuro alert and orientated to 3 - Labs CBC & Chem 7: 10/19/18 06:05 10/19/18 06:05 Labs: Abnormal Lab Results - Last 24 Hours (Table) 10/19/18 10/19/18 Range/Units 06:05 06:05 RBC 2.76 L (3.80-5.40) m/uL Hgb 8.3 L (11.4-16.0) gm/dL Hct 24.9 L (34.0-46.0) % RDW 16.1 H (11.5-15.5) % Sodium 135 L (137-145) mmol/L Potassium 3.4 L (3.5-5.1) mmol/L Carbon Dioxide 20 L (22-30) mmol/L BUN 31 H (7-17) mg/dL Creatinine 2.24 H (0.52-1.04) mg/dL Calcium 7.4 L (8.4-10.2) mg/dL Total Protein 5.2 L (6.3-8.2) g/dL Albumin 2.1 L (3.5-5.0) g/dL Microbiology - Last 24 Hours (Table) 10/16/18 04:07 Urine Culture - Final Urine,Catheterized Klebsiella pneumoniae Assessment and Plan Assessment: 1. Dyspnea likely secondary to acute tracheobronchitis and mild fluid overload. Initial chest x-ray negative for acute pulmonary process. Continue Rocephin and bronchodilators. Followed by pulmonary service. 2. Complicated UTI related to chronic indwelling Balderas catheter. Continue Rocephin. Urine culture growing Klebsiella pneumonia. Balderas catheter changed in the ED 3. Acute kidney injury: Likely cardiorenal. Seen by nephrology service. 4. Acute on Chronic kidney disease secondary to nephrosclerosis. Baseline creatinine 1.6-2. IV fluids are hep-locked. Nephrology services are following. Creatinine increasing to 2.24 5. Anemia of chronic kidney disease. Iron studies were checked in August and there is no evidence of iron deficiency. Nephrology has added Aranesp. Hemoglobin 9. No active signs of bleeding 6. Elevated d-dimer: Venous Dopplers are negative for DVT and VQ scan shows low probability of PE 7. Chronic lower extremity edema: Showing improvement. Patient may benefit from workup outpatient for possible venous insufficiency 8. Acute on chronic diastolic CHF with mild exacerbation. Mild fluid overload noted on today's chest x-ray. Patient was given 1 dose of IV Lasix and then started on oral Lasix. Aldactone was held on admission due to increased renal function. Echo from 08/20/2018 shows an EF of 50-55%. Cardiology has cleared patient for discharge from their standpoint. 9. Medical debility: PT OT is recommending ECF. 10. Hypomagnesemia resolved 11. Hypotension. Patient having blood pressures in the 70s. Fluids have been initiated at normal saline at 75 Okay to transfer to regular medical floor GI prophylaxis Pepcid and DVT prophylaxis Lovenox I performed an examination of the patient and discussed their management with the Nurse Practitioner. I have reviewed the Nurse Practitioner's notes and agree with the documented findings and plan of care
--- NOTE | 2018-10-19 22:42 | PN ---
PROGRESS NOTE Patient is seen for followup for acute kidney injury. Patient was admitted to the hospital with a creatinine of about 2.0. Previous creatinine has been 1.75 to 2.2 mg/dL. Patient was initially diuresed. She continues to have good urine output. Her Lasix is currently p.o. at 40 mg twice a day. Patient has an indwelling Balderas catheter. Urine output is documented at 3.6 L. This morning patient denies any significant shortness of breath. She states she wants to go home. On examination, blood pressure was 109/56, heart rate 92 per minute. She is afebrile. EXAMINATION OF THE HEART: S1 and S2. EXAMINATION OF LUNGS: Bilateral breath sounds are heard. ABDOMEN: Soft, non-tender. Examination of lower extremities shows no significant edema. Labs show sodium 135, potassium 3.4, BUN 31, serum creatinine 2.24, hemoglobin 8.3 g/dL. ASSESSMENT: 1. Chronic kidney disease, NKF stage IIIB to IV, secondary to nephrosclerosis; baseline creatinine 1.6 to 2 mg/dL. There may be a component of mild acute kidney injury, mainly cardiorenal, currently stable. Patient is maintained on oral Lasix, which we will continue. Continue off of IV fluids. 2. Chronic kidney disease mineral bone disorder, maintained on Rocaltrol. 3. Anemia of chronic disease, currently on Aranesp. 4. Mild tracheobronchitis, maintained on antibiotics. 5. Urinary tract infection. Urine culture growing Klebsiella pneumoniae. Patient is maintained on antibiotics. PLAN: Continue current dose of Lasix. Continue off of IV fluids and repeat labs in a.m. Repeat chest x-ray as well in a.m. Chest x-ray from yesterday continued to show mild pulmonary vascular congestion. MMODL / IJN: [id number] /
[2018-10-20] MEDS: LEVOTHYROXINE 100 MCG TAB PO SCH (06:15)
[2018-10-20] MEDS: IPRATROPIUM-ALBUTEROL 3 ML NEB INHALATION SCH ×4 (06:49→19:26)
[2018-10-20] MEDS: ASPIRIN 81 MG PO SCH (07:18)
[2018-10-20] MEDS: FERROUS SULFATE 325 MG TAB PO SCH (07:19)
[2018-10-20] MEDS: FAMOTIDINE 20 MG TAB PO SCH (07:19)
[2018-10-20] MEDS: MAGNESIUM OXIDE 400 MG TAB PO SCH ×2 (07:19→21:13)
[2018-10-20] MEDS: DULoxetine HCL 60 MG CAPSULE.DR PO SCH (07:19)
[2018-10-20] MEDS: CALCIUM CARB-VIT D 500MG-200UN 1 EACH TAB PO SCH (07:19)
[2018-10-20] MEDS: ENOXAPARIN 30 MG/0.3 ML SYRINGE SQ SCH (07:19)
[2018-10-20] MEDS: FUROSEMIDE 40 MG TAB PO SCH ×2 (07:19→17:38)
[2018-10-20] MEDS: GABAPENTIN 300 MG CAP PO SCH ×3 (07:22→21:13)
[2018-10-20] MEDS: rOPINIRole HCL 4 MG TABLET PO SCH ×3 (07:23→21:13)
--- NOTE | 2018-10-20 08:12 | XR ---
EXAMINATION TYPE: XR chest 1V DATE OF EXAM: 10/20/2018 COMPARISON: 10/18/2018 HISTORY: Congestive heart failure. Shortness of breath. TECHNIQUE: Single frontal view of the chest is obtained. FINDINGS: There is mild increased pulmonary vascular congestion. Cardiomediastinal silhouette is upp er limits of normal. Mild degenerative changes of the thoracic spine and moderate of the right glenoh umeral joint are seen. No sizable pleural effusion or pneumothorax. IMPRESSION: Worsening mild pulmonary vascular congestion likely on the basis of congestive heart kodi lukely.
[2018-10-20 09:49] LABS: Anisocytosis Slight; Basophils % (A) 0 %; Eosinophils # (A) 0.5 k/uL (0-0.7); Eosinophils % (A) 6 %; HGB 9.5 gm/dL (11.4-16.0); Lymphocytes # (A) 1.6 k/uL (1.0-4.8); Lymphocytes % (A) 21 %; MCH 29.8 pg (25.0-35.0); MCHC 33.8 g/dL (31.0-37.0); MCV 88.1 fL (80.0-100.0); Mean Platelet Volume 8.4; Monocytes # (A) 0.3 k/uL (0-1.0); Monocytes % (A) 4 %; Neutrophils % (A) 66 %; Platelet Count 221 k/uL (150-450); RBC 3.18 m/uL (3.80-5.40); RDW 16.3 % (11.5-15.5); WBC 7.5 k/uL (3.8-10.6)
[2018-10-20 09:51] LABS: Albumin 2.2 g/dL (3.5-5.0); Calcium 7.3 mg/dL (8.4-10.2); Potassium 3.2 mmol/L (3.5-5.1); Total Bilirubin 0.4 mg/dL (0.2-1.3); Total Protein 5.6 g/dL (6.3-8.2)
[2018-10-20] MEDS: POTASSIUM BICARBONATE/CIT AC 20 MEQ TABLET.EFF PO SCH (10:58)
[2018-10-20] MEDS ORDERED: Potassium Replacement Protocol 1 EACH MISC MISCELLANE PRN (11:33)
--- NOTE | 2018-10-20 11:37 | P.PN ---
Subjective Progress Note Date: 10/20/18 Shayla Mazariegos is a 73 year old female patient of Dr Tucker who prsented to [facility] ER with a chief complaint of worsening shortness of breath for the last 3 days. Patient was admitted to [facility] in August of this see at that time she had evidence of diastolic congestive heart failure, chronic renal failure, chronic indwelling Balderas catheter and electrolyte imbalance she was discharged home on August 24 2018, she returned yesterday with worsening shortness of breath and bilateral lower extremity edema, d-dimer was significantly elevated, she was started on IV heparin and VQ scan was ordered and revealed low probability of pulmonary embolism, IV heparin was discontinued and patient was admitted to telemetry floor. Patient was seen and examined on the telemetry floor on 10/16/2018 she is alert and oriented 3, she states that her shortness of breath is improving, her pulse ox is 90% on 3 L nasal cannula, she denies any chest pain there is no fever or chills no headache or dizziness, no nausea or vomiting no abdominal pain no diarrhea, she has a Balderas catheter which was changed in the emergency room, she has evidence of urinary tract infection, urine culture was ordered and patient was started on IV Rocephin. Chest x-ray done in the emergency room did not reveal any evidence of acute abnormality. 10/18/2018 patient was seen by , who is covering for Dr. Perdomo yesterday. Patient sitting up in bed comfortably. Denies any shortness of b reath. She is asking when she can home. At this time she was seen by nephrology they have added Aranesp for her anemia. Cardiology has cleared her from their standpoint for discharge and she is also being followed by pulmonary service. Chest x-ray shows took correlate to exclude pulmonary vascular congestion. She is receiving 1 more dose of IV Lasix today and the meaning switched over to oral Lasix. She is being treated for UTI and on Rocephin. She has a chronic indwelling Balderas catheter. Patient denies any chest pain or shortness of breath. Denies any nausea or vomiting bowel movement changes. 10/19/2018 patient is alert and oriented 3. Patient's creatinine increasing today to 2.24. Patient also had episodes of hypotension throughout the night with blood pressure in the 70s. Patient currently maintained on normal saline at 75. Patient does express that she is eager to go home recommended the patient stay additional 24 hours for further monitoring of kidney and blood pr essure. patient denied nausea and vomitting. patient denies chest pain and shortness of breath. On 10/20/2018 patient is alert and oriented 3. Creatinine is improving today but chest x-ray showing increased pulmonary vascular congestion. Fluids have been DC'd discussed case with nephrology services patient will likely receive IV dose of Lasix per nephrology. At this time patient is currently on room air in no distress. Patient denies chest pain. Patient denies nausea vomiting or diarrhea. Patient denies any urinary burning or frequency Objective - Vital Signs Vital signs: Vital Signs Temp 98.2 F 10/20/18 05:37 Pulse 88 10/20/18 11:01 Resp 20 10/20/18 05:37 BP 91/58 10/20/18 07:30 Pulse Ox 98 10/20/18 05:37 Intake & Output 10/19/18 10/20/18 10/20/18 18:59 06:59 18:59 Intake Total 840 Output Total 2300 5600 Balance -1460 -5600 Intake: Oral 840 Output: Urine 2300 5600 Uretheral (Balderas) 2800 Other: Voiding Method Indwelling Catheter Indwelling Catheter Indwelling Catheter # Voids 1,000 # Bowel Movements 0 1 - Exam Head normocephalic Neck supple Lungs a few expiratory wheezes noted on the left Heart regular rate and rhythm S1-S2, no rub or gallop Abdomen is soft nontender nondistended positive bowel sounds no hepatosplenomegaly Extremities no edema Neuro alert and orientated to 3 - Labs CBC & Chem 7: 10/20/18 09:16 10/20/18 09:16 Labs: Abnormal Lab Results - Last 24 Hours (Table) 10/20/18 10/20/18 Range/Units 09:16 09:16 RBC 3.18 L (3.80-5.40) m/uL Hgb 9.5 L (11.4-16.0) gm/dL Hct 28.0 L (34.0-46.0) % RDW 16.3 H (11.5-15.5) % Sodium 136 L (137-145) mmol/L Potassium 3.2 L (3.5-5.1) mmol/L Carbon Dioxide 20 L (22-30) mmol/L BUN 31 H (7-17) mg/dL Creatinine 1.87 H (0.52-1.04) mg/dL Calcium 7.3 L (8.4-10.2) mg/dL Total Protein 5.6 L (6.3-8.2) g/dL Albumin 2.2 L (3.5-5.0) g/dL Assessment and Plan Assessment: 1. Dyspnea likely secondary to acute tracheobronchitis and mild fluid overload. Initial chest x-ray negative for acute pulmonary process. Continue Rocephin and bronchodilators. Followed by pulmonary service. 2. Complicated UTI related to chronic indwelling Balderas catheter. Continue Rocephin. Urine culture growing Klebsiella pneumonia. Balderas catheter changed in the ED 3. Acute kidney injury: Likely cardiorenal. Seen by nephrology service. 4. Acute on Chronic kidney disease secondary to nephrosclerosis. Baseline creatinine 1.6-2. IV fluids are hep-locked. Nephrology services are following. Creatinine improving to 1.87 5. Anemia of chronic kidney disease. Iron studies were checked in August and there is no evidence of iron deficiency. Nephrology has added Aranesp. Hemoglobin 9. No active signs of bleeding 6. Elevated d-dimer: Venous Dopplers are negative for DVT and VQ scan shows low probability of PE 7. Chronic lower extremity edema: Showing improvement. Patient may benefit from workup outpatient for possible venous insufficiency 8. Acute on chronic diastolic CHF with mild exacerbation. Mild fluid overload noted on today's chest x-ray. Patient was given 1 dose of IV Lasix and then started on oral Lasix. Aldactone was held on admission due to increased renal function. Echo from 08/20/2018 shows an EF of 50-55%. Cardiology has cleared patient for discharge from their standpoint. Repeat chest x-ray completed showing worsening mild pulmonary vascular congestion likely on the basis of CHF. Discussed case nephrology services. Patient likely to receive 1 dose of Lasix per nephrology today 9. Medical debility: PT OT is recommending ECF. 10. Hypomagnesemia resolved 11. Hypotension. Patient having blood pressures in the 70s. Blood pressure improving we'll continue to monitor 12. Hypokalemia potassium 3.2 replaced per protocol GI prophylaxis Pepcid and DVT prophylaxis Lovenox I performed an examination of the patient and discussed their management with the Nurse Practitioner. I have reviewed the Nurse Practitioner's notes and agree with the documented findings and plan of care
[2018-10-20] MEDS: POTASSIUM CHLORIDE ER 20 MEQ TAB.ER PO SCH ×2 (11:44→13:53)
[2018-10-20] MEDS ORDERED: FUROSEMIDE 10 MG/ML 4 ML VIAL IV STA (19:18)
--- NOTE | 2018-10-21 03:02 | PN ---
PROGRESS NOTE Patient is seen for followup for chronic kidney disease. She had mild acute kidney injury which seems to have improved. The patient was admitted with fluid overload, she is currently being diuresed. The patient is maintained on oral diuretics. Chest x-ray from this morning showed worsening CHF. The patient clinically denies any significant chest pains or shortness of breath. She states she wants to go home. PHYSICAL EXAMINATION: This morning blood pressure was 91/58, heart rate about 80 per minute. She is afebrile. Examination of the heart, S1 and S2. Examination of the lungs, decreased breath sounds bilateral bases, minimal basal crackles are heard. Abdomen is soft, nontender. Examination of lower extremities shows no significant edema. LABS: Show sodium 136, potassium 3.2, BUN 31, serum creatinine 1.87, hemoglobin of 9.5 g/dL. ASSESSMENT: 1. Chronic kidney disease, NKF Stage IIIB to IV, secondary to nephrosclerosis. Baseline creatinine 1.6-2 mg/dL. The patient has a component of mild acute kidney injury, mainly cardiorenal, fairly stable. Serum creatinine is significantly lower today. However, this may be related to underlying volume overload as well. I will give her a dose of IV Lasix today. 2. Chronic kidney disease mineral bone disorder, maintained on Rocaltrol. 3. Mild tracheobronchitis, currently on antibiotics. 4. Urinary tract infection. Urine culture growing Klebsiella pneumonia, maintained on antibiotics. PLAN: IV Lasix x1 today. The patient may need an additional dose of IV Lasix tomorrow. She could likely be discharged to the [facility] tomorrow. MMODL / IJN: [id number] /
[2018-10-21] MEDS: IPRATROPIUM-ALBUTEROL 3 ML NEB INHALATION SCH ×3 (06:56→15:32)
[2018-10-21] MEDS: LEVOTHYROXINE 100 MCG TAB PO SCH (07:06)
--- NOTE | 2018-10-21 08:10 | P.PN ---
Subjective Patient is seen in follow-up for acute kidney injury on chronic kidney disease. Creatinine was down to 1.87 yesterday. Patient has diastolic CHF and is maintained on Lasix 40 mg orally twice daily. She has a chronic Balderas catheter in place. Urine output is good. Oral intake is good. Denies chest pain or shortness of breath. Eager to go home. Vital signs are stable. General: The patient appeared well nourished and normally developed. HEENT: Head exam is unremarkable. Neck is without jugular venous distension. LUNGS: Lungs are clear to auscultation and percussion. Breath sounds decreased. HEART: Rate and Rhythm are regular. First and second heart sounds normal. No murmurs, rubs or gallops. ABDOMEN: Abdominal exam reveals normal bowel sounds. Non-tender and non- distended. No evidence of peritonitis. EXTREMITITES: Trace edema. Objective - Vital Signs Vital signs: Vital Signs Temp 97.8 F 10/21/18 04:40 Pulse 96 10/21/18 07:09 Resp 20 10/21/18 04:40 BP 104/66 10/21/18 04:40 Pulse Ox 98 10/21/18 04:40 Intake & Output 10/20/18 10/21/18 10/21/18 18:59 06:59 18:59 Output Total 1300 3100 1000 Balance -1300 -3100 -1000 Output: Urine 1300 3100 1000 Uretheral (Balderas) 1550 1000 Other: Voiding Method Indwelling Catheter Indwelling Catheter # Bowel Movements 2 - Labs CBC & Chem 7: 10/20/18 09:16 10/20/18 09:16 Labs: Abnormal Lab Results - Last 24 Hours (Table) 10/20/18 10/20/18 10/20/18 Range/Units 09:16 09:16 09:16 RBC 3.18 L (3.80-5.40) m/uL Hgb 9.5 L (11.4-16.0) gm/dL Hct 28.0 L (34.0-46.0) % RDW 16.3 H (11.5-15.5) % Sodium 136 L (137-145) mmol/L Potassium 3.2 L (3.5-5.1) mmol/L Carbon Dioxide 20 L (22-30) mmol/L BUN 31 H (7-17) mg/dL Creatinine 1.87 H (0.52-1.04) mg/dL Calcium 7.3 L (8.4-10.2) mg/dL Magnesium 1.5 L (1.6-2.3) mg/dL Total Protein 5.6 L (6.3-8.2) g/dL Albumin 2.2 L (3.5-5.0) g/dL Assessment and Plan Plan: Assessment: 1. Acute kidney injury mostly prerenal secondary to cardiorenal syndrome. Creatinine down to 1.87 yesterday. 2. Chronic kidney disease stage IIIB/4 secondary to nephrosclerosis and cardiorenal syndrome. Baseline creatinine in the range of 1.62. 3. Urinary incontinence with chronic Balderas catheter in place. 4. Continued UTI maintained on antibiotics. Urine culture positive for Klebsiella. 5. Chronic kidney disease mineral bone disease maintained on calcitriol. 6. Hypokalemia secondary to diuresis. This was replaced. 7. Hypomagnesemia secondary to diuresis. 8. Diastolic CHF. 9. Anemia of chronic kidney disease maintained on Aranesp. Plan: Maintain Lasix 40 mg orally twice daily. Follow-up morning labs. Will replace potassium and magnesium accordingly.
[2018-10-21] MEDS: rOPINIRole HCL 4 MG TABLET PO SCH ×2 (08:29→15:43)
[2018-10-21] MEDS: MAGNESIUM OXIDE 400 MG TAB PO SCH (08:30)
[2018-10-21] MEDS: CALCITRIOL 0.25 MCG CAP PO SCH (08:30)
[2018-10-21] MEDS: DULoxetine HCL 60 MG CAPSULE.DR PO SCH (08:30)
[2018-10-21] MEDS: POTASSIUM BICARBONATE/CIT AC 20 MEQ TABLET.EFF PO SCH (08:30)
[2018-10-21] MEDS: FUROSEMIDE 40 MG TAB PO SCH ×2 (08:30→15:43)
[2018-10-21] MEDS: ASPIRIN 81 MG PO SCH (08:30)
[2018-10-21] MEDS: FAMOTIDINE 20 MG TAB PO SCH (08:30)
[2018-10-21] MEDS: GABAPENTIN 300 MG CAP PO SCH ×2 (08:30→15:43)
[2018-10-21] MEDS: CALCIUM CARB-VIT D 500MG-200UN 1 EACH TAB PO SCH (08:30)
[2018-10-21] MEDS: FERROUS SULFATE 325 MG TAB PO SCH (08:30)
[2018-10-21] MEDS: ENOXAPARIN 30 MG/0.3 ML SYRINGE SQ SCH (08:31)
--- NOTE | 2018-10-21 08:44 | XR ---
EXAMINATION TYPE: XR chest 1V portable DATE OF EXAM: 10/21/2018 COMPARISON: 10/20/2018 HISTORY: Shortness of breath TECHNIQUE: Single frontal view of the chest is obtained. FINDINGS: No overt failure. Interstitium is improved. Patchy perihilar changes on the left persists. No pleural effusion or pneumothorax. Arthropathy of the shoulders. Atherosclerotic change aorta. Pos tsurgical clips overlying the left axilla. IMPRESSION: Improving interstitium with patchy left perihilar atelectasis or infiltrates.
[2018-10-21 09:25] LABS: Anisocytosis Slight; Basophils # (A) 0.1 k/uL (0-0.2); Basophils % (A) 1 %; Eosinophils # (A) 0.3 k/uL (0-0.7); Eosinophils % (A) 4 %; HCT 30.4 % (34.0-46.0); Hypochromasia Slight; Lymphocytes # (A) 1.6 k/uL (1.0-4.8); Lymphocytes % (A) 22 %; MCH 29.9 pg (25.0-35.0); MCHC 32.8 g/dL (31.0-37.0); MCV 91.2 fL (80.0-100.0); Mean Platelet Volume 8.7; Monocytes # (A) 0.2 k/uL (0-1.0); Monocytes % (A) 3 %; Neutrophils % (A) 68 %; Platelet Count 251 k/uL (150-450); RBC 3.33 m/uL (3.80-5.40); RDW 16.1 % (11.5-15.5); WBC 7.3 k/uL (3.8-10.6)
[2018-10-21 09:48] LABS: Albumin 2.5 g/dL (3.5-5.0); Calcium 7.5 mg/dL (8.4-10.2); Magnesium 1.4 mg/dL (1.6-2.3); Total Bilirubin 0.7 mg/dL (0.2-1.3); Total Protein 6.1 g/dL (6.3-8.2)
[2018-10-21 10:15] LABS: Potassium 3.5 mmol/L (3.5-5.1)
[2018-10-21] MEDS ORDERED: Magnesium Replacement Protocol 1 EACH MISC MISCELLANE PRN (10:43)
[2018-10-21 11:13] VITALS: BMI 40.4
[2018-10-21] MEDS: MAGNESIUM SULFATE-D5W PMX 1 GM in DEXTROSE/WATER 1 100ML.BAG IVPB SCH ×3 (11:13→13:50)
[2018-10-21 13:20] VITALS: BP 98/63; PULSE 75; RESP 18; TEMP 98
--- NOTE | 2018-10-21 13:52 | ECHOF ---
Referral Reason:sob MEASUREMENTS -------- HEIGHT: 167.6 cm WEIGHT: 93.0 kg BP: IVSd: 1.1 cm (0.6 - 1.1) LVIDd: 4.0 cm (3.9 - 5.3) LVPWd: 1.3 cm (0.6 - 1.1) IVSs: 1.7 cm LVIDs: 1.6 cm LVPWs: 1.6 cm LAESV Index (A-L): 18.31 ml/m EPSS: 1.0 cm MV E Mino: 0.89 m/s MV DecT: 168 ms MV A Mino: 1.45 m/s MV E/A Ratio: 0.62 RAP: 5.00 mmHg RVSP: 30.98 mmHg MV EF SLOPE: 62.57 mm/s (70 - 150) MV EXCURSION: 0.98 cm (> 18.000) FINDINGS -------- Resting tachycardia (HR>100bpm). Limited Study The left ventricular size is normal. Left ventricular wall thickness is normal. Overall left vent ricular systolic function is normal with, an EF between 60 - 65 %. The tricuspid valve appears structurally normal. Mild tricuspid regurgitation present. There is n o evidence of pulmonary hypertension. The right ventricular systolic pressure, as measured by Doppl er, is 30.98mmHg. Trace/mild (physiologic) pulmonic regurgitation. IVC Not well visulized. CONCLUSIONS -------- 1. Resting tachycardia (HR>100bpm). 2. Limited Study 3. The left ventricular size is normal. 4. Left ventricular wall thickness is normal. 5. Overall left ventricular systolic function is normal with, an EF between 60 - 65 %. 6. The tricuspid valve appears structurally normal. 7. Mild tricuspid regurgitation present. 8. There is no evidence of pulmonary hypertension. 9. The right ventricular systolic pressure, as measured by Doppler, is 30.98mmHg. 10. Trace/mild (physiologic) pulmonic regurgitation. 11. IVC Not well visulized. CARTON WRAPPER: Vicki Jordan, [facility]
--- NOTE | 2018-10-21 14:14 | P.PN ---
Subjective This is a pleasant 73-year-old female past medical history significant for chronic lower extremity edema, chronic kidney disease, hypothyroidism, breast cancer status post chemoradiation, obesity with prior gastric bypass surgery, ostial myelitis and lower extremity cellulitis. She presented to the hospital with symptoms of shortness of breath and has been being treated for tracheobronchitis. We have been asked to see her again during this hospitalization secondary to what is thought to be heart failure. Limited echocardiogram was obtained to assess further assess diastolic function revealing normal diastolic function, no increased left atrial pressures, normal PA pressures with no evidence of diastolic dysfunction. Blood pressure 98/63 heart rate 75 afebrile maintaining oxygen saturation on room air. Chest x-ray obtained this morning reveals improving interstitium with patchy left perihilar atelectasis. Laboratory data reviewed, WBC 7.3, hemoglobin 10, platelets 251, sodium 135, potassium 3.5, creatinine 1.89, magnesium 1.4 Currently maintained on aspirin 81 mg daily and Lasix 40 mg by mouth twice a day. She has seen and examined resting comfortably laying flat in bed in no acute distress. She denies symptoms of chest pain, shortness of breath, dizziness or palpitations. GENERAL: Well-appearing, well-nourished and in no acute distress. NECK: Supple without JVD or thyromegaly. LUNGS: Breath sounds clear to auscultation bilaterally. Respiration equal and unlabored. No wheezes, rales or rhonchi. HEART: Regular rate and rhythm without murmurs, rubs or gallops. S1 and S2 heard. EXTREMITIES: Normal range of motion, bilateral lower extremity nonpitting edema and chronic skin changes suggestive of venous insufficiency. No clubbing or cyanosis. Peripheral pulses intact. ASSESSMENT Shortness of breath, currently being treated for tracheobronchitis. Normal diastolic function with no evidence of heart failure. Acute on chronic renal failure Hypomagnesemia Chronic lower extremity edema History of breast cancer status post chemoradiation PLAN Continue replacing magnesium per protocol. Stable from a cardiac perspective. No evidence of heart failure. Follow-up with Dr. Palacios upon discharge. We will continue to follow as needed. Nurse Practitioner note has been reviewed, I agree with a documented findings and plan of care. Patient was seen and examined. Objective - Vital Signs Vital signs: Vital Signs Temp 98.0 F 10/21/18 13:19 Pulse 75 10/21/18 13:19 Resp 18 10/21/18 13:19 BP 98/63 10/21/18 13:19 Pulse Ox 96 10/21/18 13:19 Intake & Output 10/20/18 10/21/18 10/21/18 18:59 06:59 18:59 Output Total 1300 3100 1000 Balance -1300 -3100 -1000 Weight 113.5 kg Output: Urine 1300 3100 1000 Uretheral (Balderas) 1550 1000 Other: Voiding Method Indwelling Catheter Indwelling Catheter # Bowel Movements 2 - Labs CBC & Chem 7: 10/21/18 08:19 10/21/18 08:19 Labs: Abnormal Lab Results - Last 24 Hours (Table) 10/21/18 10/21/18 Range/Units 08:19 08:19 RBC 3.33 L (3.80-5.40) m/uL Hgb 10.0 L (11.4-16.0) gm/dL Hct 30.4 L (34.0-46.0) % RDW 16.1 H (11.5-15.5) % Sodium 135 L (137-145) mmol/L BUN 31 H (7-17) mg/dL Creatinine 1.89 H (0.52-1.04) mg/dL Calcium 7.5 L (8.4-10.2) mg/dL Magnesium 1.4 L (1.6-2.3) mg/dL Total Protein 6.1 L (6.3-8.2) g/dL Albumin 2.5 L (3.5-5.0) g/dL
--- NOTE | 2018-10-21 15:18 | P.DS ---
Providers Date of admission: 10/15/18 17:24 Expected date of discharge: 10/21/18 Attending physician: Marcy Perdomo Consults: 10/16/18 13:23 Consult Physician Routine Consulting Provider: Michel Mcdonald Consult Reason/Comments: dyspnea Do you want consulting provider notified?: Yes 10/16/18 13:38 Consult Physician Routine Consulting Provider: Shahid Guadarrama Consult Reason/Comments: shortness of breath Do you want consulting provider notified?: Yes 10/18/18 08:55 Consult Physician Routine Consulting Provider: Jaja Nur Consult Reason/Comments: BRANNON Do you want consulting provider notified?: Yes 10/20/18 12:49 Consult Physician Routine Consulting Provider: Shahid Guadarrama Consult Reason/Comments: hypotension, increased pulmonary vascular congestion Do you want consulting provider notified?: Yes Primary care physician: Shira Tucker [facility] Course: Discharge diagnosis 1. Dyspnea likely secondary to acute tracheobronchitis and mild fluid overload. Initial chest x-ray negative for acute pulmonary process. Continue Rocephin and bronchodilators. On a services have signed off. Repeat chest x-ray showing improving interstitium with patchy left perihilar atelectasis or infiltrate. Patient will be DC'd on Ceftin for 10 days 2. Complicated UTI related to chronic indwelling Balderas catheter. Continue Rocephin. Urine culture growing Klebsiella pneumonia. Balderas catheter changed in the ED. patient will be DC'd on Ceftin for 10 more days 3. Acute kidney injury: Likely cardiorenal. Seen by nephrology service. 4. Acute on Chronic kidney disease secondary to nephrosclerosis. Baseline creatinine 1.6-2. IV fluids are hep-locked. Nephrology services are following. Creatinine 1.89. Discussed case with nephrology services okay for discharge follow-up outpatient repeat CMP and Markus 3 days. 5. Anemia of chronic kidney disease. Iron studies were checked in August and there is no evidence of iron deficiency. Nephrology has added Aranesp. Hemoglobin 9. No active signs of bleeding 6. Elevated d-dimer: Venous Dopplers are negative for DVT and VQ scan shows low probability of PE 7. Chronic lower extremity edema: Showing improvement. Patient may benefit from workup outpatient for possible venous insufficiency 8. Acute on chronic diastolic CHF with mild exacerbation. Mild fluid overload noted on today's chest x-ray. Patient was given 1 dose of IV Lasix and then started on oral Lasix. Aldactone was held on admission due to increased renal function. Echo from 08/20/2018 shows an EF of 50-55%. Cardiology has cleared patient for discharge from their standpoint. Repeat chest x-ray completed showing worsening mild pulmonary vascular congestion likely on the basis of CHF. Discussed case nephrology services. Patient likely to receive 1 dose of Lasix per nephrology today. Limited 2-D echo showed showing no distal dysfunction. Normal PA pressures. Spoke to cardiology nurse practitioner Tania hinton for discharge from cardiology perspective. Patient will be DC'd on Lasix 20 mg twice a day 9. Medical debility: PT OT is recommending ECF. Patient refused patient planning to be DC'd home with home health care and caregiver 10. Hypomagnesemia resolved 11. Hypotension. Patient having blood pressures in the 70s. Blood pressure improving we'll continue to monitor. Patient Lasix has been decreased to 20 mg twice a day. Advised patient to follow-up with PCP and home visiting nursing to monitor blood pressure closely 12. Hypokalemia potassium 3.2 replaced per protocol Hospital course Shayla Mazariegos is a 73 year old female patient of Dr Tucker who prsented to [facility] ER with a chief complaint of worsening shortness of breath for the last 3 days. Patient was admitted to [facility] in August of this see at that time she had evidence of diastolic congestive heart failure, chronic renal failure, chronic indwelling Balderas catheter and electrolyte imbalance she was discharged home on August 24 2018, she returned yesterday with worsening shortness of breath and bilateral lower extremity edema, d-dimer was significantly elevated, she was started on IV heparin and VQ scan was ordered and revealed low probability of pulmonary embolism, IV heparin was discontinued and patient was admitted to telemetry floor. Patient was seen and examined on the telemetry floor on 10/16/2018 she is alert and oriented 3, she states that her shortness of breath is improving, her pulse ox is 90% on 3 L nasal cannula, she denies any chest pain there is no fever or chills no headache or dizziness, no nausea or vomiting no abdominal pain no diarrhea, she has a Balderas catheter which was changed in the emergency room, she has evidence of urinary tract infection, urine culture was ordered and patient was started on IV Rocephin. Chest x-ray done in the emergency room did not reveal any evidence of acute abnormality. 10/18/2018 patient was seen by , who is covering for Dr. Perdomo yesterday. Patient sitting up in bed comfortably. Denies any shortness of breath. She is asking when she can home. At this time she was seen by nephrology they have added Aranesp for her anemia. Cardiology has cleared her from their standpoint for discharge and she is also being followed by pulmonary service. Chest x-ray shows took correlate to exclude pulmonary vascular congestion. She is receiving 1 more dose of IV Lasix today and the meaning switched over to oral Lasix. She is being treated for UTI and on Rocephin. She has a chronic indwelling Balderas catheter. Patient denies any chest pain or shortness of breath. Denies any nausea or vomiting bowel movement changes. 10/19/2018 patient is alert and oriented 3. Patient's creatinine increasing today to 2.24. Patient also had episodes of hypotension throughout the night with blood pressure in the 70s. Patient currently maintained on normal saline at 75. Patient does express that she is eager to go home recommended the patient stay additional 24 hours for further monitoring of kidney and blood pressure. patient denied nausea and vomitting. patient denies chest pain and shortness of breath. On 10/20/2018 patient is alert and oriented 3. Creatinine is improving today but chest x-ray showing increased pulmonary vascular congestion. Fluids have been DC'd discussed case with nephrology services patient will likely receive IV dose of Lasix per nephrology. At this time patient is currently on room air in no distress. Patient denies chest pain. Patient denies nausea vomiting or diarrhea. Patient denies any urinary burning or frequency On 10/21/2018 patient is alert and oriented 3. Patient expresses that she is very eager to go home. Discussed case with nephrology services Dr. Elijah hinton for discharge follow-up outpatient repeat CMP in 3 days. Patient also evaluated by cardiology services. Patient has been cleared for discharge from cardiology standpoint. Urine culture growing Klebsiella pneumoniae, patient will be DC'd on Ceftin for 10 more days. At this time patient denies chest pain or shortness of breath. Patient has been on room air. Patient denies nausea vomiting or diarrhea. Patient denies any urinary burning or frequency. Patient will be decreased to 20 mg twice a day Lasix 20 mg twice a day. Patient advised to follow-up closely with PCP and monitor blood pressure closely at home. I performed an examination of the patient and discussed their management with the Nurse Practitioner. I have reviewed the Nurse Practitioner's notes and agree with the documented findings and plan of care Patient Condition at Discharge: Stable Plan - Discharge Summary Discharge Rx Participant: No New Discharge Prescriptions: New Cefuroxime Axetil [Ceftin] 500 mg PO BID 10 Days #20 tab Furosemide [Lasix] 20 mg PO BID 30 Days #60 tab Continue rOPINIRole HCL [Requip] 6 mg PO TID Ferrous Sulfate [Iron (65 MG Elemental)] 325 mg PO DAILY Albuterol Inhaler [Ventolin Hfa Inhaler] 1 - 2 puff INHALATION RT-Q6H PRN PRN Reason: Shortness Of Breath Magnesium Oxide [Magox 400] 400 mg PO BID #60 tablet Levothyroxine Sodium [Synthroid] 200 mcg PO DAILY Potassium Bicarb-Citric Acid [K-Lyte] 25 meq PO DAILY Gabapentin [Neurontin] 300 mg PO TID DULoxetine HCL [Cymbalta] 60 mg PO DAILY Calcium Carb-Vit D 500Mg-200Un [Oscal 500+D] 1 tab PO DAILY Aspirin 81 mg PO DAILY 30 Days #30 chew Calcitriol [Rocaltrol] 0.25 mcg PO Q48H 15 Days #15 cap Discontinued Spironolactone 50 mg PO DAILY Discharge Medication List rOPINIRole HCL [Requip] 6 mg PO TID 07/16/17 [History] Albuterol Inhaler [Ventolin Hfa Inhaler] 1 - 2 puff INHALATION RT-Q6H PRN 06/30/18 [History] Ferrous Sulfate [Iron (65 MG Elemental)] 325 mg PO DAILY 06/30/18 [History] Magnesium Oxide [Magox 400] 400 mg PO BID #60 tablet 07/05/18 [Rx] Calcium Carb-Vit D 500Mg-200Un [Oscal 500+D] 1 tab PO DAILY 08/20/18 [History] DULoxetine HCL [Cymbalta] 60 mg PO DAILY 08/20/18 [History] Gabapentin [Neurontin] 300 mg PO TID 08/20/18 [History] Levothyroxine Sodium [Synthroid] 200 mcg PO DAILY 08/20/18 [History] Potassium Bicarb-Citric Acid [K-Lyte] 25 meq PO DAILY 08/20/18 [History] Aspirin 81 mg PO DAILY 30 Days #30 chew 08/24/18 [Rx] Calcitriol [Rocaltrol] 0.25 mcg PO Q48H 15 Days #15 cap 08/24/18 [Rx] Cefuroxime Axetil [Ceftin] 500 mg PO BID 10 Days #20 tab 10/21/18 [Rx] Furosemide [Lasix] 20 mg PO BID 30 Days #60 tab 10/21/18 [Rx] Follow up Appointment(s)/Referral(s): Michel Mcdonald MD [STAFF PHYSICIAN] - 11/30/18 8:45 am Jaja Nur MD [STAFF PHYSICIAN] - 10/28/18 11:40 am Shira Tucker MD [Primary Care Provider] - 10/21/18 2:15 pm [facility], [NON-STAFF] - Paresh Palacios MD [STAFF PHYSICIAN] - 2 Weeks Ambulatory/Diagnostic Orders: Comprehensive Metabolic Panel [LAB.AMB] Time Frame: 3 Days, Location: None Selected Magnesium [LAB.AMB] Time Frame: 3 Days, Location: None Selected Activity/Diet/Wound Care/Special Instructions: Activity as tolerated Diet renal heart healthy Patient DC'd with chronic Balderas home health care Discharge Disposition: HOME WITH HOME HEALTH SERVICES
== END 2018-10-21 17:13 | disposition home health service (06) | DRG 698 ==
LOC: EC 11:34 → 3SCARD 17:24 → 4MS4W 10-19 17:38
PROVIDERS: ADMIT Internal Medicine; ATTEND Internal Medicine
DX: T83.511A Infection and inflammatory reaction due to indwelling urethral catheter, initial encounter (principal); I50.33 Acute on chronic diastolic (congestive) heart failure; Z68.41 Body mass index [BMI] 40.0-44.9, adult; E87.2 Acidosis; I13.0 Hypertensive heart and chronic kidney disease with heart failure and stage 1 through stage 4 chronic kidney disease, or unspecified chronic kidney disease; J98.11 Atelectasis; N17.9 Acute kidney failure, unspecified; Y84.6 Urinary catheterization as the cause of abnormal reaction of the patient, or of later complication, without mention of misadventure at the time of the procedure; B96.1 Klebsiella pneumoniae [K. pneumoniae] as the cause of diseases classified elsewhere; D63.1 Anemia in chronic kidney disease; E03.9 Hypothyroidism, unspecified; E66.01 Morbid (severe) obesity due to excess calories; E83.42 Hypomagnesemia; E87.6 Hypokalemia; F32.9 Major depressive disorder, single episode, unspecified; G25.81 Restless legs syndrome; I49.3 Ventricular premature depolarization; J20.9 Acute bronchitis, unspecified; M19.90 Unspecified osteoarthritis, unspecified site; M89.8X9 Other specified disorders of bone, unspecified site; M89.9 Disorder of bone, unspecified; N18.3 Chronic kidney disease, stage 3 (moderate); N39.0 Urinary tract infection, site not specified; R32 Unspecified urinary incontinence; T50.2X5A Adverse effect of carbonic-anhydrase inhibitors, benzothiadiazides and other diuretics, initial encounter; Z79.82 Long term (current) use of aspirin; Z79.890 Hormone replacement therapy; Z79.899 Other long term (current) drug therapy; Z82.49 Family history of ischemic heart disease and other diseases of the circulatory system; Z83.3 Family history of diabetes mellitus; Z85.3 Personal history of malignant neoplasm of breast; Z86.73 Personal history of transient ischemic attack (TIA), and cerebral infarction without residual deficits; Z92.21 Personal history of antineoplastic chemotherapy; Z92.3 Personal history of irradiation; Z98.84 Bariatric surgery status; Z88.1 Allergy status to other antibiotic agents; Z88.2 Allergy status to sulfonamides; Z90.49 Acquired absence of other specified parts of digestive tract; I95.9 Hypotension, unspecified
CPT/HCPCS: 36415; 71045; 71046; 78582; 80048; 80053; 81001; 82550; 83735; 83880; 84484; 85025; 85379; 85610; 85730; 87077; 87086; 87186; 93005; 93308; 93970; 94640; 94760; 96365; 96367; 96375; 96376; 99285

== ENCOUNTER 2018-11-02 16:56 | Emergency (ER) | payer MEDICARE, OTHER ==
--- NOTE | 2018-11-02 18:22 | XR ---
EXAMINATION: XR chest 2V DATE AND TIME: 11/02/2018 5:40 PM CLINICAL INDICATION: PHH; Weakness TECHNIQUE: AP and lateral COMPARISON: 10/21/2018 FINDINGS: The lungs are clear. The pleural spaces are negative. The cardiac silhouette is not enlarged. The remainder of the mediastinal silhouette is unremarkable. The skeletal structures and soft tissues are negative for acute findings. Left axillary surgical clips noted. IMPRESSION: NO ACUTE PROCESS.
[2018-11-02 18:32] VITALS: RESP 18
[2018-11-02 18:42] LABS: Anisocytosis Slight; Basophils % (A) 0 %; Eosinophils # (A) 0.1 k/uL (0-0.7); Eosinophils % (A) 1 %; HCT 33.8 % (34.0-46.0); HGB 10.9 gm/dL (11.4-16.0); Hypochromasia Slight; Lymphocytes # (A) 2.1 k/uL (1.0-4.8); Lymphocytes % (A) 22 %; MCH 29.3 pg (25.0-35.0); MCHC 32.2 g/dL (31.0-37.0); Mean Platelet Volume 7.9; Monocytes # (A) 0.4 k/uL (0-1.0); Monocytes % (A) 4 %; Neutrophils # (A) 6.8 k/uL (1.3-7.7); Neutrophils % (A) 71 %; Platelet Count 272 k/uL (150-450); RBC 3.71 m/uL (3.80-5.40); RDW 16.2 % (11.5-15.5); WBC 9.6 k/uL (3.8-10.6)
--- NOTE | 2018-11-02 18:44 | ED ---
General Adult HPI - General Chief complaint: Weakness Stated complaint: Weakness Time Seen by Provider: 11/02/18 17:05 Source: patient, EMS, RN notes reviewed Mode of arrival: EMS Limitations: no limitations - History of Present Illness Initial comments: This is a 73-year-old female presents emergency Department because of generalized weakness. No one is with the patient initially eventually a person who spoke with the nurse who did see the patient came in and stated that she was found sleeping in bed into the late afternoon and this was unusual and they thought she was much weaker than normal. Patient is alert and oriented 3 and has no complaints and really does not want to be here but she is willing to have some basic blood work done. Patient denies any chest pain difficulty breathing or shortness of breath per patient denies any abdominal pain patient denies nausea vomiting diarrhea. Patient denies headache patient denies numbness we akness. Patient denies any lightheadedness or dizziness. Patient denies any increased swelling to the legs. She denies any dysuria hematuria urinary frequency. - Related Data Home Medications Medication Instructions Recorded Confirmed rOPINIRole HCL [Requip] 6 mg PO TID 07/16/17 11/02/18 DULoxetine HCL [Cymbalta] 60 mg PO DAILY 08/20/18 11/02/18 Gabapentin [Neurontin] 300 mg PO TID 08/20/18 11/02/18 Levothyroxine Sodium [Synthroid] 200 mcg PO DAILY 08/20/18 11/02/18 Potassium Bicarb-Citric Acid 25 meq PO DAILY 08/20/18 11/02/18 [K-Lyte] Albuterol Nebulized [Ventolin 2.5 mg INHALATION RT-Q6H PRN 11/02/18 11/02/18 Nebulized] DULoxetine HCL [Cymbalta] 30 mg PO DAILY 11/02/18 11/02/18 Furosemide [Lasix] 40 mg PO BID 11/02/18 11/02/18 Gabapentin [Neurontin] 100 mg PO BID 11/02/18 11/02/18 Previous Rx's Medication Instructions Recorded Nitrofurantoin Monohyd/M-Cryst 100 mg PO Q12HR #14 cap 11/02/18 [Macrobid] Allergies Allergy/AdvReac Type Severity Reaction Status Date / Time Sulfa (Sulfonamide Allergy Anaphylaxis Verified 11/02/18 17:19 Antibiotics) vancomycin Allergy Rash/Hives Verified 11/02/18 17:19 Review of Systems ROS Statement: Those systems with pertinent positive or pertinent negative responses have been documented in the HPI. ROS Other: All systems not noted in ROS Statement are negative. Past Medical History Past Medical History: Cancer, Heart Failure, CVA/TIA, Osteoarthritis (OA), Pneumonia, Renal Disease, Thyroid Disorder Additional Past Medical History / Comment(s): chronic edema, chronic metabolic acidosis, neuropathy, insomnia, Hx breast cancer, chemo and radiation tx in 2002, kidney failure, hypothyroid, RLS, cellulitis R leg, hypotension History of Any Multi-Drug Resistant Organisms: None Reported Past Surgical History: Bariatric Surgery, Section, Cholecystectomy, Tonsillectomy Additional Past Surgical History / Comment(s): Gastric bypass, left breast biopsy & lumpectomy Past Anesthesia/Blood Transfusion Reactions: No Reported Reaction Past Psychological History: Depression Smoking Status: Never smoker Past Alcohol Use History: None Reported Past Drug Use History: None Reported - Past Family History Father History Unknown: Yes Family Medical History: Diabetes Mellitus Additional Family Medical History / Comment(s): unaware of entire history. Mother History Unknown: Yes Family Medical History: Chest Pain / Angina, Coronary Artery Disease (CAD), Diabetes Mellitus Additional Family Medical History / Comment(s): Valves replaced in her heart per patient. General Exam - General Exam Comments Initial Comments: GENERAL: Patient is well-developed and well-nourished. Patient is nontoxic and well-hydrated and is in no acute distress. ENT: Neck is soft and supple. No significant lymphadenopathy is noted. Oropharynx is clear. Moist mucous membranes. Neck has full range of motion without eliciting any pain. EYES: The sclera were anicteric and conjunctiva were pink and moist. Extraocular movements were intact and pupils were equal round and reactive to light. Eyelids were unremarkable. PULMONARY: Unlabored respirations. Good breath sounds bilaterally. No audible rales rhonchi or wheezing was noted. CARDIOVASCULAR: There is a regular rate and rhythm without any murmurs gallops or rubs. ABDOMEN: Soft and nontender with normal bowel sounds. No palpable organomegaly was noted. There is no palpable pulsatile mass. SKIN: Skin is clear with no lesions or rashes and otherwise unremarkable. NEUROLOGIC: Patient is alert and oriented x3. Cranial nerves II through XII are grossly in tact. Motor and sensory are also intact. Normal speech, volume and content. Symmetrical smile. MUSCULOSKELETAL: Normal extremities with adequate strength and full range of motion. LYMPHATICS: No significant lymphadenopathy is noted PSYCHIATRIC: Normal psychiatric evaluation. Limitations: no limitations Course Vital Signs 11/02/18 11/02/18 17:02 18:30 Temperature 98 F Pulse Rate 107 H 101 H Respiratory 16 18 Rate Blood Pressure 107/68 96/71 O2 Sat by Pulse 98 99 Oximetry Medical Decision Making - Medical Decision Making EKG shows sinus tachycardia 102 bpm CO interval is 176 QRS is 80 QT interval is 376 QTC is 490 per patient's EKG shows no ST segment elevation or depression. Patient has some white cells in the urine I did a urine culture this time and give the patient 1 g Rocephin. I'll begin to talk to the patient patient did not want to stay she was alert and oriented 1 to go home and stated she felt fine. Patient friend was in the room and stated the patient has been acting completely normal since she's been here which is been a few hours. - Lab Data Result diagrams: 11/02/18 18:24 11/02/18 18:24 Lab Results 11/02/18 11/02/18 11/02/18 Range/Units 18:24 18:24 18:24 WBC 9.6 (3.8-10.6) k/uL RBC 3.71 L (3.80-5.40) m/uL Hgb 10.9 L (11.4-16.0) gm/dL Hct 33.8 L (34.0-46.0) % MCV 91.0 (80.0-100.0) fL MCH 29.3 (25.0-35.0) pg MCHC 32.2 (31.0-37.0) g/dL RDW 16.2 H (11.5-15.5) % Plt Count 272 (150-450) k/uL Neutrophils % 71 % Lymphocytes % 22 % Monocytes % 4 % Eosinophils % 1 % Basophils % 0 % Neutrophils # 6.8 (1.3-7.7) k/uL Lymphocytes # 2.1 (1.0-4.8) k/uL Monocytes # 0.4 (0-1.0) k/uL Eosinophils # 0.1 (0-0.7) k/uL Basophils # 0.0 (0-0.2) k/uL Hypochromasia Slight Anisocytosis Slight PT 14.0 H (9.0-12.0) sec INR 1.4 H (<1.2) APTT 24.2 (22.0-30.0) sec Sodium 136 L (137-145) mmol/L Potassium 3.2 L (3.5-5.1) mmol/L Chloride 102 (98-107) mmol/L Carbon Dioxide 23 (22-30) mmol/L Anion Gap 11 mmol/L BUN 42 H (7-17) mg/dL Creatinine 2.38 H (0.52-1.04) mg/dL Est GFR (CKD-EPI)AfAm 23 (>60 ml/min/1.73 sqM) Est GFR (CKD-EPI)NonAf 20 (>60 ml/min/1.73 sqM) Glucose 99 (74-99) mg/dL Plasma Lactic Acid [place] (0.7-2.0) mmol/L Calcium 6.9 L (8.4-10.2) mg/dL Total Bilirubin 0.9 (0.2-1.3) mg/dL AST 54 H (14-36) U/L ALT 47 (9-52) U/L Alkaline Phosphatase 117 (38-126) U/L Troponin I (0.000-0.034) ng/mL Total Protein 6.3 (6.3-8.2) g/dL Albumin 2.7 L (3.5-5.0) g/dL Urine Color Urine Appearance (Clear) Urine pH (5.0-8.0) Ur Specific [place] (1.001-1.035) Urine Protein (Negative) Urine Glucose (UA) (Negative) Urine Ketones (Negative) Urine Blood (Negative) Urine Nitrite (Negative) Urine Bilirubin (Negative) Urine Urobilinogen (<2.0) mg/dL Ur Leukocyte Esterase (Negative) Urine RBC (0-5) /hpf Urine WBC (0-5) /hpf Ur Squamous Epith Cells (0-4) /hpf Amorphous Sediment (None) /hpf Urine Bacteria (None) /hpf Hyaline Casts (0-2) /lpf Urine Mucus (None) /hpf 11/02/18 11/02/18 11/02/18 Range/Units 18:24 18:24 18:30 WBC (3.8-10.6) k/uL RBC (3.80-5.40) m/uL Hgb (11.4-16.0) gm/dL Hct (34.0-46.0) % MCV (80.0-100.0) fL MCH (25.0-35.0) pg MCHC (31.0-37.0) g/dL RDW (11.5-15.5) % Plt Count (150-450) k/uL Neutrophils % % Lymphocytes % % Monocytes % % Eosinophils % % Basophils % % Neutrophils # (1.3-7.7) k/uL Lymphocytes # (1.0-4.8) k/uL Monocytes # (0-1.0) k/uL Eosinophils # (0-0.7) k/uL Basophils # (0-0.2) k/uL Hypochromasia Anisocytosis PT (9.0-12.0) sec INR (<1.2) APTT (22.0-30.0) sec Sodium (137-145) mmol/L Potassium (3.5-5.1) mmol/L Chloride (98-107) mmol/L Carbon Dioxide (22-30) mmol/L Anion Gap mmol/L BUN (7-17) mg/dL Creatinine (0.52-1.04) mg/dL Est GFR (CKD-EPI)AfAm (>60 ml/min/1.73 sqM) Est GFR (CKD-EPI)NonAf (>60 ml/min/1.73 sqM) Glucose (74-99) mg/dL Plasma Lactic Acid [place] 1.7 (0.7-2.0) mmol/L Calcium (8.4-10.2) mg/dL Total Bilirubin (0.2-1.3) mg/dL AST (14-36) U/L ALT (9-52) U/L Alkaline Phosphatase (38-126) U/L Troponin I 0.016 (0.000-0.034) ng/mL Total Protein (6.3-8.2) g/dL Albumin (3.5-5.0) g/dL Urine Color Yellow Urine Appearance Clear (Clear) Urine pH 5.5 (5.0-8.0) Ur Specific [place] 1.011 (1.001-1.035) Urine Protein Negative (Negative) Urine Glucose (UA) Negative (Negative) Urine Ketones Negative (Negative) Urine Blood Trace H (Negative) Urine Nitrite Negative (Negative) Urine Bilirubin Negative (Negative) Urine Urobilinogen <2.0 (<2.0) mg/dL Ur Leukocyte Esterase Moderate H (Negative) Urine RBC 2 (0-5) /hpf Urine WBC 36 H (0-5) /hpf Ur Squamous Epith Cells 2 (0-4) /hpf Amorphous Sediment Rare H (None) /hpf Urine Bacteria Occasional H (None) /hpf Hyaline Casts 1 (0-2) /lpf Urine Mucus Rare H (None) /hpf Disposition Clinical Impression: Urinary tract infection Disposition: HOME SELF-CARE Condition: Good Instructions (If sedation given, give patient instructions): Urinary Tract Infection in Women (ED) Prescriptions: Nitrofurantoin Monohyd/M-Cryst [Macrobid] 100 mg PO Q12HR #14 cap Is patient prescribed a controlled substance at d/c from ED?: No Referrals: Shira Tucker MD [Primary Care Provider] - 1-2 days Time of Disposition: 20:06
[2018-11-02 18:51] LABS: Albumin 2.7 g/dL (3.5-5.0); Calcium 6.9 mg/dL (8.4-10.2); Potassium 3.2 mmol/L (3.5-5.1); Total Bilirubin 0.9 mg/dL (0.2-1.3); Total Protein 6.3 g/dL (6.3-8.2)
[2018-11-02 18:54] LABS: INR 1.4 (<1.2); Partial Thromboplastin Time 24.2 sec (22.0-30.0)
[2018-11-02 19:01] LABS: Amorphous Sediment,Urine Rare /hpf; Appearance,Urine Clear (Clear); Bacteria,Urine Occasional /hpf; Bilirubin,Urine Negative (Negative); Blood,Urine Trace (Negative); Color,Urine Yellow; Glucose,Urine (UA) Negative (Negative); Hyaline Casts,Urine 1 /lpf (0-2); Ketones,Urine Negative (Negative); Leukocyte Esterase,Urine Moderate (Negative); Mucus,Urine Rare /hpf; Nitrite,Urine Negative (Negative); PH, Urine 5.5 (5.0-8.0); Protein,Urine Negative (Negative); RBC,Urine 2 /hpf (0-5); Specific Gravity,Urine 1.011 (1.001-1.035); Squamous Epithelial Cell,Urine 2 /hpf (0-4); Urobilinogen,Urine <2.0 mg/dL (<2.0); WBC,Urine 36 /hpf (0-5)
[2018-11-02] MEDS ORDERED: cefTRIAXone IN SWFI 1,000 MG/10 ML SYRINGE IVP STA (20:12)
[2018-11-02 20:15] VITALS: BP 108/74; PULSE 103; TEMP 97.8
== END 2018-11-02 20:55 | disposition home or self-care (01) ==
LOC: EC 16:56
DX: N39.0 Urinary tract infection, site not specified (principal); R53.1 Weakness; I50.9 Heart failure, unspecified; G62.9 Polyneuropathy, unspecified; E03.9 Hypothyroidism, unspecified; G25.81 Restless legs syndrome; F32.9 Major depressive disorder, single episode, unspecified; Z86.73 Personal history of transient ischemic attack (TIA), and cerebral infarction without residual deficits; Z85.3 Personal history of malignant neoplasm of breast; Z79.890 Hormone replacement therapy; Z79.899 Other long term (current) drug therapy; Z88.1 Allergy status to other antibiotic agents; Z88.2 Allergy status to sulfonamides
CPT/HCPCS: 36415; 93005; 80053; 83605; 84484; 85025; 85610; 85730; 81001; 87086; 71046; 99285; 96374; J0696